=== PATIENT | male | born 1965 | race Caucasian/White ===

== ENCOUNTER 2022-04-03 09:34 | Outpatient (REF) | payer MEDICARE, SELFPAY ==
[2022-04-03 10:45] LABS: MANUAL DIFF FLAG NO
[2022-04-03 10:47] LABS: Basophils Percent Auto 0.7 % (0-2); Eosinophils Percent Auto 0.5 % (0-4); Hematocrit 45.5 % (42.0-52.0); Hemoglobin 15.2 g/dl (14.0-18.0); Imm Gran Abs Auto 0.02 X10*3/uL (0.00-0.03); Imm Gran Pct Auto 0.3 % (0.0-0.4); Lymphocytes Absolute Auto 1.2 X10*3/uL (1.2-4.9); Lymphocytes Percent Auto 19.8 % (20-40); Mean Corpuscular HGB Conc 33.4 g/dl (31.0-36.0); Mean Corpuscular Hemoglobin 30.7 pg (27.0-33.0); Mean Corpuscular Volume 91.9 fL (80.0-98.0); Mean Platelet Volume 11.3 fL (9.4-12.4); Monocytes Absolute Auto 0.6 X10*3/uL (0.1-1.2); Monocytes Percent Auto 9.1 % (2-11); Neutrophils Absolute Auto 4.3 x10*3/uL (2.0-8.3); Neutrophils Percent Auto 69.6 % (45-73); Platelet Count 132 X10*3/uL (160-400); Red Blood Count 4.95 X10*6/uL (4.60-5.80); Red Cell Distribution Width 13.2 % (11.0-16.0); White Blood Count 6.2 X10*3/uL (4.8-10.8)
[2022-04-03 11:40] LABS: Thyroid Stimulating Hormone 2.75 uIU/mL (0.32-4.0)
[2022-04-03 11:41] LABS: Alanine Aminotransferase 33 U/L (0-40); Albumin Level 3.9 g/dL (3.5-5.0); Alkaline Phosphatase 111 U/L (39-117); Anion Gap 13 (12-20); Aspartate Amino Transferase 47 U/L (5-37); Bilirubin Total 1.1 mg/dL (0.0-1.0); Blood Urea Nitrogen 8 mg/dL (9-16); Calcium 8.6 mg/dL (8.4-10.2); Carbon Dioxide 26 mmol/L (22-29); Chloride 102 mmol/L (96-108); Cholesterol 185 mg/dL; Estimated Glomerular Filt Rate > 60; Glucose Fasting 250 mg/dL (60-99); HDL Cholesterol 42 mg/dL; LDL Cholesterol Calculated 127 mg/dl; Potassium 4.3 mmol/L (3.3-5.1); Sodium 137 mmol/L (135-145); Total Protein 7.6 g/dL (6.5-8.0); Triglycerides 80 mg/dL
== END 2022-04-03 09:35 | disposition home or self-care (01) ==
LOC: HO.LAB 09:34
PROVIDERS: PCP Internal Medicine; Visit Provider Internal Medicine
DX: Z13.0 Encounter for screening for diseases of the blood and blood-forming organs and certain disorders involving the immune mechanism (principal); E03.9 Hypothyroidism, unspecified; I10 Essential (primary) hypertension; E78.5 Hyperlipidemia, unspecified
CPT/HCPCS: 36415; 80053; 80061; 84443; 85025

== ENCOUNTER 2023-06-23 08:45 | Outpatient (AMB) | payer MEDICARE, SELFPAY ==
[2023-06-23 08:55] VITALS: BP 150/90; PULSE 76; O2SAT 97; BMI 34.0
--- NOTE | 2023-06-23 08:55 | AM.OFFVISMDC ---
Intake Vital Signs 06/23/23 08:55 Height 6 ft Weight 251 lb BMI 34.0 BP 150/90 H Blood Pressure Location Lt brachial Position Sitting Pulse 76 Pulse Source Pulse Oximeter Pulse Oximetry (%) 97 Oxygen Delivery Method Room Air Intake Visit Reasons: awv Allergies codeine [Codeine] Allergy (Mild, Verified 06/23/23 08:56) RASH Codeine Allergy (Unknown, Uncoded 06/23/23 08:56) Rash Medication List - Last Reconciled 06/23/23 by Darryl Domingo MD buspirone 10 mg PO TID clonidine HCl 0.1 mg PO BEDTIME sertraline 100 mg PO DAILY zolpidem 10 mg PO BEDTIME PRN HPI awv HPI Details Depression on rx; sees psych Questionnaire Medicare Wellness Checkup What [age] your age?: 65-69 (57) What gender do you identify with?: male During the past 4 weeks, how much have you been bothered by emotional problems such as feeling anxious, depressed, irritable, sad or downhearted, and blue?: moderately During the past 4 weeks, has your physical & emotional health limited your social activities with family, friends, neighbors, or groups?: moderately During the past 4 weeks, how much bodily pain have you generally had?: very mild pain During the past 4 weeks, was someone available to help you if you needed & wanted help?: yes, quite a bit During the past 4 weeks, what was the hardest physical activity you could do for at least 2 minutes?: light Can you get to places out of walking distance without help? (For eg., can you travel alone on buses, taxis or drive your car?): No Can you go shopping for groceries or clothes without someone's help?: No Can you prepare your own meals?: Yes Can you do your housework without help?: Yes Because of any health problems, do you need the help of another person with your personal care needs such as eating, bathing, dressing or getting around the house?: No Can you handle your own money without help?: Yes During the past 4 weeks, how would you rate your health in general?: good During the past 4 weeks how have things been going for you?: good & bad parts about equal Are you having difficulties driving your car?: no Do you always fasten your seat belt when you are in a car?: yes, usually During past 4 weeks, have you been bothered by the following: never: Falling or dizzy when standing up, Sexual problems? and Problems using the telephone? and seldom: Trouble eating well? and Tiredness or fatigue? Have you fallen 2 or more times in the past year?: No Are you afraid of falling?: No Are you a smoker?: yes, but I'm not ready to quit During the past 4 weeks, how many drinks of wine, beer, or other alcoholic beverages did you have?: 6-9 drinks per week Do you exercise for about 20 minutes 3 or more times a week?: no, I usually do not exercise this much How often do you have trouble taking medicines the way you have been told to take them?: I always take medicine as prescribed How confident are you that you can control & manage most of your health problems?: not very confident What is your race?: White Mini Mental State Exam (MMSE) Orientation What is the (year) (season) (date) (day) (month)?: year, season, date, day and month Where are we (state) (county) (town or city) (hospital) (floor)?: state, county, town or city, hospital/clinic and floor Registration Name of 3 unrelated objects clearly and slowly, then ask patient to repeat all 3 of them. (1st repeat determines score. Make sure they can repeat all three): object 1, object 2 and object 3 Recall Ask patient to repeat the 3 items from question #3.: object 1 and object 2 Score Score: 15 Activity of Daily Living Bathing - sponge bath, tub bath or shower: receives no assistance (gets in/out by self, if usual bathing means Dressing - getting clothes from closets & drawers, including inner/outer garments & fasteners.: gets clothes & gets completely dressed without help Toileting - going to the 'toilet room' for urine/bowel elimination & cleaning self/arranging clothes: goes to toilet room, cleans self, arranges clothes without help Transfer: moves in & out of bed and chair without help (may use support object) Continence: controls urination/bowel movements completely by self Feeding: feeds self without help Total Score: 0 Information obtained from: patient Using telephone: independent Traveling: independent Shopping: independent Preparing meals: independent Housework: independent Taking medicine: independent PHQ-9 Over the last 2 weeks, how often have you been bothered by any of the following problems? 1. Little interest or pleasure in doing things: nearly every day 2. Feeling down, depressed, or hopeless: nearly every day 3. Trouble falling or staying asleep, or sleeping too much: nearly every day 4. Feeling tired or having little energy: nearly every day 5. Poor appetite or overeating: nearly every day 6. Feeling bad about yourself - or that you are a failure or have let yourself or your family down: nearly every day 7. Trouble concentrating on things, such as reading the newspaper or watching television: nearly every day 8. Moving or speaking so slowly that other people could have noticed. Or the opposite - being so fidgety or restless that you have been moving around a lot more than usual: not at all 9. Thoughts that you would be better off or of hurting yourself in some way: several days Total score: 22 Depression Screening Interpretation: Positive Depression Screening Done: Yes 10249 - PHQ-9 Billing: Yes Source: Developed by Drs. Fan Gaytan, Kacey Robledo, Sunny Stephens and colleagues, with an educational man from [employer]. Review of Systems Const Denies chills, Denies fatigue, Denies headache(s) and Denies weight loss Eyes Denies change in vision, Denies diplopia and Denies eye pain ENT Reports Normal hearing present, Denies vertigo, Denies dizziness, Denies headache(s) and Denies nasal discharge Card Denies chest pain, Denies rapid heart rate and Denies dyspnea on exertion Resp Denies chest congestion, Denies cough, Denies pain with cough and Denies dyspnea on exertion GI Denies abdominal pain, Denies hematochezia and Denies change in bowel habits Musc Denies myalgias, Denies arthralgias and Denies joint swelling Skin/Breast Denies lesions and Denies unusual bruising Neuro Reports Normal hearing present, Denies vertigo, Denies dizziness, Denies headache(s) and Denies focal weakness Endo Denies fatigue Physical Exam Vital Signs: Last Vital Signs Pulse 76 06/23/23 08:55 BP 150/90 H 06/23/23 08:55 Pulse Ox 97 06/23/23 08:55 Oxygen Delivery Method Room Air 06/23/23 08:55 BMI result Body Mass Index 34.0 Neuro Cranial nerves: Yes Normal hearing present Assessment & Plan Assessment & Plan (1) Encounter for subsequent annual wellness visit (AWV) in Medicare patient: Code(s): Z00.00 - Encounter for general adult medical examination without abnormal findings Plan: rhomberg and whisper tests nl (2) Depression: Code(s): F32.A - Depression, unspecified Plan: as perr psych Orders: Orders Lipid Panel Today E78.5 - Hyperlipidemia, unspecified Thyroid Stimulating Hormone Today E03.9 - Hypothyroidism, unspecified Complete Blood Count Auto Diff Today D64.9 - Anemia, unspecified Comprehensive Sullivan. Panel Fast Today N28.9 - Disorder of kidney and ureter, unspecified Hemoglobin A1c Today R73.9 - Hyperglycemia, unspecified Quality Reporting (2019) Depression/Bipolar (159/160/161/177) PHQ-9: Total score: 22 Coding Level of Care Code Medicare Subsequent (G0439) Diagnoses Encounter for subsequent annual wellness visit (AWV) in Medicare patient Z00.00 Depression F32.A CPT Codes Advance Care Planning - Advance Care Planning discussion: On file, no changes ([id number]) Advance Care Planning Advance Care Planning discussion: On file, no changes Forms completed: Health Care Proxy
== END 2023-06-23 09:19 | disposition home or self-care (01) ==
PROVIDERS: PCP Internal Medicine; Visit Provider Internal Medicine
DX: Z00.00 Encounter for general adult medical examination without abnormal findings (principal); F32.A Depression, unspecified
CPT/HCPCS: 1123F; G0439

== ENCOUNTER 2023-06-23 09:27 | Outpatient (REF) | payer MEDICARE, SELFPAY ==
[2023-06-23 09:45] LABS: MANUAL DIFF FLAG NO
[2023-06-23 10:15] LABS: Hematocrit 48.3 % (42.0-52.0); Hemoglobin 16.6 g/dl (14.0-18.0); Mean Corpuscular HGB Conc 34.4 g/dl (31.0-36.0); Mean Corpuscular Hemoglobin 31.3 pg (27.0-33.0); Mean Platelet Volume 11.5 fL (9.4-12.4); Neutrophils Percent Auto 72.8 % (45-73); Platelet Count 117 X10*3/uL (160-400); Red Blood Count 5.31 X10*6/uL (4.60-5.80); Red Cell Distribution Width 13.2 % (11.0-16.0); White Blood Count 7.2 X10*3/uL (4.8-10.8)
[2023-06-23 10:16] LABS: Basophils Percent Auto 0.4 % (0-2); Eosinophils Absolute Auto 0.1 X10*3/uL (0.0-0.4); Imm Gran Abs Auto 0.02 X10*3/uL (0.00-0.03); Imm Gran Pct Auto 0.3 % (0.0-0.4); Lymphocytes Absolute Auto 1.4 X10*3/uL (1.2-4.9); Lymphocytes Percent Auto 19.4 % (20-40); Monocytes Absolute Auto 0.4 X10*3/uL (0.1-1.2); Monocytes Percent Auto 6.1 % (2-11); Neutrophils Absolute Auto 5.2 x10*3/uL (2.0-8.3)
[2023-06-23 10:59] LABS: Estimated Average Glucose 137 mg/dL; Hemoglobin A1c % 6.4 % (<6.0)
[2023-06-23 11:07] LABS: Alanine Aminotransferase 16 U/L (0-40); Alkaline Phosphatase 78 U/L (39-117); Anion Gap 12 (12-20); Aspartate Amino Transferase 25 U/L (5-37); Bilirubin Total 1.1 mg/dL (0.0-1.0); Blood Urea Nitrogen 9 mg/dL (9-16); Calcium 9.4 mg/dL (8.4-10.2); Carbon Dioxide 26 mmol/L (22-29); Chloride 103 mmol/L (96-108); Cholesterol 191 mg/dL (<200); Estimated Glomerular Filt Rate > 60; Glucose Fasting 167 mg/dL (60-99); HDL Cholesterol 38 mg/dL (>40); LDL Cholesterol Calculated 133 mg/dL (<100); Sodium 137 mmol/L (135-145); Total Protein 8.1 g/dL (6.5-8.0); Triglycerides 100 mg/dL (<150)
[2023-06-23 11:29] LABS: Thyroid Stimulating Hormone 2.62 uIU/mL (0.32-4.0)
== END 2023-06-23 09:28 | disposition home or self-care (01) ==
LOC: HO.LAB 09:27
PROVIDERS: PCP Internal Medicine; Visit Provider Internal Medicine
DX: D64.9 Anemia, unspecified (principal); N28.9 Disorder of kidney and ureter, unspecified; R73.9 Hyperglycemia, unspecified; E78.5 Hyperlipidemia, unspecified; E03.9 Hypothyroidism, unspecified
CPT/HCPCS: 36415; 80053; 80061; 83036; 84443; 85025

== ENCOUNTER 2024-04-25 10:10 | Inpatient (IN) | payer MEDICARE, SELFPAY ==
[2024-04-25] VITALS (7 sets, daily range): BP systolic 197–218; BP diastolic 68–96; PULSE 66–77; RESP 17–20; TEMP 36.7–37; O2SAT 96–99; BMI 35.6
--- NOTE | ~2024-04-25 | US_ITS ---
EXAMINATION: Noninvasive assessment of the bilateral lower extremities with ARTERIAL DUPLEX and ANKLE BRACHIAL INDICES (ABIs). CLINICAL INFORMATION: PERIPHERAL VASCULAR DISEASE TECHNIQUE: Duplex Doppler techniques with waveform analysis and measurement of velocities in the bilateral common femoral, profunda femoris, superficial femoral, popliteal and tibial arteries were performed. Additionally, ankle pulse volume recordings, ankle pressure measurements and ankle brachial indices were obtained of the lower extremity arterial system bilaterally. The study was performed only at rest. COMPARISON: None FINDINGS: DIRECT DUPLEX DOPPLER FINDINGS: RIGHT LEG: Common femoral artery: 127 cm/s, phasicity: Biphasic Profunda femoris artery: 98 cm/s, phasicity: Biphasic Superficial femoral artery (proximal): 277 cm/s, phasicity: Biphasic Superficial femoral artery (mid): 82 cm/s, phasicity: Triphasic. Collateral vessels visualized in close proximity to the mid superficial femoral artery. Superficial femoral artery (distal): 44 cm/s, phasicity: Triphasic Popliteal artery: 72 cm/s, phasicity: Monophasic Posterior tibial artery: 38 cm/s, phasicity: Monophasic. Collateral vessels visualized in close proximity to the posterior tibial artery. Peroneal artery: Not visualized Anterior tibial artery: 59 cm/s, phasicity: Monophasic Dorsalis pedis artery: 18 cm/s, phasicity:Monophasic LEFT LEG: Common femoral artery: 121 cm/s, phasicity: Biphasic Profunda femoris artery: 103 cm/s, phasicity: Biphasic Superficial femoral artery (proximal): 382 cm/s, phasicity: Biphasic Superficial femoral artery (mid): 93 cm/s, phasicity: Biphasic Superficial femoral artery (distal): 59 cm/s, phasicity: Biphasic Popliteal artery: 55 cm/s, phasicity: Biphasic Posterior tibial artery: 24 cm/s, phasicity: Monophasic Peroneal artery: 27 cm/s, phasicity: Monophasic Anterior tibial artery: 26 cm/s, phasicity: Monophasic Dorsalis pedis artery: 40 cm/s, phasicity: Monophasic ANKLE-BRACHIAL INDEX: Nondiagnostic bilaterally due to brachial and ankle pressure is greater than 200. ANKLE PRESSURES: Right: Brachial 200, PT 200 Left: Brachial 200, PT?200, DP?200 ANKLE PVR WAVEFORMS: Right: Abnormal Left: Abnormal US/US arterial duplex BI w/ EULALIA IMPRESSION: Right leg: Moderate stenosis of the proximal right superficial femoral artery and mild stenosis of the common femoral artery. Dampened velocities and monophasic waveforms of the right popliteal and anterior tibial arteries. The right peroneal artery is not visualized and may be occluded. There are collateral vessels visualized in close proximity to the mid superficial femoral artery and posterior tibial artery suggesting hemodynamically significant stenoses. Nondiagnostic EULALIA due to elevated ankle and brachial pressures above 200. Left leg: Moderate to severe stenosis of the proximal left superficial femoral artery. Dampened velocities and monophasic waveforms of the peroneal, posterior tibial, and anterior tibial arteries. Nondiagnostic EULALIA due to elevated ankle and brachial pressures above 200. EULALIA Reference: - >1.4 = calcified vessels - 0.9 - 1.4 = normal - no significant arterial disease - 0.7 - 0.89 = mild peripheral arterial disease - 0.51 - 0.69 = moderate peripheral arterial disease - ? 0.50 = severe peripheral arterial disease - < .30 = critical arterial disease
--- NOTE | ~2024-04-25 | XR_ITS ---
EXAMINATION: XR FOOT, RIGHT CLINICAL INFORMATION: Foot also with question of osteomyelitis COMPARISON: None available. TECHNIQUE: AP, lateral, and oblique views of the right foot. FINDINGS: No prior images are available for comparison. There is destruction/absence of the distal fifth metatarsal and proximal phalanx of the fifth digit. A soft tissue ulceration is seen in this region. Vascular calcifications are seen. There is pes planus. No other abnormalities are detected. XR/XR foot RT min 3V IMPRESSION: Destruction/absence of the distal fifth metatarsal and proximal phalanx of the fifth digit with soft tissue ulceration. It is difficult to exclude osteomyelitis especially without prior imaging. MRI may be useful for further evaluation to assess for possible osteomyelitis.
--- NOTE | 2024-04-25 11:18 | ED_ITS ---
HPI - Skin/Abscess/Foreign Bdy General Chief complaint: Skin/Abscess/Foreign Body Stated complaint: Ulcer R foot Time Seen by Provider: 04/25/24 11:04 Source: patient and RN notes reviewed Mode of arrival: ambulatory Limitations: no limitations History of Present Illness ED Provider: Renea Skaggs PA-C HPI narrative: This is a 58-year-old male, with no known medical problems, who presents emergency department with complaints of right foot ulceration. Patient states that he noticed what he thought was a callus several weeks ago. He states that this has increased in size and pain. Denies history of similar symptoms in the past. No fevers or chills. No body aches. No chest pain or shortness of breath. Denies any abdominal pain, nausea, vomiting or diarrhea. He has been ambulatory on this foot however this causes him to have increased pain. He has been taking ibuprofen for her symptoms which has provided him with little relief. No other complaints or concerns at this time. MD complaint: lesion Onset (ago): week(s) Tetanus up to date: unsure Severity: severe Severity scale (1-10): 8 Quality: aching and sharp Pain Consistency: constant Relieving factors: immobilization Exacerbating factors: palpation Context: none Associated symptoms: denies other symptoms Treatments prior to arrival: none Related Data Home Medications ?Medication ?Instructions ?Recorded ?Confirmed buspirone 10 mg tablet 10 mg PO TID 04/03/22 06/23/23 clonidine HCl 0.1 mg tablet 0.1 mg PO BEDTIME 04/03/22 06/23/23 sertraline 100 mg tablet 100 mg PO DAILY 04/03/22 06/23/23 zolpidem 10 mg tablet 10 mg PO BEDTIME PRN 04/03/22 06/23/23 Allergies Allergy/AdvReac Type Severity Reaction Status Date / Time codeine [Codeine] Allergy Mild RASH Verified 04/25/24 10:53 Codeine Allergy Unknown Rash Uncoded 06/23/23 08:56 Review of Systems 2 Review of Systems: Yes all other systems are reviewed and are negative Constitutional: Constitutional: Reports as per [facility] Past Medical History Attestation statement: The following information was validated with the patient. Social History Social History Advance Directives: No Advance Directives Information Provided: Yes Physical Exam 2 Vital Signs: Vital Signs: Last Vital Signs Temp 98.1 F 04/25/24 15:26 Pulse 66 04/25/24 15:26 Resp 20 04/25/24 15:26 BP 197/68 H 04/25/24 15:26 Pulse Ox 99 04/25/24 15:26 O2 Del Method Room Air 04/25/24 15:26 BMI result Body Mass Index 35.6 Const: General: cooperative, comfortable and no acute distress O rientation/consciousness: patient oriented x3 Limitations: no limitations HEENT: Head: Yes normal to inspection, Yes normocephalic and Yes atraumatic Ears: hearing grossly normal bilaterally General nose exam: Normal external nose present Face and sinus: Yes normal facial exam Mouth: Normal oral and palatal mucosa present, oropharynx normal and moist mucous membranes Throat: Yes posterior oropharynx normal Eyes: General: appearance normal, both eyes and all related structures E yelids: Yes eyelids normal Conjunctivae: conjunctivae normal Sclerae: s clerae normal Pupils: Equal, round and reactive pupils present EOM: EOMs intact bilaterally Neck: Neck: Yes normal visual inspection, Yes full ROM and Yes no lymphadenopathy Lymphatic: no lymphadenopathy noted Chest: Chest palpation & inspection: normal inspection of the chest Resp: Effort & Inspection: normal respiratory effort and able to speak in complete sentences Auscultation: clear to auscultation bilaterally, no crackles, no rales, no rhonchi and no wheezes Cardio: Rate: regular rate Rhythm: regular rhythm Heart sounds: S1 normal heart sound present and S2 normal heart sound present GI: Inspection: Yes normal to inspection Skin: General skin exam: no rashes or lesions noted Trauma: no lacerations or abrasions Wounds: no wounds Neuro: General: patient oriented x3 and moves all extremities Cranial nerves: Yes Equal, round and reactive pupils present Extrem: Other: Right lateral foot, there is a large ulceration with tunneling noted measuring approximately 6 cm x 5cm, mild purulence noted, exposed tarsal bone, surrounding erythema warmth. DP pulse 2 + able to plantar and dorsiflex foot General: Yes normal to inspection Right upper extremity: normal to inspection Left upper extremity: normal to inspection Left lower extremity: normal to inspection Course Reevaluation(s) Reevaluation #1: Labs returned, patient has no leukocytosis, H&H stable, chemistry within normal limits. X-ray revealing destruction/absence of the distal 5th metatarsal and proximal phalanx of the 5th digit with soft tissue ulceration. It is difficult to exclude osteomyelitis without prior imaging. Lactic acid 1.3. Sent message out to Dr. Melvin who will come to the ER to evaluate patient. Time: 14:35 Reevaluation #2: Dr Brown yet to see pt, but recommending hospital admit. Pt is in agreement. Culture obtained from wound. Discussed case with hospitalist, bed request placed Time: 15:24 Medications Administered Discontinued Medications Generic Name Dose Route Start Last Admin Trade Name Freq PRN Reason Stop Dose Admin Sodium Chloride 1,000 mls @ 999 mls/hr 04/25/24 11:16 04/25/24 14:33 Ns IV 04/25/24 12:16 Infused .Q1H1M ONE Infusion Vancomycin HCl 2,000 mg in 500 mls @ 250 mls/hr 04/25/24 11:16 04/25/24 12:52 Vancomycin/Ns IV 04/25/24 13:15 250 mls/hr ONCE ONE Administration Piperacillin Sod/Tazobactam 50 mls @ 100 mls/hr 04/25/24 11:16 04/25/24 12:53 Sod 3.375 gm/ Sodium Chloride IV 04/25/24 11:45 Infused ONCE ONE Infusion Morphine Sulfate 4 mg 04/25/24 11:26 04/25/24 11:44 Morphine Sulfate 4 Mg/Ml Cartridge IVPUSH 04/25/24 11:27 4 mg ONCE ONE Administration Protocol Medical Decision Making Medical Decision Making MDM Narrative: This is a 58-year-old male who presents emergency department with complaints of right foot ulceration which has been present for the last 3-4 weeks. On arrival, blood pressure elevated all other vital signs within normal limits. He states that he is unsure how it initially began, states that he believes he had a callus to this area which has since fallen off, he states that he believes he can see the bones in his foot. He denies known history of diabetes. He does not take any medications on a regular basis for any chronic diseases. He denies any fevers or chills. On physical examination, large tunneling ulceration noted to the right lateral foot, with metatarsal exposure, mild surrounding erythema and warmth to the foot. Strong DP pulse. Symptoms concerning for osteomyelitis this is cellulitis. Will likely need admission plus or minus surgical intervention. Plan: Labs, foot x-ray, IV antibiotics Differential Diagnosis Differential Diagnoses: The differential diagnosis associated with the presentation includes Admission/Observation Consideration of admission/observation: Escalation of care including admission/observation considered Patient requiring hospitalization for further management of ulceration. Consult Healthcare Provider Management of the patient was discussed with: [employer] Dr. Melvin Lab Data MDM Lab Attestation statement: I reviewed the patient's lab results. Patient has no leukocytosis, stable H&H, chemistry nondiagnostic, there is mild hyperglycemia at 1:26 a.m., lactic acid 1.3. 04/25/24 11:34 04/25/24 11:34 Labs: Lab Results 04/25/24 Range/Units 11:34 WBC 6.5 (4.8-10.8) X10*3/uL RBC 4.91 (4.60-5.80) X10*6/uL Hgb 15.8 (14.0-18.0) g/dl Hct 45.2 (42.0-52.0) % MCV 92.1 (80.0-98.0) fL MCH 32.2 (27.0-33.0) pg MCHC 35.0 (31.0-36.0) g/dl RDW 13.6 (11.0-16.0) % Plt Count 142 L (160-400) X10*3/uL MPV 10.9 (9.4-12.4) fL Immature Gran % (Auto) 0.5 H (0.0-0.4) % Neut % (Auto) 74.7 H (45-73) % Lymph % (Auto) 14.9 L (20-40) % [place] % (Auto) 8.4 (2-11) % Eos % (Auto) 1.2 (0-4) % Baso % (Auto) 0.3 (0-2) % Lymph # (Auto) 1.0 L (1.2-4.9) X10*3/uL [place] # (Auto) 0.5 (0.1-1.2) X10*3/uL Eos # (Auto) 0.1 (0.0-0.4) X10*3/uL Baso # (Auto) 0.0 (0.0-0.2) X10*3/uL Abs Immat Gran (auto) 0.03 (0.00-0.03) X10*3/uL Absolute Neuts (auto) 4.8 (2.0-8.3) x10*3/uL Absolute Nucleated RBC 0.000 (0.0-0.012) X10*3/uL Nucleated RBC % (auto) 0.0 (0.0-0.2) /100WBC Sodium 140 (135-145) mmol/L Potassium 3.4 (3.3-5.1) mmol/L Chloride 101 (96-108) mmol/L Carbon Dioxide 29 (22-29) mmol/L Anion Gap 13 (12-20) BUN 6 L (9-16) mg/dL Creatinine 0.90 (0.5-1.4) mg/dL Estim Creat Clear Calc 113.0 Estimated GFR > 60 Random Glucose 126 H (60-115) mg/dL Lactic Acid 1.3 (0.5-2.0) mmol/L Calcium 9.4 (8.4-10.2) mg/dL Total Bilirubin 0.9 (0.0-1.0) mg/dL Direct Bilirubin 0.4 (0.0-0.5) mg/dL AST 26 (5-37) U/L ALT 14 (0-40) U/L Alkaline Phosphatase 102 (39-117) U/L B-Natriuretic Peptide 65 (<100) pg/mL Total Protein 8.7 H (6.5-8.0) g/dL Albumin 4.0 (3.5-5.0) g/dL Radiology Impression Discussion of test interpretation with radiology: I have reviewed the radiologist's reading. Radiologist Impression: XR/XR foot RT min 3V IMPRESSION: Destruction/absence of the distal fifth metatarsal and proximal phalanx of the fifth digit with soft tissue ulceration. It is difficult to exclude osteomyelitis especially without prior imaging. MRI may be useful for further evaluation to assess for possible osteomyelitis. Dictated By: Lance Broussard MD Critical Care Time Critical Care Time Critical Care Time: Yes Total Critical Care Time: 35 Attestation: I have personally provided critical care time exclusive of time spent on separately billable procedures. Time includes review of lab data, radiology results, discussion with consultants, and monitoring for potential decompensation. Intervention performed as documented. Discharge Plan Discharge Clinical Impression: Foot ulcer Qualifiers: Laterality: right Patient Disposition: Still a Patient Prescriptions: No Action clonidine HCl 0.1 mg tablet 0.1 mg PO BEDTIME zolpidem 10 mg tablet 10 mg PO BEDTIME PRN sertraline 100 mg tablet 100 mg PO DAILY buspirone 10 mg tablet 10 mg PO TID Print Language: Portuguese
[2024-04-25] MEDS: 0.9 % Sodium Chloride 1,000 ML 999 ML IV (11:39)
[2024-04-25] MEDS: Piperacillin Sodium/Tazobactam 3.375 GM in 0.9 % Sodium Chloride 50 ML IV ×3 (11:40→22:53)
[2024-04-25 11:43] LABS: MANUAL DIFF FLAG NO
[2024-04-25] MEDS: Morphine Sulfate 4 MG/ML CARTRIDGE IVPUSH (11:44)
[2024-04-25 11:52] LABS: Basophils Percent Auto 0.3 % (0-2); Eosinophils Absolute Auto 0.1 X10*3/uL (0.0-0.4); Eosinophils Percent Auto 1.2 % (0-4); Hematocrit 45.2 % (42.0-52.0); Hemoglobin 15.8 g/dl (14.0-18.0); Imm Gran Abs Auto 0.03 X10*3/uL (0.00-0.03); Imm Gran Pct Auto 0.5 % (0.0-0.4); Lymphocytes Percent Auto 14.9 % (20-40); Mean Corpuscular Hemoglobin 32.2 pg (27.0-33.0); Mean Corpuscular Volume 92.1 fL (80.0-98.0); Mean Platelet Volume 10.9 fL (9.4-12.4); Monocytes Absolute Auto 0.5 X10*3/uL (0.1-1.2); Monocytes Percent Auto 8.4 % (2-11); Neutrophils Absolute Auto 4.8 x10*3/uL (2.0-8.3); Neutrophils Percent Auto 74.7 % (45-73); Platelet Count 142 X10*3/uL (160-400); Red Blood Count 4.91 X10*6/uL (4.60-5.80); Red Cell Distribution Width 13.6 % (11.0-16.0); White Blood Count 6.5 X10*3/uL (4.8-10.8)
[2024-04-25 12:01] LABS: Lactic Acid 1.3 mmol/L (0.5-2.0)
[2024-04-25 12:07] LABS: Alanine Aminotransferase 14 U/L (0-40); Alkaline Phosphatase 102 U/L (39-117); Anion Gap 13 (12-20); Aspartate Amino Transferase 26 U/L (5-37); Bilirubin Direct 0.4 mg/dL (0.0-0.5); Bilirubin Total 0.9 mg/dL (0.0-1.0); Blood Urea Nitrogen 6 mg/dL (9-16); Calcium 9.4 mg/dL (8.4-10.2); Carbon Dioxide 29 mmol/L (22-29); Chloride 101 mmol/L (96-108); Estimated Glomerular Filt Rate > 60; Glucose Random 126 mg/dL (60-115); Potassium 3.4 mmol/L (3.3-5.1); Sodium 140 mmol/L (135-145); Total Protein 8.7 g/dL (6.5-8.0)
[2024-04-25 12:10] LABS: B Type Natriuretic Peptide 65 pg/mL (<100)
--- NOTE | 2024-04-25 12:43 | PC.NURSE ---
wound care nurse alerted of patient, photo forwarded to her as well to be placed on radar.
[2024-04-25] MEDS: vancomycin/NS 2,000 MG/500 ML PLAST..BAG 250 MG IV (12:52)
--- NOTE | 2024-04-25 15:53 | P.HPHOSP_ITS ---
History of Present Illness Date of Service: 04/25/24 Chief Complaint: right foot ulcer A 58-year-old male with a history of depression, obesity, and peripheral neuropathy presents to the emergency room for evaluation of a right foot wound that began after he stubbed his foot. He subsequently developed a wound near the 5th toe, which has progressively worsened, revealing visible bone and, in his words, rotten. There is a large open wound on the lateral aspect of the right foot at the base of the 5th toe, with necrotic tissue, visible and detached bone, and a foul odor. The wound has been debrided at the bedside by a wound surgeon. The patient has been administered antibiotics (Zosyn and vancomycin). An X-ray of the foot suggests osteomyelitis. He is not septic. Review of Systems 2 Review of Systems: Gen: no fever Resp: no sob, no cough CV: no chest, no RENEE, no leg edema GI: No n/v, no abd pain pain inthe right foot Neuro: No confusion Yes all other systems are reviewed and are negative PMFSH Social History Advance Directives: No Advance Directives Information Provided: Yes Meds Allergies Allergy/AdvReac Type Severity Reaction Status Date / Time codeine [Codeine] Allergy Mild RASH Verified 04/25/24 10:53 Codeine Allergy Unknown Rash Uncoded 06/23/23 08:56 Home Medications ?Medication ?Instructions ?Recorded ?Confirmed ?Last Taken ?Type buspirone 10 mg tablet 10 mg PO TID 04/03/22 04/25/24 04/25/24 History clonidine HCl 0.1 mg tablet 0.1 mg PO BEDTIME 04/03/22 04/25/24 04/24/24 History sertraline 100 mg tablet 100 mg PO DAILY 04/03/22 04/25/24 04/25/24 History zolpidem 10 mg tablet 10 mg PO BEDTIME PRN Sleep 04/03/22 04/25/24 04/24/24 History ibuprofen 600 mg tablet 600 mg PO Q6H PRN Pain 04/25/24 04/25/24 Unknown History Physical Exam 2 Vital Signs and Narrative: Vital Signs: Last Vital Signs Temp 98.1 F 04/25/24 15:26 Pulse 66 04/25/24 15:26 Resp 20 04/25/24 15:26 BP 197/68 H 04/25/24 15:26 Pulse Ox 99 04/25/24 15:26 O2 Del Method Room Air 04/25/24 15:26 BMI result Body Mass Index 35.6 Constitutional: Alert, in no distress, overweight. Mental Status: Oriented to person, place and time. Eyes: Pupils are equal, round and reactive to light. Ear, Nose and Throat: Oropharynx clear, mucous membranes moist. Ears and nose without eformities. Trachea midline. Respiratory: Clear to auscultation. No wheezing, rales or rhonchi. Cardiovascular: S1 S2 regular. No murmurs, rubs or gallops. Gastrointestinal: Abdomen soft, non-tender, non-distended. Normal bowel sounds.? Neurologic: Cranial nerves II-XII grossly intact. No focal neurological deficits. Moves all extremities spontaneously.? Skin: No rashes or lesions.? Musculoskeletal: No cyanosis or clubbing. Psychiatric: Normal mood and affect? Results Labs 04/25/24 11:34 04/25/24 11:34 Labs: Laboratory Results - last 24 hr 04/25/24 11:34 MCV 92.1 MCH 32.2 MCHC 35.0 RDW 13.6 Plt Count 142 L MPV 10.9 Immature Gran % (Auto) 0.5 H Neut % (Auto) 74.7 H Lymph % (Auto) 14.9 L [place] % (Auto) 8.4 Eos % (Auto) 1.2 Baso % (Auto) 0.3 Lymph # (Auto) 1.0 L [place] # (Auto) 0.5 Eos # (Auto) 0.1 Baso # (Auto) 0.0 Abs Immat Gran (auto) 0.03 Absolute Neuts (auto) 4.8 Absolute Nucleated RBC 0.000 Nucleated RBC % (auto) 0.0 Anion Gap 13 Estim Creat Clear Calc 113.0 Estimated GFR > 60 Random Glucose 126 H Lactic Acid 1.3 Calcium 9.4 Total Bilirubin 0.9 Direct Bilirubin 0.4 AST 26 ALT 14 Alkaline Phosphatase 102 B-Natriuretic Peptide 65 Total Protein 8.7 H Albumin 4.0 Imaging Radiologist's Impressions: Impressions Foot X-Ray 04/25/24 12:08 IMPRESSION: Destruction/absence of the distal fifth metatarsal and proximal phalanx of the fifth digit with soft tissue ulceration. It is difficult to exclude osteomyelitis especially without prior imaging. MRI may be useful for further evaluation to assess for possible osteomyelitis. Assessment and Plan (1) Foot ulcer: Qualifiers: Laterality: right Status: Acute (2) Acute osteomyelitis: Status: Acute (3) HTN (hypertension): Status: Acute Plan 58-year-old male with depression, obesity , peripheral neuropathy and likely untreated HTN here with an infected open wound of right foot following a traumatic injury. Infected, traumatic open wound with exposed bone and osteomylitis -s/p bedside debridment by wound surgeon -CRP and ESR -Vascular surgery consult for possible ampuation -Arterial ultrasound with EULALIA -IV Vanco and Zosyn -Morphine for pain -ID consult Peripheral vascular disesase -artterial studies with EULALIA and vascular consult Depression--resume home meds Elevated blood pressure, likely untreated HTN -Start Norvasc Class 2 obesity, weight advised trought excercise and caloric restriction DVT prophylaxis--lovenox Full code at least 2 midnghts hospitalization for acute osteomylitis and ifnected wound Quality Stroke Does the patient have a stroke diagnosis?: No VTE Prior VTE?: No VTE Risk Level:: Medical - moderate - high VTE Device Contraindication: Treatment Not Indicated VTE Drug Contraindication: N/A - Med Ordered
--- NOTE | 2024-04-25 16:12 | HO.WOUND ---
Wound Consult: Initial 58yr old?Male admitted to [facility] [place] on 04/25/24 - See progress notes and H&P for detailed history.? Wound consult placed for Right Lateral Foot wound.? Patient agreeable to assessment and photo documentation.? Patient reports a few weeks ago he stubbed his 5th toe and didnt think much of it. He reports he oftyen stubs this toew but this time approximatly one week after injury he felt a callus in the middle of the night and began to pick at the sight thatthen bagn to bleed. He reports he sleeps on his couch. He reports he has not sought treatment prior to today for the wound and has not covered the wound at home. He reports he ordered a topical cream from an online store and has been cleansing and applying the cream daily. He reports he was aware there was bone exposed and that fear kept him from seeking treatment sooner. He reports he lives alone. He ultimately came to [facility] [place] ED due to odor from wound. Right Lateral Foot Wound Etiology: Etiology unknown at this time consider traumatic injury provider to assess Diabetic diagnosis Measurements: 7.5cm x 5cm x 2cm with undermining at 12 o'clock of 2cm Wound Bed: rought jagged exposed bone tip muscle and black moist necrotic tissue Drainage / Odor: foul odor noted - no drainage noted no dressing in place Edges: ? well defined and epibole Kailyn wound: swelling, red erythema noted Pain: pt reports pain and tenderness Goals of Treatment: ? expert consult (Surgery) for evaulation and suspected debridement and wet to moist packing Recommendations: 1. Turn and Reposition every 2 hours and as needed for patient comfort.? Use pillows or wedges to support off loading positions. 2. Off Load all bony prominences with use of pillows and heel boots if needed.? Apply Preventative foams where needed. ? 3. Monitor for incontinence and moisture control, use barrier creams when needed for prevention and treatment. 4. Provide adequate and supplemental nutrition.? 5. Order low air loss mattress. 6. When applicable maintain blood glucose levels per Providers order. 7. Provide Smoking cessation. 8. Right Lateral Foot - Elevate lower leg / foot off of bed surface. Cleanse and irrigate with Dakins Solution. Lightly pack wound bed with Dakins wet gauze, cover with dry ABD and wrap. Change daily. Re-consult wound care Nurse for wound deterioration or wound changes.
[2024-04-25] MEDS: amLODIPine Besylate 5 MG TABLET PO (16:31)
--- NOTE | 2024-04-25 16:33 | PHA.MEDREC ---
Addendum entered by Lillian Blum RPh 04/25/24 17:16: Reviewed by [facility] Original Note: Pharmacy Consult ? Medication Reconciliation Pharmacy has completed the medication reconciliation. Spoke to patient to confirm med list.
[2024-04-25 16:38] LABS: C Reactive Protein 1.99 mg/dL (< or = 0.50)
[2024-04-25 16:56] LABS: Estimated Average Glucose 126 mg/dL
[2024-04-25 17:20] LABS: Erythrocyte Sedimentation Rate 28 MM/HR (0-15)
--- NOTE | 2024-04-25 17:57 | PHA.PROG ---
Admission Date/Time: April 25, 2024 16:40 Indication: Bone Weight in k.9 kg Adjusted body weight in K.9 kg Serum Creatinine - Last 168 Hours 04/25/24 11:34 Creatinine 0.90 Estimated CrCl and GFR - Last 168 Hours 04/25/24 11:34 Estim Creat Clear Calc 113.0 Estimated GFR > 60 Vancomycin Loading Dose: 2,000 mg Current Vancomycin Dosing Regimen: 1,500mg q12h Vancomycin Monitoring using AUC goal of 400 - 600 range with trough as surrogate marker: 574 mg/L Date and Time for next Vancomycin Level to be drawn: 04/26 @ 2100 Pharmacist Comments on Vancomycin Plan: Vancomycin dosing will take advantage of [employer] as a clinical decision support tool that uses Bayesian modeling to calculate individual patient's pharmacokinetic parameters and forecast the patient's drug concentration time course with the target goal AUC 24 range of 400 - 600 mg/L/hr.
--- NOTE | 2024-04-25 18:46 | PC.NURSE ---
Med administration delayed d/t pt being in ultrasound
[2024-04-25] MEDS: hydrALAZINE HCl 20 MG/ML VIAL 10 MG IVPUSH (18:50)
[2024-04-25] MEDS: Enoxaparin Sodium 40 MG/0.4 ML SYRINGE SUBCUT (18:50)
--- NOTE | 2024-04-25 19:56 | P.CONGS_ITS ---
History of Present Illness Consult details Consult date: 04/25/24 Requesting physician: Mahendra Summers Narrative: The pt is a 58 year old male NOT diabetic who stubbed his right toe about 3 weeks ago he says - he thinks he might have broken it. He did not seek any medical care but bought some type of miracle cream and used it but the wound got worse so he finally came to the ER. He denies fever chills and has neuropathy so cant feel much in this area. xrays show bone fractured and a segment missing - dislocation/infection/osteomyelitis. Pt says no claudication symptoms he has never had vascular issues. Review of Systems 2 Review of Systems: Yes all other systems are reviewed and are negative [facility] Social History Social History Patient Tobacco Use Status: Current everyday Tobacco user Advance Directives: No Advance Directives Information Provided: Yes Nutrition Risks: No Nutritional Risk Meds Allergies Allergy/AdvReac Type Severity Reaction Status Date / Time codeine [Codeine] Allergy Mild RASH Verified 04/25/24 10:53 Codeine Allergy Unknown Rash Uncoded 06/23/23 08:56 Active Medications: Current Medications Acetaminophen (Acetaminophen 325 Mg Tablet) 650 mg PO Q6H PRN PRN Reason: Pain, Mild (Pain Scale 1-3), fever or headache Amlodipine Besylate (Amlodipine Besylate 5 Mg Tablet) 5 mg PO DAILY WOOD; Protocol Last Admin: 04/25/24 16:31 Dose: 5 mg Buspirone HCl (Buspirone Hcl 10 Mg Tablet) 10 mg PO TID WOOD Calcium Carbonate (Calcium Carbonate 750 Mg Tab.Chew) 750 mg PO Q4H PRN PRN Reason: Heartburn Clonidine HCl (Clonidine Hcl 0.1 Mg Tablet) 0.1 mg PO BEDTIME WOOD; Protocol Enoxaparin Sodium (Enoxaparin Sodium 40 Mg/0.4 Ml Syringe) 40 mg SUBCUT Q24H WOOD Last Admin: 04/25/24 18:50 Dose: 40 mg Piperacillin Sod/Tazobactam (Sod 3.375 gm/ Sodium Chloride) 50 mls @ 100 mls/hr IV Q6H WOOD Last Admin: 04/25/24 18:50 Dose: 100 mls/hr Vancomycin HCl 1,500 mg/ (Sodium Chloride) 500 mls @ 333.333 mls/hr IV Q12H WOOD Magnesium Hydroxide (Milk Of Magnesia 30 Ml Oral.Susp) 30 ml PO DAILY PRN PRN Reason: Constipation Melatonin (Melatonin 3 Mg Tablet) 6 mg PO BEDTIME PRN PRN Reason: Insomnia Morphine Sulfate (Morphine Sulfate 4 Mg/Ml Cartridge) 2 mg IVPUSH Q6H PRN; Protocol PRN Reason: Pain, Severe (Pain Scale 7-10) Ondansetron HCl (Ondansetron Hcl 4 Mg/2 Ml Vial) 4 mg IVPUSH Q8H PRN PRN Reason: Nausea and Vomiting Pharmacy Consult (Consult Rx Vancomycin Dosing) 1 each MISCELLANE DAILY PRN PRN Reason: Consult order Sertraline HCl (Sertraline Hcl 100 Mg Tablet) 100 mg PO DAILY WOOD Sodium Chloride (0.9 % Sodium Chloride Flush 3 Ml Syringe) 3 ml IVFLUSH QSHIFT WOOD Sodium Hypochlorite (Sodium Hypochlorite 0.25% 473 Ml Solution) 1 appl TOPICAL DAILY WOOD Last Admin: 04/25/24 18:58 Dose: Not Given Sodium Hypochlorite (Sodium Hypochlorite 0.125% 473 Ml Solution) 1 appl TOPICAL BID WOOD Zolpidem Tartrate (Zolpidem Tartrate 5 Mg Tablet) 5 mg PO BEDTIME PRN PRN Reason: Sleep Home Medications ?Medication ?Instructions ?Recorded ?Confirmed ?Last Taken ?Type buspirone 10 mg tablet 10 mg PO TID 04/03/22 04/25/24 04/25/24 History clonidine HCl 0.1 mg tablet 0.1 mg PO BEDTIME 04/03/22 04/25/24 04/24/24 History sertraline 100 mg tablet 100 mg PO DAILY 04/03/22 04/25/24 04/25/24 History zolpidem 10 mg tablet 10 mg PO BEDTIME PRN Sleep 04/03/22 04/25/24 04/24/24 History ibuprofen 600 mg tablet 600 mg PO Q6H PRN Pain 04/25/24 04/25/24 Unknown History Physical Exam 2 Vital Signs: Vital Signs: Last Vital Signs Temp 98.1 F 04/25/24 15:26 Pulse 66 04/25/24 15:26 Resp 20 04/25/24 15:26 BP 218/96 H 04/25/24 18:50 Pulse Ox 99 04/25/24 15:26 O2 Del Method Room Air 04/25/24 15:26 BMI result Body Mass Index 35.6 Const: General: cooperative, healthy appearing, comfortable and no acute distress Skin: Other: right lateral foot with large open wound with necrotic purulent tissue and area with open tissue shows bone and muscle noted. vascular - monophasic DP and PT.bone present and some tissue wtih granulatinr Results Labs 04/25/24 11:34 04/25/24 11:34 Labs: Abnormal lab results 04/25/24 Range/Units 11:34 Plt Count 142 L (160-400) X10*3/uL Immature Gran % (Auto) 0.5 H (0.0-0.4) % Neut % (Auto) 74.7 H (45-73) % Lymph % (Auto) 14.9 L (20-40) % Lymph # (Auto) 1.0 L (1.2-4.9) X10*3/uL ESR 28 H (0-15) MM/HR BUN 6 L (9-16) mg/dL Random Glucose 126 H (60-115) mg/dL C-Reactive Protein 1.99 H (< or = 0.50) mg/dL Total Protein 8.7 H (6.5-8.0) g/dL Short CBC 04/25/24 Range/Units 11:34 WBC 6.5 (4.8-10.8) X10*3/uL Hgb 15.8 (14.0-18.0) g/dl Hct 45.2 (42.0-52.0) % Plt Count 142 L (160-400) X10*3/uL BMP 04/25/24 11:34 Sodium 140 Potassium 3.4 Chloride 101 Carbon Dioxide 29 BUN 6 L Creatinine 0.90 Calcium 9.4 Liver Function 04/25/24 Range/Units 11:34 Total Bilirubin 0.9 (0.0-1.0) mg/dL Direct Bilirubin 0.4 (0.0-0.5) mg/dL AST 26 (5-37) U/L ALT 14 (0-40) U/L Alkaline Phosphatase 102 (39-117) U/L Albumin 4.0 (3.5-5.0) g/dL All other labs normal. Assessment and Plan (1) Foot ulcer: Qualifiers: Laterality: right Status: Acute Plan 58 yo male with significant right lateral foot wound with exposed bone and muscle and osteomyelitis and poor vascular flow - p plan to get vascular arterial ultrasound, dakins wet to dry dressing, vascular consult, followup with ID. Will follow along - sore for more debridment at bedside. If vascular take on care consider them doing amp for general surgery Procedures Date of Service Date of Service: 04/25/24
[2024-04-25] MEDS: ondansetron HCL 4 MG/2 ML VIAL IVPUSH (20:50)
[2024-04-25] MEDS: cloNIDine HCL 0.1 MG TABLET PO (20:50)
[2024-04-25] MEDS: Morphine Sulfate 4 MG/ML CARTRIDGE 2 MG IVPUSH (20:50)
[2024-04-25] MEDS: busPIRone HCl 10 MG TABLET PO (20:50)
--- NOTE | 2024-04-25 21:08 | PC.NURSE ---
please call sergio Josselin @ with any updates.
[2024-04-26] MEDS: vancomycin HCL 1,500 MG in 0.9 % Sodium Chloride 500 ML 333.33 MG IV ×2 (00:14→12:42)
[2024-04-26] MEDS: Piperacillin Sodium/Tazobactam 3.375 GM in 0.9 % Sodium Chloride 50 ML IV ×4 (04:20→22:47)
[2024-04-26 05:23] LABS: Creatinine Clr Calc Pharmacy 125.5; Estimated Glomerular Filt Rate > 60
--- NOTE | 2024-04-26 06:28 | P.PNIM_ITS ---
Subjective Subjective Date of Service: 04/26/24 Interval History: f/u on foot ulcer with osteomylitis (OM) interval changed: pain is better, no fever or chills Physical Exam 2 Vital Signs: Vital Signs: Last Vital Signs Temp 98.1 F 04/25/24 15:26 Pulse 66 04/25/24 15:26 Resp 20 04/25/24 15:26 BP 218/96 H 04/25/24 20:50 Pulse Ox 99 04/25/24 15:26 O2 Del Method Room Air 04/25/24 15:26 BMI result Body Mass Index 35.6 Const: Other: General: AO X 3, no acute distress Resp: CTA bilateral CVS: S1,S2,RRR GI: +BS, NT, no distention Skin: wound of right foot looks the same.. see H and p picture from 04/25 Neuro: motor grossly intact Psych: appropriate affect Objective Data Active Medications Acetaminophen (Acetaminophen 325 Mg Tablet) 650 mg PO Q6H PRN PRN Reason: Pain, Mild (Pain Scale 1-3), fever or headache Amlodipine Besylate (Amlodipine Besylate 5 Mg Tablet) 5 mg PO DAILY [facility]; Protocol Last Admin: 04/25/24 16:31 Dose: 5 mg Documented By: SHIRA Buspirone HCl (Buspirone Hcl 10 Mg Tablet) 10 mg PO TID WOOD Last Admin: 04/25/24 20:50 Dose: 10 mg Documented By: MARKUS Calcium Carbonate (Calcium Carbonate 750 Mg Tab.Chew) 750 mg PO Q4H PRN PRN Reason: Heartburn Clonidine HCl (Clonidine Hcl 0.1 Mg Tablet) 0.1 mg PO BEDTIME WOOD; Protocol Last Admin: 04/25/24 20:50 Dose: 0.1 mg Documented By: MARKUS Enoxaparin Sodium (Enoxaparin Sodium 40 Mg/0.4 Ml Syringe) 40 mg SUBCUT Q24H WOOD Last Admin: 04/25/24 18:50 Dose: 40 mg Documented By: SHIRA Piperacillin Sod/Tazobactam (Sod 3.375 gm/ Sodium Chloride) 50 mls @ 100 mls/hr IV Q6H WOOD Last Admin: 04/26/24 04:20 Dose: 100 mls/hr Documented By: MARKUS Vancomycin HCl 1,500 mg/ (Sodium Chloride) 500 mls @ 333.333 mls/hr IV Q12H [facility] Last Infusion: 04/26/24 01:45 Dose: Infused Documented By: MARKUS Magnesium Hydroxide (Milk Of Magnesia 30 Ml Oral.Susp) 30 ml PO DAILY PRN PRN Reason: Constipation Melatonin (Melatonin 3 Mg Tablet) 6 mg PO BEDTIME PRN PRN Reason: Insomnia Morphine Sulfate (Morphine Sulfate 4 Mg/Ml Cartridge) 2 mg IVPUSH Q6H PRN; Protocol PRN Reason: Pain, Severe (Pain Scale 7-10) Last Admin: 04/25/24 20:50 Dose: 2 mg Documented By: MARKUS Ondansetron HCl (Ondansetron Hcl 4 Mg/2 Ml Vial) 4 mg IVPUSH Q8H PRN PRN Reason: Nausea and Vomiting Last Admin: 04/25/24 20:50 Dose: 4 mg Documented By: MARKUS Pharmacy Consult (Consult Rx Vancomycin Dosing) 1 each MISCELLANE DAILY PRN PRN Reason: Consult order Sertraline HCl (Sertraline Hcl 100 Mg Tablet) 100 mg PO DAILY [facility] Sodium Chloride (0.9 % Sodium Chloride Flush 3 Ml Syringe) 3 ml IVFLUSH QSHIFT [facility] Last Admin: 04/26/24 00:17 Dose: Not Given Documented By: MARKUS Non-Admin Reason: Previously Administered Sodium Hypochlorite (Sodium Hypochlorite 0.25% 473 Ml Solution) 1 appl TOPICAL DAILY [facility] Last Admin: 04/25/24 18:58 Dose: Not Given Documented By: SHIRA Non-Admin Reason: Physician Held Med Sodium Hypochlorite (Sodium Hypochlorite 0.125% 473 Ml Solution) 1 appl TOPICAL BID [facility] Last Admin: 04/25/24 22:53 Dose: Not Given Documented By: MARKUS Non-Admin Reason: Med Not Available Zolpidem Tartrate (Zolpidem Tartrate 5 Mg Tablet) 5 mg PO BEDTIME PRN PRN Reason: Sleep Labs 04/25/24 11:34 04/26/24 04:57 Labs: Laboratory Results - last 24 hr 04/25/24 04/26/24 11:34 04:57 MCV 92.1 MCH 32.2 MCHC 35.0 RDW 13.6 Plt Count 142 L MPV 10.9 Immature Gran % (Auto) 0.5 H Neut % (Auto) 74.7 H Lymph % (Auto) 14.9 L Terry % (Auto) 8.4 Eos % (Auto) 1.2 Baso % (Auto) 0.3 Lymph # (Auto) 1.0 L Terry # (Auto) 0.5 Eos # (Auto) 0.1 Baso # (Auto) 0.0 Abs Immat Gran (auto) 0.03 Absolute Neuts (auto) 4.8 Absolute Nucleated RBC 0.000 Nucleated RBC % (auto) 0.0 ESR 28 H Anion Gap 13 Estim Creat Clear Calc 113.0 125.5 Estimated GFR > 60 > 60 Random Glucose 126 H Estimat Average Glucose 126 Hemoglobin A1c % 6.0 Lactic Acid 1.3 Calcium 9.4 Total Bilirubin 0.9 Direct Bilirubin 0.4 AST 26 ALT 14 Alkaline Phosphatase 102 C-Reactive Protein 1.99 H B-Natriuretic Peptide 65 Total Protein 8.7 H Albumin 4.0 Assessment and Plan (1) HTN (hypertension): Status: Acute (2) Peripheral vascular disease: Status: Acute (3) Acute osteomyelitis: Status: Acute (4) Foot ulcer: Status: Acute Plan 58-year-old male with depression, obesity , peripheral neuropathy and likely untreated HTN here with an infected open wound of right foot following a traumatic injury. Infected, traumatic open wound with exposed bone and osteomylitis -s/p bedside debridment by wound surgeon -CRP and ESR elevated -Vascular surgery will angio gram given right SFA disease on US arterial with EULALIA -IV Vanco and Zosyn started 04/25, follow levels and BMP, follow cultures -Morphine for pain -ID consult Peripheral vascular disesase -artterial studies with EULALIA show right SFA disease Depression--resume home meds Elevated blood pressure, likely untreated HTN -Start Norvasc, on clonidine, add Lisiniopril 10 and adjust meds as needed Class 2 obesity, weight advised trought excercise and caloric restriction DVT prophylaxis--lovenox Full code need for inpt: hospitalization for acute osteomylitis and ifnected wound Quality Stroke Does the patient have a stroke diagnosis?: No VTE Prior VTE?: No VTE Risk Level:: Medical - moderate - high VTE Device Contraindication: Treatment Not Indicated VTE Drug Contraindication: N/A - Med Ordered
[2024-04-26 06:56] VITALS: BP 174/87; PULSE 66; RESP 14; O2SAT 97
[2024-04-26] MEDS: Sertraline HCL 100 MG TABLET PO (08:35)
[2024-04-26] MEDS: busPIRone HCl 10 MG TABLET PO ×3 (08:36→21:16)
[2024-04-26] MEDS: amLODIPine Besylate 5 MG TABLET PO (08:36)
--- NOTE | 2024-04-26 10:08 | PM.CNGS ---
History of Present Illness Consult details Consult date: 04/26/24 Reason for consult: wound care Narrative: Pleasant 58-year-old gentleman presents for evaluation regarding nonhealing. He has nonhealing right lateral foot ulcer. Reports that it began as a blister that opened up. It has been non healing. He reports that he is a nondiabetic and smokes about a half a pack per day. He now presents to us for vascular follow-up. Review of Systems Review of Systems: Yes all other systems are reviewed and are negative Constitutional: Constitutional: Reports no additional constitutional complaints ENT: Reports Normal hearing present Cardiovascular: Cardiovascular: Denies chest pain, Denies chest pain at rest, Denies chest pain with activity and Denies pedal edema Respiratory: Respiratory: Denies cough Gastrointestinal: Gastrointestinal: Denies abdominal pain Musculoskeletal: Musculoskeletal: Denies abnormal gait, Denies muscle cramps and Denies radiating pain into limb Integumentary/Breasts: Skin/Breast: Denies skin ulcer and Denies wounds Neurologic: Reports Normal hearing present and Denies abnormal gait Psychiatric: Psychiatric: Reports no additional psychiatric complaints [facility] Social History Social History Patient Tobacco Use Status: Current everyday Tobacco user Advance Directives: No Advance Directives Information Provided: Yes Nutrition Risks: No Nutritional Risk Meds Allergies Allergy/AdvReac Type Severity Reaction Status Date / Time codeine [Codeine] Allergy Mild RASH Verified 04/25/24 10:53 Codeine Allergy Unknown Rash Uncoded 06/23/23 08:56 Active Medications: Current Medications Acetaminophen (Acetaminophen 325 Mg Tablet) 650 mg PO Q6H PRN PRN Reason: Pain, Mild (Pain Scale 1-3), fever or headache Amlodipine Besylate (Amlodipine Besylate 5 Mg Tablet) 5 mg PO DAILY [facility]; Protocol Last Admin: 04/26/24 08:36 Dose: 5 mg Buspirone HCl (Buspirone Hcl 10 Mg Tablet) 10 mg PO TID WOOD Last Admin: 04/26/24 08:36 Dose: 10 mg Calcium Carbonate (Calcium Carbonate 750 Mg Tab.Chew) 750 mg PO Q4H PRN PRN Reason: Heartburn Clonidine HCl (Clonidine Hcl 0.1 Mg Tablet) 0.1 mg PO BEDTIME [facility]; Protocol Last Admin: 04/25/24 20:50 Dose: 0.1 mg Enoxaparin Sodium (Enoxaparin Sodium 40 Mg/0.4 Ml Syringe) 40 mg SUBCUT Q24H [facility] Last Admin: 04/25/24 18:50 Dose: 40 mg Piperacillin Sod/Tazobactam (Sod 3.375 gm/ Sodium Chloride) 50 mls @ 100 mls/hr IV Q6H [facility] Last Infusion: 04/26/24 04:50 Dose: Infused Vancomycin HCl 1,500 mg/ (Sodium Chloride) 500 mls @ 333.333 mls/hr IV Q12H [facility] Last Infusion: 04/26/24 01:45 Dose: Infused Magnesium Hydroxide (Milk Of Magnesia 30 Ml Oral.Susp) 30 ml PO DAILY PRN PRN Reason: Constipation Melatonin (Melatonin 3 Mg Tablet) 6 mg PO BEDTIME PRN PRN Reason: Insomnia Morphine Sulfate (Morphine Sulfate 4 Mg/Ml Cartridge) 2 mg IVPUSH Q6H PRN; Protocol PRN Reason: Pain, Severe (Pain Scale 7-10) Last Admin: 04/25/24 20:50 Dose: 2 mg Ondansetron HCl (Ondansetron Hcl 4 Mg/2 Ml Vial) 4 mg IVPUSH Q8H PRN PRN Reason: Nausea and Vomiting Last Admin: 04/25/24 20:50 Dose: 4 mg Pharmacy Consult (Consult Rx Vancomycin Dosing) 1 each MISCELLANE DAILY PRN PRN Reason: Consult order Sertraline HCl (Sertraline Hcl 100 Mg Tablet) 100 mg PO DAILY [facility] Last Admin: 04/26/24 08:35 Dose: 100 mg Sodium Chloride (0.9 % Sodium Chloride Flush 3 Ml Syringe) 3 ml IVFLUSH QSHIFT [facility] [place] Last Admin: 04/26/24 07:33 Dose: Not Given Sodium Hypochlorite (Sodium Hypochlorite 0.25% 473 Ml Solution) 1 appl TOPICAL DAILY [facility] [place] Last Admin: 04/26/24 08:41 Dose: Not Given Sodium Hypochlorite (Sodium Hypochlorite 0.125% 473 Ml Solution) 1 appl TOPICAL BID [facility] [place] Last Admin: 04/26/24 08:41 Dose: Not Given Zolpidem Tartrate (Zolpidem Tartrate 5 Mg Tablet) 5 mg PO BEDTIME PRN PRN Reason: Sleep Home Medications ?Medication ?Instructions ?Recorded ?Confirmed ?Last Taken ?Type buspirone 10 mg tablet 10 mg PO TID 04/03/22 04/25/24 04/25/24 History clonidine HCl 0.1 mg tablet 0.1 mg PO BEDTIME 04/03/22 04/25/24 04/24/24 History sertraline 100 mg tablet 100 mg PO DAILY 04/03/22 04/25/24 04/25/24 History zolpidem 10 mg tablet 10 mg PO BEDTIME PRN Sleep 04/03/22 04/25/24 04/24/24 History ibuprofen 600 mg tablet 600 mg PO Q6H PRN Pain 04/25/24 04/25/24 Unknown History Physical Exam Vital Signs: Vital Signs: Last Vital Signs Temp 98.1 F 04/25/24 15:26 Pulse 66 04/26/24 06:56 Resp 14 04/26/24 06:56 BP 174/87 H 04/26/24 06:56 Pulse Ox 97 04/26/24 06:56 O2 Del Method Room Air 04/26/24 06:56 BMI result Body Mass Index 35.6 Const: General: cooperative, healthy appearing and comfortable Orientation/consciousness: oriented to person, oriented to place and oriented to time HEENT: Head: Yes normal to inspection Neck: Neck: Yes normal visual inspection Carotids: no bruits Chest: Chest palpation & inspection: normal inspection of the chest Resp: Effort & Inspection: normal respiratory effort and able to speak in complete sentences Auscultation: clear to auscultation bilaterally, no crackles, no rales, no rhonchi and no wheezes Cardio: Rate: regular rate Rhythm: regular rhythm Heart sounds: S1 normal heart sound present and S2 normal heart sound present Bruits: no carotid bruits Peripheral pulses: Peripheral pulses 2+ throughout GI: Inspection: Yes normal to inspection Skin: Other: Right lateral foot opening with exposed bone. DP signal only Wounds: no wounds Hair: normal Neuro: General: oriented to person, oriented to place and oriented to time Cranial nerves: Yes CN's II-XII intact bilaterally and Yes Normal hearing present Cognition (Neuro): normal cognition Motor exam (neuro): 5/5 motor strength present throughout Extrem: Other: venous exam: No significant superficial varicosities or spider telangiectasias, minimal edema General: No clubbing, No cyanosis and No edema Psych: Appearance: grossly normal Mental Status: mental status grossly normal Speech and movement: Normal speech and movement present Results Labs 04/25/24 11:34 04/26/24 04:57 Labs: Abnormal lab results 04/25/24 Range/Units 11:34 Plt Count 142 L (160-400) X10*3/uL Immature Gran % (Auto) 0.5 H (0.0-0.4) % Neut % (Auto) 74.7 H (45-73) % Lymph % (Auto) 14.9 L (20-40) % Lymph # (Auto) 1.0 L (1.2-4.9) X10*3/uL ESR 28 H (0-15) MM/HR BUN 6 L (9-16) mg/dL Random Glucose 126 H (60-115) mg/dL C-Reactive Protein 1.99 H (< or = 0.50) mg/dL Total Protein 8.7 H (6.5-8.0) g/dL Short CBC 04/25/24 Range/Units 11:34 WBC 6.5 (4.8-10.8) X10*3/uL Hgb 15.8 (14.0-18.0) g/dl Hct 45.2 (42.0-52.0) % Plt Count 142 L (160-400) X10*3/uL BMP 04/25/24 04/26/24 11:34 04:57 Sodium 140 Potassium 3.4 Chloride 101 Carbon Dioxide 29 BUN 6 L Creatinine 0.90 0.81 Calcium 9.4 Liver Function 04/25/24 Range/Units 11:34 Total Bilirubin 0.9 (0.0-1.0) mg/dL Direct Bilirubin 0.4 (0.0-0.5) mg/dL AST 26 (5-37) U/L ALT 14 (0-40) U/L Alkaline Phosphatase 102 (39-117) U/L Albumin 4.0 (3.5-5.0) g/dL All other labs normal. Assessment and Plan (1) PAD (peripheral artery disease): Status: Acute Plan Patient notes nonhealing right foot ulcer. I have discussed the pathophysiology of peripheral vascular disease with the patient. I have also discussed risk factor modification. I have reviewed the patient's arterial testing which reveals right SFA disease. the patient would benefit from a right leg endovascular peripheral angiogram with possible angioplasty, stent, and/or atherectomy. This has been discussed in detail with the patient along with risks, benefits, and complications. This includes but is not limited to bleeding, infection, heart attack, need for emergent surgical repair, limb ischemia, blood vessel damage, bleeding, puncture, kidney injury, bruising, allergic reaction, and skin reaction. The patient demonstrates a clear understanding. We will schedule for the next appropriate time. Thank you for allowing us to assist in this patient's care. Procedures Date of Service Date of Service: 04/26/24
--- NOTE | 2024-04-26 10:46 | MHC.CM.PN ---
CM met with Patient at bedside, in the ED and addressed IMM with him, providing Patient with the original and a copy has been placed on the chart. Patient lives alone in a house and he may benefit from a new VNA referral(? of need for HI) related to his foot ulcer. CM has initiated and will follow for dc planning. Patient's PCP is Dr. Andrews and he declined the completion of a HCP.
[2024-04-26 11:29] VITALS: BP 152/91
[2024-04-26] MEDS: lisinopriL 10 MG TABLET PO (11:29)
[2024-04-26 11:33] VITALS: BP 158/72; RESP 16; TEMP 36.2; O2SAT 98
[2024-04-26] MEDS: Morphine Sulfate 4 MG/ML CARTRIDGE 2 MG IVPUSH ×2 (13:14→22:43)
[2024-04-26] MEDS: 0.9 % Sodium Chloride Flush 3 ML SYRINGE IVFLUSH ×2 (14:49→21:17)
--- NOTE | 2024-04-26 15:12 | HO.WOUND ---
Wound Consult: Chart Follow up 58yr old?Male admitted to [facility] on 04/25/24 - See progress notes and H&P for detailed history.? Wound consult follow up for Right Lateral Foot wound.? Chart review reveals Dr. Green consulted and saw pt - patient diagnosed with Right SFA disease - the charting will be updated for direct care nurses to document on appropriate work list - will continue with Dakin wet to moist dressing twice daily. Details from previous consultation note: Right Lateral Foot Wound Etiology: Etiology unknown at this time consider traumatic injury Measurements: 7.5cm x 5cm x 2cm with undermining at 12 o'clock of 2cm Wound Bed: rough jagged exposed bone, muscle and black moist necrotic tissue Drainage / Odor: foul odor noted - no drainage noted no dressing in place Edges: ? well defined and epibole Kailyn wound: swelling, red erythema noted Pain: pt reports pain and tenderness Goals of Treatment: ? expert consult (Surgery) for evaluation and suspected debridement and wet to moist packing Recommendations: 1. Turn and Reposition every 2 hours and as needed for patient comfort.? Use pillows or wedges to support off loading positions. 2. Off Load all bony prominences with use of pillows and heel boots if needed.? Apply Preventative foams where needed. ? 3. Monitor for incontinence and moisture control, use barrier creams when needed for prevention and treatment. 4. Provide adequate and supplemental nutrition.? 5. Order low air loss mattress. 6. When applicable maintain blood glucose levels per Providers order. 7. Provide Smoking cessation. 8. Right Lateral Foot - Elevate lower leg / foot off of bed surface. Cleanse and irrigate with Dakins Solution. Lightly pack wound bed with Dakins wet gauze, cover with dry ABD and wrap. Change daily. Re-consult wound care Nurse for wound deterioration or wound changes.
[2024-04-26 15:33] VITALS: BP 138/68; PULSE 71; RESP 18; TEMP 36.2; O2SAT 98
[2024-04-26] MEDS: Enoxaparin Sodium 40 MG/0.4 ML SYRINGE SUBCUT (17:51)
[2024-04-26] MEDS: Sodium Hypochlorite 0.125% 473 ML SOLUTION 1 APPL TOPICAL (18:53)
[2024-04-26 19:40] VITALS: BP 127/64; PULSE 65; RESP 18; TEMP 36.6; O2SAT 97
[2024-04-26 21:16] VITALS: BP 127/64
[2024-04-26] MEDS: cloNIDine HCL 0.1 MG TABLET PO (21:16)
[2024-04-26 21:29] LABS: Vancomycin Random 20.7 mcg/mL (15-20)
--- NOTE | 2024-04-26 21:32 | HE.PHANOTE ---
Re: Vanco Renal function improving. Trough returned at 20.7, much higher than predicted. Reducing to 1,000 mg q12h, with predicted AUC 437, and predicted trough 13.9. Next trough 04/27 at 2100:
[2024-04-26] MEDS: vancomycin HCL 1,000 MG in 0.9 % Sodium Chloride 250 ML 270 MG IV (23:49)
[2024-04-27] VITALS (20 sets, daily range): BP systolic 128–199; BP diastolic 67–96; PULSE 54–77; RESP 16–20; TEMP 36–36.5; O2SAT 95–100
[2024-04-27] MEDS: Piperacillin Sodium/Tazobactam 3.375 GM in 0.9 % Sodium Chloride 50 ML IV ×3 (04:06→19:45)
[2024-04-27] MEDS: 0.9 % Sodium Chloride 1,000 ML 100 ML IVCONT ×2 (05:12→14:38)
[2024-04-27 07:06] LABS: Creatinine Clr Calc Pharmacy 108.2; Estimated Glomerular Filt Rate > 60
--- NOTE | 2024-04-27 09:57 | P.OP_ITS ---
Operative Note Operative Note Date of Service: 04/27/24 Narrative: Angiogram report from [facility] Preoperative diagnosis: Atherosclerosis of right lower extremity with activity limiting claudication Postoperative diagnosis: Same Procedure: 1. Ultrasound-guided left common femoral access 2. Aortogram with right lower extremity runoff 3. Plasty of right anterior tibial and peroneal arteries Surgeon:Rebel Green M.D., FACS, RPVI Vacuum Truck Driver:None Anesthesia: Local with moderate conscious sedation. Total intraservice moderate sedation time was 67 minutes. I monitored the patient's level of consciousness and physiologic status continuously throughout the procedure. Specimens:none Drains:none Estimated blood loss: Less than 10 ml Implant: None Indications: 58-year-old gentleman with a prior history of smoking presented to the hospital with nonhealing right lower extremity ulcer. Upon noninvasive testing he was noted to have peripheral vascular disease. Now presents for endovascular intervention. The patient has signed the informed consent after reviewing risks, complications, benefits, and alternatives previously discussed with the patient. The patient was given the opportunity to ask any additional questions or voice any concerns. All questions were answered to the patient's satisfaction. Procedure in detail: Patient was brought to the angiography suite prior to which a time-out was called for patient identification and site verification. Bilateral groins were prepped and draped in the standard surgical fashion. Under ultrasound guidance left common femoral was punctured with micro puncture needle and wire. Subsequently a precision 5 Singaporean sheath was then placed. Bentson wire was advanced to the level of the aorta. 5 Singaporean Flush catheter was brought up and parked at the level of the renal arteries. Aortogram was the n undertaken. Catheter was brought down to the level of the iliac bifurcation. Iliacs were subsequently imaged. Catheter was then brought in up and over to the right side SFA. Runoff study was then undertaken. It was recognized that he did have some below-knee disease. The SFA did have some mild to moderate stenosis but did not appear flow-limiting. At this time 8000 units of systemic heparin was administered. Up and over 6 Singaporean sheath was then placed. We advanced a Glidewire advantage all the way down to the tibial bifurcations. Once in position we exchanged out for a Navicross catheter. Through this we instilled contrast to ensure true lumen. This was originally directed down the anterior tibial artery. We then exchanged out for an 014 wire. At this time we plasty the origin of the anterior tibial with a 2.5 x 20 balloon. This required 2 subsequent insufflations. Once this was accomplished we redirected the 014 wire down the peroneal artery. Once again we used a Navicross catheter instilled with contrast to ensure true lumen. Once this was accomplished we plasty this area with a 3 x 40 balloon. Once this was all accomplished adequate result was achieved. We reimage the SFA and determine no intervention was indicated. At this time catheter wire sheath was brought back to the ipsilateral side. A CELT closure device was then used. Adequate hemostasis was achieved. Patient tolerated the procedure well. Returned to recovery with stable vitals. Interpretation of films: 1. Ultrasound demonstrates appropriate femoral access site. Vessel was patent with minimal stenosis. Needle entry was visualized. Image of ultrasound was saved. 2. Aortogram demonstrates appropriate caliber aorta. Minimal disease. Appropriate take-off of the renals. 3. Iliac images demonstrate no significant disease very acute bifurcation. 4. Right Leg Common femoral artery: No significant disease Profundus Femoris: No significant disease Superficial femoral artery: Mild stenosis at the origin proximal 3rd had a mild stenosis. Popliteal artery (p1,p2,p3): No significant disease Anterior tibial artery: Disease at origin Peroneal artery: Disease at proximal 3rd Posterior tibial artery: Occluded Dorsalis pedis/plantar arch: Incomplete Conclusion: 1. Successful plasty of anterior tibial and peroneal arteries 2. Anticoagulation status: Patient will require 6 months of aspirin and Plavix. This note is constructed using voice recognition software. While every effort has been made to ensure accuracy, cement car dumper errors may have been included. Thank you for allowing me to participate in the care of your patient. Yours sincerely, Rebel Green MD, FACS, R.P.V.I.
[2024-04-27] MEDS: HYDROmorphone HCl 0.5 MG/0.5 ML SYRINGE IVPUSH (11:10)
[2024-04-27] MEDS: Sertraline HCL 100 MG TABLET PO (13:12)
[2024-04-27] MEDS: amLODIPine Besylate 5 MG TABLET PO (13:12)
[2024-04-27] MEDS: lisinopriL 10 MG TABLET PO (13:12)
[2024-04-27] MEDS: vancomycin HCL 1,000 MG in 0.9 % Sodium Chloride 250 ML 270 MG IV (13:13)
--- NOTE | 2024-04-27 13:52 | HO.SKINPHOTO ---
Location:L groin Category: Stage: Length: Width: Depth: cm Location: Category: Stage: Length: Width: Depth: cm Location: Category: Stage: Length: Width: Depth: cm Location: Category: Stage: Length: Width: Depth: cm Location: Category: Stage: Length: Width: Depth: cm Location: Category: Stage: Length: Width: Depth: cm L groin hematoma developed post aortagram. MD at bedside applied pressure in pacu. Upon transfer nurse stated greatly improved. picture taken to monitor.
--- NOTE | 2024-04-27 14:36 | MHC.RECOVRN ---
AUDIT-C Brief Intervention Pt had positive screen for unhealthy alcohol use on admission. Attempted to meet with pt to discuss alcohol use and offer resources, pt declined.
[2024-04-27] MEDS: busPIRone HCl 10 MG TABLET PO ×2 (14:37→19:47)
--- NOTE | 2024-04-27 15:32 | P.PNIM_ITS ---
Subjective Subjective Date of Service: 04/27/24 Interval History: seen and examined this morning Follow-up for right lower extremity wound/osteomyelitis Status post angiogram today, right groin hematoma post operatively no fever or chills Review of Systems Review of Systems: Yes all other systems are reviewed and are negative Constitutional Constitutional: Denies chills and Denies fever(s) ENT Ears, Nose, Mouth, and Throat: Denies dizziness Cardiovascular Cardiovascular: Denies chest pain and Denies palpitations Neurologic Neurologic: Denies dizziness Endocrine Endocrine: Denies palpitations Physical Exam 2 Vital Signs: Vital Signs: Last Vital Signs Temp 97.4 F 04/27/24 15:07 Pulse 65 04/27/24 15:07 Resp 18 04/27/24 15:07 BP 140/68 H 04/27/24 15:07 Pulse Ox 98 04/27/24 15:07 O2 Del Method Room Air 04/27/24 15:07 BMI result Body Mass Index 35.6 Const: General: cooperative, no acute distress, alert and awake Nutritional Appearance: overweight Orientation/consciousness: patient oriented x3 Resp: Effort & Inspection: normal respiratory effort, able to speak in complete sentences, no respiratory distress and no use of accessory muscles Cardio: Rate: regular rate GI: Palpation (GI): Soft to palpation and nontender Neuro: General: patient oriented x3, moves all extremities and CN's II-XI intact bilaterally Extrem: Other: left groin hematoma General: Yes no pedal edema Objective Data Active Medications Acetaminophen (Acetaminophen 325 Mg Tablet) 650 mg PO Q6H PRN PRN Reason: Pain, Mild (Pain Scale 1-3), fever or headache Amlodipine Besylate (Amlodipine Besylate 5 Mg Tablet) 5 mg PO DAILY [facility]; Protocol Last Admin: 04/27/24 13:12 Dose: 5 mg Documented By: KELSEY Buspirone HCl (Buspirone Hcl 10 Mg Tablet) 10 mg PO TID WOOD Last Admin: 04/27/24 14:37 Dose: 10 mg Documented By: JUAN Calcium Carbonate (Calcium Carbonate 750 Mg Tab.Chew) 750 mg PO Q4H PRN PRN Reason: Heartburn Clonidine HCl (Clonidine Hcl 0.1 Mg Tablet) 0.1 mg PO BEDTIME [facility]; Protocol Last Admin: 04/26/24 21:16 Dose: 0.1 mg Documented By: HO.NATALSA Enoxaparin Sodium (Enoxaparin Sodium 40 Mg/0.4 Ml Syringe) 40 mg SUBCUT Q24H [facility] Last Admin: 04/26/24 17:51 Dose: 40 mg Documented By: FABY Sodium Chloride (Ns) 1,000 mls @ 100 mls/hr IVCONT .Q10H [facility] Last Admin: 04/27/24 14:38 Dose: 100 mls/hr Documented By: JUAN Vancomycin HCl 1,000 mg/ (Sodium Chloride) 270 mls @ 270 mls/hr IV Q12H [facility] Last Infusion: 04/27/24 14:34 Dose: Infused Documented By: JUAN Piperacillin Sod/Tazobactam (Sod 3.375 gm/ Sodium Chloride) 50 mls @ 100 mls/hr IV Q6H [facility] Last Infusion: 04/27/24 15:15 Dose: Infused Documented By: JUAN Lisinopril (Lisinopril 10 Mg Tablet) 10 mg PO DAILY [facility]; Protocol Last Admin: 04/27/24 13:12 Dose: 10 mg Documented By: KELSEY Magnesium Hydroxide (Milk Of Magnesia 30 Ml Oral.Susp) 30 ml PO DAILY PRN PRN Reason: Constipation Melatonin (Melatonin 3 Mg Tablet) 6 mg PO BEDTIME PRN PRN Reason: Insomnia Morphine Sulfate (Morphine Sulfate 4 Mg/Ml Cartridge) 2 mg IVPUSH Q6H PRN; Protocol PRN Reason: Pain, Severe (Pain Scale 7-10) Last Admin: 04/26/24 22:43 Dose: 2 mg Documented By: RUDY Ondansetron HCl (Ondansetron Hcl 4 Mg/2 Ml Vial) 4 mg IVPUSH Q8H PRN PRN Reason: Nausea and Vomiting Last Admin: 04/25/24 20:50 Dose: 4 mg Documented By: MARKUS Pharmacy Consult (Consult Rx Vancomycin Dosing) 1 each MISCELLANE DAILY PRN PRN Reason: Consult order Sertraline HCl (Sertraline Hcl 100 Mg Tablet) 100 mg PO DAILY [facility] Last Admin: 04/27/24 13:12 Dose: 100 mg Documented By: KELSEY Sodium Chloride (0.9 % Sodium Chloride Flush 3 Ml Syringe) 3 ml IVFLUSH QSHIFT [facility] Last Admin: 04/27/24 15:15 Dose: Not Given Documented By: JUAN Non-Admin Reason: IV Running Sodium Hypochlorite (Sodium Hypochlorite 0.125% 473 Ml Solution) 1 appl TOPICAL BID [facility] Last Admin: 04/27/24 12:37 Dose: Not Given Documented By: JUAN Non-Admin Reason: Off Unit: Surgery Zolpidem Tartrate (Zolpidem Tartrate 5 Mg Tablet) 5 mg PO BEDTIME PRN PRN Reason: Sleep Labs 04/25/24 11:34 04/27/24 05:20 Labs: Laboratory Results - last 24 hr 04/26/24 04/27/24 21:00 05:20 Hold Purple Top SEE NOTE Estim Creat Clear Calc 108.2 Estimated GFR > 60 Random Vancomycin 20.7 H Microbiology Microbiology Results: Microbiology 04/25/24 11:34 Blood Culture - Preliminary Blood - Venous No growth after 48 hours. 04/25/24 11:34 Blood Culture - Preliminary Blood - Venous No growth after 48 hours. Assessment and Plan (1) PAD (peripheral artery disease): Status: Acute (2) Acute osteomyelitis: Status: Acute Plan 58-year-old male with depression, obesity , peripheral neuropathy and likely untreated HTN here with an infected open wound of right foot following a traumatic injury. Infected, traumatic open wound with exposed bone and osteomylitis xray showing Destruction/absence of the distal fifth metatarsal and proximal phalanx of the fifth digit with soft tissue ulceration s/p bedside debridement by wound surgeon 04/25 CRP 1.99 and ESR 28 Right SFA disease on arterial US Seen by vascular surgery, status post angiogram 04/27 with plasty of anterior tibial and peroneal arteries continue IV Vanco and Zosyn started 04/25 blood cultures negative to date ID consult pending Peripheral vascular disease arterial studies with EULALIA show right SFA disease s/p angiogram with plasty of anterior tibial and peroneal arteries 04/27 We will require outpatient follow-up with vascular surgery will need asa/plavix for 6 months Left groin hematoma Following angiogram hold asa/plavix/dvt ppx for now follow H/H vitals stable Depression- continue home meds Elevated blood pressure, likely untreated HTN -Started on Norvasc, clonidine, and Lisiniopril 10 and adjust meds as needed Class 2 obesity, weight advised DVT prophylaxis--lovenox on hold due to hematomoa, resume as indicated Full code need for inpt: hospitalization for acute osteomylitis and infected wound Quality Stroke Does the patient have a stroke diagnosis?: No VTE Prior VTE?: No VTE Risk Level:: Medical - moderate - high VTE Device Contraindication: Treatment Not Indicated VTE Drug Contraindication: N/A - Med Ordered
[2024-04-27 16:16] LABS: Hematocrit 39.2 % (42.0-52.0); Hemoglobin 13.4 g/dl (14.0-18.0)
[2024-04-27] MEDS: 0.9 % Sodium Chloride Flush 3 ML SYRINGE IVFLUSH (19:46)
[2024-04-27] MEDS: cloNIDine HCL 0.1 MG TABLET PO (19:46)
[2024-04-27] MEDS: Sodium Hypochlorite 0.125% 473 ML SOLUTION 1 APPL TOPICAL (19:48)
[2024-04-27] MEDS: Morphine Sulfate 4 MG/ML CARTRIDGE 2 MG IVPUSH (20:00)
--- NOTE | 2024-04-27 22:00 | W.PM.IDCN ---
History of Present Illness Data of Consult Service Date: 04/26/24 Requesting physician: Mahendra Oleary Primary Care Provider: Darryl Domingo MD [facility] Reason for consult: open bone exposed,foot nondiabetic He presents with open wound left foot over last three months. He didnt want to go out of house and developed ulcer and then reportedly put cream from internet on it only. He stubbed his foot. He has ESR 28. He has angiogram pending. Review of Systems Review of Systems: Yes all other systems are reviewed and are negative [facility] Family History Family history: reviewed and not pertinent Social History Social History Household Members: None Housing: House Do you presently have visiting nurse or other home services: No Patient Tobacco Use Status: Current everyday Tobacco user Tobacco use type: Cigarette Cigarette Packs Per Day: 0.5 Cigarettes Per Day: 10.0 Years Smoked: 43 e-Cigarette/Vaping Use: Never Used Second Hand Smoke Exposure: No Substance Use Type: Marijuana service: No Meds Allergies Allergy/AdvReac Type Severity Reaction Status Date / Time codeine [Codeine] Allergy Mild RASH Verified 04/25/24 10:53 Codeine Allergy Unknown Rash Uncoded 06/23/23 08:56 Active Medications: Current Medications Acetaminophen (Acetaminophen 325 Mg Tablet) 650 mg PO Q6H PRN PRN Reason: Pain, Mild (Pain Scale 1-3), fever or headache Amlodipine Besylate (Amlodipine Besylate 5 Mg Tablet) 5 mg PO DAILY [facility]; Protocol Last Admin: 04/27/24 13:12 Dose: 5 mg Buspirone HCl (Buspirone Hcl 10 Mg Tablet) 10 mg PO TID [facility] Last Admin: 04/27/24 19:47 Dose: 10 mg Calcium Carbonate (Calcium Carbonate 750 Mg Tab.Chew) 750 mg PO Q4H PRN PRN Reason: Heartburn Clonidine HCl (Clonidine Hcl 0.1 Mg Tablet) 0.1 mg PO BEDTIME [facility]; Protocol Last Admin: 04/27/24 19:46 Dose: 0.1 mg Enoxaparin Sodium (Enoxaparin Sodium 40 Mg/0.4 Ml Syringe) 40 mg SUBCUT Q24H [facility] Last Admin: 04/26/24 17:51 Dose: 40 mg Sodium Chloride (Ns) 1,000 mls @ 100 mls/hr IVCONT .Q10H [facility] Last Admin: 04/27/24 14:38 Dose: 100 mls/hr Vancomycin HCl 1,000 mg/ (Sodium Chloride) 270 mls @ 270 mls/hr IV Q12H [facility] Last Infusion: 04/27/24 14:34 Dose: Infused Piperacillin Sod/Tazobactam (Sod 3.375 gm/ Sodium Chloride) 50 mls @ 100 mls/hr IV Q6H [facility] Last Infusion: 04/27/24 20:15 Dose: Infused Lisinopril (Lisinopril 10 Mg Tablet) 10 mg PO DAILY [facility]; Protocol Last Admin: 04/27/24 13:12 Dose: 10 mg Magnesium Hydroxide (Milk Of Magnesia 30 Ml Oral.Susp) 30 ml PO DAILY PRN PRN Reason: Constipation Melatonin (Melatonin 3 Mg Tablet) 6 mg PO BEDTIME PRN PRN Reason: Insomnia Morphine Sulfate (Morphine Sulfate 4 Mg/Ml Cartridge) 2 mg IVPUSH Q6H PRN; Protocol PRN Reason: Pain, Severe (Pain Scale 7-10) Last Admin: 04/27/24 20:00 Dose: 2 mg Ondansetron HCl (Ondansetron Hcl 4 Mg/2 Ml Vial) 4 mg IVPUSH Q8H PRN PRN Reason: Nausea and Vomiting Last Admin: 04/25/24 20:50 Dose: 4 mg Pharmacy Consult (Consult Rx Vancomycin Dosing) 1 each [place] DAILY PRN PRN Reason: Consult order Sertraline HCl (Sertraline Hcl 100 Mg Tablet) 100 mg PO DAILY [facility] Last Admin: 04/27/24 13:12 Dose: 100 mg Sodium Chloride (0.9 % Sodium Chloride Flush 3 Ml Syringe) 3 ml IVFLUSH QSHIFT [facility] Last Admin: 04/27/24 19:46 Dose: 3 ml Sodium Hypochlorite (Sodium Hypochlorite 0.125% 473 Ml Solution) 1 appl TOPICAL BID [facility] Last Admin: 04/27/24 19:48 Dose: 1 appl Zolpidem Tartrate (Zolpidem Tartrate 5 Mg Tablet) 5 mg PO BEDTIME PRN PRN Reason: Sleep Home Medications ?Medication ?Instructions ?Recorded ?Confirmed ?Last Taken ?Type buspirone 10 mg tablet 10 mg PO TID 04/03/22 04/25/24 04/25/24 History clonidine HCl 0.1 mg tablet 0.1 mg PO BEDTIME 04/03/22 04/25/24 04/24/24 History sertraline 100 mg tablet 100 mg PO DAILY 04/03/22 04/25/24 04/25/24 History zolpidem 10 mg tablet 10 mg PO BEDTIME PRN Sleep 04/03/22 04/25/24 04/24/24 History ibuprofen 600 mg tablet 600 mg PO Q6H PRN Pain 04/25/24 04/25/24 Unknown History Physical Exam Vital Signs: Vital Signs: Last Vital Signs Temp 96.8 F 04/27/24 19:03 Pulse 62 04/27/24 19:03 Resp 18 04/27/24 20:33 BP 143/68 H 04/27/24 19:03 Pulse Ox 97 04/27/24 19:03 O2 Del Method Room Air 04/27/24 19:03 BMI result Body Mass Index 35.6 Const: General: cooperative HEENT: Head: Yes normal to inspection Face and sinus: Yes normal facial exam Mouth: Normal oral and palatal mucosa present Teeth and gingiva: dentition normal Eyes: General: appearance normal, both eyes and all related structures Pupils: Equal, round and reactive pupils present Resp: Effort & Inspection: normal respiratory effort Cardio: Rate: regular rate Rhythm: regular rhythm GI: Palpation (GI): Soft to palpation and nontender : General: Yes no CVA tenderness Back/Spine/Pelvis: Back: no CVA tenderness Skin: General skin exam: no rashes or lesions noted Neuro: General: moves all extremities Cranial nerves: Yes Equal, round and reactive pupils present Extrem: Other: open left foot wound,laterally no surrounding cellulitis pulse plus 3 ant tib/dp Psych: Appearance: grossly normal Results Labs 04/27/24 16:06 04/27/24 05:20 Labs: Short CBC 04/27/24 Range/Units 16:06 Hgb 13.4 L (14.0-18.0) g/dl Hct 39.2 L (42.0-52.0) % BMP 04/27/24 05:20 Creatinine 0.94 Microbiology Microbiology Results: Microbiology 04/25/24 11:34 Blood - Venous Blood Culture - Preliminary No growth after 48 hours. 04/25/24 11:34 Blood - Venous Blood Culture - Preliminary No growth after 48 hours. Assessment and Plan (1) PAD (peripheral artery disease): Status: Acute (2) Peripheral vascular disease: Status: Acute (3) Foot ulcer: Qualifiers: Laterality: right Status: Acute Plan This is a wound with probable pressure component. There is destruction right fifth metatarsal and proximal phalanx. There is no elevated WBC or ESR consistent with any OM and no DM. He has no surrounding cellulitis or purulence. Local care to wound. If no plans for surgical wound closure over bone per Plastics or Wound Care would not give six weeks IV antibiotics as it is certainly not curative and not even helpful in wound of unknown etiology ?pressure
--- NOTE | 2024-04-27 22:56 | PM.EVENT ---
Event Note Date of Service: 04/27/24 Event Note: Amputation may occur if bone not able to be covered. Antibiotics will not prevent infection in nonacute setting (e.g. useful in comminuted fracture when occurs to prevent infection,not weeks after when already present in bone). Time Spent With Patient Time: Total time managing care of this patient today ____ minutes.
[2024-04-28] VITALS (7 sets, daily range): BP systolic 143–160; BP diastolic 65–80; PULSE 56–68; RESP 16–18; TEMP 36.1–36.6; O2SAT 97–99
[2024-04-28] MEDS: 0.9 % Sodium Chloride 1,000 ML 100 ML IVCONT ×2 (01:56→12:38)
[2024-04-28] MEDS: Morphine Sulfate 4 MG/ML CARTRIDGE 2 MG IVPUSH ×3 (06:07→21:33)
[2024-04-28 06:33] LABS: PLT CLUMP 1; Red Blood Count 4.24 X10*6/uL (4.60-5.80); Red Cell Distribution Width 13.7 % (11.0-16.0)
[2024-04-28 06:35] LABS: Hematocrit 39.9 % (42.0-52.0); Hemoglobin 13.4 g/dl (14.0-18.0); Mean Corpuscular HGB Conc 33.6 g/dl (31.0-36.0); Mean Corpuscular Hemoglobin 31.6 pg (27.0-33.0); Mean Corpuscular Volume 94.1 fL (80.0-98.0); Mean Platelet Volume 10.6 fL (9.4-12.4)
[2024-04-28 06:37] LABS: Platelet Count 108 X10*3/uL (160-400); White Blood Count 6.4 X10*3/uL (4.8-10.8)
[2024-04-28 06:47] LABS: Creatinine Clr Calc Pharmacy 114.2; Estimated Glomerular Filt Rate > 60
[2024-04-28] MEDS: Sertraline HCL 100 MG TABLET PO (07:33)
[2024-04-28] MEDS: lisinopriL 10 MG TABLET PO (07:33)
[2024-04-28] MEDS: amLODIPine Besylate 5 MG TABLET PO (07:33)
[2024-04-28] MEDS: busPIRone HCl 10 MG TABLET PO ×3 (07:33→21:35)
[2024-04-28] MEDS: Sodium Hypochlorite 0.125% 473 ML SOLUTION 1 APPL TOPICAL (07:37)
[2024-04-28 08:45] LABS: Anion Gap 14 (12-20); Blood Urea Nitrogen 9 mg/dL (9-16); Calcium 8.4 mg/dL (8.4-10.2); Carbon Dioxide 21 mmol/L (22-29); Chloride 107 mmol/L (96-108); Glucose Random 123 mg/dL (60-115); Potassium 3.5 mmol/L (3.3-5.1); Sodium 138 mmol/L (135-145)
--- NOTE | 2024-04-28 10:25 | P.PNVS_ITS ---
Subjective Subjective Date of Service: 04/28/24 Patient reports: no new complaints and feels better Interval history: Very pleasant 58-year-old gentleman presents for follow-up status post endovascular intervention. He did develop a post procedure hematoma in the left groin. The current time it is stable. He continues to have this right foot ulcer no significant interval changes. Now for routine postprocedure follow-up. Physical Exam Vital Signs: Vital Signs: Last Vital Signs Temp 98 F 04/28/24 06:53 Pulse 65 04/28/24 06:53 Resp 16 04/28/24 06:53 BP 160/80 H 04/28/24 06:53 Pulse Ox 98 04/28/24 06:53 O2 Del Method Room Air 04/28/24 06:53 BMI result Body Mass Index 35.6 Const: General: cooperative, healthy appearing and comfortable Orientation/consciousness: oriented to person, oriented to place and oriented to time HEENT: Head: Yes normal to inspection Neck: Neck: Yes normal visual inspection Carotids: no bruits Chest: Chest palpation & inspection: normal inspection of the chest Resp: Effort & Inspection: normal respiratory effort and able to speak in complete sentences Auscultation: clear to auscultation bilaterally, no crackles, no rales, no rhonchi and no wheezes Cardio: Other: Bilateral DP signals Rate: regular rate Rhythm: regular rhythm Heart sounds: S1 normal heart sound present and S2 normal heart sound present Bruits: no carotid bruits GI: Inspection: Yes normal to inspection Skin: Other: Right foot lateral aspect nonhealing ulcer Wounds: no wounds Hair: normal Neuro: General: oriented to person, oriented to place and oriented to time Cranial nerves: Yes CN's II-XII intact bilaterally and Yes Normal hearing present Cognition (Neuro): normal cognition Motor exam (neuro): 5/5 motor strength present throughout Extrem: Other: venous exam: No significant superficial varicosities or spider t elangiectasias, minimal edema General: No clubbing, No cyanosis and No edema Psych: Appearance: grossly normal Mental Status: mental status grossly normal Speech and movement: Normal speech and movement present Progress Note: A&P Assessment and plan (1) PAD (peripheral artery disease): Status: Acute Assessment and Plan: In short patient is stable status post endovascular intervention. He did have plasty of the anterior tibial and peroneal arteries of the right leg. We can resume aspirin 81 mg daily and Plavix 75 mg daily. Will require these upon discharge as well. In terms of the wound I have contacted General surgery and Dr. Bender will further his care. Will plan for potential amputation some time next week. Thank you for allowing us to assist in his care. If there are any questions or concerns please do not hesitate to contact us. Time Spent With Patient Time: Total time managing care of this patient today ____ minutes. Procedures Date of Service Date of Service: 04/28/24 Quality Stroke Does the patient have a stroke diagnosis?: No VTE Prior VTE?: No VTE Risk Level:: Medical - moderate - high VTE Device Contraindication: Treatment Not Indicated VTE Drug Contraindication: N/A - Med Ordered
[2024-04-28] MEDS: oxyCODONE HCl Immed Release 5 MG TABLET PO (10:26)
[2024-04-28] MEDS: Doxycycline Hyclate 100 MG in 0.9 % Sodium Chloride 250 ML 166.67 MG IV ×2 (10:26→21:39)
[2024-04-28] MEDS: Aspirin Enteric Coated 81 MG TABLET.DR PO (10:26)
[2024-04-28] MEDS: Clopidogrel Bisulfate 75 MG TABLET PO (10:26)
--- NOTE | 2024-04-28 10:26 | MHC.CM.PN ---
Per MD rounds patient not medically cleared for dc, plan for surgery early next week. CM will continue to follow.
--- NOTE | 2024-04-28 14:12 | P.PNIM_ITS ---
Subjective Subjective Date of Service: 04/28/24 Interval History: seen and examined this morning follow up for right foot wound no overnight events pain controlled, no fever or chills Review of Systems Review of Systems: Yes all other systems are reviewed and are negative Constitutional Constitutional: Denies chills and Denies fever(s) Cardiovascular Cardiovascular: Denies chest pain, Denies palpitations and Denies dyspnea Respiratory Respiratory: Denies cough and Denies dyspnea Endocrine Endocrine: Denies palpitations Physical Exam 2 Vital Signs: Vital Signs: Last Vital Signs Temp 98 F 04/28/24 06:53 Pulse 65 04/28/24 06:53 Resp 16 04/28/24 06:53 BP 160/80 H 04/28/24 06:53 Pulse Ox 98 04/28/24 06:53 O2 Del Method Room Air 04/28/24 06:53 BMI result Body Mass Index 35.6 Const: General: cooperative, no acute distress, alert and awake Nutritional Appearance: overweight Orientation/consciousness: patient oriented x3 Resp: Effort & Inspection: normal respiratory effort, able to speak in complete sentences, no respiratory distress and no use of accessory muscles Cardio: Rate: regular rate GI: Palpation (GI): Soft to palpation and nontender Skin: Other: right foot c/d/i dressing Neuro: General: patient oriented x3, moves all extremities and CN's II-XI intact bilaterally Extrem: Other: left groin hematoma, soft, improving General: Yes no pedal edema Objective Data Active Medications Acetaminophen (Acetaminophen 325 Mg Tablet) 650 mg PO Q6H PRN PRN Reason: Pain, Mild (Pain Scale 1-3), fever or headache Amlodipine Besylate (Amlodipine Besylate 5 Mg Tablet) 5 mg PO DAILY [facility]; Protocol Last Admin: 04/28/24 07:33 Dose: 5 mg Documented By: JUAN Aspirin (Aspirin Enteric Coated 81 Mg Tablet.) 81 mg PO DAILY [facility] Last Admin: 04/28/24 10:26 Dose: 81 mg Documented By: JUAN Buspirone HCl (Buspirone Hcl 10 Mg Tablet) 10 mg PO TID [facility] Last Admin: 04/28/24 07:33 Dose: 10 mg Documented By: JUAN Calcium Carbonate (Calcium Carbonate 750 Mg Tab.Chew) 750 mg PO Q4H PRN PRN Reason: Heartburn Clonidine HCl (Clonidine Hcl 0.1 Mg Tablet) 0.1 mg PO BEDTIME [facility]; Protocol Last Admin: 04/27/24 19:46 Dose: 0.1 mg Documented By: LIZBETH Clopidogrel Bisulfate (Clopidogrel Bisulfate 75 Mg Tablet) 75 mg PO DAILY [facility] Last Admin: 04/28/24 10:26 Dose: 75 mg Documented By: JUAN Enoxaparin Sodium (Enoxaparin Sodium 40 Mg/0.4 Ml Syringe) 40 mg SUBCUT Q24H [facility] Last Admin: 04/26/24 17:51 Dose: 40 mg Documented By: FABY Sodium Chloride (Ns) 1,000 mls @ 100 mls/hr IVCONT .Q10H [facility] Last Admin: 04/28/24 12:38 Dose: 100 mls/hr Documented By: JUAN Doxycycline Hyclate 100 mg/ (Sodium Chloride) 250 mls @ 166.67 mls/hr IV Q12H [facility] Last Infusion: 04/28/24 12:19 Dose: Infused Documented By: JUAN Lisinopril (Lisinopril 10 Mg Tablet) 10 mg PO DAILY [facility]; Protocol Last Admin: 04/28/24 07:33 Dose: 10 mg Documented By: JUAN Magnesium Hydroxide (Milk Of Magnesia 30 Ml Oral.Susp) 30 ml PO DAILY PRN PRN Reason: Constipation Melatonin (Melatonin 3 Mg Tablet) 6 mg PO BEDTIME PRN PRN Reason: Insomnia Morphine Sulfate (Morphine Sulfate 4 Mg/Ml Cartridge) 2 mg IVPUSH Q6H PRN; Protocol PRN Reason: Pain, Severe (Pain Scale 7-10) Last Admin: 04/28/24 06:07 Dose: 2 mg Documented By: LIZBETH Ondansetron HCl (Ondansetron Hcl 4 Mg/2 Ml Vial) 4 mg IVPUSH Q8H PRN PRN Reason: Nausea and Vomiting Last Admin: 04/25/24 20:50 Dose: 4 mg Documented By: MARKUS Oxycodone HCl (Oxycodone Hcl Immed Release 5 Mg Tablet) 5 mg PO Q6H PRN PRN Reason: Pain, Moderate(Pain Scale 4-6) Last Admin: 04/28/24 10:26 Dose: 5 mg Documented By: JUAN Sertraline HCl (Sertraline Hcl 100 Mg Tablet) 100 mg PO DAILY [facility] Last Admin: 04/28/24 07:33 Dose: 100 mg Documented By: JUAN Sodium Chloride (0.9 % Sodium Chloride Flush 3 Ml Syringe) 3 ml IVFLUSH QSHIFT [facility] Last Admin: 04/28/24 07:34 Dose: Not Given Documented By: JUAN Non-Admin Reason: IV Running Sodium Hypochlorite (Sodium Hypochlorite 0.125% 473 Ml Solution) 1 appl TOPICAL BID [facility] Last Admin: 04/28/24 07:37 Dose: 1 appl Documented By: JUAN Zolpidem Tartrate (Zolpidem Tartrate 5 Mg Tablet) 5 mg PO BEDTIME PRN PRN Reason: Sleep Labs 04/28/24 05:55 04/28/24 05:55 Labs: Laboratory Results - last 24 hr 04/28/24 05:55 MCV 94.1 MCH 31.6 MCHC 33.6 RDW 13.7 Plt Count 108 L MPV 10.6 Absolute Nucleated RBC 0.000 Nucleated RBC % (auto) 0.0 Anion Gap 14 Estim Creat Clear Calc 114.2 Estimated GFR > 60 Random Glucose 123 H Calcium 8.4 D Microbiology Microbiology Results: Microbiology 04/25/24 11:34 Blood Culture - Preliminary Blood - Venous No growth after 48 hours. 04/25/24 11:34 Blood Culture - Preliminary Blood - Venous No growth after 48 hours. Assessment and Plan (1) Acute osteomyelitis: Status: Acute (2) Foot ulcer: Status: Acute Plan 58-year-old male with depression, obesity , peripheral neuropathy and likely untreated HTN here with an infected open wound of right foot following a traumatic injury. Infected, traumatic open wound with exposed bone and osteomylitis xray showing Destruction/absence of the distal fifth metatarsal and proximal phalanx of the fifth digit with soft tissue ulceration s/p bedside debridement by wound surgeon 04/25 CRP 1.99 and ESR 28 Right SFA disease on arterial US Seen by vascular surgery, status post angiogram 04/27 with plasty of anterior tibial and peroneal arteries Initially treated with IV Vanco and Zosyn - stopped per ID rec Plan for pre next week, we will start IV doxycycline until procedure blood cultures negative to date Peripheral vascular disease arterial studies with EULALIA show right SFA disease s/p angiogram with plasty of anterior tibial and peroneal arteries 04/27 We will require outpatient follow-up with vascular surgery will need asa/plavix for 6 months Left groin hematoma Following angiogram H/H/vitals stable Depression- continue home meds Elevated blood pressure, likely untreated HTN -Started on Norvasc, clonidine, and Lisiniopril 10 on this admission: adjust meds as needed Thrombocytopenia Acute on chronic Follow CBC Class 2 obesity, weight loss advised DVT prophylaxis--lovenox resumed Full code need for inpt: hospitalization for acute osteomylitis and infected wound requiring surgical intervention Quality Stroke Does the patient have a stroke diagnosis?: No VTE Prior VTE?: No VTE Risk Level:: Medical - moderate - high VTE Device Contraindication: Treatment Not Indicated VTE Drug Contraindication: N/A - Med Ordered
[2024-04-28] MEDS: Enoxaparin Sodium 40 MG/0.4 ML SYRINGE SUBCUT (16:37)
[2024-04-28] MEDS: Zolpidem Tartrate 5 MG TABLET PO (21:34)
[2024-04-28] MEDS: Docusate Sodium 100 MG CAPSULE PO (21:34)
[2024-04-28] MEDS: cloNIDine HCL 0.1 MG TABLET PO (21:34)
[2024-04-28] MEDS: 0.9 % Sodium Chloride Flush 3 ML SYRINGE IVFLUSH (21:38)
[2024-04-29] VITALS (8 sets, daily range): BP systolic 138–187; BP diastolic 62–88; PULSE 60–65; RESP 16–20; TEMP 36.1–36.3; O2SAT 96–99
[2024-04-29 06:58] LABS: MANUAL DIFF FLAG NO
[2024-04-29 07:10] LABS: Basophils Percent Auto 0.2 % (0-2); Eosinophils Absolute Auto 0.1 X10*3/uL (0.0-0.4); Eosinophils Percent Auto 1.4 % (0-4); Hematocrit 38.7 % (42.0-52.0); Hemoglobin 13.2 g/dl (14.0-18.0); Imm Gran Abs Auto 0.01 X10*3/uL (0.00-0.03); Imm Gran Pct Auto 0.2 % (0.0-0.4); Lymphocytes Absolute Auto 1.1 X10*3/uL (1.2-4.9); Lymphocytes Percent Auto 21.5 % (20-40); Mean Corpuscular HGB Conc 34.1 g/dl (31.0-36.0); Mean Corpuscular Hemoglobin 32.3 pg (27.0-33.0); Mean Corpuscular Volume 94.6 fL (80.0-98.0); Mean Platelet Volume 11.1 fL (9.4-12.4); Monocytes Absolute Auto 0.5 X10*3/uL (0.1-1.2); Monocytes Percent Auto 10.1 % (2-11); Neutrophils Absolute Auto 3.4 x10*3/uL (2.0-8.3); Neutrophils Percent Auto 66.6 % (45-73); Red Blood Count 4.09 X10*6/uL (4.60-5.80); Red Cell Distribution Width 13.6 % (11.0-16.0); White Blood Count 5.1 X10*3/uL (4.8-10.8)
[2024-04-29 07:14] LABS: Platelet Count 95 X10*3/uL (160-400)
[2024-04-29] MEDS: lisinopriL 10 MG TABLET PO (08:36)
[2024-04-29] MEDS: busPIRone HCl 10 MG TABLET PO ×3 (08:36→21:03)
[2024-04-29] MEDS: Morphine Sulfate 4 MG/ML CARTRIDGE 2 MG IVPUSH ×2 (08:36→21:04)
[2024-04-29] MEDS: Sertraline HCL 100 MG TABLET PO (08:36)
[2024-04-29] MEDS: Clopidogrel Bisulfate 75 MG TABLET PO (08:36)
[2024-04-29] MEDS: amLODIPine Besylate 5 MG TABLET PO (08:36)
[2024-04-29] MEDS: Aspirin Enteric Coated 81 MG TABLET.DR PO (08:36)
[2024-04-29] MEDS: 0.9 % Sodium Chloride Flush 3 ML SYRINGE IVFLUSH ×3 (08:37→21:21)
[2024-04-29] MEDS: Sodium Hypochlorite 0.125% 473 ML SOLUTION 1 APPL TOPICAL (08:38)
[2024-04-29] MEDS: Doxycycline Hyclate 100 MG in 0.9 % Sodium Chloride 250 ML 166.67 MG IV ×2 (09:20→21:17)
--- NOTE | 2024-04-29 10:01 | P.PNGS_ITS ---
Subjective Subjective Date of Service: 04/29/24 Interval history: Large ulcer, with osteomyelitis of the 5th toe Denies new complaints Physical Exam 2 Vital Signs: Vital Signs: Last Vital Signs Temp 97.1 F 04/29/24 07:53 Pulse 65 04/29/24 07:53 Resp 20 04/29/24 07:53 BP 187/86 H 04/29/24 07:53 Pulse Ox 96 04/29/24 07:53 O2 Del Method Room Air 04/29/24 07:53 BMI result Body Mass Index 35.6 Const: General: comfortable and no acute distress Resp: Effort & Inspection: normal respiratory effort Cardio: Rate: regular rate GI: Palpation (GI): Soft to palpation and not firm Extrem: Other: Large ulcer on the lateral aspect of the right foot along the 5th toe Objective Data Active Medications Acetaminophen (Acetaminophen 325 Mg Tablet) 650 mg PO Q6H PRN PRN Reason: Pain, Mild (Pain Scale 1-3), fever or headache Amlodipine Besylate (Amlodipine Besylate 5 Mg Tablet) 5 mg PO DAILY [facility]; Protocol Last Admin: 04/29/24 08:36 Dose: 5 mg Documented By: AJIT Aspirin (Aspirin Enteric Coated 81 Mg Tablet.) 81 mg PO DAILY [facility] Last Admin: 04/29/24 08:36 Dose: 81 mg Documented By: AJIT Buspirone HCl (Buspirone Hcl 10 Mg Tablet) 10 mg PO TID [facility] Last Admin: 04/29/24 08:36 Dose: 10 mg Documented By: AJIT Calcium Carbonate (Calcium Carbonate 750 Mg Tab.Chew) 750 mg PO Q4H PRN PRN Reason: Heartburn Clonidine HCl (Clonidine Hcl 0.1 Mg Tablet) 0.1 mg PO BEDTIME [facility]; Protocol Last Admin: 04/28/24 21:34 Dose: 0.1 mg Documented By: DIRK Clopidogrel Bisulfate (Clopidogrel Bisulfate 75 Mg Tablet) 75 mg PO DAILY [facility] Last Admin: 04/29/24 08:36 Dose: 75 mg Documented By: AJIT Docusate Sodium (Docusate Sodium 100 Mg Capsule) 100 mg PO BEDTIME [facility] Last Admin: 04/28/24 21:34 Dose: 100 mg Documented By: DIRK Enoxaparin Sodium (Enoxaparin Sodium 40 Mg/0.4 Ml Syringe) 40 mg SUBCUT Q24H [facility] Last Admin: 04/28/24 16:37 Dose: 40 mg Documented By: JUAN Doxycycline Hyclate 100 mg/ (Sodium Chloride) 250 mls @ 166.67 mls/hr IV Q12H [facility] Last Admin: 04/29/24 09:20 Dose: 166.67 mls/hr Documented By: AJIT Lisinopril (Lisinopril 10 Mg Tablet) 10 mg PO DAILY [facility]; Protocol Last Admin: 04/29/24 08:36 Dose: 10 mg Documented By: AJIT Magnesium Hydroxide (Milk Of Magnesia 30 Ml Oral.Susp) 30 ml PO DAILY PRN PRN Reason: Constipation Morphine Sulfate (Morphine Sulfate 4 Mg/Ml Cartridge) 2 mg IVPUSH Q6H PRN; Protocol PRN Reason: Pain, Severe (Pain Scale 7-10) Last Admin: 04/29/24 08:36 Dose: 2 mg Documented By: AJIT Ondansetron HCl (Ondansetron Hcl 4 Mg/2 Ml Vial) 4 mg IVPUSH Q8H PRN PRN Reason: Nausea and Vomiting Last Admin: 04/25/24 20:50 Dose: 4 mg Documented By: MARKUS Oxycodone HCl (Oxycodone Hcl Immed Release 5 Mg Tablet) 5 mg PO Q6H PRN PRN Reason: Pain, Moderate(Pain Scale 4-6) Last Admin: 04/28/24 10:26 Dose: 5 mg Documented By: JUAN Polyethylene Glycol (Polyethylene Glycol 3350 17 Gm Powd.Pack) 17 gm PO DAILY PRN PRN Reason: Constipation Sertraline HCl (Sertraline Hcl 100 Mg Tablet) 100 mg PO DAILY [facility] Last Admin: 04/29/24 08:36 Dose: 100 mg Documented By: AJIT Sodium Chloride (0.9 % Sodium Chloride Flush 3 Ml Syringe) 3 ml IVFLUSH QSHIFT [facility] Last Admin: 04/29/24 08:37 Dose: 3 ml Documented By: AJIT Sodium Hypochlorite (Sodium Hypochlorite 0.125% 473 Ml Solution) 1 appl TOPICAL BID [facility] Last Admin: 04/29/24 08:38 Dose: 1 appl Documented By: AJIT Zolpidem Tartrate (Zolpidem Tartrate 5 Mg Tablet) 5 mg PO BEDTIME PRN PRN Reason: Sleep Last Admin: 04/28/24 21:34 Dose: 5 mg Documented By: DIRK Labs 04/29/24 06:18 04/28/24 05:55 Labs: Laboratory Results - last 24 hr 04/29/24 06:18 MCV 94.6 MCH 32.3 MCHC 34.1 RDW 13.6 Plt Count 95 L MPV 11.1 Immature Gran % (Auto) 0.2 Neut % (Auto) 66.6 Lymph % (Auto) 21.5 Pine % (Auto) 10.1 Eos % (Auto) 1.4 Baso % (Auto) 0.2 Lymph # (Auto) 1.1 L [place] # (Auto) 0.5 Eos # (Auto) 0.1 Baso # (Auto) 0.0 Abs Immat Gran (auto) 0.01 Absolute Neuts (auto) 3.4 Absolute Nucleated RBC 0.000 Nucleated RBC % (auto) 0.0 Procedures Date of Service Date of Service: 04/29/24 Progress Note: A&P Assessment and plan (1) Acute osteomyelitis: Status: Acute Assessment and Plan: With large ulcer, areas of necrosis For amputation of the 5th toe at the metatarsal level next week I explained to him the technique of this procedure I reviewed the risks including but not limited to bleeding, infections, poor healing, as well as the benefits and alternatives I explained to him what to expect postoperatively He wants to proceed Time Spent With Patient Time: Total time managing care of this patient today ____ minutes. Quality Stroke Does the patient have a stroke diagnosis?: No VTE Prior VTE?: No VTE Risk Level:: Medical - moderate - high VTE Device Contraindication: Treatment Not Indicated VTE Drug Contraindication: N/A - Med Ordered
--- NOTE | 2024-04-29 10:58 | HO.PM.IMPN ---
Subjective Subjective Date of Service: 04/29/24 Interval History: Seen and examined this morning Follow-up for right foot ulcer/osteomyelitis No overnight events Pain under adequate control Review of Systems Review of Systems: Yes all other systems are reviewed and are negative Constitutional Constitutional: Denies chills and Denies fever(s) Cardiovascular Cardiovascular: Denies chest pain, Denies palpitations and Denies dyspnea Respiratory Respiratory: Denies cough and Denies dyspnea Gastrointestinal Gastrointestinal: Denies abdominal pain, Denies nausea and Denies vomiting Endocrine Endocrine: Denies palpitations Physical Exam Vital Signs: Vital Signs: Last Vital Signs Temp 97.1 F 04/29/24 07:53 Pulse 65 04/29/24 07:53 Resp 20 04/29/24 07:53 BP 187/86 H 04/29/24 07:53 Pulse Ox 96 04/29/24 07:53 O2 Del Method Room Air 04/29/24 07:53 BMI result Body Mass Index 35.6 Const: General: cooperative, no acute distress, alert and awake Nutritional Appearance: overweight Orientation/consciousness: patient oriented x3 Resp: Effort & Inspection: normal respiratory effort, able to speak in complete sentences, no respiratory distress and no use of accessory muscles Cardio: Rate: regular rate GI: Palpation (GI): Soft to palpation and nontender Skin: Other: right foot Neuro: General: patient oriented x3, moves all extremities and CN's II-XI intact bilaterally Extrem: Other: left groin hematoma, soft, improving General: Yes no pedal edema Objective Data Active Medications Acetaminophen (Acetaminophen 325 Mg Tablet) 650 mg PO Q6H PRN PRN Reason: Pain, Mild (Pain Scale 1-3), fever or headache Amlodipine Besylate (Amlodipine Besylate 5 Mg Tablet) 5 mg PO DAILY [facility]; Protocol Last Admin: 04/29/24 08:36 Dose: 5 mg Documented By: AJIT Aspirin (Aspirin Enteric Coated 81 Mg Tablet.) 81 mg PO DAILY [facility] Last Admin: 04/29/24 08:36 Dose: 81 mg Documented By: AJIT Buspirone HCl (Buspirone Hcl 10 Mg Tablet) 10 mg PO TID [facility] Last Admin: 04/29/24 08:36 Dose: 10 mg Documented By: AJIT Calcium Carbonate (Calcium Carbonate 750 Mg Tab.Chew) 750 mg PO Q4H PRN PRN Reason: Heartburn Clonidine HCl (Clonidine Hcl 0.1 Mg Tablet) 0.1 mg PO BEDTIME [facility]; Protocol Last Admin: 04/28/24 21:34 Dose: 0.1 mg Documented By: DIRK Clopidogrel Bisulfate (Clopidogrel Bisulfate 75 Mg Tablet) 75 mg PO DAILY [facility] Last Admin: 04/29/24 08:36 Dose: 75 mg Documented By: AJIT Docusate Sodium (Docusate Sodium 100 Mg Capsule) 100 mg PO BEDTIME [facility] Last Admin: 04/28/24 21:34 Dose: 100 mg Documented By: DIRK Enoxaparin Sodium (Enoxaparin Sodium 40 Mg/0.4 Ml Syringe) 40 mg SUBCUT Q24H [facility] Last Admin: 04/28/24 16:37 Dose: 40 mg Documented By: JUAN Doxycycline Hyclate 100 mg/ (Sodium Chloride) 250 mls @ 166.67 mls/hr IV Q12H [facility] Last Infusion: 04/29/24 10:50 Dose: Infused Documented By: AJIT Lisinopril (Lisinopril 10 Mg Tablet) 10 mg PO DAILY [facility]; Protocol Last Admin: 04/29/24 08:36 Dose: 10 mg Documented By: AJIT Magnesium Hydroxide (Milk Of Magnesia 30 Ml Oral.Susp) 30 ml PO DAILY PRN PRN Reason: Constipation Morphine Sulfate (Morphine Sulfate 4 Mg/Ml Cartridge) 2 mg IVPUSH Q6H PRN; Protocol PRN Reason: Pain, Severe (Pain Scale 7-10) Last Admin: 04/29/24 08:36 Dose: 2 mg Documented By: AJIT Ondansetron HCl (Ondansetron Hcl 4 Mg/2 Ml Vial) 4 mg IVPUSH Q8H PRN PRN Reason: Nausea and Vomiting Last Admin: 04/25/24 20:50 Dose: 4 mg Documented By: MARKUS Oxycodone HCl (Oxycodone Hcl Immed Release 5 Mg Tablet) 5 mg PO Q6H PRN PRN Reason: Pain, Moderate(Pain Scale 4-6) Last Admin: 04/28/24 10:26 Dose: 5 mg Documented By: JUAN Polyethylene Glycol (Polyethylene Glycol 3350 17 Gm Powd.Pack) 17 gm PO DAILY PRN PRN Reason: Constipation Sertraline HCl (Sertraline Hcl 100 Mg Tablet) 100 mg PO DAILY [facility] Last Admin: 04/29/24 08:36 Dose: 100 mg Documented By: AJIT Sodium Chloride (0.9 % Sodium Chloride Flush 3 Ml Syringe) 3 ml IVFLUSH QSHIFT [facility] Last Admin: 04/29/24 08:37 Dose: 3 ml Documented By: AJIT Sodium Hypochlorite (Sodium Hypochlorite 0.125% 473 Ml Solution) 1 appl TOPICAL BID [facility] Last Admin: 04/29/24 08:38 Dose: 1 appl Documented By: AJIT Zolpidem Tartrate (Zolpidem Tartrate 5 Mg Tablet) 5 mg PO BEDTIME PRN PRN Reason: Sleep Last Admin: 04/28/24 21:34 Dose: 5 mg Documented By: NICOLELANDV Labs 04/29/24 06:18 04/28/24 05:55 Labs: Laboratory Results - last 24 hr 04/29/24 06:18 MCV 94.6 MCH 32.3 MCHC 34.1 RDW 13.6 Plt Count 95 L MPV 11.1 Immature Gran % (Auto) 0.2 Neut % (Auto) 66.6 Lymph % (Auto) 21.5 [place] % (Auto) 10.1 Eos % (Auto) 1.4 Baso % (Auto) 0.2 Lymph # (Auto) 1.1 L [place] # (Auto) 0.5 Eos # (Auto) 0.1 Baso # (Auto) 0.0 Abs Immat Gran (auto) 0.01 Absolute Neuts (auto) 3.4 Absolute Nucleated RBC 0.000 Nucleated RBC % (auto) 0.0 Assessment and Plan (1) Peripheral vascular disease: Status: Acute (2) Acute osteomyelitis: Status: Acute (3) Foot ulcer: Status: Acute Plan This is a 58-year-old male with depression, obesity, peripheral neuropathy and likely untreated HTN here with an infected open wound of right foot following a traumatic injury. Infected, traumatic open wound with exposed bone and osteomyelitis xray showing Destruction/absence of the distal fifth metatarsal and proximal phalanx of 5th digit with soft tissue ulceration s/p bedside debridement by wound surgeon 04/25 Right SFA disease on arterial US - Seen by vascular surgery, status post angiogram 04/27 with plasty of anterior tibial and peroneal arteries Initially treated with IV Vanco and Zosyn - stopped per ID rec IV doxycycline until procedure, plan for amputation of the 5th toe at the metatarsal level next week blood cultures negative to date Peripheral vascular disease arterial studies with EULALIA show right SFA disease s/p angiogram with plasty of anterior tibial and peroneal arteries 04/27 We will require outpatient follow-up with vascular surgery will need asa/plavix for 6 months Left groin hematoma Following angiogram improving, H/H stable Depression- continue home meds Elevated blood pressure, likely untreated HTN Started on Norvasc, and Lisiniopril 10 on this admission Continue clonidine Some intermittent high blood pressure readings, may need to up titrate Norvasc Follow blood pressure closely Thrombocytopenia Acute on chronic Follow CBC Class 2 obesity weight loss advised DVT prophylaxis-lovenox Full code need for inpt: hospitalization for acute osteomylitis and infected wound requiring surgical intervention Quality Stroke Does the patient have a stroke diagnosis?: No VTE Prior VTE?: No VTE Risk Level:: Medical - moderate - high VTE Device Contraindication: Treatment Not Indicated VTE Drug Contraindication: N/A - Med Ordered
[2024-04-29] MEDS: Enoxaparin Sodium 40 MG/0.4 ML SYRINGE SUBCUT (16:14)
[2024-04-29] MEDS: cloNIDine HCL 0.1 MG TABLET PO (21:03)
[2024-04-29] MEDS: Docusate Sodium 100 MG CAPSULE PO (21:04)
[2024-04-29] MEDS: Zolpidem Tartrate 5 MG TABLET PO (21:14)
[2024-04-30] VITALS (7 sets, daily range): BP systolic 119–161; BP diastolic 61–92; PULSE 59–67; RESP 16–20; TEMP 36–36.6; O2SAT 96–99
[2024-04-30 07:03] LABS: Hemoglobin 12.5 g/dl (14.0-18.0); PLT CLUMP 1
[2024-04-30 07:05] LABS: Hematocrit 37.4 % (42.0-52.0); Mean Corpuscular HGB Conc 33.4 g/dl (31.0-36.0); Mean Corpuscular Hemoglobin 31.5 pg (27.0-33.0); Mean Corpuscular Volume 94.2 fL (80.0-98.0); Mean Platelet Volume 11.2 fL (9.4-12.4); Red Blood Count 3.97 X10*6/uL (4.60-5.80); Red Cell Distribution Width 13.3 % (11.0-16.0)
[2024-04-30 07:16] LABS: Platelet Count 109 X10*3/uL (160-400); White Blood Count 5.4 X10*3/uL (4.8-10.8)
[2024-04-30] MEDS: lisinopriL 10 MG TABLET PO (08:20)
[2024-04-30] MEDS: Clopidogrel Bisulfate 75 MG TABLET PO (08:20)
[2024-04-30] MEDS: oxyCODONE HCl Immed Release 5 MG TABLET PO ×2 (08:20→20:32)
[2024-04-30] MEDS: busPIRone HCl 10 MG TABLET PO ×3 (08:20→20:32)
[2024-04-30] MEDS: amLODIPine Besylate 5 MG TABLET PO (08:21)
[2024-04-30] MEDS: 0.9 % Sodium Chloride Flush 3 ML SYRINGE IVFLUSH ×3 (08:21→20:35)
[2024-04-30] MEDS: Sertraline HCL 100 MG TABLET PO (08:21)
[2024-04-30] MEDS: Aspirin Enteric Coated 81 MG TABLET.DR PO (08:21)
[2024-04-30] MEDS: Sodium Hypochlorite 0.125% 473 ML SOLUTION 1 APPL TOPICAL (08:22)
[2024-04-30] MEDS: Doxycycline Hyclate 100 MG in 0.9 % Sodium Chloride 250 ML 166.67 MG IV ×2 (09:39→21:32)
--- NOTE | 2024-04-30 10:03 | PM.PNGS ---
Subjective Subjective Date of Service: 04/30/24 Interval history: No new complaints No events reported overnight Physical Exam Vital Signs: Vital Signs: Last Vital Signs Temp 97.4 F 04/30/24 07:55 Pulse 64 04/30/24 07:55 Resp 16 04/30/24 07:55 BP 161/70 H 04/30/24 07:55 Pulse Ox 99 04/30/24 07:55 O2 Del Method Room Air 04/30/24 07:55 BMI result Body Mass Index 35.6 Const: General: comfortable and no acute distress Resp: Effort & Inspection: normal respiratory effort Cardio: Rate: regular rate Extrem: Other: Large ulcer on the lateral aspect of the right foot involving 5th toe, bone expose Objective Data Active Medications Acetaminophen (Acetaminophen 325 Mg Tablet) 650 mg PO Q6H PRN PRN Reason: Pain, Mild (Pain Scale 1-3), fever or headache Amlodipine Besylate (Amlodipine Besylate 5 Mg Tablet) 5 mg PO DAILY [facility]; Protocol Last Admin: 04/30/24 08:21 Dose: 5 mg Documented By: AJIT Aspirin (Aspirin Enteric Coated 81 Mg Tablet.Dr) 81 mg PO DAILY [facility] Last Admin: 04/30/24 08:21 Dose: 81 mg Documented By: AJIT Buspirone HCl (Buspirone Hcl 10 Mg Tablet) 10 mg PO TID [facility] Last Admin: 04/30/24 08:20 Dose: 10 mg Documented By: AJIT Calcium Carbonate (Calcium Carbonate 750 Mg Tab.Chew) 750 mg PO Q4H PRN PRN Reason: Heartburn Clonidine HCl (Clonidine Hcl 0.1 Mg Tablet) 0.1 mg PO BEDTIME [facility]; Protocol Last Admin: 04/29/24 21:03 Dose: 0.1 mg Documented By: DIRK Clopidogrel Bisulfate (Clopidogrel Bisulfate 75 Mg Tablet) 75 mg PO DAILY [facility] Last Admin: 04/30/24 08:20 Dose: 75 mg Documented By: AJIT Docusate Sodium (Docusate Sodium 100 Mg Capsule) 100 mg PO BEDTIME [facility] Last Admin: 04/29/24 21:04 Dose: 100 mg Documented By: DIRK Enoxaparin Sodium (Enoxaparin Sodium 40 Mg/0.4 Ml Syringe) 40 mg SUBCUT Q24H [facility] Last Admin: 04/29/24 16:14 Dose: 40 mg Documented By: AJIT Doxycycline Hyclate 100 mg/ (Sodium Chloride) 250 mls @ 166.67 mls/hr IV Q12H [facility] Last Admin: 04/30/24 09:39 Dose: 166.67 mls/hr Documented By: AJIT Lisinopril (Lisinopril 10 Mg Tablet) 10 mg PO DAILY [facility]; Protocol Last Admin: 04/30/24 08:20 Dose: 10 mg Documented By: AJIT Magnesium Hydroxide (Milk Of Magnesia 30 Ml Oral.Susp) 30 ml PO DAILY PRN PRN Reason: Constipation Morphine Sulfate (Morphine Sulfate 4 Mg/Ml Cartridge) 2 mg IVPUSH Q6H PRN; Protocol PRN Reason: Pain, Severe (Pain Scale 7-10) Last Admin: 04/29/24 21:04 Dose: 2 mg Documented By: DIRK Ondansetron HCl (Ondansetron Hcl 4 Mg/2 Ml Vial) 4 mg IVPUSH Q8H PRN PRN Reason: Nausea and Vomiting Last Admin: 04/25/24 20:50 Dose: 4 mg Documented By: MARKUS Oxycodone HCl (Oxycodone Hcl Immed Release 5 Mg Tablet) 5 mg PO Q6H PRN PRN Reason: Pain, Moderate(Pain Scale 4-6) Last Admin: 04/30/24 08:20 Dose: 5 mg Documented By: AJIT Polyethylene Glycol (Polyethylene Glycol 3350 17 Gm Powd.Pack) 17 gm PO DAILY PRN PRN Reason: Constipation Sertraline HCl (Sertraline Hcl 100 Mg Tablet) 100 mg PO DAILY [facility] Last Admin: 04/30/24 08:21 Dose: 100 mg Documented By: AJIT Sodium Chloride (0.9 % Sodium Chloride Flush 3 Ml Syringe) 3 ml IVFLUSH QSHIFT [facility] Last Admin: 04/30/24 08:21 Dose: 3 ml Documented By: AJIT Sodium Hypochlorite (Sodium Hypochlorite 0.125% 473 Ml Solution) 1 appl TOPICAL BID [facility] Last Admin: 04/30/24 08:22 Dose: 1 appl Documented By: AJIT Zolpidem Tartrate (Zolpidem Tartrate 5 Mg Tablet) 5 mg PO BEDTIME PRN PRN Reason: Sleep Last Admin: 04/29/24 21:14 Dose: 5 mg Documented By: DIRK Labs 04/30/24 06:26 04/28/24 05:55 Labs: Laboratory Results - last 24 hr 04/30/24 06:26 MCV 94.2 MCH 31.5 MCHC 33.4 RDW 13.3 Plt Count 109 L MPV 11.2 Absolute Nucleated RBC 0.000 Nucleated RBC % (auto) 0.0 Procedures Date of Service Date of Service: 04/30/24 Progress Note: A&P Assessment and plan (1) Acute osteomyelitis: Status: Acute Assessment and Plan: Reviewed technique of amputation of the 5th toe at the mid metatarsal level I explained the risks, benefits, alternatives extensively He has given consent Will put the patient on an add on schedule in the OR for tomorrow Time Spent With Patient Time: Total time managing care of this patient today ____ minutes. Quality Stroke Does the patient have a stroke diagnosis?: No VTE Prior VTE?: No VTE Risk Level:: Medical - moderate - high VTE Device Contraindication: Treatment Not Indicated VTE Drug Contraindication: N/A - Med Ordered
--- NOTE | 2024-04-30 11:56 | HO.PM.IMPN ---
Subjective Subjective Date of Service: 04/30/24 Interval History: Seen and examined this morning Follow-up for nonhealing ulcer, osteomyelitis Overnight events No specific complaints. Pain adequately controlled, no fever Review of Systems Review of Systems: Yes all other systems are reviewed and are negative Constitutional Constitutional: Denies chills and Denies fever(s) Cardiovascular Cardiovascular: Denies chest pain, Denies palpitations and Denies dyspnea Respiratory Respiratory: Denies cough and Denies dyspnea Gastrointestinal Gastrointestinal: Denies abdominal pain Endocrine Endocrine: Denies palpitations Physical Exam Vital Signs: Vital Signs: Last Vital Signs Temp 97.4 F 04/30/24 07:55 Pulse 64 04/30/24 07:55 Resp 16 04/30/24 07:55 BP 161/70 H 04/30/24 07:55 Pulse Ox 99 04/30/24 07:55 O2 Del Method Room Air 04/30/24 07:55 BMI result Body Mass Index 35.6 Const: General: cooperative, no acute distress, alert and awake Nutritional Appearance: overweight Orientation/consciousness: patient oriented x3 Resp: Effort & Inspection: normal respiratory effort, able to speak in complete sentences, no respiratory distress and no use of accessory muscles Cardio: Rate: regular rate GI: Palpation (GI): Soft to palpation and nontender Skin: Other: right foot wrapped in c/d/i bandage Neuro: General: patient oriented x3, moves all extremities and CN's II-XI intact bilaterally Extrem: Other: left groin hematoma, soft, improving General: Yes no pedal edema Objective Data Active Medications Acetaminophen (Acetaminophen 325 Mg Tablet) 650 mg PO Q6H PRN PRN Reason: Pain, Mild (Pain Scale 1-3), fever or headache Amlodipine Besylate (Amlodipine Besylate 5 Mg Tablet) 5 mg PO DAILY [facility]; Protocol Last Admin: 04/30/24 08:21 Dose: 5 mg Documented By: AJIT Aspirin (Aspirin Enteric Coated 81 Mg Tablet.) 81 mg PO DAILY [facility] Last Admin: 04/30/24 08:21 Dose: 81 mg Documented By: AJIT Buspirone HCl (Buspirone Hcl 10 Mg Tablet) 10 mg PO TID [facility] Last Admin: 04/30/24 08:20 Dose: 10 mg Documented By: AJIT Calcium Carbonate (Calcium Carbonate 750 Mg Tab.Chew) 750 mg PO Q4H PRN PRN Reason: Heartburn Clonidine HCl (Clonidine Hcl 0.1 Mg Tablet) 0.1 mg PO BEDTIME [facility]; Protocol Last Admin: 04/29/24 21:03 Dose: 0.1 mg Documented By: DIRK Clopidogrel Bisulfate (Clopidogrel Bisulfate 75 Mg Tablet) 75 mg PO DAILY [facility] Last Admin: 04/30/24 08:20 Dose: 75 mg Documented By: AJIT Docusate Sodium (Docusate Sodium 100 Mg Capsule) 100 mg PO BEDTIME [facility] Last Admin: 04/29/24 21:04 Dose: 100 mg Documented By: DIRK Enoxaparin Sodium (Enoxaparin Sodium 40 Mg/0.4 Ml Syringe) 40 mg SUBCUT Q24H [facility] Last Admin: 04/29/24 16:14 Dose: 40 mg Documented By: AJIT Doxycycline Hyclate 100 mg/ (Sodium Chloride) 250 mls @ 166.67 mls/hr IV Q12H [facility] Last Infusion: 04/30/24 11:15 Dose: Infused Documented By: AJIT Lisinopril (Lisinopril 10 Mg Tablet) 10 mg PO DAILY [facility]; Protocol Last Admin: 04/30/24 08:20 Dose: 10 mg Documented By: AJIT Magnesium Hydroxide (Milk Of Magnesia 30 Ml Oral.Susp) 30 ml PO DAILY PRN PRN Reason: Constipation Morphine Sulfate (Morphine Sulfate 4 Mg/Ml Cartridge) 2 mg IVPUSH Q6H PRN; Protocol PRN Reason: Pain, Severe (Pain Scale 7-10) Last Admin: 04/29/24 21:04 Dose: 2 mg Documented By: DIRK Ondansetron HCl (Ondansetron Hcl 4 Mg/2 Ml Vial) 4 mg IVPUSH Q8H PRN PRN Reason: Nausea and Vomiting Last Admin: 04/25/24 20:50 Dose: 4 mg Documented By: MARKUS Oxycodone HCl (Oxycodone Hcl Immed Release 5 Mg Tablet) 5 mg PO Q6H PRN PRN Reason: Pain, Moderate(Pain Scale 4-6) Last Admin: 04/30/24 08:20 Dose: 5 mg Documented By: AJIT Polyethylene Glycol (Polyethylene Glycol 3350 17 Gm Powd.Pack) 17 gm PO DAILY PRN PRN Reason: Constipation Sertraline HCl (Sertraline Hcl 100 Mg Tablet) 100 mg PO DAILY [facility] Last Admin: 04/30/24 08:21 Dose: 100 mg Documented By: AJIT Sodium Chloride (0.9 % Sodium Chloride Flush 3 Ml Syringe) 3 ml IVFLUSH QSHIFT [facility] Last Admin: 04/30/24 08:21 Dose: 3 ml Documented By: AJIT Sodium Hypochlorite (Sodium Hypochlorite 0.125% 473 Ml Solution) 1 appl TOPICAL BID [facility] Last Admin: 04/30/24 08:22 Dose: 1 appl Documented By: AJIT Zolpidem Tartrate (Zolpidem Tartrate 5 Mg Tablet) 5 mg PO BEDTIME PRN PRN Reason: Sleep Last Admin: 04/29/24 21:14 Dose: 5 mg Documented By: ORLANDV Labs 04/30/24 06:26 04/28/24 05:55 Labs: Laboratory Results - last 24 hr 04/30/24 06:26 MCV 94.2 MCH 31.5 MCHC 33.4 RDW 13.3 Plt Count 109 L MPV 11.2 Absolute Nucleated RBC 0.000 Nucleated RBC % (auto) 0.0 Assessment and Plan (1) Foot ulcer: Status: Acute (2) Acute osteomyelitis: Status: Acute Plan This is a 58-year-old male with depression, obesity, peripheral neuropathy and likely untreated HTN here with an infected open wound of right foot following a traumatic injury. Infected, traumatic open wound with exposed bone and osteomyelitis xray showing Destruction/absence of the distal fifth metatarsal and proximal phalanx of 5th digit with soft tissue ulceration s/p bedside debridement by wound surgeon 04/25 Right SFA disease on arterial US - Seen by vascular surgery, status post angiogram 04/27 with plasty of anterior tibial and peroneal arteries Initially treated with IV Vanco and Zosyn - stopped per ID rec IV doxycycline until procedure, plan for amputation of the 5th toe at the metatarsal level wednesday (05/01), npo at midnight blood cultures negative to date Peripheral vascular disease arterial studies with EULALIA show right SFA disease s/p angiogram with plasty of anterior tibial and peroneal arteries 04/27 We will require outpatient follow-up with vascular surgery will need asa/plavix for 6 months Left groin hematoma Following angiogram improving, H/H stable Depression- continue zoloft Elevated blood pressure, likely untreated HTN Started on Norvasc, and Lisiniopril 10 on this admission Continue clonidine Some intermittent high blood pressure readings, may need to up titrate Norvasc Follow blood pressure closely Thrombocytopenia Acute on chronic platelets stable Class 2 obesity weight loss advised DVT prophylaxis-lovenox Full code need for inpt: hospitalization for acute osteomylitis and infected wound requiring surgical intervention Quality Stroke Does the patient have a stroke diagnosis?: No VTE Prior VTE?: No VTE Risk Level:: Medical - moderate - high VTE Device Contraindication: Treatment Not Indicated VTE Drug Contraindication: N/A - Med Ordered
[2024-04-30] MEDS: Enoxaparin Sodium 40 MG/0.4 ML SYRINGE SUBCUT (16:10)
[2024-04-30] MEDS: cloNIDine HCL 0.1 MG TABLET PO (20:32)
[2024-04-30] MEDS: Docusate Sodium 100 MG CAPSULE PO (20:32)
[2024-04-30] MEDS: Zolpidem Tartrate 5 MG TABLET PO (20:38)
[2024-04-30] MEDS: Morphine Sulfate 4 MG/ML CARTRIDGE 2 MG IVPUSH (23:08)
--- NOTE | 2024-05-01 02:19 | PC.NURSE ---
Pt sleeping at this time, respirations even an non-labored, no apparent distress noted. Call calixto within reach.
[2024-05-01 03:41] VITALS: BP 122/59; PULSE 60; RESP 20; TEMP 36.2; O2SAT 98
[2024-05-01 07:45] VITALS: BP 144/87; PULSE 66; RESP 12; TEMP 36.1; O2SAT 99
[2024-05-01 08:03] LABS: Anion Gap 11 (12-20); Blood Urea Nitrogen 8 mg/dL (9-16); Calcium 8.9 mg/dL (8.4-10.2); Carbon Dioxide 30 mmol/L (22-29); Chloride 105 mmol/L (96-108); Estimated Glomerular Filt Rate > 60; Glucose Random 115 mg/dL (60-115); Potassium 3.2 mmol/L (3.3-5.1); Sodium 143 mmol/L (135-145)
--- NOTE | 2024-05-01 08:16 | PM.PNGS ---
Subjective Subjective Date of Service: 05/01/24 Interval history: No events overnight Patient denies complaints Physical Exam Vital Signs: Vital Signs: Last Vital Signs Temp 97 F 05/01/24 07:45 Pulse 66 05/01/24 07:45 Resp 12 05/01/24 07:45 BP 144/87 H 05/01/24 07:45 Pulse Ox 99 05/01/24 07:45 O2 Del Method Room Air 05/01/24 07:45 BMI result Body Mass Index 35.6 Const: General: comfortable and no acute distress Resp: Effort & Inspection: normal respiratory effort Cardio: Rate: regular rate GI: Palpation (GI): Soft to palpation Extrem: Other: Open wound aspect of the right, bone expose Objective Data Active Medications Acetaminophen (Acetaminophen 325 Mg Tablet) 650 mg PO Q6H PRN PRN Reason: Pain, Mild (Pain Scale 1-3), fever or headache Amlodipine Besylate (Amlodipine Besylate 5 Mg Tablet) 5 mg PO DAILY [facility]; Protocol Last Admin: 04/30/24 08:21 Dose: 5 mg Documented By: AJIT Aspirin (Aspirin Enteric Coated 81 Mg Tablet.Dr) 81 mg PO DAILY [facility] Last Admin: 04/30/24 08:21 Dose: 81 mg Documented By: AJIT Buspirone HCl (Buspirone Hcl 10 Mg Tablet) 10 mg PO TID [facility] Last Admin: 04/30/24 20:32 Dose: 10 mg Documented By: DIRK Calcium Carbonate (Calcium Carbonate 750 Mg Tab.Chew) 750 mg PO Q4H PRN PRN Reason: Heartburn Clonidine HCl (Clonidine Hcl 0.1 Mg Tablet) 0.1 mg PO BEDTIME [facility]; Protocol Last Admin: 04/30/24 20:32 Dose: 0.1 mg Documented By: DIRK Clopidogrel Bisulfate (Clopidogrel Bisulfate 75 Mg Tablet) 75 mg PO DAILY [facility] Last Admin: 04/30/24 08:20 Dose: 75 mg Documented By: AJIT Docusate Sodium (Docusate Sodium 100 Mg Capsule) 100 mg PO BEDTIME [facility] Last Admin: 04/30/24 20:32 Dose: 100 mg Documented By: DIRK Enoxaparin Sodium (Enoxaparin Sodium 40 Mg/0.4 Ml Syringe) 40 mg SUBCUT Q24H [facility] Last Admin: 04/30/24 16:10 Dose: 40 mg Documented By: AJIT Doxycycline Hyclate 100 mg/ (Sodium Chloride) 250 mls @ 166.67 mls/hr IV Q12H [facility] Last Infusion: 04/30/24 23:02 Dose: Infused Documented By: DIRK Lisinopril (Lisinopril 10 Mg Tablet) 10 mg PO DAILY [facility]; Protocol Last Admin: 04/30/24 08:20 Dose: 10 mg Documented By: AJIT Magnesium Hydroxide (Milk Of Magnesia 30 Ml Oral.Susp) 30 ml PO DAILY PRN PRN Reason: Constipation Morphine Sulfate (Morphine Sulfate 4 Mg/Ml Cartridge) 2 mg IVPUSH Q6H PRN; Protocol PRN Reason: Pain, Severe (Pain Scale 7-10) Last Admin: 04/30/24 23:08 Dose: 2 mg Documented By: DIRK Ondansetron HCl (Ondansetron Hcl 4 Mg/2 Ml Vial) 4 mg IVPUSH Q8H PRN PRN Reason: Nausea and Vomiting Last Admin: 04/25/24 20:50 Dose: 4 mg Documented By: MARKUS Oxycodone HCl (Oxycodone Hcl Immed Release 5 Mg Tablet) 5 mg PO Q6H PRN PRN Reason: Pain, Moderate(Pain Scale 4-6) Last Admin: 04/30/24 20:32 Dose: 5 mg Documented By: DIRK Polyethylene Glycol (Polyethylene Glycol 3350 17 Gm Powd.Pack) 17 gm PO DAILY [facility] Potassium Chloride (Potassium Chloride Er 20 Meq Tab.Er.Prt) 40 meq PO ONCE ONE Stop: 05/01/24 08:09 Sertraline HCl (Sertraline Hcl 100 Mg Tablet) 100 mg PO DAILY [facility] Last Admin: 04/30/24 08:21 Dose: 100 mg Documented By: AJIT Sodium Chloride (0.9 % Sodium Chloride Flush 3 Ml Syringe) 3 ml IVFLUSH QSHIFT [facility] Last Admin: 04/30/24 20:35 Dose: 3 ml Documented By: DIRK Sodium Hypochlorite (Sodium Hypochlorite 0.125% 473 Ml Solution) 1 appl TOPICAL BID [facility] Last Admin: 04/30/24 21:36 Dose: Not Given Documented By: DIRK Non-Admin Reason: Patient Refused Zolpidem Tartrate (Zolpidem Tartrate 5 Mg Tablet) 5 mg PO BEDTIME PRN PRN Reason: Sleep Last Admin: 04/30/24 20:38 Dose: 5 mg Documented By: DIRK Labs 04/30/24 06:26 05/01/24 05:00 Labs: Laboratory Results - last 24 hr 05/01/24 05:00 Anion Gap 11 L Estim Creat Clear Calc 132.0 Estimated GFR > 60 Random Glucose 115 Calcium 8.9 Microbiology Microbiology Results: Microbiology 04/25/24 11:34 Blood Culture - Final Blood - Venous No growth after 5 days. 04/25/24 11:34 Blood Culture - Final Blood - Venous No growth after 5 days. Procedures Date of Service Date of Service: 05/01/24 Progress Note: A&P Assessment and plan (1) Acute osteomyelitis: Status: Acute Assessment and Plan: Open wound bone expose on lateral aspect of the right foot involving 5th metatarsal Plan amputation of 5th toe at the metatarsal level tomorrow Patient understands the technique of the procedure as well as the risks, benefits, and alternatives On IV antibiotics Time Spent With Patient Time: Total time managing care of this patient today ____ minutes. Quality Stroke Does the patient have a stroke diagnosis?: No VTE Prior VTE?: No VTE Risk Level:: Medical - moderate - high VTE Device Contraindication: Treatment Not Indicated VTE Drug Contraindication: N/A - Med Ordered
[2024-05-01] MEDS: amLODIPine Besylate 5 MG TABLET PO (08:54)
[2024-05-01] MEDS: oxyCODONE HCl Immed Release 5 MG TABLET PO ×2 (08:54→15:39)
[2024-05-01] MEDS: Potassium Chloride ER 20 MEQ TAB.ER.PRT 40 MEQ PO (08:54)
[2024-05-01] MEDS: lisinopriL 10 MG TABLET PO (08:55)
[2024-05-01] MEDS: Aspirin Enteric Coated 81 MG TABLET.DR PO (08:55)
[2024-05-01] MEDS: 0.9 % Sodium Chloride Flush 3 ML SYRINGE IVFLUSH ×3 (08:55→20:12)
[2024-05-01] MEDS: busPIRone HCl 10 MG TABLET PO ×3 (08:55→20:13)
[2024-05-01] MEDS: Sertraline HCL 100 MG TABLET PO (08:55)
[2024-05-01] MEDS: Clopidogrel Bisulfate 75 MG TABLET PO (08:55)
[2024-05-01] MEDS: Sodium Hypochlorite 0.125% 473 ML SOLUTION 1 APPL TOPICAL (08:58)
[2024-05-01] MEDS: polyethylene glycoL 3350 17 GM POWD.PACK PO (09:03)
[2024-05-01] MEDS: Doxycycline Hyclate 100 MG in 0.9 % Sodium Chloride 250 ML 166.67 MG IV ×2 (10:15→20:24)
--- NOTE | 2024-05-01 11:05 | HO.PM.IMPN ---
Subjective Subjective Date of Service: 05/01/24 Interval History: Seen and examined this morning Follow-up for nonhealing ulcer, osteomyelitis Overnight events No specific complaints. Pain adequately controlled, no fever Review of Systems Review of Systems: Yes all other systems are reviewed and are negative Constitutional Constitutional: Denies chills and Denies fever(s) Cardiovascular Cardiovascular: Denies chest pain, Denies palpitations and Denies dyspnea Respiratory Respiratory: Denies cough and Denies dyspnea Gastrointestinal Gastrointestinal: Denies abdominal pain Endocrine Endocrine: Denies palpitations Physical Exam Vital Signs: Vital Signs: Last Vital Signs Temp 97 F 05/01/24 07:45 Pulse 66 05/01/24 07:45 Resp 12 05/01/24 07:45 BP 144/87 H 05/01/24 07:45 Pulse Ox 99 05/01/24 07:45 O2 Del Method Room Air 05/01/24 07:45 BMI result Body Mass Index 35.6 Appearing in no acute distress lung sounds are clear to auscultation heart regular rate rhythm, clear S1, S2 positive bowel sounds, abdomen is soft, nontender neuro patient is alert x3, no focal deficits Objective Data Active Medications Acetaminophen (Acetaminophen 325 Mg Tablet) 650 mg PO Q6H PRN PRN Reason: Pain, Mild (Pain Scale 1-3), fever or headache Amlodipine Besylate (Amlodipine Besylate 5 Mg Tablet) 5 mg PO DAILY [facility]; Protocol Last Admin: 05/01/24 08:54 Dose: 5 mg Documented By: JUAN Aspirin (Aspirin Enteric Coated 81 Mg Tablet.) 81 mg PO DAILY [facility] Last Admin: 05/01/24 08:55 Dose: 81 mg Documented By: JUAN Buspirone HCl (Buspirone Hcl 10 Mg Tablet) 10 mg PO TID [facility] Last Admin: 05/01/24 08:55 Dose: 10 mg Documented By: JUAN Calcium Carbonate (Calcium Carbonate 750 Mg Tab.Chew) 750 mg PO Q4H PRN PRN Reason: Heartburn Clonidine HCl (Clonidine Hcl 0.1 Mg Tablet) 0.1 mg PO BEDTIME [facility]; Protocol Last Admin: 04/30/24 20:32 Dose: 0.1 mg Documented By: DIRK Clopidogrel Bisulfate (Clopidogrel Bisulfate 75 Mg Tablet) 75 mg PO DAILY [facility] Last Admin: 05/01/24 08:55 Dose: 75 mg Documented By: JUAN Docusate Sodium (Docusate Sodium 100 Mg Capsule) 100 mg PO BEDTIME [facility] Last Admin: 04/30/24 20:32 Dose: 100 mg Documented By: DIRK Enoxaparin Sodium (Enoxaparin Sodium 40 Mg/0.4 Ml Syringe) 40 mg SUBCUT Q24H [facility] Last Admin: 04/30/24 16:10 Dose: 40 mg Documented By: AJIT Doxycycline Hyclate 100 mg/ (Sodium Chloride) 250 mls @ 166.67 mls/hr IV Q12H [facility] Last Admin: 05/01/24 10:15 Dose: 166.67 mls/hr Documented By: JUAN Lisinopril (Lisinopril 10 Mg Tablet) 10 mg PO DAILY [facility]; Protocol Last Admin: 05/01/24 08:55 Dose: 10 mg Documented By: JUAN Magnesium Hydroxide (Milk Of Magnesia 30 Ml Oral.Susp) 30 ml PO DAILY PRN PRN Reason: Constipation Morphine Sulfate (Morphine Sulfate 4 Mg/Ml Cartridge) 2 mg IVPUSH Q6H PRN; Protocol PRN Reason: Pain, Severe (Pain Scale 7-10) Last Admin: 04/30/24 23:08 Dose: 2 mg Documented By: DIRK Ondansetron HCl (Ondansetron Hcl 4 Mg/2 Ml Vial) 4 mg IVPUSH Q8H PRN PRN Reason: Nausea and Vomiting Last Admin: 04/25/24 20:50 Dose: 4 mg Documented By: MARKUS Oxycodone HCl (Oxycodone Hcl Immed Release 5 Mg Tablet) 5 mg PO Q6H PRN PRN Reason: Pain, Moderate(Pain Scale 4-6) Last Admin: 05/01/24 08:54 Dose: 5 mg Documented By: JUAN Polyethylene Glycol (Polyethylene Glycol 3350 17 Gm Powd.Pack) 17 gm PO DAILY [facility] Last Admin: 05/01/24 09:03 Dose: 17 gm Documented By: JUAN Sertraline HCl (Sertraline Hcl 100 Mg Tablet) 100 mg PO DAILY [facility] Last Admin: 05/01/24 08:55 Dose: 100 mg Documented By: JUAN Sodium Chloride (0.9 % Sodium Chloride Flush 3 Ml Syringe) 3 ml IVFLUSH QSHIFT [facility] Last Admin: 05/01/24 08:55 Dose: 3 ml Documented By: JUAN Sodium Hypochlorite (Sodium Hypochlorite 0.125% 473 Ml Solution) 1 appl TOPICAL BID [facility] Last Admin: 05/01/24 08:58 Dose: 1 appl Documented By: JUAN Zolpidem Tartrate (Zolpidem Tartrate 5 Mg Tablet) 5 mg PO BEDTIME PRN PRN Reason: Sleep Last Admin: 04/30/24 20:38 Dose: 5 mg Documented By: DIRK Labs 04/30/24 06:26 05/01/24 05:00 Labs: Laboratory Results - last 24 hr 05/01/24 05:00 Anion Gap 11 L Estim Creat Clear Calc 132.0 Estimated GFR > 60 Random Glucose 115 Calcium 8.9 Microbiology Microbiology Results: Microbiology 04/25/24 11:34 Blood Culture - Final Blood - Venous No growth after 5 days. 04/25/24 11:34 Blood Culture - Final Blood - Venous No growth after 5 days. Assessment and Plan (1) Foot ulcer: Status: Acute (2) Acute osteomyelitis: Status: Acute Plan This is a 58-year-old male with depression, obesity, peripheral neuropathy and likely untreated HTN here with an infected open wound of right foot following a traumatic injury. Infected, traumatic open wound with exposed bone and osteomyelitis xray showing Destruction/absence of the distal fifth metatarsal and proximal phalanx of 5th digit with soft tissue ulceration s/p bedside debridement by wound surgeon 04/25 Initially treated with IV Vanco and Zosyn - stopped per ID rec IV doxycycline until procedure, plan for amputation of the 5th toe at the metatarsal level tomorrow, npo at midnight blood cultures negative to date Peripheral vascular disease arterial studies with EULALIA show right SFA disease s/p angiogram with plasty of anterior tibial and peroneal arteries 04/27 We will require outpatient follow-up with vascular surgery will need asa/plavix for 6 months Left groin hematoma Following angiogram improving, H/H stable Depression continue zoloft Elevated blood pressure, likely untreated HTN Started on Norvasc, and Lisiniopril 10 on this admission Continue clonidine Some intermittent high blood pressure readings, may need to up titrate Norvasc Follow blood pressure closely Thrombocytopenia Acute on chronic platelets stable Class 2 obesity weight loss advised DVT prophylaxis-lovenox Attending Dr. Conner Full code need for inpt: hospitalization for acute osteomylitis and infected wound requiring surgical intervention Quality Stroke Does the patient have a stroke diagnosis?: No VTE Prior VTE?: No VTE Risk Level:: Medical - moderate - high VTE Device Contraindication: Treatment Not Indicated VTE Drug Contraindication: N/A - Med Ordered
[2024-05-01 15:24] VITALS: BP 170/70; PULSE 64; RESP 12; TEMP 36.3; O2SAT 100
[2024-05-01] MEDS: Enoxaparin Sodium 40 MG/0.4 ML SYRINGE SUBCUT (15:38)
--- NOTE | 2024-05-01 16:25 | MHC.CM.PN ---
PT NOT YET MEDICALLY CLEARED, PLAN FOR METATARSAL AMP TOMORROW DCP TBD, ? [facility]
[2024-05-01 19:04] VITALS: BP 146/67; PULSE 66; RESP 18; TEMP 36.1; O2SAT 98
[2024-05-01] MEDS: cloNIDine HCL 0.1 MG TABLET PO (20:13)
[2024-05-01] MEDS: Zolpidem Tartrate 5 MG TABLET PO (20:14)
[2024-05-01] MEDS: Docusate Sodium 100 MG CAPSULE PO (20:14)
[2024-05-01] MEDS: Morphine Sulfate 4 MG/ML CARTRIDGE 2 MG IVPUSH (20:23)
[2024-05-02] VITALS (11 sets, daily range): BP systolic 132–180; BP diastolic 61–83; PULSE 63–72; RESP 14–18; TEMP 36.1–37.1; O2SAT 95–100
--- NOTE | 2024-05-02 07:40 | PM.EVENT ---
Event Note Date of Service: 05/02/24 Event Note: Denies new complaints Says he is ready for surgery No events overnight Large right foot lateral ulcer with exposed bone For amputation, 5th toe at the metatarsal He understands the technique of the procedure He is aware of the risks, benefits, and alternatives Time Spent With Patient Time: Total time managing care of this patient today ____ minutes.
[2024-05-02] MEDS: amLODIPine Besylate 5 MG TABLET PO (07:51)
[2024-05-02] MEDS: lisinopriL 10 MG TABLET PO (07:51)
[2024-05-02] MEDS: 0.9 % Sodium Chloride Flush 3 ML SYRINGE IVFLUSH ×2 (07:52→15:57)
[2024-05-02] MEDS: Potassium Chloride ER 20 MEQ TAB.ER.PRT 40 MEQ PO (07:57)
--- NOTE | 2024-05-02 08:24 | P.CDIM_ITS ---
PROVIDER RESPONSE TEXT: To clarify, the appropriate diagnosis supported by the clinical indicators: Excisional debridement: scalpel necrotic fat and tendon QUERY TEXT: PHYSICIAN'S DOCUMENTATION REQUEST Date of Query: 04/28/2024 09:26 AM EDT Patient Name: Fan Garza Admit Date: 04/25/2024 Dear Anel Melvin MD, A review of the medical record indicates additional documentation may be needed. Please review below and update the documentation accordingly. Clinical Indicators: Progress note dated 04/25/24 - Infected traumatic open wound with exposed bone and osteomyelitis - s/- bedside debridement by wound surgeon. Vascular surgery consult for possible amputation. Surgery note 04/25: plan to get vascular arterial ultrasound, dakins wet to dry dressing, Will follow a long - sore for more debridement at bedside. Could you provide, in the Progress Notes, further clarification regarding the type and nature of the debridement? Excisional debridement Please also address the Type of instrument used, What was excised, Depth of debridement, and Size and appearance of the wound as able Non-excisional debridement Please also address the Depth of debridement, and Size and appearance of the wound as able Other (explain) Clinically unable to determine (explain) Thank you, Rafia Guzman, CCS, CDIS Use of terms such as suspected, likely, concern for, or probable (associated with a specific diagnosi s that is being evaluated, monitored, or treated as if it exists) are acceptable and can be coded in the inpatient se tting, when documented at the time of discharge. Please use your independent medical judgment in providing your response. THIS QUERY IS PART OF THE PERMANENT MEDICAL RECORD
[2024-05-02] MEDS: Doxycycline Hyclate 100 MG in 0.9 % Sodium Chloride 250 ML 166.67 MG IV ×2 (10:16→21:16)
--- NOTE | 2024-05-02 11:17 | MHC.SHP ---
Pre-Procedural Eval Section A - 24 Hr Update-Section A only Date of Service: 05/02/24 The patient is an INPATIENT: Yes Changes since office visit: No Cold of Flu in the past 2 weeks, No New Medical Problems, No Changes in Medication and No Patient answered all questions The patient has been examined within 24 hours of the surgical procedure. The History & Physical has been completed within 30 days and I have reviewed it.: Yes Section B - Complete if H&P > 30 days Chief Complaint: infected ulcer, osteomyelitis-RIGHT LEG--ANGIOGRAM Allergies: Allergies Allergy/AdvReac Type Severity Reaction Status Date / Time codeine [Codeine] Allergy Mild RASH Verified 05/02/24 08:38 Codeine Allergy Unknown Rash Uncoded 05/02/24 08:38 Plan I have reviewed the history and physical and performed a pertinent physical examination on my patient. No changes have occurred unless specified. Time Spent With Patient Time: Total time managing care of this patient today ____ minutes.
--- NOTE | 2024-05-02 11:22 | HO.ANESPROP2 ---
HPI - Anesthesia Eval Consult details Narrative: 58 yo male patient with osteomyelitis Right 5th toe. For amputation of Right foot 5th toe PMFSH Active Problems Active Problems: All Active Problems (Updated 04/26/24 @ 10:10 by Rebel Green MD) PAD (peripheral artery disease) (Acute) HTN (hypertension) (Acute) Peripheral vascular disease (Acute) Acute osteomyelitis (Acute) Foot ulcer (Acute) Encounter for subsequent annual wellness visit (AWV) in Medicare patient (Acute) Obesity (Acute) Depression (Acute) Encounter for initial annual wellness visit (AWV) in Medicare patient (Acute) Abdominal wall hernia Marijuana gummies Smoker Family History Family history of problems with anesthesia: No Surgical History Surgical History (Updated 05/02/24 @ 11:26 by Irina De Santiago MD) Abdominal wall hernia Hx of appendectomy History of Problems with Anesthesia: No Social History Social History Household Members: None Housing: House Do you presently have visiting nurse or other home services: No Patient Tobacco Use Status: Current everyday Tobacco user Tobacco use type: Cigarette Cigarette Packs Per Day: 0.5 Cigarettes Per Day: 10 Years Smoked: 43 e-Cigarette/Vaping Use: Never Used Second Hand Smoke Exposure: No Substance Use Type: Marijuana service: No Meds Allergies Allergy/AdvReac Type Severity Reaction Status Date / Time codeine [Codeine] Allergy Mild RASH Verified 05/02/24 08:38 Codeine Allergy Unknown Rash Uncoded 05/02/24 08:38 Active Medications: Current Medications Acetaminophen (Acetaminophen 325 Mg Tablet) 650 mg PO Q6H PRN PRN Reason: Pain, Mild (Pain Scale 1-3), fever or headache Amlodipine Besylate (Amlodipine Besylate 5 Mg Tablet) 5 mg PO DAILY [facility]; Protocol Last Admin: 05/02/24 07:51 Dose: 5 mg Aspirin (Aspirin Enteric Coated 81 Mg Tablet.Dr) 81 mg PO DAILY [facility] Last Admin: 05/02/24 07:31 Dose: Not Given Buspirone HCl (Buspirone Hcl 10 Mg Tablet) 10 mg PO TID [facility] Last Admin: 05/02/24 07:59 Dose: Not Given Calcium Carbonate (Calcium Carbonate 750 Mg Tab.Chew) 750 mg PO Q4H PRN PRN Reason: Heartburn Clonidine HCl (Clonidine Hcl 0.1 Mg Tablet) 0.1 mg PO BEDTIME [facility]; Protocol Last Admin: 05/01/24 20:13 Dose: 0.1 mg Clopidogrel Bisulfate (Clopidogrel Bisulfate 75 Mg Tablet) 75 mg PO DAILY [facility] Last Admin: 05/02/24 07:31 Dose: Not Given Docusate Sodium (Docusate Sodium 100 Mg Capsule) 100 mg PO BEDTIME [facility] Last Admin: 05/01/24 20:14 Dose: 100 mg Enoxaparin Sodium (Enoxaparin Sodium 40 Mg/0.4 Ml Syringe) 40 mg SUBCUT Q24H [facility] Last Admin: 05/01/24 15:38 Dose: 40 mg Doxycycline Hyclate 100 mg/ (Sodium Chloride) 250 mls @ 166.67 mls/hr IV Q12H [facility] Last Admin: 05/02/24 10:16 Dose: 166.67 mls/hr Lisinopril (Lisinopril 10 Mg Tablet) 10 mg PO DAILY [facility]; Protocol Last Admin: 05/02/24 07:51 Dose: 10 mg Magnesium Hydroxide (Milk Of Magnesia 30 Ml Oral.Susp) 30 ml PO DAILY PRN PRN Reason: Constipation Morphine Sulfate (Morphine Sulfate 4 Mg/Ml Cartridge) 2 mg IVPUSH Q6H PRN; Protocol PRN Reason: Pain, Severe (Pain Scale 7-10) Last Admin: 05/01/24 20:23 Dose: 2 mg Ondansetron HCl (Ondansetron Hcl 4 Mg/2 Ml Vial) 4 mg IVPUSH Q8H PRN PRN Reason: Nausea and Vomiting Last Admin: 04/25/24 20:50 Dose: 4 mg Oxycodone HCl (Oxycodone Hcl Immed Release 5 Mg Tablet) 5 mg PO Q6H PRN PRN Reason: Pain, Moderate(Pain Scale 4-6) Last Admin: 05/01/24 15:39 Dose: 5 mg Polyethylene Glycol (Polyethylene Glycol 3350 17 Gm Powd.Pack) 17 gm PO DAILY [facility] Last Admin: 05/02/24 07:59 Dose: Not Given Sertraline HCl (Sertraline Hcl 100 Mg Tablet) 100 mg PO DAILY [facility] Last Admin: 05/02/24 07:59 Dose: Not Given Sodium Chloride (0.9 % Sodium Chloride Flush 3 Ml Syringe) [facility] Last Admin: 05/02/24 07:52 Dose: 3 ml Sodium Hypochlorite (Sodium Hypochlorite 0.125% 473 Ml Solution) 1 appl TOPICAL BID [facility] Last Admin: 05/02/24 07:59 Dose: Not Given Zolpidem Tartrate (Zolpidem Tartrate 5 Mg Tablet) 5 mg PO BEDTIME PRN PRN Reason: Sleep Last Admin: 05/01/24 20:14 Dose: 5 mg Home Medications ?Medication ?Instructions ?Recorded ?Confirmed ?Last Taken ?Type buspirone 10 mg tablet 10 mg PO TID 04/03/22 04/25/24 04/25/24 History clonidine HCl 0.1 mg tablet 0.1 mg PO BEDTIME 04/03/22 04/25/24 04/24/24 History sertraline 100 mg tablet 100 mg PO DAILY 04/03/22 04/25/24 04/25/24 History zolpidem 10 mg tablet 10 mg PO BEDTIME PRN Sleep 04/03/22 04/25/24 04/24/24 History ibuprofen 600 mg tablet 600 mg PO Q6H PRN Pain 04/25/24 04/25/24 Unknown History Exam Height,Weight and Vital Signs: Height 5 ft 11 in Weight 115.9 kg Last Vital Signs Temp 97.3 F 05/02/24 08:37 Pulse 66 05/02/24 08:37 Resp 16 05/02/24 08:37 BP 132/81 05/02/24 08:37 Pulse Ox 97 05/02/24 08:37 O2 Del Method Room Air 05/02/24 08:37 Pertinent Lab Results Pertinent Lab Results: Laboratory Tests 04/25/24 04/26/24 04/26/24 11:34 04:57 21:00 WBC 6.5 RBC 4.91 Hgb 15.8 Hct 45.2 MCV 92.1 MCH 32.2 MCHC 35.0 RDW 13.6 Plt Count 142 L MPV 10.9 Immature Gran % (Auto) 0.5 H Neut % (Auto) 74.7 H Lymph % (Auto) 14.9 L [place] % (Auto) 8.4 Eos % (Auto) 1.2 Baso % (Auto) 0.3 Lymph # (Auto) 1.0 L [place] # (Auto) 0.5 Eos # (Auto) 0.1 Baso # (Auto) 0.0 Abs Immat Gran (auto) 0.03 Absolute Neuts (auto) 4.8 Absolute Nucleated RBC 0.000 Nucleated RBC % (auto) 0.0 ESR 28 H Hold Purple Top Sodium 140 Potassium 3.4 Chloride 101 Carbon Dioxide 29 Anion Gap 13 BUN 6 L Creatinine 0.90 0.81 Estim Creat Clear Calc 113.0 125.5 Estimated GFR > 60 > 60 Random Glucose 126 H Estimat Average Glucose 126 Hemoglobin A1c % 6.0 Lactic Acid 1.3 Calcium 9.4 Total Bilirubin 0.9 Direct Bilirubin 0.4 AST 26 ALT 14 Alkaline Phosphatase 102 C-Reactive Protein 1.99 H B-Natriuretic Peptide 65 Total Protein 8.7 H Albumin 4.0 Random Vancomycin 20.7 H 04/27/24 04/27/24 04/28/24 05:20 16:06 05:55 WBC 6.4 RBC 4.24 L Hgb 13.4 L 13.4 L Hct 39.2 L 39.9 L MCV 94.1 MCH 31.6 MCHC 33.6 RDW 13.7 Plt Count 108 L MPV 10.6 Immature Gran % (Auto) Neut % (Auto) Lymph % (Auto) Pi[place] % (Auto) Eos % (Auto) Baso % (Auto) Lymph # (Auto) [place] # (Auto) Eos # (Auto) Baso # (Auto) Abs Immat Gran (auto) Absolute Neuts (auto) Absolute Nucleated RBC 0.000 Nucleated RBC % (auto) 0.0 ESR Hold Purple Top SEE NOTE Sodium 138 Potassium 3.5 Chloride 107 Carbon Dioxide 21 L Anion Gap 14 BUN 9 Creatinine 0.94 0.89 Estim Creat Clear Calc 108.2 114.2 Estimated GFR > 60 > 60 Random Glucose 123 H Estimat Average Glucose Hemoglobin A1c % Lactic Acid Calcium 8.4 D Total Bilirubin Direct Bilirubin AST ALT Alkaline Phosphatase C-Reactive Protein B-Natriuretic Peptide Total Protein Albumin Random Vancomycin 04/29/24 04/30/24 05/01/24 06:18 06:26 05:00 WBC 5.1 5.4 RBC 4.09 L 3.97 L Hgb 13.2 L 12.5 L Hct 38.7 L 37.4 L MCV 94.6 94.2 MCH 32.3 31.5 MCHC 34.1 33.4 RDW 13.6 13.3 Plt Count 95 L 109 L MPV 11.1 11.2 Immature Gran % (Auto) 0.2 Neut % (Auto) 66.6 Lymph % (Auto) 21.5 [place] % (Auto) 10.1 Eos % (Auto) 1.4 Baso % (Auto) 0.2 Lymph # (Auto) 1.1 L [place] # (Auto) 0.5 Eos # (Auto) 0.1 Baso # (Auto) 0.0 Abs Immat Gran (auto) 0.01 Absolute Neuts (auto) 3.4 Absolute Nucleated RBC 0.000 0.000 Nucleated RBC % (auto) 0.0 0.0 ESR Hold Purple Top Sodium 143 Potassium 3.2 L Chloride 105 Carbon Dioxide 30 H Anion Gap 11 L BUN 8 L Creatinine 0.77 Estim Creat Clear Calc 132.0 Estimated GFR > 60 Random Glucose 115 Estimat Average Glucose Hemoglobin A1c % Lactic Acid Calcium 8.9 Total Bilirubin Direct Bilirubin AST ALT Alkaline Phosphatase C-Reactive Protein B-Natriuretic Peptide Total Protein Albumin Random Vancomycin Airway Mallampati Class: III TM Dist: >3cm Neck ROM: Full Loose/Missing/Broken Teeth: Yes (Poor dentition. Teeth rotted and broken) Heart: RRR Lungs: ? Occasional wheeze Assessment and Plan Assessment Anesthesia Assessment: Anesthesia Plan Discussed and Chart Reviewed Final Anesthetic Review Family History of Problems with Anesthesia: No History of Problems with Anesthesia: No NPO: Yes ASA Class: III Final Preanesthetic Review: No Changes in Pt Med Stat, Meds/Allgs Chart Reviewed, Consent Obtained/Reviewed, Anes Risks/Benef Reviewed and DNR Form (If Appl.) Patient Risk: Intermediate Procedure Risk: Low Anesthetic Plan Anesthetic Plan: GA Disposition: Standard PACU
--- NOTE | 2024-05-02 12:43 | P.OP_ITS ---
Operative Note Operative Note Date of Service: 05/02/24 Narrative: Preop diagnosis: Osteomyelitis, right 5th toe at the metatarsal with open wound Postop diagnosis: The same Procedure: Amputation of the 5th toe at the proximal metatarsal Surgeon: Chavo Bender MD patient clerical assistant: GRETA Guillen The patient is a 58-year-old male, with history of peripheral vascular disease with a large open wound on the frontal aspect of the right foot, with osteomyelitis of the toe at the distal metatarsal. He understood the technique of planned procedure as well as the risks, benefits, and alternatives He was brought to the operating room. He was placed supine under general anesthesia via laryngeal mask airway. The right foot and distal leg were prepped and draped in usual sterile fashion. A surgical time-out was done. The patient was receiving scheduled IV antibiotics Examination of the lateral aspect of the right foot showed a large open wound, with good granulation. However, the metatarsal was exposed all the way to the mid part. I marked my planned line of incision with a pen and infiltrated this with lidocaine 1%. I made an incision with a blade 15 including the entire open wound and healthy looking skin. I carried down the incision through the full- thickness of the skin subcutaneous fat. I then used the curved Gomez scissors to divide through the soft tissue he is in the 5th 4th toes, and circumferentially around the the dorsum of the 5th toe until was able to expose the proximal metatarsal. I used the bone saw to divide the proximal metatarsal. I completed the amputation by dividing the remaining soft tissue attachments including tendons using the curved Gomez scissors. I had to tie some small vessels for hemostasis. I copiously irrigated. Oozing areas were cauterized to achieve hemostasis Once hemostasis was confirmed, I proceeded to then reapposed the soft tissue with multiple Polysorb 2-0 interrupted sutures. Skin closure was achieved with nylon 2-0 simple interrupted sutures. The area was infiltrated with Marcaine 0.5% for postop analgesia. Thick fluffy dressings were applied. The was then wrapped in Kerlix roll as well as Natanael bandage The patient tolerated the procedure well. There were no immediate complicatio ns. Initial and final counts of sponges and instruments were correct. Estimated blood loss about 100 cc The patient was extubated without difficulty and transferred to the recovery room with stable vital signs.
--- NOTE | 2024-05-02 13:20 | MHC.CM.PN ---
EMR reviewed and per MD rounds, pt is not medically cleared for discharge due to undergoing left 5th toe surgical amputation today.
--- NOTE | 2024-05-02 14:44 | P.PNIM_ITS ---
Subjective Subjective Date of Service: 05/02/24 Interval History: Seen and examined this morning Follow-up for nonhealing ulcer, osteomyelitis No specific complaints. Pain adequately controlled, no fever Review of Systems Review of Systems: Yes all other systems are reviewed and are negative Constitutional Constitutional: Denies chills and Denies fever(s) Cardiovascular Cardiovascular: Denies chest pain, Denies palpitations and Denies dyspnea Respiratory Respiratory: Denies cough and Denies dyspnea Gastrointestinal Gastrointestinal: Denies abdominal pain Endocrine Endocrine: Denies palpitations Physical Exam 2 Vital Signs: Vital Signs: Last Vital Signs Temp 97.2 F 05/02/24 14:16 Pulse 65 05/02/24 14:16 Resp 14 05/02/24 14:16 BP 141/64 H 05/02/24 14:16 Pulse Ox 97 05/02/24 14:16 O2 Del Method Room Air 05/02/24 14:16 O2 Flow Rate 4 05/02/24 13:03 BMI result Body Mass Index 35.6 Appearing in no acute distress lung sounds are clear to auscultation heart regular rate rhythm, clear S1, S2 positive bowel sounds, abdomen is soft, nontender neuro patient is alert x3, no focal deficits Objective Data Active Medications Acetaminophen (Acetaminophen 325 Mg Tablet) 650 mg PO Q6H PRN PRN Reason: Pain, Mild (Pain Scale 1-3), fever or headache Albuterol/Ipratropium (Albuterol/Iprat 2.5/0.5mg 3 Ml Ampul.Neb) 3 ml INHALE ONCE PRN PRN Reason: Bronchospasm/wheezing Stop: 05/02/24 18:15 Amlodipine Besylate (Amlodipine Besylate 5 Mg Tablet) 5 mg PO DAILY [facility]; Protocol Last Admin: 05/02/24 07:51 Dose: 5 mg Documented By: JUAN Aspirin (Aspirin Enteric Coated 81 Mg Tablet.Dr) 81 mg PO DAILY [facility] Last Admin: 05/02/24 07:31 Dose: Not Given Documented By: JUAN Non-Admin Reason: sched surgery Buspirone HCl (Buspirone Hcl 10 Mg Tablet) 10 mg PO TID [facility] Last Admin: 05/02/24 07:59 Dose: Not Given Documented By: JUAN Non-Admin Reason: NPO Calcium Carbonate (Calcium Carbonate 750 Mg Tab.Chew) 750 mg PO Q4H PRN PRN Reason: Heartburn Clonidine HCl (Clonidine Hcl 0.1 Mg Tablet) 0.1 mg PO BEDTIME [facility]; Protocol Last Admin: 05/01/24 20:13 Dose: 0.1 mg Documented By: CAITLIN Clopidogrel Bisulfate (Clopidogrel Bisulfate 75 Mg Tablet) 75 mg PO DAILY [facility] Last Admin: 05/02/24 07:31 Dose: Not Given Documented By: JUAN Non-Admin Reason: sched surgery Docusate Sodium (Docusate Sodium 100 Mg Capsule) 100 mg PO BEDTIME [facility] Last Admin: 05/01/24 20:14 Dose: 100 mg Documented By: CAITLIN Enoxaparin Sodium (Enoxaparin Sodium 40 Mg/0.4 Ml Syringe) 40 mg SUBCUT Q24H [facility] Last Admin: 05/01/24 15:38 Dose: 40 mg Documented By: JUAN Doxycycline Hyclate 100 mg/ (Sodium Chloride) 250 mls @ 166.67 mls/hr IV Q12H [facility] Last Infusion: 05/02/24 12:48 Dose: Infused Documented By: JUAN Lisinopril (Lisinopril 10 Mg Tablet) 10 mg PO DAILY [facility]; Protocol Last Admin: 05/02/24 07:51 Dose: 10 mg Documented By: JUAN Magnesium Hydroxide (Milk Of Magnesia 30 Ml Oral.Susp) 30 ml PO DAILY PRN PRN Reason: Constipation Morphine Sulfate (Morphine Sulfate 4 Mg/Ml Cartridge) 3 mg IVPUSH Q4H PRN; Protocol PRN Reason: Pain, Severe (Pain Scale 7-10) Ondansetron HCl (Ondansetron Hcl 4 Mg/2 Ml Vial) 4 mg IVPUSH Q8H PRN PRN Reason: Nausea and Vomiting Last Admin: 04/25/24 20:50 Dose: 4 mg Documented By: MARKUS Oxycodone HCl (Oxycodone Hcl Immed Release 5 Mg Tablet) 5 mg PO Q6H PRN PRN Reason: Pain, Moderate(Pain Scale 4-6) Last Admin: 05/01/24 15:39 Dose: 5 mg Documented By: JUAN Oxycodone HCl (Oxycodone Hcl Immed Release 5 Mg Tablet) 10 mg PO Q4H PRN PRN Reason: Pain, Moderate(Pain Scale 4-6) Polyethylene Glycol (Polyethylene Glycol 3350 17 Gm Powd.Pack) 17 gm PO DAILY [facility] Last Admin: 05/02/24 07:59 Dose: Not Given Documented By: JUAN Non-Admin Reason: NPO Sertraline HCl (Sertraline Hcl 100 Mg Tablet) 100 mg PO DAILY [facility] Last Admin: 05/02/24 07:59 Dose: Not Given Documented By: JUAN Non-Admin Reason: NPO Sodium Chloride (0.9 % Sodium Chloride Flush 3 Ml Syringe) 3 ml IVFLUSH QSHIFT [facility] Last Admin: 05/02/24 07:52 Dose: 3 ml Documented By: JUAN Sodium Hypochlorite (Sodium Hypochlorite 0.125% 473 Ml Solution) 1 appl TOPICAL BID [facility] Last Admin: 05/02/24 07:59 Dose: Not Given Documented By: JUAN Non-Admin Reason: NPO Zolpidem Tartrate (Zolpidem Tartrate 5 Mg Tablet) 5 mg PO BEDTIME PRN PRN Reason: Sleep Last Admin: 05/01/24 20:14 Dose: 5 mg Documented By: CAITLIN Labs 04/30/24 06:26 05/01/24 05:00 Assessment and Plan (1) Foot ulcer: Status: Acute (2) Acute osteomyelitis: Status: Acute Plan This is a 58-year-old male with depression, obesity, peripheral neuropathy and likely untreated HTN here with an infected open wound of right foot following a traumatic injury. Infected, traumatic open wound with exposed bone and osteomyelitis xray showing Destruction/absence of the distal fifth metatarsal and proximal phalanx of 5th digit with soft tissue ulceration s/p bedside debridement by wound surgeon 04/25 Initially treated with IV Vanco and Zosyn - stopped per ID rec IV doxycycline until procedure blood cultures negative to date Status post amputation of the 5th toe at the proximal metatarsal 05/02/2024 Peripheral vascular disease arterial studies with EULALIA show right SFA disease s/p angiogram with plasty of anterior tibial and peroneal arteries 04/27 We will require outpatient follow-up with vascular surgery will need asa/plavix for 6 months Left groin hematoma Following angiogram improving, H/H stable Depression continue zoloft Elevated blood pressure, likely untreated HTN Started on Norvasc, and Lisiniopril 10 on this admission Continue clonidine Some intermittent high blood pressure readings, may need to up titrate Norvasc Follow blood pressure closely Thrombocytopenia Acute on chronic platelets stable Class 2 obesity weight loss advised DVT prophylaxis-lovenox Attending Dr. Conner Full code need for inpt: hospitalization for acute osteomylitis and infected wound requiring surgical intervention Quality Stroke Does the patient have a stroke diagnosis?: No VTE Prior VTE?: No VTE Risk Level:: Medical - moderate - high VTE Device Contraindication: Treatment Not Indicated VTE Drug Contraindication: N/A - Med Ordered
[2024-05-02] MEDS: busPIRone HCl 10 MG TABLET PO ×2 (15:56→21:15)
[2024-05-02] MEDS: Enoxaparin Sodium 40 MG/0.4 ML SYRINGE SUBCUT (15:56)
[2024-05-02] MEDS: oxyCODONE HCl Immed Release 5 MG TABLET 10 MG PO ×2 (17:36→23:00)
[2024-05-02] MEDS: Morphine Sulfate 4 MG/ML CARTRIDGE 3 MG IVPUSH (21:12)
[2024-05-02] MEDS: cloNIDine HCL 0.1 MG TABLET PO (21:15)
[2024-05-02] MEDS: Zolpidem Tartrate 5 MG TABLET PO (21:15)
[2024-05-02] MEDS: Docusate Sodium 100 MG CAPSULE PO (21:15)
--- NOTE | 2024-05-02 22:45 | PC.NURSE ---
This RN assumed care at 1900, Pt reporting 10/10 throbbing pain to R foot, S/P 5th metatarsal amputation. Pt reporting that it feels like the haresh wrap is tight, this RN assessed HARESH wrap too be loose enough, reassured pt that it is most likely the swelling from surgery. Increased elevation to foot, to decrease some swelling, pain meds given per MAR, Ice pack has been applied. Pt's respirations even and nonlabored, call calixto within reach.
[2024-05-03 03:56] VITALS: BP 119/58; PULSE 76; RESP 16; TEMP 36.1; O2SAT 97
[2024-05-03] MEDS: Morphine Sulfate 4 MG/ML CARTRIDGE 3 MG IVPUSH ×2 (04:12→15:15)
[2024-05-03 07:33] VITALS: BP 128/62; PULSE 75; RESP 16; TEMP 36.5; O2SAT 97
--- NOTE | 2024-05-03 08:39 | HO.PM.IMPN ---
Subjective Subjective Date of Service: 05/03/24 Interval History: Seen and examined this morning Follow-up for nonhealing ulcer, osteomyelitis No specific complaints. c/p pain post to amputation Review of Systems Review of Systems: Yes all other systems are reviewed and are negative Constitutional Constitutional: Denies chills and Denies fever(s) Cardiovascular Cardiovascular: Denies chest pain, Denies palpitations and Denies dyspnea Respiratory Respiratory: Denies cough and Denies dyspnea Gastrointestinal Gastrointestinal: Denies abdominal pain Endocrine Endocrine: Denies palpitations Physical Exam Vital Signs: Vital Signs: Last Vital Signs Temp 97.7 F 05/03/24 07:33 Pulse 75 05/03/24 07:33 Resp 16 05/03/24 07:33 BP 128/62 05/03/24 07:33 Pulse Ox 97 05/03/24 07:33 O2 Del Method Room Air 05/03/24 07:33 O2 Flow Rate 4 05/02/24 13:03 BMI result Body Mass Index 35.6 Appearing in no acute distress lung sounds are clear to auscultation heart regular rate rhythm, clear S1, S2 positive bowel sounds, abdomen is soft, nontender neuro patient is alert x3, no focal deficits Dressing to right foot intact Objective Data Active Medications Acetaminophen (Acetaminophen 325 Mg Tablet) 650 mg PO Q6H PRN PRN Reason: Pain, Mild (Pain Scale 1-3), fever or headache Amlodipine Besylate (Amlodipine Besylate 5 Mg Tablet) 5 mg PO DAILY [facility]; Protocol Last Admin: 05/02/24 07:51 Dose: 5 mg Documented By: JUAN Aspirin (Aspirin Enteric Coated 81 Mg Tablet.Dr) 81 mg PO DAILY [facility] Last Admin: 05/02/24 07:31 Dose: Not Given Documented By: JUAN Non-Admin Reason: sched surgery Buspirone HCl (Buspirone Hcl 10 Mg Tablet) 10 mg PO TID [facility] Last Admin: 05/02/24 21:15 Dose: 10 mg Documented By: DIRK Calcium Carbonate (Calcium Carbonate 750 Mg Tab.Chew) 750 mg PO Q4H PRN PRN Reason: Heartburn Clonidine HCl (Clonidine Hcl 0.1 Mg Tablet) 0.1 mg PO BEDTIME [facility]; Protocol Last Admin: 05/02/24 21:15 Dose: 0.1 mg Documented By: DIRK Clopidogrel Bisulfate (Clopidogrel Bisulfate 75 Mg Tablet) 75 mg PO DAILY [facility] Last Admin: 05/02/24 07:31 Dose: Not Given Documented By: JUAN Non-Admin Reason: sched surgery Docusate Sodium (Docusate Sodium 100 Mg Capsule) 100 mg PO BEDTIME [facility] Last Admin: 05/02/24 21:15 Dose: 100 mg Documented By: DIRK Enoxaparin Sodium (Enoxaparin Sodium 40 Mg/0.4 Ml Syringe) 40 mg SUBCUT Q24H [facility] Last Admin: 05/02/24 15:56 Dose: 40 mg Documented By: JUAN Doxycycline Hyclate 100 mg/ (Sodium Chloride) 250 mls @ 166.67 mls/hr IV Q12H [facility] Last Infusion: 05/02/24 22:46 Dose: Infused Documented By: DIRK Lisinopril (Lisinopril 10 Mg Tablet) 10 mg PO DAILY [facility]; Protocol Last Admin: 05/02/24 07:51 Dose: 10 mg Documented By: JUAN Magnesium Hydroxide (Milk Of Magnesia 30 Ml Oral.Susp) 30 ml PO DAILY PRN PRN Reason: Constipation Morphine Sulfate (Morphine Sulfate 4 Mg/Ml Cartridge) 3 mg IVPUSH Q4H PRN; Protocol PRN Reason: Pain, Severe (Pain Scale 7-10) Last Admin: 05/03/24 04:12 Dose: 3 mg Documented By: RUDY Ondansetron HCl (Ondansetron Hcl 4 Mg/2 Ml Vial) 4 mg IVPUSH Q8H PRN PRN Reason: Nausea and Vomiting Last Admin: 04/25/24 20:50 Dose: 4 mg Documented By: MARKUS Oxycodone HCl (Oxycodone Hcl Immed Release 5 Mg Tablet) 5 mg PO Q6H PRN PRN Reason: Pain, Moderate(Pain Scale 4-6) Last Admin: 05/01/24 15:39 Dose: 5 mg Documented By: JUAN Oxycodone HCl (Oxycodone Hcl Immed Release 5 Mg Tablet) 10 mg PO Q4H PRN PRN Reason: Pain, Moderate(Pain Scale 4-6) Last Admin: 05/02/24 23:00 Dose: 10 mg Documented By: HO.[place]V Polyethylene Glycol (Polyethylene Glycol 3350 17 Gm Powd.Pack) 17 gm PO DAILY [facility] Last Admin: 05/02/24 07:59 Dose: Not Given Documented By: JUAN Non-Admin Reason: NPO Sertraline HCl (Sertraline Hcl 100 Mg Tablet) 100 mg PO DAILY [facility] Last Admin: 05/02/24 07:59 Dose: Not Given Documented By: JUAN Non-Admin Reason: NPO Sodium Chloride (0.9 % Sodium Chloride Flush 3 Ml Syringe) 3 ml IVFLUSH QSHIFT [facility] Last Admin: 05/02/24 21:51 Dose: Not Given Documented By: DIRK Non-Admin Reason: IV Running Sodium Hypochlorite (Sodium Hypochlorite 0.125% 473 Ml Solution) 1 appl TOPICAL BID [facility] Last Admin: 05/02/24 21:26 Dose: Not Given Documented By: DIRK Non-Admin Reason: post surgical dressing Zolpidem Tartrate (Zolpidem Tartrate 5 Mg Tablet) 5 mg PO BEDTIME PRN PRN Reason: Sleep Last Admin: 05/02/24 21:15 Dose: 5 mg Documented By: DIRK Labs 04/30/24 06:26 05/01/24 05:00 Assessment and Plan (1) Foot ulcer: Status: Acute (2) Acute osteomyelitis: Status: Acute Plan This is a 58-year-old male with depression, obesity, peripheral neuropathy and likely untreated HTN here with an infected open wound of right foot following a traumatic injury. Infected, traumatic open wound with exposed bone and osteomyelitis xray showing Destruction/absence of the distal fifth metatarsal and proximal phalanx of 5th digit with soft tissue ulceration s/p bedside debridement by wound surgeon 04/25 Initially treated with IV Vanco and Zosyn - stopped per ID rec IV doxycycline blood cultures negative to date Status post amputation of the 5th toe at the proximal metatarsal 05/02/2024 no WB as per gen surg Peripheral vascular disease arterial studies with EULALIA show right SFA disease s/p angiogram with plasty of anterior tibial and peroneal arteries 04/27 We will require outpatient follow-up with vascular surgery will need asa/plavix for 6 months Left groin hematoma Following angiogram improving, H/H stable Depression continue zoloft Elevated blood pressure, likely untreated HTN Started on Norvasc, and Lisiniopril 10 on this admission Continue clonidine Some intermittent high blood pressure readings, may need to up titrate Norvasc Follow blood pressure closely Thrombocytopenia Acute on chronic platelets stable Class 2 obesity weight loss advised DVT prophylaxis-lovenox Attending Dr. Conner Full code need for inpt: hospitalization for acute osteomylitis and infected wound requiring surgical intervention Quality Stroke Does the patient have a stroke diagnosis?: No VTE Prior VTE?: No VTE Risk Level:: Medical - moderate - high VTE Device Contraindication: Treatment Not Indicated VTE Drug Contraindication: N/A - Med Ordered
--- NOTE | 2024-05-03 08:53 | PM.PNGS ---
Subjective Subjective Date of Service: 05/03/24 Interval history: No events overnight Describes pain on the surgical site Physical Exam Vital Signs: Vital Signs: Last Vital Signs Temp 97.7 F 05/03/24 07:33 Pulse 75 05/03/24 07:33 Resp 16 05/03/24 07:33 BP 128/62 05/03/24 07:33 Pulse Ox 97 05/03/24 07:33 O2 Del Method Room Air 05/03/24 07:33 O2 Flow Rate 4 05/02/24 13:03 BMI result Body Mass Index 35.6 Const: General: comfortable and no acute distress Resp: Effort & Inspection: normal respiratory effort Cardio: Rate: regular rate Extrem: Other: Dressings on amputation site on the right foot dry Objective Data Active Medications Acetaminophen (Acetaminophen 325 Mg Tablet) 650 mg PO Q6H PRN PRN Reason: Pain, Mild (Pain Scale 1-3), fever or headache Amlodipine Besylate (Amlodipine Besylate 5 Mg Tablet) 5 mg PO DAILY [facility]; Protocol Last Admin: 05/02/24 07:51 Dose: 5 mg Documented By: JUAN Aspirin (Aspirin Enteric Coated 81 Mg Tablet.Dr) 81 mg PO DAILY [facility] Last Admin: 05/02/24 07:31 Dose: Not Given Documented By: JUAN Non-Admin Reason: sched surgery Buspirone HCl (Buspirone Hcl 10 Mg Tablet) 10 mg PO TID [facility] Last Admin: 05/02/24 21:15 Dose: 10 mg Documented By: DIRK Calcium Carbonate (Calcium Carbonate 750 Mg Tab.Chew) 750 mg PO Q4H PRN PRN Reason: Heartburn Clonidine HCl (Clonidine Hcl 0.1 Mg Tablet) 0.1 mg PO BEDTIME [facility]; Protocol Last Admin: 05/02/24 21:15 Dose: 0.1 mg Documented By: DIRK Clopidogrel Bisulfate (Clopidogrel Bisulfate 75 Mg Tablet) 75 mg PO DAILY [facility] Last Admin: 05/02/24 07:31 Dose: Not Given Documented By: JUAN Non-Admin Reason: sched surgery Docusate Sodium (Docusate Sodium 100 Mg Capsule) 100 mg PO BEDTIME [facility] Last Admin: 05/02/24 21:15 Dose: 100 mg Documented By: DIRK Enoxaparin Sodium (Enoxaparin Sodium 40 Mg/0.4 Ml Syringe) 40 mg SUBCUT Q24H [facility] Last Admin: 05/02/24 15:56 Dose: 40 mg Documented By: JUAN Doxycycline Hyclate 100 mg/ (Sodium Chloride) 250 mls @ 166.67 mls/hr IV Q12H [facility] Last Infusion: 05/02/24 22:46 Dose: Infused Documented By: DIRK Lisinopril (Lisinopril 10 Mg Tablet) 10 mg PO DAILY [facility]; Protocol Last Admin: 05/02/24 07:51 Dose: 10 mg Documented By: JUAN Magnesium Hydroxide (Milk Of Magnesia 30 Ml Oral.Susp) 30 ml PO DAILY PRN PRN Reason: Constipation Morphine Sulfate (Morphine Sulfate 4 Mg/Ml Cartridge) 3 mg IVPUSH Q4H PRN; Protocol PRN Reason: Pain, Severe (Pain Scale 7-10) Last Admin: 05/03/24 04:12 Dose: 3 mg Documented By: RUDY Ondansetron HCl (Ondansetron Hcl 4 Mg/2 Ml Vial) 4 mg IVPUSH Q8H PRN PRN Reason: Nausea and Vomiting Last Admin: 04/25/24 20:50 Dose: 4 mg Documented By: MARKUS Oxycodone HCl (Oxycodone Hcl Immed Release 5 Mg Tablet) 10 mg PO Q4H PRN PRN Reason: Pain, Moderate(Pain Scale 4-6) Last Admin: 05/02/24 23:00 Dose: 10 mg Documented By: DIRK Polyethylene Glycol (Polyethylene Glycol 3350 17 Gm Powd.Pack) 17 gm PO DAILY [facility] Last Admin: 05/02/24 07:59 Dose: Not Given Documented By: JUAN Non-Admin Reason: NPO Sertraline HCl (Sertraline Hcl 100 Mg Tablet) 100 mg PO DAILY [facility] Last Admin: 05/02/24 07:59 Dose: Not Given Documented By: JUAN Non-Admin Reason: NPO Sodium Chloride (0.9 % Sodium Chloride Flush 3 Ml Syringe) 3 ml IVFLUSH QSHIFT [facility] Last Admin: 05/02/24 21:51 Dose: Not Given Documented By: DIRK Non-Admin Reason: IV Running Sodium Hypochlorite (Sodium Hypochlorite 0.125% 473 Ml Solution) 1 appl TOPICAL BID [facility] Last Admin: 05/02/24 21:26 Dose: Not Given Documented By: DIRK Non-Admin Reason: post surgical dressing Zolpidem Tartrate (Zolpidem Tartrate 5 Mg Tablet) 5 mg PO BEDTIME PRN PRN Reason: Sleep Last Admin: 05/02/24 21:15 Dose: 5 mg Documented By: DIRK Labs 04/30/24 06:26 05/01/24 05:00 Procedures Date of Service Date of Service: 05/03/24 Progress Note: A&P Assessment and plan (1) Acute osteomyelitis: Status: Acute Assessment and Plan: Status post amputation of the 5th toe at the mid metatarsal level Pain management Plan to change dressings tomorrow Continue antibiotics for now No weight-bearing on the right foot Time Spent With Patient Time: Total time managing care of this patient today ____ minutes. Quality Stroke Does the patient have a stroke diagnosis?: No VTE Prior VTE?: No VTE Risk Level:: Medical - moderate - high VTE Device Contraindication: Treatment Not Indicated VTE Drug Contraindication: N/A - Med Ordered
[2024-05-03] MEDS: 0.9 % Sodium Chloride Flush 3 ML SYRINGE IVFLUSH ×3 (09:28→21:34)
[2024-05-03] MEDS: HYDROmorphone HCl 0.5 MG/0.5 ML SYRINGE IVPUSH ×3 (09:28→21:30)
[2024-05-03] MEDS: polyethylene glycoL 3350 17 GM POWD.PACK PO (09:31)
[2024-05-03] MEDS: Sertraline HCL 100 MG TABLET PO (09:31)
[2024-05-03] MEDS: amLODIPine Besylate 5 MG TABLET PO (09:31)
[2024-05-03] MEDS: busPIRone HCl 10 MG TABLET PO ×3 (09:31→21:34)
[2024-05-03] MEDS: lisinopriL 10 MG TABLET PO (09:31)
[2024-05-03] MEDS: Aspirin Enteric Coated 81 MG TABLET.DR PO (09:31)
[2024-05-03] MEDS: Clopidogrel Bisulfate 75 MG TABLET PO (09:31)
[2024-05-03] MEDS: Doxycycline Hyclate 100 MG in 0.9 % Sodium Chloride 250 ML 166.67 MG IV ×2 (09:32→21:33)
--- NOTE | 2024-05-03 10:05 | HO.POSTANES ---
Post Anesthesia Evaluation Post Anesthesia Evaluation Date of Service: 05/02/24 Vital Signs: Vital Signs Temp Pulse Resp BP Pulse Ox O2 Del Method 05/03/24 07:33 97.7 F 75 16 128/62 97 Room Air 05/03/24 03:56 96.9 F 76 16 119/58 L 97 Room Air Anesthesia: General Mental Status: Awake Pain Control: Satisfactory Nausea/Vomiting: None Hydration: Adequate Anesthesia-Related Issues: No Anes. Related Issues
[2024-05-03 12:13] VITALS: O2SAT 96
[2024-05-03] MEDS: oxyCODONE HCl Immed Release 5 MG TABLET 10 MG PO (13:31)
[2024-05-03 15:24] VITALS: BP 132/61; PULSE 75; RESP 18; TEMP 36.7; O2SAT 99
[2024-05-03] MEDS: Enoxaparin Sodium 40 MG/0.4 ML SYRINGE SUBCUT (16:54)
[2024-05-03 19:27] VITALS: BP 136/63; PULSE 78; RESP 18; TEMP 36.5; O2SAT 97
[2024-05-03] MEDS: Zolpidem Tartrate 5 MG TABLET PO (21:34)
[2024-05-03] MEDS: cloNIDine HCL 0.1 MG TABLET PO (21:34)
[2024-05-03] MEDS: Docusate Sodium 100 MG CAPSULE PO (21:34)
[2024-05-04 03:29] VITALS: BP 143/66; PULSE 76; RESP 18; TEMP 36.7; O2SAT 95
[2024-05-04 07:13] VITALS: BP 139/65; PULSE 72; RESP 16; TEMP 36; O2SAT 97
[2024-05-04] MEDS: lisinopriL 10 MG TABLET PO (07:54)
[2024-05-04] MEDS: polyethylene glycoL 3350 17 GM POWD.PACK PO (07:54)
[2024-05-04] MEDS: amLODIPine Besylate 5 MG TABLET PO (07:54)
[2024-05-04] MEDS: busPIRone HCl 10 MG TABLET PO ×3 (07:54→19:27)
[2024-05-04] MEDS: Sertraline HCL 100 MG TABLET PO (07:54)
[2024-05-04] MEDS: HYDROmorphone HCl 0.5 MG/0.5 ML SYRINGE IVPUSH ×2 (07:54→14:50)
[2024-05-04] MEDS: 0.9 % Sodium Chloride Flush 3 ML SYRINGE IVFLUSH ×3 (07:55→21:26)
[2024-05-04] MEDS: Clopidogrel Bisulfate 75 MG TABLET PO (07:55)
[2024-05-04] MEDS: Aspirin Enteric Coated 81 MG TABLET.DR PO (07:55)
--- NOTE | 2024-05-04 08:19 | P.PNGS_ITS ---
Subjective Subjective Date of Service: 05/04/24 Interval history: Complains of pain on the excision site on the right foot Pain control better with Dilaudid Otherwise no other complaints Physical Exam 2 Vital Signs: Vital Signs: Last Vital Signs Temp 96.8 F 05/04/24 07:13 Pulse 72 05/04/24 07:13 Resp 16 05/04/24 07:13 BP 139/65 05/04/24 07:13 Pulse Ox 97 05/04/24 07:13 O2 Del Method Room Air 05/04/24 07:13 O2 Flow Rate 4 05/02/24 13:03 BMI result Body Mass Index 35.6 Const: General: comfortable and no acute distress Resp: Effort & Inspection: normal respiratory effort Extrem: Other: Right foot amputation site clean, dry, no cellulitis, sutures in place Objective Data Active Medications Acetaminophen (Acetaminophen 325 Mg Tablet) 650 mg PO Q6H PRN PRN Reason: Pain, Mild (Pain Scale 1-3), fever or headache Amlodipine Besylate (Amlodipine Besylate 5 Mg Tablet) 5 mg PO DAILY [facility]; Protocol Last Admin: 05/04/24 07:54 Dose: 5 mg Documented By: AJIT Aspirin (Aspirin Enteric Coated 81 Mg Tablet.) 81 mg PO DAILY [facility] Last Admin: 05/04/24 07:55 Dose: 81 mg Documented By: AJIT Buspirone HCl (Buspirone Hcl 10 Mg Tablet) 10 mg PO TID [facility] Last Admin: 05/04/24 07:54 Dose: 10 mg Documented By: AJIT Calcium Carbonate (Calcium Carbonate 750 Mg Tab.Chew) 750 mg PO Q4H PRN PRN Reason: Heartburn Clonidine HCl (Clonidine Hcl 0.1 Mg Tablet) 0.1 mg PO BEDTIME [facility]; Protocol Last Admin: 05/03/24 21:34 Dose: 0.1 mg Documented By: FRANCHESCA Clopidogrel Bisulfate (Clopidogrel Bisulfate 75 Mg Tablet) 75 mg PO DAILY [facility] Last Admin: 05/04/24 07:55 Dose: 75 mg Documented By: AJIT Docusate Sodium (Docusate Sodium 100 Mg Capsule) 100 mg PO BEDTIME [facility] Last Admin: 05/03/24 21:34 Dose: 100 mg Documented By: FRANCHESCA Enoxaparin Sodium (Enoxaparin Sodium 40 Mg/0.4 Ml Syringe) 40 mg SUBCUT Q24H [facility] Last Admin: 05/03/24 16:54 Dose: 40 mg Documented By: FABY Hydromorphone HCl (Hydromorphone Hcl 0.5 Mg/0.5 Ml Syringe) 0.5 mg IVPUSH Q3H PRN; Protocol PRN Reason: Pain, Severe (Pain Scale 7-10) Last Admin: 05/04/24 07:54 Dose: 0.5 mg Documented By: AJIT Doxycycline Hyclate 100 mg/ (Sodium Chloride) 250 mls @ 166.67 mls/hr IV Q12H [facility] Last Infusion: 05/03/24 23:06 Dose: Infused Documented By: FRANCHESCA Lisinopril (Lisinopril 10 Mg Tablet) 10 mg PO DAILY [facility]; Protocol Last Admin: 05/04/24 07:54 Dose: 10 mg Documented By: AJIT Magnesium Hydroxide (Milk Of Magnesia 30 Ml Oral.Susp) 30 ml PO DAILY PRN PRN Reason: Constipation Ondansetron HCl (Ondansetron Hcl 4 Mg/2 Ml Vial) 4 mg IVPUSH Q8H PRN PRN Reason: Nausea and Vomiting Last Admin: 04/25/24 20:50 Dose: 4 mg Documented By: MARKUS Oxycodone HCl (Oxycodone Hcl Immed Release 5 Mg Tablet) 10 mg PO Q4H PRN PRN Reason: Pain, Moderate(Pain Scale 4-6) Last Admin: 05/03/24 13:31 Dose: 10 mg Documented By: ERICA Polyethylene Glycol (Polyethylene Glycol 3350 17 Gm Powd.Pack) 17 gm PO DAILY [facility] Last Admin: 05/04/24 07:54 Dose: 17 gm Documented By: AJIT Sertraline HCl (Sertraline Hcl 100 Mg Tablet) 100 mg PO DAILY [facility] Last Admin: 05/04/24 07:54 Dose: 100 mg Documented By: AJIT Sodium Chloride (0.9 % Sodium Chloride Flush 3 Ml Syringe) 3 ml IVFLUSH QSHIFT [facility] Last Admin: 05/04/24 07:55 Dose: 3 ml Documented By: AJIT Sodium Hypochlorite (Sodium Hypochlorite 0.125% 473 Ml Solution) 1 appl TOPICAL BID [facility] Last Admin: 05/04/24 07:55 Dose: Not Given Documented By: AJIT Non-Admin Reason: MD changed dressing Zolpidem Tartrate (Zolpidem Tartrate 5 Mg Tablet) 5 mg PO BEDTIME PRN PRN Reason: Sleep Last Admin: 05/03/24 21:34 Dose: 5 mg Documented By: FRANCHESCA Hyatt 04/30/24 06:26 05/01/24 05:00 Procedures Date of Service Date of Service: 05/04/24 Progress Note: A&P Assessment and plan (1) Acute osteomyelitis: Status: Acute Assessment and Plan: Status post amputation of the 5th toe at the proximal metatarsal I have changed his dressings Okay to continue with daily dry dressings and wrapped the foot with Kerlix and Natanael No weight-bearing for now on the right foot Pain management If discharge, I can remove the sutures in the office in about 2-3 weeks Time Spent With Patient Time: Total time managing care of this patient today ____ minutes. Quality Stroke Does the patient have a stroke diagnosis?: No VTE Prior VTE?: No VTE Risk Level:: Medical - moderate - high VTE Device Contraindication: Treatment Not Indicated VTE Drug Contraindication: N/A - Med Ordered
[2024-05-04] MEDS: Doxycycline Hyclate 100 MG in 0.9 % Sodium Chloride 250 ML 166.67 MG IV (09:28)
[2024-05-04 10:37] VITALS: O2SAT 98
--- NOTE | 2024-05-04 15:04 | HO.PM.IMPN ---
Subjective Subjective Date of Service: 05/04/24 Interval History: Seen and examined this morning Follow-up for nonhealing right foot wound status post right 5th metatarsal resection Still reporting foot pain No fever, chills Review of Systems Review of Systems: Yes all other systems are reviewed and are negative Constitutional Constitutional: Denies chills and Denies fever(s) Cardiovascular Cardiovascular: Denies chest pain and Denies dyspnea Respiratory Respiratory: Denies dyspnea Gastrointestinal Gastrointestinal: Denies abdominal pain Physical Exam Vital Signs: Vital Signs: Last Vital Signs Temp 96.8 F 05/04/24 07:13 Pulse 72 05/04/24 07:13 Resp 16 05/04/24 07:13 BP 139/65 05/04/24 07:13 Pulse Ox 98 05/04/24 10:37 O2 Del Method Room Air 05/04/24 10:37 O2 Flow Rate 4 05/02/24 13:03 BMI result Body Mass Index 35.6 Const: General: cooperative, no acute distress, alert and awake Nutritional Appearance: overweight Orientation/consciousness: patient oriented x3 Resp: Effort & Inspection: normal respiratory effort, able to speak in complete sentences, no respiratory distress and no use of accessory muscles Cardio: Rate: regular rate GI: Palpation (GI): Soft to palpation and nontender Skin: Other: right foot wrapped in c/d/i bandage Neuro: General: patient oriented x3, moves all extremities and CN's II-XI intact bilaterally Objective Data Active Medications Acetaminophen (Acetaminophen 325 Mg Tablet) 650 mg PO Q6H PRN PRN Reason: Pain, Mild (Pain Scale 1-3), fever or headache Amlodipine Besylate (Amlodipine Besylate 5 Mg Tablet) 5 mg PO DAILY [facility]; Protocol Last Admin: 05/04/24 07:54 Dose: 5 mg Documented By: AJIT Aspirin (Aspirin Enteric Coated 81 Mg Tablet.) 81 mg PO DAILY [facility] Last Admin: 05/04/24 07:55 Dose: 81 mg Documented By: AJIT Buspirone HCl (Buspirone Hcl 10 Mg Tablet) 10 mg PO TID [facility] Last Admin: 05/04/24 14:50 Dose: 10 mg Documented By: AJIT Calcium Carbonate (Calcium Carbonate 750 Mg Tab.Chew) 750 mg PO Q4H PRN PRN Reason: Heartburn Clonidine HCl (Clonidine Hcl 0.1 Mg Tablet) 0.1 mg PO BEDTIME [facility]; Protocol Last Admin: 05/03/24 21:34 Dose: 0.1 mg Documented By: FRANCHESCA Clopidogrel Bisulfate (Clopidogrel Bisulfate 75 Mg Tablet) 75 mg PO DAILY [facility] Last Admin: 05/04/24 07:55 Dose: 75 mg Documented By: AJIT Docusate Sodium (Docusate Sodium 100 Mg Capsule) 100 mg PO BEDTIME [facility] Last Admin: 05/03/24 21:34 Dose: 100 mg Documented By: FRANCHESCA Enoxaparin Sodium (Enoxaparin Sodium 40 Mg/0.4 Ml Syringe) 40 mg SUBCUT Q24H [facility] Last Admin: 05/03/24 16:54 Dose: 40 mg Documented By: FABY Lisinopril (Lisinopril 10 Mg Tablet) 10 mg PO DAILY [facility]; Protocol Last Admin: 05/04/24 07:54 Dose: 10 mg Documented By: AJIT Magnesium Hydroxide (Milk Of Magnesia 30 Ml Oral.Susp) 30 ml PO DAILY PRN PRN Reason: Constipation Ondansetron HCl (Ondansetron Hcl 4 Mg/2 Ml Vial) 4 mg IVPUSH Q8H PRN PRN Reason: Nausea and Vomiting Last Admin: 04/25/24 20:50 Dose: 4 mg Documented By: MARKUS Oxycodone HCl (Oxycodone Hcl Immed Release 5 Mg Tablet) 10 mg PO Q4H PRN PRN Reason: Pain, Moderate(Pain Scale 4-6) Last Admin: 05/03/24 13:31 Dose: 10 mg Documented By: ERICA Polyethylene Glycol (Polyethylene Glycol 3350 17 Gm Powd.Pack) 17 gm PO DAILY [facility] Last Admin: 05/04/24 07:54 Dose: 17 gm Documented By: AJIT Sertraline HCl (Sertraline Hcl 100 Mg Tablet) 100 mg PO DAILY [facility] Last Admin: 05/04/24 07:54 Dose: 100 mg Documented By: AJIT Sodium Chloride (0.9 % Sodium Chloride Flush 3 Ml Syringe) 3 ml IVFLUSH QSHIFT [facility] Last Admin: 05/04/24 14:50 Dose: 3 ml Documented By: AJIT Sodium Hypochlorite (Sodium Hypochlorite 0.125% 473 Ml Solution) 1 appl TOPICAL BID [facility] Last Admin: 05/04/24 07:55 Dose: Not Given Documented By: AJIT Non-Admin Reason: MD changed dressing Zolpidem Tartrate (Zolpidem Tartrate 5 Mg Tablet) 5 mg PO BEDTIME PRN PRN Reason: Sleep Last Admin: 05/03/24 21:34 Dose: 5 mg Documented By: FRANCHESCA Labs 04/30/24 06:26 05/01/24 05:00 Assessment and Plan (1) Acute osteomyelitis: Status: Acute Plan This is a 58-year-old male with depression, obesity, peripheral neuropathy and likely untreated HTN here with an infected open wound of right foot following a traumatic injury. Infected, traumatic open wound with exposed bone and osteomyelitis xray showing Destruction/absence of the distal fifth metatarsal and proximal phalanx of 5th digit with soft tissue ulceration s/p bedside debridement by wound surgeon 04/25 Initially treated with IV Vanco and Zosyn - stopped per ID rec Status post amputation of the 5th toe at the proximal metatarsal 05/02/2024 IV doxycycline, we will stop now that source of infection has been removed blood cultures negative to date no WB as per gen surg PT eval - home with services Peripheral vascular disease arterial studies with EULALIA show right SFA disease s/p angiogram with plasty of anterior tibial and peroneal arteries 04/27 We will require outpatient follow-up with vascular surgery will need asa/plavix for 6 months Left groin hematoma Following angiogram improving, H/H stable Hypokalemia Resolved Depression continue zoloft Elevated blood pressure, likely untreated HTN Started on Norvasc, and Lisiniopril 10 on this admission Continue clonidine Some intermittent high blood pressure readings, may need to up titrate Norvasc Follow blood pressure closely Thrombocytopenia Acute on chronic platelets stable Class 2 obesity weight loss advised DVT prophylaxis-lovenox Attending Dr. Conner Full code need for inpt: hospitalization for acute osteomylitis and infected wound requiring surgical intervention Quality Stroke Does the patient have a stroke diagnosis?: No VTE Prior VTE?: No VTE Risk Level:: Medical - moderate - high VTE Device Contraindication: Treatment Not Indicated VTE Drug Contraindication: N/A - Med Ordered
[2024-05-04 15:22] VITALS: BP 144/67; PULSE 74; RESP 18; TEMP 36.6; O2SAT 98
[2024-05-04] MEDS: Enoxaparin Sodium 40 MG/0.4 ML SYRINGE SUBCUT (15:57)
[2024-05-04 16:12] LABS: Anion Gap 11 (12-20); Blood Urea Nitrogen 13 mg/dL (9-16); Calcium 8.9 mg/dL (8.4-10.2); Carbon Dioxide 27 mmol/L (22-29); Chloride 104 mmol/L (96-108); Creatinine Clr Calc Pharmacy 122.5; Estimated Glomerular Filt Rate > 60; Glucose Random 135 mg/dL (60-115); Potassium 3.6 mmol/L (3.3-5.1); Sodium 138 mmol/L (135-145)
[2024-05-04] MEDS: oxyCODONE HCl Immed Release 5 MG TABLET 10 MG PO ×2 (17:52→21:24)
[2024-05-04 19:18] VITALS: RESP 18
[2024-05-04 19:19] VITALS: BP 139/63; PULSE 76; RESP 18; TEMP 36.4; O2SAT 98
[2024-05-04] MEDS: cloNIDine HCL 0.1 MG TABLET PO (19:27)
[2024-05-04] MEDS: Docusate Sodium 100 MG CAPSULE PO (19:27)
[2024-05-04] MEDS: Zolpidem Tartrate 5 MG TABLET PO (21:25)
[2024-05-05 04:00] VITALS: BP 139/63; PULSE 72; RESP 16; TEMP 36.6; O2SAT 97
[2024-05-05] MEDS: oxyCODONE HCl Immed Release 5 MG TABLET 10 MG PO ×3 (04:16→14:35)
[2024-05-05 07:15] VITALS: BP 161/72; PULSE 73; RESP 16; TEMP 36.3; O2SAT 97
[2024-05-05] MEDS: amLODIPine Besylate 5 MG TABLET PO (07:54)
[2024-05-05] MEDS: Sertraline HCL 100 MG TABLET PO (07:54)
[2024-05-05] MEDS: lisinopriL 10 MG TABLET PO (07:54)
[2024-05-05] MEDS: Aspirin Enteric Coated 81 MG TABLET.DR PO (07:54)
[2024-05-05] MEDS: busPIRone HCl 10 MG TABLET PO ×2 (07:54→14:35)
[2024-05-05] MEDS: polyethylene glycoL 3350 17 GM POWD.PACK PO (07:54)
[2024-05-05] MEDS: Clopidogrel Bisulfate 75 MG TABLET PO (07:54)
[2024-05-05] MEDS: 0.9 % Sodium Chloride Flush 3 ML SYRINGE IVFLUSH (07:55)
--- NOTE | 2024-05-05 08:52 | P.PNGS_ITS ---
Subjective Subjective Date of Service: 05/05/24 Interval history: No new complaints Pain well controlled Physical Exam 2 Vital Signs: Vital Signs: Last Vital Signs Temp 97.4 F 05/05/24 07:15 Pulse 73 05/05/24 07:15 Resp 16 05/05/24 07:15 BP 161/72 H 05/05/24 07:15 Pulse Ox 97 05/05/24 07:15 O2 Del Method Room Air 05/05/24 07:15 O2 Flow Rate 4 05/02/24 13:03 BMI result Body Mass Index 35.6 Const: General: comfortable and no acute distress Resp: Effort & Inspection: normal respiratory effort Extrem: Other: Amputation site is clean healing well sutures intact no ongoing infection/cellulitis Objective Data Active Medications Acetaminophen (Acetaminophen 325 Mg Tablet) 650 mg PO Q6H PRN PRN Reason: Pain, Mild (Pain Scale 1-3), fever or headache Amlodipine Besylate (Amlodipine Besylate 5 Mg Tablet) 5 mg PO DAILY [facility]; Protocol Last Admin: 05/05/24 07:54 Dose: 5 mg Documented By: AJIT Aspirin (Aspirin Enteric Coated 81 Mg Tablet.) 81 mg PO DAILY [facility] Last Admin: 05/05/24 07:54 Dose: 81 mg Documented By: AJIT Buspirone HCl (Buspirone Hcl 10 Mg Tablet) 10 mg PO TID [facility] Last Admin: 05/05/24 07:54 Dose: 10 mg Documented By: AJIT Calcium Carbonate (Calcium Carbonate 750 Mg Tab.Chew) 750 mg PO Q4H PRN PRN Reason: Heartburn Clonidine HCl (Clonidine Hcl 0.1 Mg Tablet) 0.1 mg PO BEDTIME [facility]; Protocol Last Admin: 05/04/24 19:27 Dose: 0.1 mg Documented By: LIZBETH Clopidogrel Bisulfate (Clopidogrel Bisulfate 75 Mg Tablet) 75 mg PO DAILY [facility] Last Admin: 05/05/24 07:54 Dose: 75 mg Documented By: AJIT Docusate Sodium (Docusate Sodium 100 Mg Capsule) 100 mg PO BEDTIME [facility] Last Admin: 05/04/24 19:27 Dose: 100 mg Documented By: LIZBETH Enoxaparin Sodium (Enoxaparin Sodium 40 Mg/0.4 Ml Syringe) 40 mg SUBCUT Q24H [facility] Last Admin: 05/04/24 15:57 Dose: 40 mg Documented By: AJIT Lisinopril (Lisinopril 10 Mg Tablet) 10 mg PO DAILY [facility]; Protocol Last Admin: 05/05/24 07:54 Dose: 10 mg Documented By: AJIT Magnesium Hydroxide (Milk Of Magnesia 30 Ml Oral.Susp) 30 ml PO DAILY PRN PRN Reason: Constipation Ondansetron HCl (Ondansetron Hcl 4 Mg/2 Ml Vial) 4 mg IVPUSH Q8H PRN PRN Reason: Nausea and Vomiting Last Admin: 04/25/24 20:50 Dose: 4 mg Documented By: MARKUS Oxycodone HCl (Oxycodone Hcl Immed Release 5 Mg Tablet) 10 mg PO Q4H PRN PRN Reason: Pain, Moderate(Pain Scale 4-6) Last Admin: 05/05/24 04:16 Dose: 10 mg Documented By: FRANCHESCA Polyethylene Glycol (Polyethylene Glycol 3350 17 Gm Powd.Pack) 17 gm PO DAILY [facility] Last Admin: 05/05/24 07:54 Dose: 17 gm Documented By: AJIT Sertraline HCl (Sertraline Hcl 100 Mg Tablet) 100 mg PO DAILY [facility] Last Admin: 05/05/24 07:54 Dose: 100 mg Documented By: AJIT Sodium Chloride (0.9 % Sodium Chloride Flush 3 Ml Syringe) [facility] Last Admin: 05/05/24 07:55 Dose: 3 ml Documented By: AJIT Zolpidem Tartrate (Zolpidem Tartrate 5 Mg Tablet) 5 mg PO BEDTIME PRN PRN Reason: Sleep Last Admin: 05/04/24 21:25 Dose: 5 mg Documented By: ERICA Labs 04/30/24 06:26 05/04/24 15:41 Labs: Laboratory Results - last 24 hr 05/04/24 15:41 Anion Gap 11 L Estim Creat Clear Calc 122.5 Estimated GFR > 60 Random Glucose 135 H Calcium 8.9 Procedures Date of Service Date of Service: 05/05/24 Progress Note: A&P Assessment and plan (1) Acute osteomyelitis: Status: Acute Assessment and Plan: I have changed his dressings Dry dressings wrapped with Kerlix and Natanael Leg elevation Continue wound care ok use offloading shoe When discharged, follow up in the office in about 3 weeks postop for removal sutures Time Spent With Patient Time: Total time managing care of this patient today ____ minutes. Quality Stroke Does the patient have a stroke diagnosis?: No VTE Prior VTE?: No VTE Risk Level:: Medical - moderate - high VTE Device Contraindication: Treatment Not Indicated VTE Drug Contraindication: N/A - Med Ordered
[2024-05-05] MEDS: Milk of Magnesia 30 ML ORAL.SUSP PO (08:54)
[2024-05-05] MEDS: bisacodyL 10 MG SUPP.RECT PR (10:33)
[2024-05-05 11:30] VITALS: O2SAT 98
--- NOTE | 2024-05-05 11:37 | P.DS_ITS ---
DS: Providers Provider Date of Service: 05/05/24 Date of admission: 04/25/24 16:40 Date of discharge: 05/05/24 Primary care physician: Darryl Domingo MD Consults: 04/25/24 14:10 Consult to Wound Care Routine Reason for consultation: Right Foot Ulceration 04/25/24 16:03 Consult to Vascular Surgery Routine Consulting Provider: [facility] [place] V[facility] Services Reason for consultation: Open wound, probably needs amputation Has provider been notified: Yes 04/26/24 06:31 Consult to Infectious Diseases Routine Consulting Provider: [facility] [facility] Reason for consultation: foot ulcer, OM Has provider been notified: No 04/26/24 11:50 Addiction Medicine Routine Consulting Provider: Addiction Covering Reason for consultation: daily drinker Attending physician on discharge: Sukumar Conner Discharging clinician: Vivienne Nunn DS: Diagnosis Discharge Diagnosis (1) Acute osteomyelitis: Status: Acute DS: Summary Hospital Course Hospital Course: From H&P on the day of admission A 58-year-old male with a history of depression, obesity, and peripheral neuropathy presents to the emergency room for evaluation of a right foot wound that began after he stubbed his foot. He subsequently developed a wound near the 5th toe, which has progressively worsened, revealing visible bone and, in his words, rotten. There is a large open wound on the lateral aspect of the right foot at the base of the 5th toe, with necrotic tissue, visible and detached bone, and a foul odor. The wound has been debrided at the bedside by a wound surgeon. The patient has been administered antibiotics (Zosyn and vancomycin). An X-ray of the foot suggests osteomyelitis. He is not septic. Infected, traumatic open wound with exposed bone and osteomyelitis xray showing Destruction/absence of the distal fifth metatarsal and proximal phalanx of 5th digit with soft tissue ulceration s/p bedside debridement by wound surgeon 04/25 Initially treated with IV Vanco and Zosyn - stopped per ID rec as not likely to be curative. He was seen by general surgery and underwent amputation of the 5th toe at the proximal metatarsal on 05/02/2024 blood cultures negative to date no WB as per gen surg. seen by Physical therapy who recommended home with PT services Peripheral vascular disease arterial studies with EULALIA show right SFA disease s/p angiogram with plasty of anterior tibial and peroneal arteries 04/27 We will require outpatient follow-up with vascular surgery will need asa/plavix for 6 months Left groin hematoma Following angiogram, H/H has remained stable. Hypokalemia Resolved Depression continue zoloft Elevated blood pressure, likely untreated HTN Started on Norvasc, and Lisiniopril 10 on this admission Continue clonidine We will need outpatient follow-up with PCP Thrombocytopenia Acute on chronic platelets stable Recommend outpatient follow-up with PCP Time Attestation Discharge Coordination Time (in mins): 40 Quality: Safe Use of Opioids Does Pt have an Active Cancer Diagnosis on the Problem List?: No Quality: Stroke Does the patient have a stroke diagnosis?: No Physical Exam Vital Signs: Vital Signs: Last Vital Signs Temp 97.4 F 05/05/24 07:15 Pulse 73 05/05/24 07:15 Resp 16 05/05/24 07:15 BP 161/72 H 05/05/24 07:15 Pulse Ox 98 05/05/24 11:30 O2 Del Method Room Air 05/05/24 11:30 O2 Flow Rate 4 05/02/24 13:03 BMI result Body Mass Index 35.6 Const: General: cooperative, no acute distress, alert and awake Nutritional Appearance: overweight Orientation/consciousness: patient oriented x3 Resp: Effort & Inspection: normal respiratory effort, able to speak in complete sentences, no respiratory distress and no use of accessory muscles Cardio: Rate: regular rate GI: Palpation (GI): Soft to palpation and nontender Skin: Other: right foot wrapped in c/d/i bandage Neuro: General: patient oriented x3, moves all extremities and CN's II-XI intact bilaterally Extrem: General: Yes no pedal edema DS: Data Data Completed and Pending Pending studies at discharge: Pending at discharge 05/02/24 12:20 Surgical [PTH] Routine Labs on day of discharge: Laboratory Results - last 24 hr 05/04/24 15:41 Sodium 138 Potassium 3.6 Chloride 104 Carbon Dioxide 27 Anion Gap 11 L BUN 13 Creatinine 0.83 Estim Creat Clear Calc 122.5 Estimated GFR > 60 Random Glucose 135 H Calcium 8.9 Discharge Plan Discharge Anticipated Discharge Date/Time: 05/05/24 11:52 Patient Disposition: Home Health Service Discharge Diagnosis: Osteomyelitis, right foot ulcer Peripheral vascular disease Hypokalemia Uncontrolled hypertension Thrombocytopenia Referrals: [facility] [Outside] Darryl Domingo MD [Primary Care Provider] - 1 Week Chavo Bender MD [Physician] - 2 Weeks Rebel Green MD [Physician] - 1 Week Discharge Medications: New clopidogrel 75 mg Tablet 75 mg PO DAILY 90 Days Qty: 90 0RF amlodipine 5 mg Tablet 5 mg PO DAILY 90 Days Qty: 90 0RF Protocol: Hold for SBP< HOLD for SBP < : 90 lisinopril 10 mg Tablet 10 mg PO DAILY 90 Days Qty: 90 0RF Protocol: Hold for SBP< HOLD for SBP < : 90 aspirin 81 mg Tablet,Delayed Release (Dr/Ec) 81 mg PO DAILY 90 Days Qty: 90 0RF oxycodone 5 mg Tablet 5 mg PO Q6H PRN (Reason: Pain, Moderate(Pain Scale 4-6)) Qty: 20 0RF Rx Instructions: Partial Fill upon patient request. polyethylene glycol 3350 17 gram Powder In Packet 17 g PO BIDWM Qty: 30 0RF docusate sodium 100 mg Capsule 100 mg PO BEDTIME 30 Days Qty: 30 0RF Continued clonidine HCl 0.1 mg tablet 0.1 mg PO BEDTIME zolpidem 10 mg tablet 10 mg PO BEDTIME PRN (Reason: Sleep) sertraline 100 mg tablet 100 mg PO DAILY buspirone 10 mg tablet 10 mg PO TID Discontinued ibuprofen 600 mg Tablet 600 mg PO Q6H PRN (Reason: Pain) Discharge Orders: Discharge Order (Routine); Ordered 05/05/24 Ordered By: Vivienne Nunn Activity on Discharge: As tolerated Stand Alone Forms: Patient Portal Discharge page Print Language: Yakut Other Ambulatory Orders: Complete Blood Count no Diff (Routine) Timeframe: 1 Week Facility: [facility] - Location: Laboratory Ordered By: Vivienne Nunn Care Plan Goals: See below Health Concerns: Right foot ulcer/osteomyelitis status post 5th metatarsal amputation Thrombocytopenia Peripheral arterial disease Uncontrolled blood pressure Plan of Treatment: Call to schedule follow-up appointment with Dr. Bender of General surgery for postoperative follow-up in 3 weeks For peripheral arterial disease, recommend aspirin and Plavix for the next 6 months. We will need outpatient follow-up with Dr. Green of vascular surgery.Do not take Motrin or other NSAIDs while taking aspirin and Plavix For blood pressure you have been started on 2 new medications Norvasc and lisinopril for adequate blood pressure control. Please call to schedule follow- up appointment with your primary care provider. We will also need close monitoring of CBC, repeat in one week for wound recommend dry dressings wrapped with kerlix and HARESH wrap; keep leg elevated. can use offloading boot Use bowel regimen to stay regular while taking pain medication. Can use Tylenol for pain control, no ibuprofen Assessment: See discharge summary
--- NOTE | 2024-05-05 12:03 | P.F2F_ITS ---
Service Date Service Date: 05/05/24 Encounter Date of encounter: 05/05/24 Reasons for Services Signs and symptoms assessed: Needs intermediate for wound care: Recommend dry dressings wrapped in Kerlix and Natanael wrap changed every other day, medication management Reason for intermediate: wound care and medication management Overseeing Care: Darryl Domingo Homebound: Leaving the home is medically contraindicated at this time without the asist of a device and/or another person due th the listed conditions above and below. Reason homebound: poor balance / fall risk and weakness related to hospital stay Certification: Based on the above findings, I certify that this patient is confined to the home and needs intermittent intermediate care, physical therapy and/or speech therapy, or continues to need occupational therapy. The patient is under my care, and I have initiated the establishment of the plan of care. The patient will be followed by a physician who will periodically review the plan of care. Time Spent With Patient Time: Total time managing care of this patient today ____ minutes.
[2024-05-05 15:21] VITALS: BP 130/64; PULSE 75; RESP 18; TEMP 36.3; O2SAT 97
--- NOTE | 2024-05-05 15:28 | MHC.CM.PN ---
CM MET WITH PT TO DISCUSS DC PLANS HE IS AWARE THE [facility] WILL NOT BE COMING TO HIS HOME DAILY TO DO DRESSINGS HE REPORTS HIS DAUGHTER CAN ASSIST ON THE DAYS THE [facility] IS NOT PRESENT HE IS AWARE HE WILL BE SENT HOME WITH SUPPLIES AND THE [facility] WILL THEN ORDER THEM [facility]GOING [place] [facility] WILL PROVIDE SOC ON WEDNESDAY PT WILL ARRANGE TRANSPORT
== END 2024-05-05 17:15 | disposition home health service (06) | DRG 253 ==
LOC: HO.ED 13:27 → HO.EDOVER 17:11 → HO.S3 04-26 10:06
PROVIDERS: Physician Assistant Medical; Surgery; Surgery Vascular Surgery; Admitting Provider Internal Medicine; Emergency Provider Emergency Medicine; PCP Internal Medicine; Visit Provider Physician Assistant Medical
PROC: 047P3Z1 Dilation of Right Anterior Tibial Artery using Drug-Coated Balloon, Percutaneous Approach (ICD-10-PCS; principal; 2024-04-27 08:00)
PROC: 0Y6X0Z0 Detachment at Right 5th Toe, Complete, Open Approach (ICD-10-PCS; principal; 2024-05-02 11:40)
DX: I70.261 Atherosclerosis of native arteries of extremities with gangrene, right leg (principal); M86.171 Other acute osteomyelitis, right ankle and foot; L97.519 Non-pressure chronic ulcer of other part of right foot with unspecified severity; I10 Essential (primary) hypertension; E87.6 Hypokalemia; F32.A Depression, unspecified; D69.6 Thrombocytopenia, unspecified; E66.8 Other obesity; Z68.35 Body mass index [BMI] 35.0-35.9, adult; G62.9 Polyneuropathy, unspecified; F17.210 Nicotine dependence, cigarettes, uncomplicated; Z71.6 Tobacco abuse counseling; Z79.899 Other long term (current) drug therapy
CPT/HCPCS: 36415; 37228; 37232; 73630; 76937; 80048; 80076; 80202; 82565; 83036; 83605; 83880; 85014; 85018; 85025; 85027; 85652; 86140; 87040; 88305; 88311; 93922; 93925; 97161; 99152; 99153; 99285; A4364; C1725; C1760; C1769; C1887; C1894; J0131; J0360; J1170; J1650; J2250; J2270; J2405; J2543; J2704; J2795; J3010; J3370; J3371

== ENCOUNTER → 2024-04-25 11:04 | Outpatient (BNV) | payer MEDICARE, SELFPAY | PROVIDERS: Emergency Provider Emergency Medicine; PCP Internal Medicine; Visit Provider Internal Medicine | DX: M86.171 Other acute osteomyelitis, right ankle and foot (principal) | CPT/HCPCS: 99223; 99232; 99233; 99239; G0180 ==

== ENCOUNTER → 2024-04-25 16:40 | Outpatient (BNV) | payer MEDICARE, SELFPAY | PROVIDERS: Admitting Provider Internal Medicine; Emergency Provider Emergency Medicine; PCP Internal Medicine; Visit Provider Surgery Vascular Surgery | DX: I73.9 Peripheral vascular disease, unspecified (principal) | CPT/HCPCS: 37228; 37232; 75625; 75710; 76937; 99152; 99222; 99232 ==

== ENCOUNTER → 2024-04-25 16:40 | Outpatient (BNV) | payer MEDICARE, SELFPAY | PROVIDERS: Admitting Provider Internal Medicine; Emergency Provider Emergency Medicine; PCP Internal Medicine; Visit Provider Surgery | DX: M86.10 Other acute osteomyelitis, unspecified site (principal) | CPT/HCPCS: 28810; 99024; 99223; 99231; 99232; 99499 ==

== ENCOUNTER → 2024-04-25 16:40 | Outpatient (BNV) | payer MEDICARE, SELFPAY | PROVIDERS: Admitting Provider Internal Medicine; Emergency Provider Emergency Medicine; PCP Internal Medicine; Visit Provider Internal Medicine | DX: I73.9 Peripheral vascular disease, unspecified (principal); L97.509 Non-pressure chronic ulcer of other part of unspecified foot with unspecified severity | CPT/HCPCS: 99222; 99499 ==

== ENCOUNTER 2024-05-11 13:26 | Inpatient (IN) | payer MEDICARE, SELFPAY ==
--- NOTE | ~2024-05-11 | XR_ITS ---
EXAMINATION: XR FOOT, RIGHT CLINICAL INFORMATION: Status post fifth toe amputation. COMPARISON: Radiograph right foot 04/25/2024. TECHNIQUE: AP, lateral, and oblique views of the right foot. FINDINGS: Soft tissue swelling and gas along the lateral surface of the foot, indeterminate in a postoperative setting. No unexpected radiopaque foreign bodies. Amputation of the fifth toe. Equivocal mild increased focal lucency at the head of the fifth metatarsal and base of the fifth proximal phalanx. No acute fracture or dislocation. XR/XR foot RT min 3V IMPRESSION: 1. Amputation of the fifth toe. 2. Equivocal mild increased focal lucency at the head of the fifth metatarsal and base of the fifth proximal phalanx, findings might be related with osteomyelitis. Consider further evaluation with MRI as clinically warranted. Electronically signed by: Shannan Nava MD 05/11/2024 04:38 PM EDT
[2024-05-11 13:49] VITALS: BP 114/64; PULSE 89; RESP 16; TEMP 36.9; O2SAT 99; BMI 34.9
--- NOTE | 2024-05-11 13:51 | ED.LOWEXIN ---
HPI - Extremity Injury (Lower) General Chief Complaint: Wound/Laceration Stated Complaint: r foot stitch opening Time Seen by Provider: 05/11/24 16:38 History of Present Illness ED Provider: Dr. Pathak HPI Narrative: 58 y/o M patient; PMH depression, obesity, peripheral neuropathy; presents from home reporting right foot has had increased pain, drainage, and foul smell since partial amputation of right toe in early April. Patient recently admitted 04/25. XR at that time showed destruction/absence of the distal 5th metatarsal and proximal phalanx of the fifth digit with soft tissue ulceration. He was admitted and general surgery performed amputation of the 5th toe at the mid-metatarsal level. He was also seen by vascular surgery after he was found to have right SFA disease. He had an angiogram which showed atherosclerosis of the right lower extremity with successful plasty of anterior tibial and peroneal arteries. He was started on Plavix and Aspirin. He was discharged to follow up with general surgery out-patient. Related Data Home Medications ?Medication ?Instructions ?Recorded ?Confirmed buspirone 10 mg tablet 10 mg PO TID 04/03/22 04/25/24 clonidine HCl 0.1 mg tablet 0.1 mg PO BEDTIME PRN Anxiety 04/03/22 04/25/24 zolpidem 10 mg tablet 10 mg PO BEDTIME PRN Sleep 04/03/22 04/25/24 sertraline 100 mg tablet 200 mg PO DAILY 05/11/24 Previous Rx's ?Medication ?Instructions ?Recorded amlodipine 5 mg tablet 5 mg PO DAILY 90 days #90 tabs 05/05/24 aspirin 81 mg tablet,delayed 81 mg PO DAILY 90 days #90 tabs 05/05/24 release clopidogrel 75 mg tablet 75 mg PO DAILY 90 days #90 tabs 05/05/24 lisinopril 10 mg tablet 10 mg PO DAILY 90 days #90 tabs 05/05/24 oxycodone 5 mg tablet 5 mg PO Q6H PRN Pain, 05/05/24 Moderate(Pain Scale 4-6) #20 tabs polyethylene glycol 3350 17 gram 17 g PO BIDWM #30 ea 05/05/24 oral powder packet Allergies Allergy/AdvReac Type Severity Reaction Status Date / Time codeine [Codeine] Allergy Mild RASH Verified 05/11/24 13:51 Codeine Allergy Unknown Rash Uncoded 05/11/24 13:51 Review of Systems Review of Systems: Yes all other systems are reviewed and are negative [facility] Past Medical History Attestation statement: The following information was validated with the patient. Source: old records reviewed Surgical History Abdominal wall hernia Hx of appendectomy Social History Social History Household Members: None Housing: House Do you presently have visiting nurse or other home services: No Patient Tobacco Use Status: Current everyday Tobacco user Tobacco use type: Cigarette Cigarette Packs Per Day: 0.5 Cigarettes Per Day: 10 Years Smoked: 43 e-Cigarette/Vaping Use: Never Used Second Hand Smoke Exposure: No Substance Use Type: Marijuana Advance Directives: No Advance Directives Information Provided: No service: No Physical Exam Vital Signs: Vital Signs: Last Vital Signs Temp 97.4 F 05/11/24 17:00 Pulse 79 05/11/24 17:00 Resp 16 05/11/24 17:00 BP 121/55 L 05/11/24 17:00 Pulse Ox 100 05/11/24 17:00 O2 Del Method Room Air 05/11/24 17:00 BMI result Body Mass Index 34.9 Patient is afebrile and hemodynamically stable Const: General: cooperative HEENT: Head: Yes normal to inspection and Yes atraumatic Eyes: General: appearance normal, both eyes and all related structures Pupils: Equal, round and reactive pupils present EOM: EOMs intact bilaterally Neck: Neck: Yes normal visual inspection, Yes full ROM, Yes supple and No tender Chest: Chest palpation & inspection: normal inspection of the chest and normal palpation of entire chest wall Resp: Effort & Inspection: normal respiratory effort, able to speak in complete sentences, no cough and no respiratory distress Auscultation: clear to auscultation bilaterally Cardio: Rate: regular rate Rhythm: regular rhythm GI: Inspection: Yes normal to inspection, No Abdominal wall edema and No distended Palpation (GI): Soft to palpation, not firm, nontender, no guarding and not rigid Auscultation: normal bowel sounds Neuro: Cranial nerves: Yes Equal, round and reactive pupils present Extrem: Other: Right lower extremity is in lucia wrap and boot. Dressing removed. Significant odor noted. Split sutures along incision line. Quite edematous and tender to palpation. Course Course Course Narrative: This is a Rapid Medical Examination (RME) performed by Tim Mcarthur PA-C in triage. Full HPI, ROS, assessment and treatment plan per primary provider in the Main ED. 58 yo male hx of PAD, HTN, DM with chronic foot ulcers, osteomyelitis of right 5th toe at the metatarsal s/p amputation on 05/02/24 here for eval of pain and drainage from left 5th toe amputation site x today. dressing last changed today. Last f/u w/ Dr. Bender was 05/05/24. Denies fever, chills. + gauze adhered to area so visualization limited. It appears as though there was necrotic tissue at the amputation site. There is purulent discharge and blood noted. Plan: labs, lactic, BC, XR Reevaluation(s) Reevaluation #1: Patient is afebrile and hemodynamically stable. Reviewed triage work up. CXR with equivocal mild increased focal lucency at the head of the fifth metatarsal and base of the fifth proximal phalanx, findings mught be related with osteomyelitis. Labs without leukocytosis. ESR elevated compared to 04/25/2024. Page placed to ID. Recommend against antibiotics at this time. Surgery made aware of patient in the ED. Plan: Admit to hospitalist Condition: Stable Medications Administered Generic Name Dose Route Start Last Admin Trade Name Freq PRN Reason Stop Dose Admin Enoxaparin Sodium 40 mg 05/11/24 19:00 05/11/24 19:32 Enoxaparin Sodium 40 Mg/0.4 Ml Syringe SUBCUT 40 mg Q24H WOOD Administration Hydromorphone HCl 1 mg 05/11/24 18:51 05/11/24 19:32 Hydromorphone Hcl 1 Mg/Ml Syringe IVPUSH 1 mg Q4H PRN Administration Pain, Severe (Pain Scale 7-10) Protocol Vancomycin HCl 2,000 mg in 500 mls @ 250 mls/hr 05/11/24 19:00 05/11/24 19:31 Vancomycin/Ns IV 05/11/24 20:59 250 mls/hr ONCE ONE Administration Medical Decision Making Lab Data 05/11/24 14:05 05/11/24 14:05 Labs: Lab Results 05/11/24 05/11/24 Range/Units 14:05 17:35 WBC 10.3 (4.8-10.8) X10*3/uL RBC 4.13 L (4.60-5.80) X10*6/uL Hgb 13.0 L (14.0-18.0) g/dl Hct 37.4 L (42.0-52.0) % MCV 90.6 (80.0-98.0) fL MCH 31.5 (27.0-33.0) pg MCHC 34.8 (31.0-36.0) g/dl RDW 12.8 (11.0-16.0) % Plt Count 250 D (160-400) X10*3/uL MPV 10.9 (9.4-12.4) fL Immature Gran % (Auto) 0.6 H (0.0-0.4) % Neut % (Auto) 78.2 H (45-73) % Lymph % (Auto) 12.9 L (20-40) % [place] % (Auto) 6.4 (2-11) % Eos % (Auto) 1.6 (0-4) % Baso % (Auto) 0.3 (0-2) % Lymph # (Auto) 1.3 (1.2-4.9) X10*3/uL [place] # (Auto) 0.7 (0.1-1.2) X10*3/uL Eos # (Auto) 0.2 (0.0-0.4) X10*3/uL Baso # (Auto) 0.0 (0.0-0.2) X10*3/uL Abs Immat Gran (auto) 0.06 H (0.00-0.03) X10*3/uL Absolute Neuts (auto) 8.0 (2.0-8.3) x10*3/uL Absolute Nucleated RBC 0.000 (0.0-0.012) X10*3/uL Nucleated RBC % (auto) 0.0 (0.0-0.2) /100WBC Sodium 138 (135-145) mmol/L Potassium 3.6 (3.3-5.1) mmol/L Chloride 103 (96-108) mmol/L Carbon Dioxide 25 (22-29) mmol/L Anion Gap 14 (12-20) BUN 9 (9-16) mg/dL Creatinine 0.82 (0.5-1.4) mg/dL Estim Creat Clear Calc 122.6 Estimated GFR > 60 Random Glucose 145 H (60-115) mg/dL Lactic Acid 1.9 (0.5-2.0) mmol/L Calcium 9.4 (8.4-10.2) mg/dL Total Bilirubin 1.2 H (0.0-1.0) mg/dL AST 34 (5-37) U/L ALT 21 (0-40) U/L Alkaline Phosphatase 127 H (39-117) U/L C-Reactive Protein 13.49 H (< or = 0.50) mg/dL Total Protein 8.2 H (6.5-8.0) g/dL Albumin 3.4 L (3.5-5.0) g/dL Hold Red Top See Note Radiology Impression Discussion of test interpretation with radiology: I have reviewed the radiologist's reading. Radiologist Impression: EXAMINATION: XR FOOT, RIGHT CLINICAL INFORMATION: Status post fifth toe amputation. COMPARISON: Radiograph right foot 04/25/2024. TECHNIQUE: AP, lateral, and oblique views of the right foot. FINDINGS: Soft tissue swelling and gas along the lateral surface of the foot, indeterminate in a postoperative setting. No unexpected radiopaque foreign bodies. Amputation of the fifth toe. Equivocal mild increased focal lucency at the head of the fifth metatarsal and base of the fifth proximal phalanx. No acute fracture or dislocation. XR/XR foot RT min 3V IMPRESSION: 1. Amputation of the fifth toe. 2. Equivocal mild increased focal lucency at the head of the fifth metatarsal and base of the fifth proximal phalanx, findings might be related with osteomyelitis. Consider further evaluation with MRI as clinically warranted. Electronically signed by: Shannan Nava MD 05/11/2024 04:38 PM EDT Discharge Plan Discharge Clinical Impression: Osteomyelitis Patient Disposition: Admitted As Inpatient
--- NOTE | 2024-05-11 14:01 | PC.NURSE ---
attempted to visuallize foot in triage, ABD pad adhere to his foot, unable to visualize completely d/t this reason. escar appeared to be present in some areas, foul smelling, bleeding noted
[2024-05-11 14:12] LABS: MANUAL DIFF FLAG NO
[2024-05-11 14:13] LABS: Basophils Percent Auto 0.3 % (0-2); Eosinophils Absolute Auto 0.2 X10*3/uL (0.0-0.4); Eosinophils Percent Auto 1.6 % (0-4); Hematocrit 37.4 % (42.0-52.0); Imm Gran Abs Auto 0.06 X10*3/uL (0.00-0.03); Imm Gran Pct Auto 0.6 % (0.0-0.4); Lymphocytes Absolute Auto 1.3 X10*3/uL (1.2-4.9); Lymphocytes Percent Auto 12.9 % (20-40); Mean Corpuscular HGB Conc 34.8 g/dl (31.0-36.0); Mean Corpuscular Hemoglobin 31.5 pg (27.0-33.0); Mean Corpuscular Volume 90.6 fL (80.0-98.0); Mean Platelet Volume 10.9 fL (9.4-12.4); Monocytes Absolute Auto 0.7 X10*3/uL (0.1-1.2); Monocytes Percent Auto 6.4 % (2-11); Neutrophils Percent Auto 78.2 % (45-73); Platelet Count 250 X10*3/uL (160-400); Red Blood Count 4.13 X10*6/uL (4.60-5.80); Red Cell Distribution Width 12.8 % (11.0-16.0); White Blood Count 10.3 X10*3/uL (4.8-10.8)
[2024-05-11 14:22] LABS: Lactic Acid 1.9 mmol/L (0.5-2.0)
[2024-05-11 14:27] LABS: Alanine Aminotransferase 21 U/L (0-40); Albumin Level 3.4 g/dL (3.5-5.0); Alkaline Phosphatase 127 U/L (39-117); Anion Gap 14 (12-20); Aspartate Amino Transferase 34 U/L (5-37); Bilirubin Total 1.2 mg/dL (0.0-1.0); Blood Urea Nitrogen 9 mg/dL (9-16); Calcium 9.4 mg/dL (8.4-10.2); Carbon Dioxide 25 mmol/L (22-29); Chloride 103 mmol/L (96-108); Creatinine Clr Calc Pharmacy 122.6; Estimated Glomerular Filt Rate > 60; Glucose Random 145 mg/dL (60-115); Potassium 3.6 mmol/L (3.3-5.1); Sodium 138 mmol/L (135-145); Total Protein 8.2 g/dL (6.5-8.0)
[2024-05-11 17:00] VITALS: BP 121/55; PULSE 79; RESP 16; TEMP 36.3; O2SAT 100
[2024-05-11 17:53] LABS: C Reactive Protein 13.49 mg/dL (< or = 0.50)
--- NOTE | 2024-05-11 18:06 | PHA.MEDREC ---
Addendum entered by Alanis Parikh RPh 05/11/24 18:32: reviewed by [facility]. Original Note: Pharmacy Consult ? Medication Reconciliation Pharmacy has completed the medication reconciliation. Went and spoke to patient. He was unsure what the name of his medications were but stated his Discharge packet from 05/05/24 was up to date. I confirmed the med rec with the Discharge Summary on 05/05/24. Patient states he took his medication this morning,
--- NOTE | 2024-05-11 18:19 | PM.IMHP ---
History of Present Illness Date of Service: 05/11/24 Chief Complaint: Pain and drainage from recent amputation site A 58-year-old male with a history of depression, obesity, and peripheral neuropathy recent hopitalization from Apr 25 to for Left foot injury that resulted in an infected ulcer with exposed bone of the 5th digit. He was treated with IV Abx and ultimately had surgery with removal of the 5th digit and was ultimaley was discharged home with VNA. He comes back today due to pain and drainage, and redness of the wound and VNS was concerned and advised he comes to the ED. Xray of the are show Equivocal mild increased focal lucency at the head of the fifth metatarsal and base of the fifth proximal phalanx, findings might be related with osteomyelitis. WBC is normal. CRP is 13. ESR is pending Review of Systems Review of Systems: Gen: no fever Resp: no sob, no cough CV: no chest, no RENEE, no leg edema GI: No n/v, no abd pain Neuro: No confusion [facility] Surgical History Abdominal wall hernia Hx of appendectomy Social History Household Members: None Housing: House Do you presently have visiting nurse or other home services: No Patient Tobacco Use Status: Current everyday Tobacco user Tobacco use type: Cigarette Cigarette Packs Per Day: 0.5 Cigarettes Per Day: 10 Years Smoked: 43 e-Cigarette/Vaping Use: Never Used Second Hand Smoke Exposure: No Substance Use Type: Marijuana Advance Directives: No Advance Directives Information Provided: No service: No Meds Allergies Allergy/AdvReac Type Severity Reaction Status Date / Time codeine [Codeine] Allergy Mild RASH Verified 05/11/24 13:51 Codeine Allergy Unknown Rash Uncoded 05/11/24 13:51 Home Medications ?Medication ?Instructions ?Recorded ?Confirmed ?Last Taken ?Type buspirone 10 mg tablet 10 mg PO TID 04/03/22 05/11/24 05/11/24 06:00 History clonidine HCl 0.1 mg tablet 0.1 mg PO BEDTIME PRN Anxiety 04/03/22 05/11/24 05/10/24 History zolpidem 10 mg tablet 10 mg PO BEDTIME PRN Sleep 04/03/22 05/11/24 05/10/24 History sertraline 100 mg tablet 100 mg PO DAILY 05/11/24 05/11/24 05/11/24 06:00 History Physical Exam Vital Signs and Narrative: Vital Signs: Last Vital Signs Temp 97.4 F 05/11/24 17:00 Pulse 79 05/11/24 17:00 Resp 16 05/11/24 17:00 BP 121/55 L 05/11/24 17:00 Pulse Ox 100 05/11/24 17:00 O2 Del Method Room Air 05/11/24 17:00 BMI result Body Mass Index 34.9 Const: Other: General: AO X 3, no acute distress Resp: CTA bilateral CVS: S1,S2,RRR GI: +BS, NT, no distention Skin: see pic, gross necrotic tissue, sutures coming apart Neuro: motor grossly intact Psych: appropriate affect Results Labs 05/11/24 14:05 05/11/24 14:05 Labs: Laboratory Results - last 24 hr 05/11/24 05/11/24 14:05 17:35 MCV 90.6 MCH 31.5 MCHC 34.8 RDW 12.8 Plt Count 250 D MPV 10.9 Immature Gran % (Auto) 0.6 H Neut % (Auto) 78.2 H Lymph % (Auto) 12.9 L [place] % (Auto) 6.4 Eos % (Auto) 1.6 Baso % (Auto) 0.3 Lymph # (Auto) 1.3 [place] # (Auto) 0.7 Eos # (Auto) 0.2 Baso # (Auto) 0.0 Abs Immat Gran (auto) 0.06 H Absolute Neuts (auto) 8.0 Absolute Nucleated RBC 0.000 Nucleated RBC % (auto) 0.0 Anion Gap 14 Estim Creat Clear Calc 122.6 Estimated GFR > 60 Random Glucose 145 H Lactic Acid 1.9 Calcium 9.4 Total Bilirubin 1.2 H AST 34 ALT 21 Alkaline Phosphatase 127 H C-Reactive Protein 13.49 H Total Protein 8.2 H Albumin 3.4 L Hold Red Top See Note Imaging Radiologist's Impressions: Impressions Foot X-Ray 05/11/24 14:15 IMPRESSION: 1. Amputation of the fifth toe. 2. Equivocal mild increased focal lucency at the head of the fifth metatarsal and base of the fifth proximal phalanx, findings might be related with osteomyelitis. Consider further evaluation with MRI as clinically warranted. Electronically signed by: Shannan Nava MD 05/11/2024 04:38 PM EDT Assessment and Plan (1) Osteomyelitis: Status: Acute (2) PAD (peripheral artery disease): Status: Acute (3) HTN (hypertension): Status: Acute (4) Peripheral vascular disease: Status: Acute Plan A 58-year-old male with a history of depression, obesity, and peripheral neuropathy here an infected recent amputation site with possible osteomylitis. Infected, amputation wound, with possible osteomyltis of the 5th metatarsal -surgery consutl - Vanco 05/11 (ultimately donnell need foot amputation) -follow cultures -Dilaudid for pain HTN -Norvassc., Lisinopril and Clodine PAD -Plavix, ASA Depression -continue Buspar Elevated blood pressure, likely untreated HTN -Start Norvasc, on clonidine, add Lisiniopril 10 and adjust meds as needed Class 2 obesity, weight advised trought excercise and caloric restriction DVT prophyalxis--lovenox at least 2 midnight admit for acute osteomylitis Quality Stroke Does the patient have a stroke diagnosis?: No VTE Prior VTE?: No VTE Risk Level:: Medical - moderate - high VTE Device Contraindication: Treatment Not Indicated VTE Drug Contraindication: N/A - Med Ordered
--- NOTE | 2024-05-11 19:11 | PC.NURSE ---
received report from Jovita GIVENS, assume care of pt at this time
[2024-05-11] MEDS: vancomycin/NS 2,000 MG/500 ML PLAST..BAG 250 MG IV (19:31)
[2024-05-11] MEDS: Enoxaparin Sodium 40 MG/0.4 ML SYRINGE SUBCUT (19:32)
[2024-05-11] MEDS: HYDROmorphone HCl 1 MG/ML SYRINGE IVPUSH (19:32)
--- NOTE | 2024-05-11 19:57 | PHA.PROG ---
Admission Date/Time: May 11, 2024 18:51 Indication: Skin Weight in k.398 kg Adjusted body weight in K.539 kg Serum Creatinine - Last 168 Hours 05/11/24 14:05 Creatinine 0.82 Estimated CrCl and GFR - Last 168 Hours 05/11/24 14:05 Estim Creat Clear Calc 122.6 Estimated GFR > 60 Vancomycin Loading Dose: 2,000 mg Current Vancomycin Dosing Regimen: 750mg q8h Vancomycin Monitoring using AUC goal of 400 - 600 range with trough as surrogate marker: 414, predicted trough 14.3 Date and Time for next Vancomycin Level to be drawn: 05/12 @1500 Pharmacist Comments on Vancomycin Plan: Vancomycin dosing will take advantage of [employer] as a clinical decision support tool that uses Bayesian modeling to calculate individual patient's pharmacokinetic parameters and forecast the patient's drug concentration time course with the target goal AUC 24 range of 400 - 600 mg/L/hr.
[2024-05-11 20:15] LABS: Anion Gap 14 (12-20); Blood Urea Nitrogen 12 mg/dL (9-16); Calcium 9.1 mg/dL (8.4-10.2); Carbon Dioxide 22 mmol/L (22-29); Chloride 105 mmol/L (96-108); Creatinine Clr Calc Pharmacy 115.6; Estimated Glomerular Filt Rate > 60; Glucose Random 124 mg/dL (60-115); Potassium 3.8 mmol/L (3.3-5.1); Sodium 137 mmol/L (135-145)
[2024-05-11 20:26] VITALS: BP 117/53; PULSE 78; RESP 16; TEMP 37.9; O2SAT 97
[2024-05-11 20:27] LABS: Erythrocyte Sedimentation Rate 81 MM/HR (0-15)
[2024-05-11 22:51] VITALS: BP 117/63
[2024-05-11] MEDS: cloNIDine HCL 0.1 MG TABLET PO (22:51)
[2024-05-11] MEDS: Zolpidem Tartrate 5 MG TABLET 10 MG PO (22:51)
[2024-05-11] MEDS: busPIRone HCl 10 MG TABLET PO (22:51)
--- NOTE | 2024-05-11 23:34 | MHC.EDTECH ---
late entry: around the time of 2099 this tech placed non-adherent pads on the pt's suture wound, wrapped the pt's right foot with gauze wrap bandage. Pt did not express any pain or discomfort during procedure, tolerated well.
[2024-05-12 00:13] VITALS: BP 125/61; PULSE 88; RESP 17; TEMP 37.5; O2SAT 99
[2024-05-12] MEDS: HYDROmorphone HCl 1 MG/ML SYRINGE IVPUSH ×5 (00:14→19:42)
[2024-05-12 00:52] VITALS: BMI 34.3
[2024-05-12 00:56] VITALS: BP 135/62; PULSE 80; RESP 18; TEMP 36.9; O2SAT 97
[2024-05-12] MEDS: 0.9 % Sodium Chloride Flush 3 ML SYRINGE IVFLUSH ×4 (01:22→22:11)
[2024-05-12] MEDS: oxyCODONE HCl Immed Release 5 MG TABLET PO ×2 (01:28→07:46)
--- NOTE | 2024-05-12 01:37 | HO.SKINPHOTO ---
Location: L groin Category: Stage: Length: Width: Depth: cm Location: R groin Category: Stage: Length: Width: Depth: cm Location: Category: Stage: Length: Width: Depth: cm Location: Category: Stage: Length: Width: Depth: cm Location: Category: Stage: Length: Width: Depth: cm Location: Category: Stage: Length: Width: Depth: cm
[2024-05-12] MEDS: vancomycin HCL 750 MG in 0.9 % Sodium Chloride 250 ML 265 MG IV ×2 (03:42→10:53)
[2024-05-12 04:00] VITALS: BP 123/65; PULSE 73; RESP 18; TEMP 36.3; O2SAT 99
[2024-05-12 07:26] LABS: Anion Gap 11 (12-20); Blood Urea Nitrogen 12 mg/dL (9-16); Calcium 8.9 mg/dL (8.4-10.2); Carbon Dioxide 25 mmol/L (22-29); Chloride 106 mmol/L (96-108); Creatinine Clr Calc Pharmacy 126.3; Estimated Glomerular Filt Rate > 60; Glucose Random 118 mg/dL (60-115); Potassium 2.9 mmol/L (3.3-5.1); Sodium 139 mmol/L (135-145)
[2024-05-12 07:27] VITALS: BP 128/59; PULSE 70; RESP 17; TEMP 36.1; O2SAT 96
[2024-05-12] MEDS: Potassium Chloride ER 20 MEQ TAB.ER.PRT 40 MEQ PO (07:46)
[2024-05-12 08:15] LABS: Magnesium 2.2 mg/dL (1.6-2.6)
[2024-05-12] MEDS: amLODIPine Besylate 5 MG TABLET PO (08:42)
[2024-05-12] MEDS: Sertraline HCL 100 MG TABLET PO (08:42)
[2024-05-12] MEDS: Aspirin Enteric Coated 81 MG TABLET.DR PO (08:43)
[2024-05-12] MEDS: Clopidogrel Bisulfate 75 MG TABLET PO (08:43)
[2024-05-12] MEDS: lisinopriL 10 MG TABLET PO (08:43)
[2024-05-12] MEDS: busPIRone HCl 10 MG TABLET PO ×3 (08:43→20:43)
--- NOTE | 2024-05-12 10:15 | HO.PM.IMPN ---
Subjective Subjective Date of Service: 05/12/24 Interval History: f/u infected amputation site no change, pain is controlled Physical Exam Vital Signs: Vital Signs: Last Vital Signs Temp 97.0 F 05/12/24 07:27 Pulse 70 05/12/24 07:27 Resp 17 05/12/24 07:27 BP 128/59 L 05/12/24 07:27 Pulse Ox 96 05/12/24 07:27 O2 Del Method Room Air 05/12/24 07:27 BMI result Body Mass Index 34.3 Const: Other: General: AO X 3, no acute distress Resp: CTA bilateral CVS: S1,S2,RRR GI: +BS, NT, no distention Skin: see pic, gross necrotic tissue, sutures coming apart Neuro: motor grossly intact Psych: appropriate affect General: cooperative Extrem: Other: Right lower extremity is in lucia wrap and boot. Dressing removed. Significant odor noted. Split sutures along incision line. Quite edematous and tender to palpation. Objective Data Active Medications Acetaminophen (Acetaminophen 325 Mg Tablet) 650 mg PO Q6H PRN PRN Reason: Pain, Mild (Pain Scale 1-3), fever or headache Amlodipine Besylate (Amlodipine Besylate 5 Mg Tablet) 5 mg PO DAILY [facility]; Protocol Last Admin: 05/12/24 08:42 Dose: 5 mg Documented By: JENNIFER Aspirin (Aspirin Enteric Coated 81 Mg Tablet.Dr) 81 mg PO DAILY [facility] Last Admin: 05/12/24 08:43 Dose: 81 mg Documented By: JENNIFER Buspirone HCl (Buspirone Hcl 10 Mg Tablet) 10 mg PO TID [facility] Last Admin: 05/12/24 08:43 Dose: 10 mg Documented By: JENNIFER Calcium Carbonate (Calcium Carbonate 750 Mg Tab.Chew) 750 mg PO Q4H PRN PRN Reason: Heartburn Clonidine HCl (Clonidine Hcl 0.1 Mg Tablet) 0.1 mg PO BEDTIME PRN; Protocol PRN Reason: Anxiety Last Admin: 05/11/24 22:51 Dose: 0.1 mg Documented By: MODE Clopidogrel Bisulfate (Clopidogrel Bisulfate 75 Mg Tablet) 75 mg PO DAILY [facility] Last Admin: 05/12/24 08:43 Dose: 75 mg Documented By: JENNIFER Enoxaparin Sodium (Enoxaparin Sodium 40 Mg/0.4 Ml Syringe) 40 mg SUBCUT Q24H [facility] Last Admin: 05/11/24 19:32 Dose: 40 mg Documented By: MODE Hydromorphone HCl (Hydromorphone Hcl 1 Mg/Ml Syringe) 1 mg IVPUSH Q4H PRN; Protocol PRN Reason: Pain, Severe (Pain Scale 7-10) Last Admin: 05/12/24 09:12 Dose: 1 mg Documented By: JENNIFER Vancomycin HCl 750 mg/ Sodium (Chloride) 265 mls @ 265 mls/hr IV Q8H [facility] Last Infusion: 05/12/24 04:53 Dose: Infused Documented By: RUDY Lisinopril (Lisinopril 10 Mg Tablet) 10 mg PO DAILY [facility]; Protocol Last Admin: 05/12/24 08:43 Dose: 10 mg Documented By: JENNIFER Magnesium Hydroxide (Milk Of Magnesia 30 Ml Oral.Susp) 30 ml PO DAILY PRN PRN Reason: Constipation Melatonin (Melatonin 3 Mg Tablet) 6 mg PO BEDTIME PRN PRN Reason: Insomnia Ondansetron HCl (Ondansetron Hcl 4 Mg/2 Ml Vial) 4 mg IVPUSH Q8H PRN PRN Reason: Nausea and Vomiting Oxycodone HCl (Oxycodone Hcl Immed Release 5 Mg Tablet) 5 mg PO Q6H PRN PRN Reason: Pain, Moderate(Pain Scale 4-6) Last Admin: 05/12/24 07:46 Dose: 5 mg Documented By: JENNIFER Pharmacy Consult (Consult Rx Vancomycin Dosing) 1 each MISCELLANE DAILY PRN PRN Reason: Consult order Polyethylene Glycol (Polyethylene Glycol 3350 17 Gm Powd.Pack) 17 gm PO DAILY PRN PRN Reason: Constipation Polyethylene Glycol (Polyethylene Glycol 3350 17 Gm Powd.Pack) 17 gm PO BIDWM [facility] Last Admin: 05/12/24 08:46 Dose: Not Given Documented By: JENNIFER Non-Admin Reason: Patient Refused Sertraline HCl (Sertraline Hcl 100 Mg Tablet) 100 mg PO DAILY [facility] Last Admin: 05/12/24 08:42 Dose: 100 mg Documented By: JENNIFER Sodium Chloride (0.9 % Sodium Chloride Flush 3 Ml Syringe) 3 [facility] Last Admin: 08/23/24 08:45 Dose: 3 ml Documented By: JENNIFER Zolpidem Tartrate (Zolpidem Tartrate 5 Mg Tablet) 10 mg PO BEDTIME PRN PRN Reason: Sleep Last Admin: 05/11/24 22:51 Dose: 10 mg Documented By: MODE Labs 05/11/24 14:05 05/12/24 06:38 Labs: Laboratory Results - last 24 hr 05/11/24 05/11/24 05/11/24 14:05 17:35 19:34 MCV 90.6 MCH 31.5 MCHC 34.8 RDW 12.8 Plt Count 250 D MPV 10.9 Immature Gran % (Auto) 0.6 H Neut % (Auto) 78.2 H Lymph % (Auto) 12.9 L [place] % (Auto) 6.4 Eos % (Auto) 1.6 Baso % (Auto) 0.3 Lymph # (Auto) 1.3 [place] # (Auto) 0.7 Eos # (Auto) 0.2 Baso # (Auto) 0.0 Abs Immat Gran (auto) 0.06 H Absolute Neuts (auto) 8.0 Absolute Nucleated RBC 0.000 Nucleated RBC % (auto) 0.0 ESR 81 H Anion Gap 14 14 Estim Creat Clear Calc 122.6 115.6 Estimated GFR > 60 > 60 Random Glucose 145 H 124 H Lactic Acid 1.9 Calcium 9.4 9.1 Magnesium Total Bilirubin 1.2 H AST 34 ALT 21 Alkaline Phosphatase 127 H C-Reactive Protein 13.49 H Total Protein 8.2 H Albumin 3.4 L Hold Red Top See Note 05/12/24 06:38 MCV MCH MCHC RDW Plt Count MPV Immature Gran % (Auto) Neut % (Auto) Lymph % (Auto) [place] % (Auto) Eos % (Auto) Baso % (Auto) Lymph # (Auto) [place] # (Auto) Eos # (Auto) Baso # (Auto) Abs Immat Gran (auto) Absolute Neuts (auto) Absolute Nucleated RBC Nucleated RBC % (auto) ESR Anion Gap 11 L Estim Creat Clear Calc 126.3 Estimated GFR > 60 Random Glucose 118 H Lactic Acid Calcium 8.9 Magnesium 2.2 Total Bilirubin AST ALT Alkaline Phosphatase C-Reactive Protein Total Protein Albumin Hold Red Top Assessment and Plan (1) Acute osteomyelitis: Status: Acute Plan A 58-year-old male with a history of depression, obesity, and peripheral neuropathy here an infected recent amputation site with possible osteomylitis. Infected, amputation site wound, with possible osteomyltis of the L 5th metatarsal -surgery consutl - Gabriela 05/11 (ultimately donnell need foot amputation) -follow cultures -Dilaudid for pain HTN -Norvassc., Lisinopril and Clodine PAD -Plavix, ASA Depression -continue Buspar Elevated blood pressure, likely untreated HTN -continue Norvasc, lisinipril and clonidine Class 2 obesity, weight advised trought excercise and caloric restriction DVT prophyalxis--lovenox at least 2 midnight admit for acute osteomylitis Quality Stroke Does the patient have a stroke diagnosis?: No VTE Prior VTE?: No VTE Risk Level:: Medical - moderate - high VTE Device Contraindication: Treatment Not Indicated VTE Drug Contraindication: N/A - Med Ordered
--- NOTE | 2024-05-12 11:10 | P.CONGS_ITS ---
History of Present Illness Consult details Consult date: 05/12/24 Narrative: 58-year-old male with PMH of PAD, HTN who presented early this month with large open wound on the dorsolateral aspect of the right foot found to have osteomyelitis of the fifth distal metatarsal. He had right SFA disease and aortogram with right lower extremity runoff, plasty of right anterior tibial and peroneal arteries was performed. He subsequently underwent amputation of the 5th toe at the proximal metatarsal on 05/02 for treatment of the osteomyelitis. He had an uncomplicated post operative course and was discharged to home with VNA services on 05/05. He states about a day after discharge, he had increasing pain the amputation site. VNA states that his wound had opened and should return. Right foot xray was obtained with the official read stating equivocal mild increased focal lucency at the head of the fifth metatarsal and base of the fifth proximal phalanx, findings might be related with osteomyelitis . He was admitted to the hospitalist service for further treatment of his amputation site given concern for possible infection, possible osteo of the right fourth toe. General surgery was consulted for possible amputation, wound care. Review of Systems 2 Constitutional: Constitutional: Denies chills and Denies fever(s) ENT: Denies dizziness Cardiovascular: Cardiovascular: Denies chest pain Gastrointestinal: Gastrointestinal: Denies nausea and Denies vomiting Neurologic: Denies dizziness PMFSH Surgical History Surgical History Abdominal wall hernia Hx of appendectomy Social History Social History Household Members: None Housing: House Do you presently have visiting nurse or other home services: Yes (s/p amp to R toe) Patient Tobacco Use Status: Current everyday Tobacco user Tobacco use type: Cigarette Cigarette Packs Per Day: 0.5 Cigarettes Per Day: 10 Years Smoked: 43 Smoked in Last 30 Days: Yes e-Cigarette/Vaping Use: Never Used Patient Interested in Nicotine Replacement: No Patient Given Instructions on How to Stop Smoking: No Second Hand Smoke Exposure: Yes Use of substances other than those prescribed or required for medical reasons: Yes Substance Use Type: Marijuana Substance Use Frequency: Occasionally Last Used Substance: Just Prior to Admission Currently Displaying Signs/Symptoms of Drug Intoxication Withdrawal: No Any prior treatment program specific to substance use: No Have you been hit, kicked, punched, or otherwise hurt by someone within the past year? If so, by whom?: No Do you feel safe in your current relationship?: Yes Is there a partner from a previous relationship who is making you feel unsafe now?: No Are you made to feel afraid or neglected: No Advance Directives: No Advance Directives Information Provided: No Do you have a plan to hurt others: No Plan Recently lost weight without trying: No Eating poorly because of decreased appetite: No Nutrition Risks: No Nutritional Risk Poor oral hygiene: No service: No Meds Allergies Allergy/AdvReac Type Severity Reaction Status Date / Time codeine [Codeine] Allergy Mild RASH Verified 05/11/24 13:51 Codeine Allergy Unknown Rash Uncoded 05/11/24 13:51 Active Medications: Current Medications Acetaminophen (Acetaminophen 325 Mg Tablet) 650 mg PO Q6H PRN PRN Reason: Pain, Mild (Pain Scale 1-3), fever or headache Amlodipine Besylate (Amlodipine Besylate 5 Mg Tablet) 5 mg PO DAILY [facility]; Protocol Last Admin: 05/12/24 08:42 Dose: 5 mg Aspirin (Aspirin Enteric Coated 81 Mg Tablet.Dr) 81 mg PO DAILY [facility] Last Admin: 05/12/24 08:43 Dose: 81 mg Buspirone HCl (Buspirone Hcl 10 Mg Tablet) 10 mg PO TID [facility] Last Admin: 05/12/24 08:43 Dose: 10 mg Calcium Carbonate (Calcium Carbonate 750 Mg Tab.Chew) 750 mg PO Q4H PRN PRN Reason: Heartburn Clonidine HCl (Clonidine Hcl 0.1 Mg Tablet) 0.1 mg PO BEDTIME PRN; Protocol PRN Reason: Anxiety Last Admin: 05/11/24 22:51 Dose: 0.1 mg Clopidogrel Bisulfate (Clopidogrel Bisulfate 75 Mg Tablet) 75 mg PO DAILY [facility] Last Admin: 05/12/24 08:43 Dose: 75 mg Enoxaparin Sodium (Enoxaparin Sodium 40 Mg/0.4 Ml Syringe) 40 mg SUBCUT Q24H [facility] Last Admin: 05/11/24 19:32 Dose: 40 mg Hydromorphone HCl (Hydromorphone Hcl 1 Mg/Ml Syringe) 1 mg IVPUSH Q4H PRN; Protocol PRN Reason: Pain, Severe (Pain Scale 7-10) Last Admin: 05/12/24 09:12 Dose: 1 mg Vancomycin HCl 750 mg/ Sodium (Chloride) 265 mls @ 265 mls/hr IV Q8H [facility] Last Admin: 05/12/24 10:53 Dose: 265 mls/hr Lisinopril (Lisinopril 10 Mg Tablet) 10 mg PO DAILY [facility]; Protocol Last Admin: 05/12/24 08:43 Dose: 10 mg Magnesium Hydroxide (Milk Of Magnesia 30 Ml Oral.Susp) 30 ml PO DAILY PRN PRN Reason: Constipation Melatonin (Melatonin 3 Mg Tablet) 6 mg PO BEDTIME PRN PRN Reason: Insomnia Ondansetron HCl (Ondansetron Hcl 4 Mg/2 Ml Vial) 4 mg IVPUSH Q8H PRN PRN Reason: Nausea and Vomiting Oxycodone HCl (Oxycodone Hcl Immed Release 5 Mg Tablet) 5 mg PO Q6H PRN PRN Reason: Pain, Moderate(Pain Scale 4-6) Last Admin: 05/12/24 07:46 Dose: 5 mg Pharmacy Consult (Consult Rx Vancomycin Dosing) 1 each MISCELLANE DAILY PRN PRN Reason: Consult order Polyethylene Glycol (Polyethylene Glycol 3350 17 Gm Powd.Pack) 17 gm PO DAILY PRN PRN Reason: Constipation Polyethylene Glycol (Polyethylene Glycol 3350 17 Gm Powd.Pack) 17 gm PO BIDWM [facility] Last Admin: 05/12/24 08:46 Dose: Not Given Sertraline HCl (Sertraline Hcl 100 Mg Tablet) 100 mg PO DAILY [facility] Last Admin: 05/12/24 08:42 Dose: 100 mg Sodium Chloride (0.9 % Sodium Chloride Flush 3 Ml Syringe) 3 ml IVFLUSH QSHIFT [facility] Last Admin: 05/12/24 08:45 Dose: 3 ml Zolpidem Tartrate (Zolpidem Tartrate 5 Mg Tablet) 10 mg PO BEDTIME PRN PRN Reason: Sleep Last Admin: 05/11/24 22:51 Dose: 10 mg Home Medications ?Medication ?Instructions ?Recorded ?Confirmed ?Last Taken ?Type buspirone 10 mg tablet 10 mg PO TID 04/03/22 05/11/24 05/11/24 06:00 History clonidine HCl 0.1 mg tablet 0.1 mg PO BEDTIME PRN Anxiety 04/03/22 05/11/24 05/10/24 History zolpidem 10 mg tablet 10 mg PO BEDTIME PRN Sleep 04/03/22 05/11/24 05/10/24 History sertraline 100 mg tablet 100 mg PO DAILY 05/11/24 05/11/24 05/11/24 06:00 History Physical Exam 2 Vital Signs: Vital Signs: Last Vital Signs Temp 97.0 F 05/12/24 07:27 Pulse 70 05/12/24 07:27 Resp 17 05/12/24 07:27 BP 128/59 L 05/12/24 07:27 Pulse Ox 96 05/12/24 07:27 O2 Del Method Room Air 05/12/24 07:27 BMI result Body Mass Index 34.3 Const: General: comfortable, no acute distress and alert O rientation/consciousness: patient oriented x3 Resp: Effort & Inspection: normal respiratory effort Cardio: Rate: regular rate Neuro: General: patient oriented x3 and moves all extremities Extrem: Other: right foot- exposed subq tissue at right fifth toe amputation site- proximal aspect clean appearing with good granulation tissue - some eschar overlying distal aspect of amputation site with small amount of purulent drainage and bogginess of plantar aspect, fourth toe dusky appearing Results Labs 05/11/24 14:05 05/12/24 06:38 Labs: Abnormal lab results 05/11/24 05/11/24 05/11/24 Range/Units 14:05 17:35 19:34 RBC 4.13 L (4.60-5.80) X10*6/uL Hgb 13.0 L (14.0-18.0) g/dl Hct 37.4 L (42.0-52.0) % Immature Gran % (Auto) 0.6 H (0.0-0.4) % Neut % (Auto) 78.2 H (45-73) % Lymph % (Auto) 12.9 L (20-40) % Abs Immat Gran (auto) 0.06 H (0.00-0.03) X10*3/uL ESR 81 H (0-15) MM/HR Potassium (3.3-5.1) mmol/L Anion Gap (12-20) Random Glucose 145 H 124 H (60-115) mg/dL Total Bilirubin 1.2 H (0.0-1.0) mg/dL Alkaline Phosphatase 127 H (39-117) U/L C-Reactive Protein 13.49 H (< or = 0.50) mg/dL Total Protein 8.2 H (6.5-8.0) g/dL Albumin 3.4 L (3.5-5.0) g/dL 05/12/24 Range/Units 06:38 RBC (4.60-5.80) X10*6/uL Hgb (14.0-18.0) g/dl Hct (42.0-52.0) % Immature Gran % (Auto) (0.0-0.4) % Neut % (Auto) (45-73) % Lymph % (Auto) (20-40) % Abs Immat Gran (auto) (0.00-0.03) X10*3/uL ESR (0-15) MM/HR Potassium 2.9 L* D (3.3-5.1) mmol/L Anion Gap 11 L (12-20) Random Glucose 118 H (60-115) mg/dL Total Bilirubin (0.0-1.0) mg/dL Alkaline Phosphatase (39-117) U/L C-Reactive Protein (< or = 0.50) mg/dL Total Protein (6.5-8.0) g/dL Albumin (3.5-5.0) g/dL Short CBC 05/11/24 Range/Units 14:05 WBC 10.3 (4.8-10.8) X10*3/uL Hgb 13.0 L (14.0-18.0) g/dl Hct 37.4 L (42.0-52.0) % Plt Count 250 D (160-400) X10*3/uL BMP 05/11/24 05/11/24 05/12/24 14:05 19:34 06:38 Sodium 138 137 139 Potassium 3.6 3.8 2.9 L* D Chloride 103 105 106 Carbon Dioxide 25 22 25 BUN 9 12 12 Creatinine 0.82 0.87 0.79 Calcium 9.4 9.1 8.9 Liver Function 05/11/24 Range/Units 14:05 Total Bilirubin 1.2 H (0.0-1.0) mg/dL AST 34 (5-37) U/L ALT 21 (0-40) U/L Alkaline Phosphatase 127 H (39-117) U/L Albumin 3.4 L (3.5-5.0) g/dL All other labs normal. Assessment and Plan (1) Amputation of fifth toe of right foot: Status: Acute Plan 58-year-old male with PMH of PAD, HTN , osteomyelitis of fifth distal metatarsal 10 days s/p amputation of the 5th toe at the proximal metatarsal. R foot xray showing possible osteo of the right 4th metatarsal head. His right fourth toe is dusky appearing and he may require amputation of the 4th toe. At this point would continue IV abx, local wound care with dakins soaked fluffs to wound base and let the foot declare itself. Procedures Date of Service Date of Service: 05/12/24
[2024-05-12] MEDS: Acetaminophen 325 MG TABLET 650 MG PO (12:05)
[2024-05-12 15:42] VITALS: BP 135/63; PULSE 66; RESP 18; TEMP 36.6; O2SAT 97
[2024-05-12 16:07] LABS: Vancomycin Random 16.7 mcg/mL (15-20)
[2024-05-12] MEDS: Enoxaparin Sodium 40 MG/0.4 ML SYRINGE SUBCUT (18:31)
[2024-05-12] MEDS: vancomycin HCL 1,250 MG in 0.9 % Sodium Chloride 250 ML 166.67 MG IV (18:32)
[2024-05-12 19:30] VITALS: BP 142/65; PULSE 72; RESP 20; TEMP 36.3; O2SAT 100
[2024-05-12] MEDS: Zolpidem Tartrate 5 MG TABLET 10 MG PO (22:07)
[2024-05-13 03:50] VITALS: BP 169/74; PULSE 75; RESP 18; TEMP 36.1; O2SAT 98
[2024-05-13] MEDS: HYDROmorphone HCl 1 MG/ML SYRINGE IVPUSH ×5 (04:01→20:35)
[2024-05-13 06:30] LABS: Anion Gap 12 (12-20); Blood Urea Nitrogen 12 mg/dL (9-16); Calcium 8.8 mg/dL (8.4-10.2); Carbon Dioxide 25 mmol/L (22-29); Chloride 105 mmol/L (96-108); Creatinine Clr Calc Pharmacy 126.3; Estimated Glomerular Filt Rate > 60; Glucose Random 135 mg/dL (60-115); Potassium 3.2 mmol/L (3.3-5.1); Sodium 139 mmol/L (135-145)
[2024-05-13] MEDS: vancomycin HCL 1,250 MG in 0.9 % Sodium Chloride 250 ML 166.67 MG IV (06:38)
[2024-05-13 07:11] VITALS: BP 157/72; PULSE 71; RESP 16; TEMP 36.8; O2SAT 100
[2024-05-13 08:24] VITALS: BP 157/72
[2024-05-13] MEDS: Clopidogrel Bisulfate 75 MG TABLET PO (08:24)
[2024-05-13] MEDS: Potassium Chloride ER 20 MEQ TAB.ER.PRT 40 MEQ PO (08:24)
[2024-05-13] MEDS: Aspirin Enteric Coated 81 MG TABLET.DR PO (08:24)
[2024-05-13] MEDS: lisinopriL 10 MG TABLET PO (08:24)
[2024-05-13] MEDS: busPIRone HCl 10 MG TABLET PO ×3 (08:24→20:35)
[2024-05-13] MEDS: amLODIPine Besylate 5 MG TABLET PO (08:24)
[2024-05-13] MEDS: Sertraline HCL 100 MG TABLET PO (08:24)
[2024-05-13] MEDS: 0.9 % Sodium Chloride Flush 3 ML SYRINGE IVFLUSH ×3 (08:25→22:53)
[2024-05-13] MEDS: Sodium Hypochlorite 0.125% 473 ML SOLUTION 1 APPL TOPICAL (10:38)
--- NOTE | 2024-05-13 10:47 | P.PNIM_ITS ---
Subjective Subjective Date of Service: 05/13/24 Interval History: f/u infected amputation site no change, pain is controlled Physical Exam 2 Vital Signs: Vital Signs: Last Vital Signs Temp 98.3 F 05/13/24 07:11 Pulse 71 05/13/24 07:11 Resp 16 05/13/24 07:11 BP 157/72 H 05/13/24 08:24 Pulse Ox 100 05/13/24 07:11 O2 Del Method Room Air 05/13/24 07:11 BMI result Body Mass Index 34.3 General: AO X 3, no acute distress Resp: CTA bilateral CVS: S1,S2,RRR GI: +BS, NT, no distention Skin: 05/13 Neuro: motor grossly intact Psych: appropriate affect Objective Data Active Medications Acetaminophen (Acetaminophen 325 Mg Tablet) 650 mg PO Q6H PRN PRN Reason: Pain, Mild (Pain Scale 1-3), fever or headache Last Admin: 05/12/24 12:05 Dose: 650 mg Documented By: JENNIFER Amlodipine Besylate (Amlodipine Besylate 5 Mg Tablet) 5 mg PO DAILY [facility]; Protocol Last Admin: 05/13/24 08:24 Dose: 5 mg Documented By: FABY Aspirin (Aspirin Enteric Coated 81 Mg Tablet.Dr) 81 mg PO DAILY [facility] Last Admin: 05/13/24 08:24 Dose: 81 mg Documented By: FABY Buspirone HCl (Buspirone Hcl 10 Mg Tablet) 10 mg PO TID [facility] Last Admin: 05/13/24 08:24 Dose: 10 mg Documented By: FABY Calcium Carbonate (Calcium Carbonate 750 Mg Tab.Chew) 750 mg PO Q4H PRN PRN Reason: Heartburn Clonidine HCl (Clonidine Hcl 0.1 Mg Tablet) 0.1 mg PO BEDTIME PRN; Protocol PRN Reason: Anxiety Last Admin: 05/11/24 22:51 Dose: 0.1 mg Documented By: MODE Clopidogrel Bisulfate (Clopidogrel Bisulfate 75 Mg Tablet) 75 mg PO DAILY [facility] Last Admin: 05/13/24 08:24 Dose: 75 mg Documented By: FABY Enoxaparin Sodium (Enoxaparin Sodium 40 Mg/0.4 Ml Syringe) 40 mg SUBCUT Q24H [facility] Last Admin: 05/12/24 18:31 Dose: 40 mg Documented By: JENNIFER Hydromorphone HCl (Hydromorphone Hcl 1 Mg/Ml Syringe) 1 mg IVPUSH Q4H PRN; Protocol PRN Reason: Pain, Severe (Pain Scale 7-10) Last Admin: 05/13/24 08:21 Dose: 1 mg Documented By: FABY Vancomycin HCl 1,250 mg/ (Sodium Chloride) 250 mls @ 166.667 mls/hr IV Q12H [facility] Last Infusion: 05/13/24 08:14 Dose: Infused Documented By: FABY Lisinopril (Lisinopril 10 Mg Tablet) 10 mg PO DAILY [facility]; Protocol Last Admin: 05/13/24 08:24 Dose: 10 mg Documented By: FABY Magnesium Hydroxide (Milk Of Magnesia 30 Ml Oral.Susp) 30 ml PO DAILY PRN PRN Reason: Constipation Melatonin (Melatonin 3 Mg Tablet) 6 mg PO BEDTIME PRN PRN Reason: Insomnia Ondansetron HCl (Ondansetron Hcl 4 Mg/2 Ml Vial) 4 mg IVPUSH Q8H PRN PRN Reason: Nausea and Vomiting Oxycodone HCl (Oxycodone Hcl Immed Release 5 Mg Tablet) 5 mg PO Q6H PRN PRN Reason: Pain, Moderate(Pain Scale 4-6) Last Admin: 05/12/24 07:46 Dose: 5 mg Documented By: JENNIFER Pharmacy Consult (Consult Rx Vancomycin Dosing) 1 each MISCELLANE DAILY PRN PRN Reason: Consult order Polyethylene Glycol (Polyethylene Glycol 3350 17 Gm Powd.Pack) 17 gm PO DAILY PRN PRN Reason: Constipation Polyethylene Glycol (Polyethylene Glycol 3350 17 Gm Powd.Pack) 17 gm PO BIDWM [facility] Last Admin: 05/13/24 08:25 Dose: Not Given Documented By: FABY Non-Admin Reason: Patient Refused Sertraline HCl (Sertraline Hcl 100 Mg Tablet) 100 mg PO DAILY [facility] Last Admin: 05/13/24 08:24 Dose: 100 mg Documented By: FABY Sodium Chloride (0.9 % Sodium Chloride Flush 3 Ml [facility]ringe) [facility] Last Admin: 05/13/24 08:25 Dose: 3 ml Documented By: FABY Sodium Hypochlorite (Sodium Hypochlorite 0.125% 473 Ml Solution) 1 appl TOPICAL DAILY [facility] Last Admin: 05/13/24 10:38 Dose: 1 appl Documented By: FABY Zolpidem Tartrate (Zolpidem Tartrate 5 Mg Tablet) 10 mg PO BEDTIME PRN PRN Reason: Sleep Last Admin: 05/12/24 22:07 Dose: 10 mg Documented By: KIM Labs 05/11/24 14:05 05/13/24 05:16 Labs: Laboratory Results - last 24 hr 05/12/24 05/13/24 15:41 05:16 Hold Purple Top SEE NOTE Anion Gap 12 Estim Creat Clear Calc 126.3 Estimated GFR > 60 Random Glucose 135 H Calcium 8.8 Random Vancomycin 16.7 Microbiology Microbiology Results: Microbiology 05/11/24 16:50 Blood Culture - Preliminary Blood - Venous No growth after 24 hours. 05/11/24 14:05 Blood Culture - Preliminary Blood - Venous No growth after 24 hours. Assessment and Plan (1) Acute osteomyelitis: Status: Acute Plan A 58-year-old male with a history of depression, obesity, and peripheral neuropathy here an infected recent amputation site with possible osteomylitis. Infected, amputation site wound, osteomyltis of the L 5th metatarsal, necrosis of 4th digit --see pic -surgery following - Vanco 05/11. (ultimately donnell need foot amputation) -follow cultures -Dilaudid for pain HTN--uncontrolled -incresae Norvassc 10 ., Lisinopril and Clodine Hypokalemia--oral replacement, check mag, repeat tomorrow PAD -Plavix, ASA Depression -continue Buspar Elevated blood pressure, likely untreated HTN -continue Norvasc, lisinipril and clonidine Class 2 obesity, weight advised trought excercise and caloric restriction DVT prophyalxis--lovenox IV Abx for OM, gangrene of the foot and will need surgery Quality Stroke Does the patient have a stroke diagnosis?: No VTE Prior VTE?: No VTE Risk Level:: Medical - moderate - high VTE Device Contraindication: Treatment Not Indicated VTE Drug Contraindication: N/A - Med Ordered
[2024-05-13 10:58] LABS: MANUAL DIFF FLAG NO
[2024-05-13 11:02] LABS: Basophils Percent Auto 0.3 % (0-2); Eosinophils Absolute Auto 0.2 X10*3/uL (0.0-0.4); Eosinophils Percent Auto 2.5 % (0-4); Hematocrit 35.1 % (42.0-52.0); Hemoglobin 11.6 g/dl (14.0-18.0); Imm Gran Abs Auto 0.03 X10*3/uL (0.00-0.03); Imm Gran Pct Auto 0.4 % (0.0-0.4); Lymphocytes Percent Auto 13.5 % (20-40); Mean Corpuscular Hemoglobin 31.4 pg (27.0-33.0); Mean Corpuscular Volume 94.9 fL (80.0-98.0); Mean Platelet Volume 11.3 fL (9.4-12.4); Monocytes Absolute Auto 0.6 X10*3/uL (0.1-1.2); Monocytes Percent Auto 9.1 % (2-11); Neutrophils Absolute Auto 5.2 x10*3/uL (2.0-8.3); Neutrophils Percent Auto 74.2 % (45-73); Platelet Count 186 X10*3/uL (160-400); White Blood Count 7.1 X10*3/uL (4.8-10.8)
[2024-05-13 11:21] LABS: Magnesium 2.2 mg/dL (1.6-2.6)
[2024-05-13] MEDS: oxyCODONE HCl Immed Release 5 MG TABLET PO (15:21)
[2024-05-13 16:00] VITALS: BP 150/70; PULSE 72; RESP 18; TEMP 36.6; O2SAT 98
[2024-05-13 17:47] LABS: Vancomycin Random 14.8 mcg/mL (15-20)
[2024-05-13] MEDS: vancomycin HCL 1,250 MG in 0.9 % Sodium Chloride 250 ML 166.66 MG IV (18:24)
[2024-05-13] MEDS: Enoxaparin Sodium 40 MG/0.4 ML SYRINGE SUBCUT (18:24)
[2024-05-13 20:00] VITALS: BP 163/71; PULSE 73; RESP 18; TEMP 36.5; O2SAT 98
[2024-05-13] MEDS: Acetaminophen 325 MG TABLET 650 MG PO (22:48)
[2024-05-13] MEDS: Zolpidem Tartrate 5 MG TABLET 10 MG PO (22:48)
[2024-05-14 04:00] VITALS: BP 147/70; PULSE 75; RESP 18; TEMP 36.6; O2SAT 98
[2024-05-14] MEDS: vancomycin HCL 1,250 MG in 0.9 % Sodium Chloride 250 ML 166.67 MG IV (06:42)
[2024-05-14 07:24] VITALS: BP 169/79; PULSE 68; TEMP 36.1; O2SAT 98
[2024-05-14 07:42] LABS: Anion Gap 16 (12-20); Blood Urea Nitrogen 12 mg/dL (9-16); Calcium 8.7 mg/dL (8.4-10.2); Carbon Dioxide 20 mmol/L (22-29); Chloride 108 mmol/L (96-108); Estimated Glomerular Filt Rate > 60; Glucose Random 127 mg/dL (60-115); Potassium 3.5 mmol/L (3.3-5.1); Sodium 140 mmol/L (135-145)
[2024-05-14] MEDS: Aspirin Enteric Coated 81 MG TABLET.DR PO (09:18)
[2024-05-14] MEDS: amLODIPine Besylate 5 MG TABLET PO (09:18)
[2024-05-14] MEDS: Clopidogrel Bisulfate 75 MG TABLET PO (09:18)
[2024-05-14] MEDS: lisinopriL 10 MG TABLET PO (09:19)
[2024-05-14] MEDS: 0.9 % Sodium Chloride Flush 3 ML SYRINGE IVFLUSH ×3 (09:19→22:02)
[2024-05-14] MEDS: busPIRone HCl 10 MG TABLET PO ×3 (09:19→20:21)
[2024-05-14] MEDS: Sertraline HCL 100 MG TABLET PO (09:19)
[2024-05-14] MEDS: HYDROmorphone HCl 1 MG/ML SYRINGE IVPUSH ×4 (09:24→22:00)
[2024-05-14] MEDS: Sodium Hypochlorite 0.125% 473 ML SOLUTION 1 APPL TOPICAL (09:27)
--- NOTE | 2024-05-14 12:10 | P.PNIM_ITS ---
Subjective Subjective Date of Service: 05/14/24 Interval History: seen and examined no complaints other than foot pain Review of Systems Negative except HPI/interval history. Physical Exam 2 Vital Signs: Vital Signs: Last Vital Signs Temp 96.9 F 05/14/24 07:24 Pulse 68 05/14/24 07:24 Resp 18 05/14/24 04:00 BP 169/79 H 05/14/24 07:24 Pulse Ox 98 05/14/24 07:24 O2 Del Method Room Air 05/14/24 07:24 BMI result Body Mass Index 34.3 Const: Other: General - no acute distress, appears comfortable Cardiovascular - regular rate and rhythm, S1-S2 Lungs - normal respiratory effort, clear to auscultation bilaterally, no wheezing Abdomen - soft, nontender, no rebound or guarding Extremities - no edema bilaterally; dressing in place Neuro - awake and alert, no focal deficits Objective Data Active Medications Acetaminophen (Acetaminophen 325 Mg Tablet) 650 mg PO Q6H PRN PRN Reason: Pain, Mild (Pain Scale 1-3), fever or headache Last Admin: 05/13/24 22:48 Dose: 650 mg Documented By: KIM Amlodipine Besylate (Amlodipine Besylate 5 Mg Tablet) 5 mg PO DAILY [facility]; Protocol Last Admin: 05/14/24 09:18 Dose: 5 mg Documented By: FABY Aspirin (Aspirin Enteric Coated 81 Mg Tablet.Dr) 81 mg PO DAILY [facility] Last Admin: 05/14/24 09:18 Dose: 81 mg Documented By: FABY Buspirone HCl (Buspirone Hcl 10 Mg Tablet) 10 mg PO TID [facility] Last Admin: 05/14/24 09:19 Dose: 10 mg Documented By: FABY Calcium Carbonate (Calcium Carbonate 750 Mg Tab.Chew) 750 mg PO Q4H PRN PRN Reason: Heartburn Clonidine HCl (Clonidine Hcl 0.1 Mg Tablet) 0.1 mg PO BEDTIME PRN; Protocol PRN Reason: Anxiety Last Admin: 05/11/24 22:51 Dose: 0.1 mg Documented By: MODE Clopidogrel Bisulfate (Clopidogrel Bisulfate 75 Mg Tablet) 75 mg PO DAILY [facility] Last Admin: 05/14/24 09:18 Dose: 75 mg Documented By: FABY Enoxaparin Sodium (Enoxaparin Sodium 40 Mg/0.4 Ml Syringe) 40 mg SUBCUT Q24H [facility] Last Admin: 05/13/24 18:24 Dose: 40 mg Documented By: FABY Hydromorphone HCl (Hydromorphone Hcl 1 Mg/Ml Syringe) 1 mg IVPUSH Q4H PRN; Protocol PRN Reason: Pain, Severe (Pain Scale 7-10) Last Admin: 05/14/24 09:24 Dose: 1 mg Documented By: FABY Vancomycin HCl 1,250 mg/ (Sodium Chloride) 250 mls @ 166.667 mls/hr IV Q12H [facility] Last Infusion: 05/14/24 08:29 Dose: Infused Documented By: FABY Lisinopril (Lisinopril 10 Mg Tablet) 10 mg PO DAILY [facility]; Protocol Last Admin: 05/14/24 09:19 Dose: 10 mg Documented By: FABY Magnesium Hydroxide (Milk Of Magnesia 30 Ml Oral.Susp) 30 ml PO DAILY PRN PRN Reason: Constipation Melatonin (Melatonin 3 Mg Tablet) 6 mg PO BEDTIME PRN PRN Reason: Insomnia Ondansetron HCl (Ondansetron Hcl 4 Mg/2 Ml Vial) 4 mg IVPUSH Q8H PRN PRN Reason: Nausea and Vomiting Oxycodone HCl (Oxycodone Hcl Immed Release 5 Mg Tablet) 5 mg PO Q6H PRN PRN Reason: Pain, Moderate(Pain Scale 4-6) Last Admin: 05/13/24 15:21 Dose: 5 mg Documented By: FABY Pharmacy Consult (Consult Rx Vancomycin Dosing) 1 each MISCELLANE DAILY PRN PRN Reason: Consult order Polyethylene Glycol (Polyethylene Glycol 3350 17 Gm Powd.Pack) 17 gm PO DAILY PRN PRN Reason: Constipation Polyethylene Glycol (Polyethylene Glycol 3350 17 Gm Powd.Pack) 17 gm PO BIDWM [facility] Last Admin: 05/14/24 09:19 Dose: Not Given Documented By: FABY Non-Admin Reason: Patient Refused Sertraline HCl (Sertraline Hcl 100 Mg Tablet) 100 mg PO DAILY [facility] Last Admin: 05/14/24 09:19 Dose: 100 mg Documented By: FABY Sodium Chloride (0.9 % Sodium Chloride Flush 3 Ml Syringe) 3 ml IVFLUSH QSHIFT [facility] Last Admin: 05/14/24 09:19 Dose: 3 ml Documented By: FABY Sodium Hypochlorite (Sodium Hypochlorite 0.125% 473 Ml Solution) 1 appl TOPICAL DAILY [facility] Last Admin: 05/14/24 09:27 Dose: 1 appl Documented By: FABY Zolpidem Tartrate (Zolpidem Tartrate 5 Mg Tablet) 10 mg PO BEDTIME PRN PRN Reason: Sleep Last Admin: 05/13/24 22:48 Dose: 10 mg Documented By: KIM Labs 05/13/24 05:16 05/14/24 06:36 Labs: Laboratory Results - last 24 hr 05/13/24 05/14/24 17:16 06:36 Anion Gap 16 Estim Creat Clear Calc 133.0 Estimated GFR > 60 Random Glucose 127 H Calcium 8.7 Random Vancomycin 14.8 L Microbiology Microbiology Results: Microbiology 05/11/24 16:50 Blood Culture - Preliminary Blood - Venous No growth after 48 hours. 05/11/24 14:05 Blood Culture - Preliminary Blood - Venous No growth after 48 hours. Assessment and Plan (1) Acute osteomyelitis: Status: Acute Plan A 58-year-old male with a history of depression, obesity, and peripheral neuropathy here an infected recent amputation site with possible osteomylitis. Infected, amputation site wound, osteomyltis of the L 5th metatarsal, necrosis of 4th digit --see pic vancomcyin surgery follow may need amputation HTN continue norvasc, lisinoprl Hypokalemia--oral replacement, check mag, repeat tomorrow PAD -Plavix, ASA Depression -continue Buspar Class 2 obesity, weight advised trought excercise and caloric restriction DVT prophyalxis--lovenox reason for hospitaliation: IV Abx for OM, gangrene of the foot and will need surgery Quality Stroke Does the patient have a stroke diagnosis?: No VTE Prior VTE?: No VTE Risk Level:: Medical - moderate - high VTE Device Contraindication: Treatment Not Indicated VTE Drug Contraindication: N/A - Med Ordered
[2024-05-14] MEDS: oxyCODONE HCl Immed Release 5 MG TABLET 10 MG PO ×2 (14:47→20:20)
[2024-05-14 15:32] VITALS: BP 147/84; PULSE 78; RESP 18; TEMP 36.6; O2SAT 98
[2024-05-14] MEDS: Nystatin Powder 15 GM BOTTLE 1 APPL TOPICAL ×2 (17:52→20:21)
[2024-05-14] MEDS: Enoxaparin Sodium 40 MG/0.4 ML SYRINGE SUBCUT (18:45)
[2024-05-14 18:55] LABS: Vancomycin Random 15.3 mcg/mL (15-20)
[2024-05-14] MEDS: vancomycin HCL 1,250 MG in 0.9 % Sodium Chloride 250 ML 166.66 MG IV (19:22)
[2024-05-14 19:32] VITALS: BP 140/70; PULSE 73; RESP 18; TEMP 36.6; O2SAT 99
[2024-05-14] MEDS: Zolpidem Tartrate 5 MG TABLET 10 MG PO (20:20)
[2024-05-14 22:30] VITALS: RESP 16
[2024-05-15] VITALS (8 sets, daily range): BP systolic 139–180; BP diastolic 66–80; PULSE 70–75; RESP 17–20; TEMP 36.1–36.6; O2SAT 97–98
[2024-05-15 06:30] LABS: Anion Gap 12 (12-20); Blood Urea Nitrogen 10 mg/dL (9-16); Calcium 9.1 mg/dL (8.4-10.2); Carbon Dioxide 28 mmol/L (22-29); Chloride 105 mmol/L (96-108); Creatinine Clr Calc Pharmacy 127.9; Estimated Glomerular Filt Rate > 60; Glucose Random 120 mg/dL (60-115); Potassium 3.5 mmol/L (3.3-5.1); Sodium 141 mmol/L (135-145)
[2024-05-15] MEDS: vancomycin HCL 1,250 MG in 0.9 % Sodium Chloride 250 ML 166.66 MG IV ×2 (07:46→18:33)
[2024-05-15] MEDS: 0.9 % Sodium Chloride Flush 3 ML SYRINGE IVFLUSH ×3 (07:50→21:24)
[2024-05-15] MEDS: HYDROmorphone HCl 1 MG/ML SYRINGE IVPUSH ×4 (07:57→23:14)
[2024-05-15] MEDS: amLODIPine Besylate 5 MG TABLET PO ×2 (09:29→10:45)
[2024-05-15] MEDS: Sertraline HCL 100 MG TABLET PO (09:29)
[2024-05-15] MEDS: Clopidogrel Bisulfate 75 MG TABLET PO (09:29)
[2024-05-15] MEDS: Aspirin Enteric Coated 81 MG TABLET.DR PO (09:29)
[2024-05-15] MEDS: lisinopriL 10 MG TABLET PO (09:30)
[2024-05-15] MEDS: busPIRone HCl 10 MG TABLET PO ×3 (09:30→21:23)
[2024-05-15] MEDS: Nystatin Powder 15 GM BOTTLE 1 APPL TOPICAL ×2 (09:35→21:23)
--- NOTE | 2024-05-15 10:25 | P.PNIM_ITS ---
Subjective Subjective Date of Service: 05/15/24 Interval History: no new issues, foot pain is controlled Review of Systems foot pain Physical Exam 2 Vital Signs: Vital Signs: Last Vital Signs Temp 97.9 F 05/15/24 07:30 Pulse 70 05/15/24 09:20 Resp 18 05/15/24 07:30 BP 177/79 H 05/15/24 09:20 Pulse Ox 97 05/15/24 07:30 O2 Del Method Room Air 05/15/24 07:30 BMI result Body Mass Index 34.3 Const: Other: General - no acute distress, appears comfortable Cardiovascular - regular rate and rhythm, S1-S2 Lungs - normal respiratory effort, clear to auscultation bilaterally, no wheezing Abdomen - soft, nontender, no rebound or guarding Extremities - no edema bilaterally; dressing in place--see earlier pics Neuro - awake and alert, no focal deficits Objective Data Active Medications Acetaminophen (Acetaminophen 325 Mg Tablet) 650 mg PO Q6H PRN PRN Reason: Pain, Mild (Pain Scale 1-3), fever or headache Last Admin: 05/13/24 22:48 Dose: 650 mg Documented By: KIM Amlodipine Besylate (Amlodipine Besylate 5 Mg Tablet) 5 mg PO ONCE ONE; Protocol Stop: 05/15/24 10:25 Aspirin (Aspirin Enteric Coated 81 Mg Tablet.) 81 mg PO DAILY [facility] Last Admin: 05/15/24 09:29 Dose: 81 mg Documented By: ISRRAEL Buspirone HCl (Buspirone Hcl 10 Mg Tablet) 10 mg PO TID [facility] Last Admin: 05/15/24 09:30 Dose: 10 mg Documented By: ISRRAEL Calcium Carbonate (Calcium Carbonate 750 Mg Tab.Chew) 750 mg PO Q4H PRN PRN Reason: Heartburn Clonidine HCl (Clonidine Hcl 0.1 Mg Tablet) 0.1 mg PO BEDTIME PRN; Protocol PRN Reason: Anxiety Last Admin: 05/11/24 22:51 Dose: 0.1 mg Documented By: MODE Clopidogrel Bisulfate (Clopidogrel Bisulfate 75 Mg Tablet) 75 mg PO DAILY [facility] Last Admin: 05/15/24 09:29 Dose: 75 mg Documented By: ISRRAEL Enoxaparin Sodium (Enoxaparin Sodium 40 Mg/0.4 Ml Syringe) 40 mg SUBCUT Q24H [facility] Last Admin: 05/14/24 18:45 Dose: 40 mg Documented By: FABY Hydromorphone HCl (Hydromorphone Hcl 1 Mg/Ml Syringe) 1 mg IVPUSH Q4H PRN; Protocol PRN Reason: Pain, Severe (Pain Scale 7-10) Last Admin: 05/15/24 07:57 Dose: 1 mg Documented By: ISRRAEL Vancomycin HCl 1,250 mg/ (Sodium Chloride) 250 mls @ 166.667 mls/hr IV Q12H [facility] Last Infusion: 05/15/24 09:41 Dose: Infused Documented By: ISRRAEL Lisinopril (Lisinopril 10 Mg Tablet) 10 mg PO DAILY [facility]; Protocol Last Admin: 05/15/24 09:30 Dose: 10 mg Documented By: IRSRAEL Magnesium Hydroxide (Milk Of Magnesia 30 Ml Oral.Susp) 30 ml PO DAILY PRN PRN Reason: Constipation Melatonin (Melatonin 3 Mg Tablet) 6 mg PO BEDTIME PRN PRN Reason: Insomnia Nystatin (Nystatin Powder 15 Gm Bottle) 1 appl TOPICAL BID [facility]; Protocol Last Admin: 05/15/24 09:35 Dose: 1 appl Documented By: ISRRAEL Ondansetron HCl (Ondansetron Hcl 4 Mg/2 Ml Vial) 4 mg IVPUSH Q8H PRN PRN Reason: Nausea and Vomiting Oxycodone HCl (Oxycodone Hcl Immed Release 5 Mg Tablet) 10 mg PO Q6H PRN PRN Reason: Pain, Moderate(Pain Scale 4-6) Last Admin: 05/14/24 20:20 Dose: 10 mg Documented By: ERICA Pharmacy Consult (Consult Rx Vancomycin Dosing) 1 each MISCELLANE DAILY PRN PRN Reason: Consult order Polyethylene Glycol (Polyethylene Glycol 3350 17 Gm Powd.Pack) 17 gm PO DAILY PRN PRN Reason: Constipation Polyethylene Glycol (Polyethylene Glycol 3350 17 Gm Powd.Pack) 17 gm PO BIDWM [facility] Last Admin: 05/15/24 09:33 Dose: Not Given Documented By: ISRRAEL Non-Admin Reason: Patient Refused Sertraline HCl (Sertraline Hcl 100 Mg Tablet) 100 mg PO DAILY [facility] Last Admin: 05/15/24 09:29 Dose: 100 mg Documented By: ISRRAEL Sodium Chloride (0.9 % Sodium Chloride Flush 3 Ml Syringe) 3 ml IVFLUSH QSHIFT [facility] Last Admin: 05/15/24 07:50 Dose: 3 ml Documented By: ISRRAEL Sodium Hypochlorite (Sodium Hypochlorite 0.125% 473 Ml Solution) 1 appl TOPICAL DAILY [facility] Last Admin: 05/14/24 09:27 Dose: 1 appl Documented By: FABY Zolpidem Tartrate (Zolpidem Tartrate 5 Mg Tablet) 10 mg PO BEDTIME PRN PRN Reason: Sleep Last Admin: 05/14/24 20:20 Dose: 10 mg Documented By: ERICA Labs 05/13/24 05:16 05/15/24 05:16 Labs: Laboratory Results - last 24 hr 05/14/24 05/15/24 17:13 05:16 Anion Gap 12 Estim Creat Clear Calc 127.9 Estimated GFR > 60 Random Glucose 120 H Calcium 9.1 Random Vancomycin 15.3 Assessment and Plan (1) Acute osteomyelitis: Status: Acute Plan A 58-year-old male with a history of depression, obesity, and peripheral neuropathy here an infected recent amputation site with possible osteomylitis. Infected, amputation site wound, osteomyltis of the L 5th metatarsal, necrosis of 4th digit --see pic vancomcyin started 05/12 To OR tomorrow for debridment + ampuation HTN--uncontrolled -increase norvasc to 10, lisinoprl 10 Hypokalemia--oral replacement, check mag, repeat tomorrow PAD -Plavix, ASA Depression -continue Buspar Class 2 obesity, weight advised trought excercise and caloric restriction DVT prophyalxis--lovenox reason for hospitaliation: IV Abx for OM, gangrene of the foot and will need surgery Quality Stroke Does the patient have a stroke diagnosis?: No VTE Prior VTE?: No VTE Risk Level:: Medical - moderate - high VTE Device Contraindication: Treatment Not Indicated VTE Drug Contraindication: N/A - Med Ordered
--- NOTE | 2024-05-15 10:30 | P.PNGS_ITS ---
Subjective Subjective Date of Service: 05/15/24 Interval history: Describes some pain on the right foot No fever Physical Exam 2 Vital Signs: Vital Signs: Last Vital Signs Temp 97.9 F 05/15/24 07:30 Pulse 70 05/15/24 09:20 Resp 18 05/15/24 07:30 BP 177/79 H 05/15/24 09:20 Pulse Ox 97 05/15/24 07:30 O2 Del Method Room Air 05/15/24 07:30 BMI result Body Mass Index 34.3 Const: General: comfortable and no acute distress Resp: Effort & Inspection: normal respiratory effort Cardio: Rate: regular rate Extrem: Other: Right foot 5th toe amputation site with sutures intact but the 4th toe appears gangrenous with some eschar on the incision next to this; sutures in place with some skin gap Objective Data Active Medications Acetaminophen (Acetaminophen 325 Mg Tablet) 650 mg PO Q6H PRN PRN Reason: Pain, Mild (Pain Scale 1-3), fever or headache Last Admin: 05/13/24 22:48 Dose: 650 mg Documented By: KIM Amlodipine Besylate (Amlodipine Besylate 10 Mg Tablet) 10 mg PO DAILY [facility]; Protocol Aspirin (Aspirin Enteric Coated 81 Mg Tablet.Dr) 81 mg PO DAILY [facility] Last Admin: 05/15/24 09:29 Dose: 81 mg Documented By: ISRRAEL Buspirone HCl (Buspirone Hcl 10 Mg Tablet) 10 mg PO TID [facility] Last Admin: 05/15/24 09:30 Dose: 10 mg Documented By: ISRRAEL Calcium Carbonate (Calcium Carbonate 750 Mg Tab.Chew) 750 mg PO Q4H PRN PRN Reason: Heartburn Clonidine HCl (Clonidine Hcl 0.1 Mg Tablet) 0.1 mg PO BEDTIME PRN; Protocol PRN Reason: Anxiety Last Admin: 05/11/24 22:51 Dose: 0.1 mg Documented By: MODE Clopidogrel Bisulfate (Clopidogrel Bisulfate 75 Mg Tablet) 75 mg PO DAILY [facility] Last Admin: 05/15/24 09:29 Dose: 75 mg Documented By: ISRRAEL Enoxaparin Sodium (Enoxaparin Sodium 40 Mg/0.4 Ml Syringe) 40 mg SUBCUT Q24H [facility] Last Admin: 05/14/24 18:45 Dose: 40 mg Documented By: FABY Hydromorphone HCl (Hydromorphone Hcl 1 Mg/Ml Syringe) 1 mg IVPUSH Q4H PRN; Protocol PRN Reason: Pain, Severe (Pain Scale 7-10) Last Admin: 05/15/24 07:57 Dose: 1 mg Documented By: ISRRAEL Vancomycin HCl 1,250 mg/ (Sodium Chloride) 250 mls @ 166.667 mls/hr IV Q12H [facility] Last Infusion: 05/15/24 09:41 Dose: Infused Documented By: ISRRAEL Lisinopril (Lisinopril 10 Mg Tablet) 10 mg PO DAILY [facility]; Protocol Last Admin: 05/15/24 09:30 Dose: 10 mg Documented By: ISRRAEL Magnesium Hydroxide (Milk Of Magnesia 30 Ml Oral.Susp) 30 ml PO DAILY PRN PRN Reason: Constipation Melatonin (Melatonin 3 Mg Tablet) 6 mg PO BEDTIME PRN PRN Reason: Insomnia Nystatin (Nystatin Powder 15 Gm Bottle) 1 appl TOPICAL BID [facility]; Protocol Last Admin: 05/15/24 09:35 Dose: 1 appl Documented By: ISRRAEL Ondansetron HCl (Ondansetron Hcl 4 Mg/2 Ml Vial) 4 mg IVPUSH Q8H PRN PRN Reason: Nausea and Vomiting Oxycodone HCl (Oxycodone Hcl Immed Release 5 Mg Tablet) 10 mg PO Q6H PRN PRN Reason: Pain, Moderate(Pain Scale 4-6) Last Admin: 05/14/24 20:20 Dose: 10 mg Documented By: ERICA Pharmacy Consult (Consult Rx Vancomycin Dosing) 1 each MISCELLANE DAILY PRN PRN Reason: Consult order Polyethylene Glycol (Polyethylene Glycol 3350 17 Gm Powd.Pack) 17 gm PO DAILY PRN PRN Reason: Constipation Polyethylene Glycol (Polyethylene Glycol 3350 17 Gm Powd.Pack) 17 gm PO BIDWM [facility] Last Admin: 05/15/24 09:33 Dose: Not Given Documented By: ISRRAEL Non-Admin Reason: Patient Refused Sertraline HCl (Sertraline Hcl 100 Mg Tablet) 100 mg PO DAILY [facility] Last Admin: 05/15/24 09:29 Dose: 100 mg Documented By: ISRRAEL Sodium Chloride (0.9 % Sodium Chloride Flush 3 Ml Syringe) 3 ml IVFLUSH QSHIFT [facility] Last Admin: 05/15/24 07:50 Dose: 3 ml Documented By: ISRRAEL Sodium Hypochlorite (Sodium Hypochlorite 0.125% 473 Ml Solution) 1 appl TOPICAL DAILY [facility] Last Admin: 05/14/24 09:27 Dose: 1 appl Documented By: FABY Zolpidem Tartrate (Zolpidem Tartrate 5 Mg Tablet) 10 mg PO BEDTIME PRN PRN Reason: Sleep Last Admin: 05/14/24 20:20 Dose: 10 mg Documented By: ERICA Labs 05/13/24 05:16 05/15/24 05:16 Labs: Laboratory Results - last 24 hr 05/14/24 05/15/24 17:13 05:16 Anion Gap 12 Estim Creat Clear Calc 127.9 Estimated GFR > 60 Random Glucose 120 H Calcium 9.1 Random Vancomycin 15.3 Procedures Date of Service Date of Service: 05/15/24 Progress Note: A&P Assessment and plan (1) Toe gangrene: Status: Acute Assessment and Plan: He has gangrene of the 4th toe as described above. The 1st, 2nd and 3rd toes appear well vascularized. I explained to him it would be best to proceed with amputation of the 4th toe as well as debridement of the 5th toe amputation site. I explained the risks including but not limited to bleeding, infections, poor healing, as well as the benefits and alternatives He says he wants to proceed Patient has been head to the schedule for tomorrow Discussed with the hospitalist service Time Spent With Patient Time: Total time managing care of this patient today ____ minutes. Quality Stroke Does the patient have a stroke diagnosis?: No VTE Prior VTE?: No VTE Risk Level:: Medical - moderate - high VTE Device Contraindication: Treatment Not Indicated VTE Drug Contraindication: N/A - Med Ordered
--- NOTE | 2024-05-15 12:16 | MHC.CM.PN ---
Per MD rounds patient is scheduled for the OR tomorrow for an amputation. He will require IV ABX at discharge. Referrals have been sent to [facility] as well as [facility]. DP home with IV ABX [facility] and [facility]. Patient will arrange for a ride home at discharge.
--- NOTE | 2024-05-15 13:54 | P.CDIM_ITS ---
PROVIDER RESPONSE TEXT: To clarify, the appropriate diagnosis supported by the clinical indicators: Acute osteomyelitis left 5th metatarsal QUERY TEXT: PHYSICIAN'S DOCUMENTATION REQUEST Date of Query: 05/15/2024 08:24 AM EDT Patient Name: Fan Garza Admit Date: 05/11/2024 Dear Mahendra Summers MD, A review of the medical record indicates additional documentation may be needed. Please review below and update the documentation accordingly Clinical Indicators: Progress note: 05/14 - Infected, amputation site wound, osteomyelitis of the L 5th metatarsal, necrosi s of 4th digit. Vancomycin surgery follow Based on the above, please clarify in the Progress Notes within the Plan further specificity regardin g the acuity of the Osteomyelitis Acute osteomyelitis left 5th metatarsal Chronic osteomyelitis Subacute osteomyelitis Other (explain) Clinically unable to determine (explain) Thank you, Rafia Guzman, CCS, CDIS Use of terms such as suspected, likely, concern for, or probable (associated with a specific diagnosi s that is being evaluated, monitored, or treated as if it exists) are acceptable and can be coded in the inpatient se tting, when documented at the time of discharge. Please use your independent medical judgment in providing your response. THIS QUERY IS PART OF THE PERMANENT MEDICAL RECORD
[2024-05-15] MEDS: oxyCODONE HCl Immed Release 5 MG TABLET 10 MG PO (17:24)
[2024-05-15 18:02] LABS: Vancomycin Random 17.5 mcg/mL (15-20)
[2024-05-15] MEDS: Enoxaparin Sodium 40 MG/0.4 ML SYRINGE SUBCUT (18:32)
[2024-05-15] MEDS: Zolpidem Tartrate 5 MG TABLET 10 MG PO (22:19)
[2024-05-16] VITALS (14 sets, daily range): BP systolic 122–179; BP diastolic 60–91; PULSE 62–78; RESP 12–20; TEMP 36.1–36.9; O2SAT 95–99
[2024-05-16] MEDS: HYDROmorphone HCl 1 MG/ML SYRINGE IVPUSH ×4 (03:28→22:25)
[2024-05-16] MEDS: vancomycin HCL 1,250 MG in 0.9 % Sodium Chloride 250 ML 166.67 MG IV (06:35)
[2024-05-16 06:43] LABS: Anion Gap 12 (12-20); Blood Urea Nitrogen 9 mg/dL (9-16); Calcium 9.2 mg/dL (8.4-10.2); Carbon Dioxide 28 mmol/L (22-29); Chloride 105 mmol/L (96-108); Creatinine Clr Calc Pharmacy 121.7; Estimated Glomerular Filt Rate > 60; Glucose Random 122 mg/dL (60-115); Potassium 3.1 mmol/L (3.3-5.1); Sodium 142 mmol/L (135-145)
--- NOTE | 2024-05-16 07:40 | MHC.SHP ---
Pre-Procedural Eval Section A - 24 Hr Update-Section A only Date of Service: 05/16/24 The patient is an INPATIENT: Yes Changes since office visit: No Cold of Flu in the past 2 weeks, No New Medical Problems, No Changes in Medication and No Patient answered all questions The patient has been examined within 24 hours of the surgical procedure. The History & Physical has been completed within 30 days and I have reviewed it.: Yes Section B - Complete if H&P > 30 days Chief Complaint: Osteomylitis Allergies: Allergies Allergy/AdvReac Type Severity Reaction Status Date / Time codeine [Codeine] Allergy Mild RASH Verified 05/11/24 13:51 Codeine Allergy Unknown Rash Uncoded 05/11/24 13:51 Plan I have reviewed the history and physical and performed a pertinent physical examination on my patient. No changes have occurred unless specified. Time Spent With Patient Time: Total time managing care of this patient today ____ minutes.
[2024-05-16 07:46] LABS: MANUAL DIFF FLAG NO
[2024-05-16 07:50] LABS: Basophils Percent Auto 0.3 % (0-2); Eosinophils Absolute Auto 0.2 X10*3/uL (0.0-0.4); Eosinophils Percent Auto 2.2 % (0-4); Hematocrit 37.6 % (42.0-52.0); Hemoglobin 12.4 g/dl (14.0-18.0); Imm Gran Abs Auto 0.03 X10*3/uL (0.00-0.03); Imm Gran Pct Auto 0.4 % (0.0-0.4); Lymphocytes Absolute Auto 1.2 X10*3/uL (1.2-4.9); Lymphocytes Percent Auto 17.4 % (20-40); Mean Corpuscular Hemoglobin 30.8 pg (27.0-33.0); Mean Corpuscular Volume 93.5 fL (80.0-98.0); Mean Platelet Volume 11.4 fL (9.4-12.4); Monocytes Absolute Auto 0.8 X10*3/uL (0.1-1.2); Monocytes Percent Auto 11.3 % (2-11); Neutrophils Absolute Auto 4.7 x10*3/uL (2.0-8.3); Neutrophils Percent Auto 68.4 % (45-73); Platelet Count 193 X10*3/uL (160-400); Red Blood Count 4.02 X10*6/uL (4.60-5.80); Red Cell Distribution Width 12.8 % (11.0-16.0); White Blood Count 6.9 X10*3/uL (4.8-10.8)
[2024-05-16] MEDS: Clopidogrel Bisulfate 75 MG TABLET PO (08:41)
[2024-05-16] MEDS: Sertraline HCL 100 MG TABLET PO (08:41)
[2024-05-16] MEDS: amLODIPine Besylate 10 MG TABLET PO (08:41)
[2024-05-16] MEDS: busPIRone HCl 10 MG TABLET PO ×3 (08:41→21:23)
[2024-05-16] MEDS: Aspirin Enteric Coated 81 MG TABLET.DR PO (08:41)
[2024-05-16] MEDS: Potassium Chloride ER 20 MEQ TAB.ER.PRT 40 MEQ PO ×2 (08:41→21:23)
[2024-05-16] MEDS: lisinopriL 10 MG TABLET PO (08:41)
[2024-05-16] MEDS: 0.9 % Sodium Chloride Flush 3 ML SYRINGE IVFLUSH (08:42)
--- NOTE | 2024-05-16 10:34 | P.CONAN_ITS ---
HPI - Anesthesia Eval Consult details Narrative: 58 yo male patient for Right foot 4th toe amputation PMFSH Active Problems Active Problems: All Active Problems (Updated 05/16/24 @ 10:36 by Irina De Santiago MD) Amputation of fifth toe of right foot (Acute) Osteomyelitis (Acute) PAD (peripheral artery disease) (Acute) HTN (hypertension) (Acute) Acute osteomyelitis (Acute) Foot ulcer (Acute) Encounter for subsequent annual wellness visit (AWV) in Medicare patient (Acute) Obesity (Acute) Depression (Acute) Encounter for initial annual wellness visit (AWV) in Medicare patient (Acute) Toe gangrene (Acute) Smoker Marijuana Right LE angioplasty 04/27/24 Past Medical History Medical History Depression PAD (peripheral artery disease) Toe gangrene Family History Family history of problems with anesthesia: No Surgical History Surgical History Hx of amputation Abdominal wall hernia Hx of appendectomy History of Problems with Anesthesia: No Social History Social History Household Members: None Housing: House Do you presently have visiting nurse or other home services: Yes (s/p amp to R toe) Patient Tobacco Use Status: Current everyday Tobacco user Tobacco use type: Cigarette Cigarette Packs Per Day: 0.5 Cigarettes Per Day: 10 Years Smoked: 43 Smoked in Last 30 Days: Yes e-Cigarette/Vaping Use: Never Used Patient Interested in Nicotine Replacement: No Patient Given Instructions on How to Stop Smoking: No Second Hand Smoke Exposure: Yes Use of substances other than those prescribed or required for medical reasons: Yes Substance Use Type: Marijuana Substance Use Type Other:: smoked Substance Use Frequency: Occasionally Last Used Substance: Just Prior to Admission Currently Displaying Signs/Symptoms of Drug Intoxication Withdrawal: No Any prior treatment program specific to substance use: No Have you been hit, kicked, punched, or otherwise hurt by someone within the past year? If so, by whom?: No Do you feel safe in your current relationship?: Yes Is there a partner from a previous relationship who is making you feel unsafe now?: No Are you made to feel afraid or neglected: No Are you DNR?: No Advance Directives: No Advance Directives Information Provided: No Do you have a plan to hurt others: No Plan Recently lost weight without trying: No Eating poorly because of decreased appetite: No Nutrition Risks: No Nutritional Risk Poor oral hygiene: No service: No Meds Allergies Allergy/AdvReac Type Severity Reaction Status Date / Time codeine [Codeine] Allergy Mild RASH Verified 05/11/24 13:51 Codeine Allergy Unknown Rash Uncoded 05/11/24 13:51 Active Medications: iCurrent Medications Acetaminophen (Acetaminophen 325 Mg Tablet) 650 mg PO Q6H PRN PRN Reason: Pain, Mild (Pain Scale 1-3), fever or headache Last Admin: 05/13/24 22:48 Dose: 650 mg Amlodipine Besylate (Amlodipine Besylate 10 Mg Tablet) 10 mg PO DAILY [facility]; Protocol Last Admin: 05/16/24 08:41 Dose: 10 mg Aspirin (Aspirin Enteric Coated 81 Mg Tablet.Dr) 81 mg PO DAILY [facility] Last Admin: 05/16/24 08:41 Dose: 81 mg Buspirone HCl (Buspirone Hcl 10 Mg Tablet) 10 mg PO TID [facility] Last Admin: 05/16/24 08:41 Dose: 10 mg Calcium Carbonate (Calcium Carbonate 750 Mg Tab.Chew) 750 mg PO Q4H PRN PRN Reason: Heartburn Clonidine HCl (Clonidine Hcl 0.1 Mg Tablet) 0.1 mg PO BEDTIME PRN; Protocol PRN Reason: Anxiety Last Admin: 05/11/24 22:51 Dose: 0.1 mg Clopidogrel Bisulfate (Clopidogrel Bisulfate 75 Mg Tablet) 75 mg PO DAILY [facility] Last Admin: 05/16/24 08:41 Dose: 75 mg Enoxaparin Sodium (Enoxaparin Sodium 40 Mg/0.4 Ml Syringe) 40 mg SUBCUT Q24H [facility] Last Admin: 05/15/24 18:32 Dose: 40 mg Hydromorphone HCl (Hydromorphone Hcl 1 Mg/Ml Syringe) 1 mg IVPUSH Q4H PRN; Protocol PRN Reason: Pain, Severe (Pain Scale 7-10) Last Admin: 05/16/24 08:41 Dose: 1 mg Vancomycin HCl 1,250 mg/ (Sodium Chloride) 250 mls @ 166.667 mls/hr IV Q12H [facility] Last Infusion: 05/16/24 08:35 Dose: Infused Lisinopril (Lisinopril 10 Mg Tablet) 10 mg PO DAILY [facility]; Protocol Last Admin: 05/16/24 08:41 Dose: 10 mg Magnesium Hydroxide (Milk Of Magnesia 30 Ml Oral.Susp) 30 ml PO DAILY PRN PRN Reason: Constipation Melatonin (Melatonin 3 Mg Tablet) 6 mg PO BEDTIME PRN PRN Reason: Insomnia Nystatin (Nystatin Powder 15 Gm Bottle) 1 appl TOPICAL BID [facility]; Protocol Last Admin: 05/15/24 21:23 Dose: 1 appl Ondansetron HCl (Ondansetron Hcl 4 Mg/2 Ml Vial) 4 mg IVPUSH Q8H PRN PRN Reason: Nausea and Vomiting Oxycodone HCl (Oxycodone Hcl Immed Release 5 Mg Tablet) 10 mg PO Q6H PRN PRN Reason: Pain, Moderate(Pain Scale 4-6) Last Admin: 05/15/24 17:24 Dose: 10 mg Pharmacy Consult (Consult Rx Vancomycin Dosing) 1 each MISCELLANE DAILY PRN PRN Reason: Consult order Polyethylene Glycol (Polyethylene Glycol 3350 17 Gm Powd.Pack) 17 gm PO DAILY PRN PRN Reason: Constipation Polyethylene Glycol (Polyethylene Glycol 3350 17 Gm Powd.Pack) 17 gm PO BIDWM [facility] Last Admin: 05/16/24 07:40 Dose: Not Given Potassium Chloride (Potassium Chloride Er 20 Meq Tab.Er.Prt) 40 meq PO BID [facility] Stop: 05/16/24 21:01 Last Admin: 05/16/24 08:41 Dose: 40 meq Sertraline HCl (Sertraline Hcl 100 Mg Tablet) 100 mg PO DAILY [facility] Last Admin: 05/16/24 08:41 Dose: 100 mg Sodium Chloride (0.9 % Sodium Chloride Flush 3 Ml Syringe) 3 ml IVFLUSH QSHIFT [facility] Last Admin: 05/16/24 08:42 Dose: 3 ml Sodium Hypochlorite (Sodium Hypochlorite 0.125% 473 Ml Solution) 1 appl TOPICAL DAILY [facility] Last Admin: 05/15/24 17:56 Dose: Not Given Zolpidem Tartrate (Zolpidem Tartrate 5 Mg Tablet) 10 mg PO BEDTIME PRN PRN Reason: Sleep Last Admin: 05/15/24 22:19 Dose: 10 mg Home Medications ?Medication ?Instructions ?Recorded ?Confirmed ?Last Taken ?Type buspirone 10 mg tablet 10 mg PO TID 04/03/22 05/11/24 05/11/24 06:00 History clonidine HCl 0.1 mg tablet 0.1 mg PO BEDTIME PRN Anxiety 04/03/22 05/11/24 05/10/24 History zolpidem 10 mg tablet 10 mg PO BEDTIME PRN Sleep 04/03/22 05/11/24 05/10/24 History sertraline 100 mg tablet 100 mg PO DAILY 05/11/24 05/11/24 05/11/24 06:00 History Exam Height,Weight and Vital Signs: Height 5 ft 11 in Weight 111.6 kg Last Vital Signs Temp 98.0 F 05/16/24 09:35 Pulse 68 05/16/24 09:35 Resp 16 05/16/24 09:35 BP 158/70 H 05/16/24 09:35 Pulse Ox 96 05/16/24 09:35 O2 Del Method Room Air 05/16/24 09:35 Pertinent Lab Results Pertinent Lab Results: Laboratory Tests 05/11/24 05/11/24 05/11/24 14:05 17:35 19:34 WBC 10.3 RBC 4.13 L Hgb 13.0 L Hct 37.4 L MCV 90.6 MCH 31.5 MCHC 34.8 RDW 12.8 Plt Count 250 D MPV 10.9 Immature Gran % (Auto) 0.6 H Neut % (Auto) 78.2 H Lymph % (Auto) 12.9 L [place] % (Auto) 6.4 Eos % (Auto) 1.6 Baso % (Auto) 0.3 Lymph # (Auto) 1.3 [place] # (Auto) 0.7 Eos # (Auto) 0.2 Baso # (Auto) 0.0 Abs Immat Gran (auto) 0.06 H Absolute Neuts (auto) 8.0 Absolute Nucleated RBC 0.000 Nucleated RBC % (auto) 0.0 ESR 81 H Hold Purple Top Sodium 138 137 Potassium 3.6 3.8 Chloride 103 105 Carbon Dioxide 25 22 Anion Gap 14 14 BUN 9 12 Creatinine 0.82 0.87 Estim Creat Clear Calc 122.6 115.6 Estimated GFR > 60 > 60 Random Glucose 145 H 124 H Lactic Acid 1.9 Calcium 9.4 9.1 Magnesium Total Bilirubin 1.2 H AST 34 ALT 21 Alkaline Phosphatase 127 H C-Reactive Protein 13.49 H Total Protein 8.2 H Albumin 3.4 L Hold Red Top See Note Random Vancomycin 05/12/24 05/12/24 05/13/24 06:38 15:41 05:16 WBC 7.1 RBC 3.70 L Hgb 11.6 L Hct 35.1 L MCV 94.9 MCH 31.4 MCHC 33.0 RDW 13.0 Plt Count 186 D MPV 11.3 Immature Gran % (Auto) 0.4 Neut % (Auto) 74.2 H Lymph % (Auto) 13.5 L [place] % (Auto) 9.1 Eos % (Auto) 2.5 Baso % (Auto) 0.3 Lymph # (Auto) 1.0 L [place] # (Auto) 0.6 Eos # (Auto) 0.2 Baso # (Auto) 0.0 Abs Immat Gran (auto) 0.03 Absolute Neuts (auto) 5.2 Absolute Nucleated RBC 0.000 Nucleated RBC % (auto) 0.0 ESR Hold Purple Top SEE NOTE Sodium 139 139 Potassium 2.9 L* D 3.2 L Chloride 106 105 Carbon Dioxide 25 25 Anion Gap 11 L 12 BUN 12 12 Creatinine 0.79 0.79 Estim Creat Clear Calc 126.3 126.3 Estimated GFR > 60 > 60 Random Glucose 118 H 135 H Lactic Acid Calcium 8.9 8.8 Magnesium 2.2 2.2 Total Bilirubin AST ALT Alkaline Phosphatase C-Reactive Protein Total Protein Albumin Hold Red Top Random Vancomycin 16.7 05/13/24 05/14/24 05/14/24 17:16 06:36 17:13 WBC RBC Hgb Hct MCV MCH MCHC RDW Plt Count MPV Immature Gran % (Auto) Neut % (Auto) Lymph % (Auto) [place] % (Auto) Eos % (Auto) Baso % (Auto) Lymph # (Auto) [place] # (Auto) Eos # (Auto) Baso # (Auto) Abs Immat Gran (auto) Absolute Neuts (auto) Absolute Nucleated RBC Nucleated RBC % (auto) ESR Hold Purple Top Sodium 140 Potassium 3.5 Chloride 108 Carbon Dioxide 20 L Anion Gap 16 BUN 12 Creatinine 0.75 Estim Creat Clear Calc 133.0 Estimated GFR > 60 Random Glucose 127 H Lactic Acid Calcium 8.7 Magnesium Total Bilirubin AST ALT Alkaline Phosphatase C-Reactive Protein Total Protein Albumin Hold Red Top Random Vancomycin 14.8 L 15.3 05/15/24 05/15/24 05/16/24 05:16 17:07 05:30 WBC 6.9 RBC 4.02 L Hgb 12.4 L Hct 37.6 L MCV 93.5 MCH 30.8 MCHC 33.0 RDW 12.8 Plt Count 193 MPV 11.4 Immature Gran % (Auto) 0.4 Neut % (Auto) 68.4 Lymph % (Auto) 17.4 L [place] % (Auto) 11.3 H Eos % (Auto) 2.2 Baso % (Auto) 0.3 Lymph # (Auto) 1.2 [place] # (Auto) 0.8 Eos # (Auto) 0.2 Baso # (Auto) 0.0 Abs Immat Gran (auto) 0.03 Absolute Neuts (auto) 4.7 Absolute Nucleated RBC 0.000 Nucleated RBC % (auto) 0.0 ESR Hold Purple Top SEE NOTE Sodium 141 142 Potassium 3.5 3.1 L Chloride 105 105 Carbon Dioxide 28 28 Anion Gap 12 12 BUN 10 9 Creatinine 0.78 0.82 Estim Creat Clear Calc 127.9 121.7 Estimated GFR > 60 > 60 Random Glucose 120 H 122 H Lactic Acid Calcium 9.1 9.2 Magnesium Total Bilirubin AST ALT Alkaline Phosphatase C-Reactive Protein Total Protein Albumin Hold Red Top Random Vancomycin 17.5 Airway Mallampati Class: III TM Dist: >3cm Neck ROM: Full Loose/Missing/Broken Teeth: Yes (Poor dentition. Many missing. Many rotted and broken teeth) Heart: RRR Lungs: CTAB Assessment and Plan Assessment Anesthesia Assessment: Anesthesia Plan Discussed and Chart Reviewed Final Anesthetic Review Family History of Problems with Anesthesia: No History of Problems with Anesthesia: No NPO: Yes ASA Class: III Final Preanesthetic Review: No Changes in Pt Med Stat, Meds/Allgs Chart Reviewed, Consent Obtained/Reviewed and Anes Risks/Benef Reviewed Patient Risk: Intermediate Procedure Risk: Low Assessment/Block/Sedation in SS: Assess/Block/Sedation-SS Anesthetic Plan Anesthetic Plan: GA Disposition: Standard PACU and Inp. Admit - Standard Bed
--- NOTE | 2024-05-16 10:56 | HO.PM.IMPN ---
Subjective Subjective Date of Service: 05/16/24 Interval History: no new issues, for surgery this morning Review of Systems foot pain Physical Exam Vital Signs: Vital Signs: Last Vital Signs Temp 98.0 F 05/16/24 09:35 Pulse 68 05/16/24 09:35 Resp 16 05/16/24 09:35 BP 158/70 H 05/16/24 09:35 Pulse Ox 96 05/16/24 09:35 O2 Del Method Room Air 05/16/24 09:35 BMI result Body Mass Index 34.3 Const: Other: General - no acute distress, appears comfortable Cardiovascular - regular rate and rhythm, S1-S2 Lungs - normal respiratory effort, clear to auscultation bilaterally, no wheezing Abdomen - soft, nontender, no rebound or guarding Extremities - no edema bilaterally; dressing in place--see earlier pics Neuro - awake and alert, no focal deficits Objective Data Active Medications Acetaminophen (Acetaminophen 325 Mg Tablet) 650 mg PO Q6H PRN PRN Reason: Pain, Mild (Pain Scale 1-3), fever or headache Last Admin: 05/13/24 22:48 Dose: 650 mg Documented By: KIM Amlodipine Besylate (Amlodipine Besylate 10 Mg Tablet) 10 mg PO DAILY [facility]; Protocol Last Admin: 05/16/24 08:41 Dose: 10 mg Documented By: DARYL Aspirin (Aspirin Enteric Coated 81 Mg Tablet.Dr) 81 mg PO DAILY [facility] Last Admin: 05/16/24 08:41 Dose: 81 mg Documented By: DARYL Buspirone HCl (Buspirone Hcl 10 Mg Tablet) 10 mg PO TID [facility] Last Admin: 05/16/24 08:41 Dose: 10 mg Documented By: DARYL Calcium Carbonate (Calcium Carbonate 750 Mg Tab.Chew) 750 mg PO Q4H PRN PRN Reason: Heartburn Clonidine HCl (Clonidine Hcl 0.1 Mg Tablet) 0.1 mg PO BEDTIME PRN; Protocol PRN Reason: Anxiety Last Admin: 05/11/24 22:51 Dose: 0.1 mg Documented By: MODE Clopidogrel Bisulfate (Clopidogrel Bisulfate 75 Mg Tablet) 75 mg PO DAILY [facility] Last Admin: 05/16/24 08:41 Dose: 75 mg Documented By: DARYL Enoxaparin Sodium (Enoxaparin Sodium 40 Mg/0.4 Ml Syringe) 40 mg SUBCUT Q24H [facility] Last Admin: 05/15/24 18:32 Dose: 40 mg Documented By: ISRRAEL Hydromorphone HCl (Hydromorphone Hcl 1 Mg/Ml Syringe) 1 mg IVPUSH Q4H PRN; Protocol PRN Reason: Pain, Severe (Pain Scale 7-10) Last Admin: 05/16/24 08:41 Dose: 1 mg Documented By: DARYL Vancomycin HCl 1,250 mg/ (Sodium Chloride) 250 mls @ 166.667 mls/hr IV Q12H [facility] Last Infusion: 05/16/24 08:35 Dose: Infused Documented By: ISRRAEL Lisinopril (Lisinopril 10 Mg Tablet) 10 mg PO DAILY [facility]; Protocol Last Admin: 05/16/24 08:41 Dose: 10 mg Documented By: DARYL Magnesium Hydroxide (Milk Of Magnesia 30 Ml Oral.Susp) 30 ml PO DAILY PRN PRN Reason: Constipation Melatonin (Melatonin 3 Mg Tablet) 6 mg PO BEDTIME PRN PRN Reason: Insomnia Nystatin (Nystatin Powder 15 Gm Bottle) 1 appl TOPICAL BID [facility]; Protocol Last Admin: 05/15/24 21:23 Dose: 1 appl Documented By: KIM Ondansetron HCl (Ondansetron Hcl 4 Mg/2 Ml Vial) 4 mg IVPUSH Q8H PRN PRN Reason: Nausea and Vomiting Oxycodone HCl (Oxycodone Hcl Immed Release 5 Mg Tablet) 10 mg PO Q6H PRN PRN Reason: Pain, Moderate(Pain Scale 4-6) Last Admin: 05/15/24 17:24 Dose: 10 mg Documented By: ERICA Pharmacy Consult (Consult Rx Vancomycin Dosing) 1 each MISCELLANE DAILY PRN PRN Reason: Consult order Polyethylene Glycol (Polyethylene Glycol 3350 17 Gm Powd.Pack) 17 gm PO DAILY PRN PRN Reason: Constipation Polyethylene Glycol (Polyethylene Glycol 3350 17 Gm Powd.Pack) 17 gm PO BIDWM [facility] Last Admin: 05/16/24 07:40 Dose: Not Given Documented By: ISRRAEL Non-Admin Reason: Patient Refused Potassium Chloride (Potassium Chloride Er 20 Meq Tab.Er.Prt) 40 meq PO BID [facility] Stop: 05/16/24 21:01 Last Admin: 05/16/24 08:41 Dose: 40 meq Documented By: DARYL Sertraline HCl (Sertraline Hcl 100 Mg Tablet) 100 mg PO DAILY [facility] Last Admin: 05/16/24 08:41 Dose: 100 mg Documented By: DARYL Sodium Chloride (0.9 % Sodium Chloride Flush 3 Ml Syringe) 3 ml IVFLUSH QSHIFT [facility] Last Admin: 05/16/24 08:42 Dose: 3 ml Documented By: DARYL Sodium Hypochlorite (Sodium Hypochlorite 0.125% 473 Ml Solution) 1 appl TOPICAL DAILY [facility] Last Admin: 05/15/24 17:56 Dose: Not Given Documented By: ISRRAEL Non-Admin Reason: Wound care performed by . Zolpidem Tartrate (Zolpidem Tartrate 5 Mg Tablet) 10 mg PO BEDTIME PRN PRN Reason: Sleep Last Admin: 05/15/24 22:19 Dose: 10 mg Documented By: KIM Labs 05/16/24 05:30 05/16/24 05:30 Labs: Laboratory Results - last 24 hr 05/15/24 05/16/24 17:07 05:30 MCV 93.5 MCH 30.8 MCHC 33.0 RDW 12.8 Plt Count 193 MPV 11.4 Immature Gran % (Auto) 0.4 Neut % (Auto) 68.4 Lymph % (Auto) 17.4 L [place] % (Auto) 11.3 H Eos % (Auto) 2.2 Baso % (Auto) 0.3 Lymph # (Auto) 1.2 [place] # (Auto) 0.8 Eos # (Auto) 0.2 Baso # (Auto) 0.0 Abs Immat Gran (auto) 0.03 Absolute Neuts (auto) 4.7 Absolute Nucleated RBC 0.000 Nucleated RBC % (auto) 0.0 Hold Purple Top SEE NOTE Anion Gap 12 Estim Creat Clear Calc 121.7 Estimated GFR > 60 Random Glucose 122 H Calcium 9.2 Random Vancomycin 17.5 Assessment and Plan (1) Acute osteomyelitis: Status: Acute Plan A 58-year-old male with a history of depression, obesity, and peripheral neuropathy here an infected recent amputation site with possible osteomylitis. Infected, amputation site wound, osteomyltis of the L 5th metatarsal, necrosis of 4th digit --see pic vancomcyin started 05/12 To OR today for debridment + ampuation HTN--uncontrolled -increase norvasc to 10, lisinoprl 10 Hypokalemia--oral replacement, repeat tomorrow PAD -Plavix, ASA Depression -continue Buspar Class 2 obesity, weight advised trought excercise and caloric restriction DVT prophyalxis--lovenox reason for hospitaliation: IV Abx for OM, gangrene of the foot and will need surgery Quality Stroke Does the patient have a stroke diagnosis?: No VTE Prior VTE?: No VTE Risk Level:: Medical - moderate - high VTE Device Contraindication: Treatment Not Indicated VTE Drug Contraindication: N/A - Med Ordered
--- NOTE | 2024-05-16 11:23 | W.PM.OPN ---
Operative Note Operative Note Date of Service: 05/16/24 Narrative: Preop diagnosis: Gangrene of the 4th toe, eschar on previous 5th toe amputation site Postop diagnosis: The same Procedure: Ray amputation of the 4th toe, excisional debridement of eschar on previous 5th toe amputation site Surgeon: Chavo Bender MD assistant professor of sociology: GRETA Guillen The patient is a 58-year-old male with peripheral artery disease, who had undergone amputation of the 5th toe for gangrene 2 weeks ago. This was at the level of the proximal metatarsal. About 5 days ago, was noted to have dark discoloration of the 4th toe with an eschar proximal to this along the old amputation site. This was consistent with gangrene of the 4th toe. I therefore explained to him it would be best to proceed with of the 4th toe along with debridement of eschar surrounding the old amputation site distally. He understood the technique of the planned procedure. He was aware of the risks including but not limited to bleeding, further infections, poor healing, need for further amputations, as well as the benefits and alternatives. He had given consent. He was brought to the operating room. He was placed in supine position under general anesthesia via laryngeal mask airway. The right foot was prepped and draped all the way to the angle in the usual sterile fashion. A surgical time-out was done. The patient was receiving scheduled IV antibiotics. I marked my planned line of incision around the 4th toe and used a 15 to make the incision. I carried the incision through the full-thickness of the skin and subcutaneous fat with electrocautery. This was carried down through the soft tissues surrounding the 5th toe all the way to the distal metatarsal. I exposed the metatarsal head. I then divided the metatarsal head using a bone cutter. I divided the rest of the attached soft tissue until this entire 4th toe was transected all the way to the metatarsal head. I then proceeded to do sharp excisional debridement of eschar surrounding the distal aspect of the previous incision from his 5th toe amputation. I used curved Gomez scissors to remove full-thickness of the skin that was nonviable and part of the subcutaneous layer. This was done all the way to tissue that appeared to be well vascularized. This was about a 3 x 3 cm area I then proceeded to use electrocautery to achieve hemostasis. I copiously irrigated. I used the bone saw to smooth and sharp edges on the distal metatarsal Once hemostasis was confirmed, I proceeded to then use a nylon 2-0 stitch to reapposed the skin and soft tissue as best as I could and cover the amputated bone. There was some defect on this skin closure but I applied an iodoform packing top of this. I infiltrated the area with Marcaine 0.5% for postop analgesia. Thick fluffy dressings were applied and I wrapped the foot with Kerlix roll as well as an Natanael bandage The procedure was then completed The patient tolerated procedure well. There were no immediate complications. Initial and final counts of sponges and instruments were correct. Estimated blood loss about 25 cc. The patient was extubated without difficulty and transferred to the recovery room with stable vital signs.
[2024-05-16] MEDS: Lactated Ringers 1,000 ML 100 ML IVCONT ×2 (12:23→22:26)
[2024-05-16] MEDS: Nystatin Powder 15 GM BOTTLE 1 APPL TOPICAL ×2 (12:25→21:27)
[2024-05-16 17:34] LABS: Vancomycin Random 17.2 mcg/mL (15-20)
--- NOTE | 2024-05-16 17:43 | HE.PHANOTE ---
RE: VANCO DOSING Random came back as 17.2 which is supratherapeutic for indication (skin infection). Dose is decreased to 1000 mg q12h, starting @1900 on 05/16/24. Next random is scheduled for 05/17/24 @1700.
[2024-05-16] MEDS: vancomycin HCL 1,000 MG in 0.9 % Sodium Chloride 250 ML 270 MG IV (18:20)
[2024-05-16] MEDS: Enoxaparin Sodium 40 MG/0.4 ML SYRINGE SUBCUT (18:20)
[2024-05-16] MEDS: oxyCODONE HCl Immed Release 5 MG TABLET 10 MG PO (19:37)
[2024-05-16] MEDS: Zolpidem Tartrate 5 MG TABLET 10 MG PO (23:11)
[2024-05-17 06:23] LABS: Hematocrit 36.8 % (42.0-52.0); Hemoglobin 11.9 g/dl (14.0-18.0); Mean Corpuscular HGB Conc 32.3 g/dl (31.0-36.0); Mean Corpuscular Hemoglobin 30.5 pg (27.0-33.0); Mean Corpuscular Volume 94.4 fL (80.0-98.0); Mean Platelet Volume 11.4 fL (9.4-12.4); Platelet Count 198 X10*3/uL (160-400); Red Cell Distribution Width 12.8 % (11.0-16.0); White Blood Count 9.8 X10*3/uL (4.8-10.8)
[2024-05-17] MEDS: vancomycin HCL 1,000 MG in 0.9 % Sodium Chloride 250 ML 270 MG IV (06:28)
[2024-05-17 06:37] LABS: Anion Gap 13 (12-20); Blood Urea Nitrogen 9 mg/dL (9-16); Carbon Dioxide 23 mmol/L (22-29); Chloride 108 mmol/L (96-108); Creatinine Clr Calc Pharmacy 129.6; Estimated Glomerular Filt Rate > 60; Glucose Random 122 mg/dL (60-115); Potassium 4.1 mmol/L (3.3-5.1); Sodium 140 mmol/L (135-145)
[2024-05-17 07:32] VITALS: BP 120/82; PULSE 69; RESP 18; TEMP 36.6; O2SAT 99
[2024-05-17] MEDS: 0.9 % Sodium Chloride Flush 3 ML SYRINGE IVFLUSH ×2 (07:41→20:49)
[2024-05-17] MEDS: HYDROmorphone HCl 1 MG/ML SYRINGE IVPUSH ×4 (07:41→20:49)
[2024-05-17] MEDS: Lactated Ringers 1,000 ML 100 ML IVCONT ×2 (07:43→17:10)
[2024-05-17] MEDS: Aspirin Enteric Coated 81 MG TABLET.DR PO (08:03)
[2024-05-17] MEDS: busPIRone HCl 10 MG TABLET PO ×3 (08:04→20:49)
[2024-05-17] MEDS: amLODIPine Besylate 10 MG TABLET PO (08:04)
[2024-05-17] MEDS: lisinopriL 10 MG TABLET PO (08:04)
[2024-05-17] MEDS: Clopidogrel Bisulfate 75 MG TABLET PO (08:04)
[2024-05-17] MEDS: Sertraline HCL 100 MG TABLET PO (08:04)
--- NOTE | 2024-05-17 10:10 | HO.PM.IMPN ---
Subjective Subjective Date of Service: 05/17/24 Interval History: no new issues, s/p amputation and debridment yesterday has pain but contrtolled with pain meds Review of Systems foot pain Physical Exam Vital Signs: Vital Signs: Last Vital Signs Temp 97.9 F 05/17/24 07:32 Pulse 69 05/17/24 07:32 Resp 18 05/17/24 07:32 BP 120/82 05/17/24 07:32 Pulse Ox 99 05/17/24 07:32 O2 Del Method Room Air 05/17/24 07:32 O2 Flow Rate 3 05/16/24 11:30 BMI result Body Mass Index 34.3 Const: Other: General - no acute distress, appears comfortable Cardiovascular - regular rate and rhythm, S1-S2 Lungs - normal respiratory effort, clear to auscultation bilaterally, no wheezing Abdomen - soft, nontender, no rebound or guarding Extremities - post op dressing in place Neuro - awake and alert, no focal deficits Objective Data Active Medications Acetaminophen (Acetaminophen 325 Mg Tablet) 650 mg PO Q6H PRN PRN Reason: Pain, Mild (Pain Scale 1-3), fever or headache Last Admin: 05/13/24 22:48 Dose: 650 mg Documented By: KIM Amlodipine Besylate (Amlodipine Besylate 10 Mg Tablet) 10 mg PO DAILY [facility]; Protocol Last Admin: 05/17/24 08:04 Dose: 10 mg Documented By: ELAINE Aspirin (Aspirin Enteric Coated 81 Mg Tablet.) 81 mg PO DAILY [facility] Last Admin: 05/17/24 08:03 Dose: 81 mg Documented By: ELAINE Buspirone HCl (Buspirone Hcl 10 Mg Tablet) 10 mg PO TID [facility] Last Admin: 05/17/24 08:04 Dose: 10 mg Documented By: ELAINE Calcium Carbonate (Calcium Carbonate 750 Mg Tab.Chew) 750 mg PO Q4H PRN PRN Reason: Heartburn Clonidine HCl (Clonidine Hcl 0.1 Mg Tablet) 0.1 mg PO BEDTIME PRN; Protocol PRN Reason: Anxiety Last Admin: 05/11/24 22:51 Dose: 0.1 mg Documented By: MODE Clopidogrel Bisulfate (Clopidogrel Bisulfate 75 Mg Tablet) 75 mg PO DAILY [facility] Last Admin: 05/17/24 08:04 Dose: 75 mg Documented By: ELAINE Enoxaparin Sodium (Enoxaparin Sodium 40 Mg/0.4 Ml Syringe) 40 mg SUBCUT Q24H [facility] Last Admin: 05/16/24 18:20 Dose: 40 mg Documented By: ISRRAEL Hydromorphone HCl (Hydromorphone Hcl 1 Mg/Ml Syringe) 1 mg IVPUSH Q4H PRN; Protocol PRN Reason: Pain, Severe (Pain Scale 7-10) Last Admin: 05/17/24 07:41 Dose: 1 mg Documented By: ELAINE Lactated Ringer's (Lr) 1,000 mls @ 100 mls/hr IVCONT .Q10H [facility] Last Infusion: 05/17/24 08:54 Dose: 100 mls/hr Documented By: ELAINE Vancomycin HCl 1,000 mg/ (Sodium Chloride) 270 mls @ 270 mls/hr IV Q12H [facility] Last Infusion: 05/17/24 08:54 Dose: Infused Documented By: ELAINE Lisinopril (Lisinopril 10 Mg Tablet) 10 mg PO DAILY [facility]; Protocol Last Admin: 05/17/24 08:04 Dose: 10 mg Documented By: ELAINE Magnesium Hydroxide (Milk Of Magnesia 30 Ml Oral.Susp) 30 ml PO DAILY PRN PRN Reason: Constipation Melatonin (Melatonin 3 Mg Tablet) 6 mg PO BEDTIME PRN PRN Reason: Insomnia Nystatin (Nystatin Powder 15 Gm Bottle) 1 appl TOPICAL BID [facility]; Protocol Last Admin: 05/16/24 21:27 Dose: 1 appl Documented By: KIM Ondansetron HCl (Ondansetron Hcl 4 Mg/2 Ml Vial) 4 mg IVPUSH Q8H PRN PRN Reason: Nausea and Vomiting Oxycodone HCl (Oxycodone Hcl Immed Release 5 Mg Tablet) 10 mg PO Q6H PRN PRN Reason: Pain, Moderate(Pain Scale 4-6) Last Admin: 05/16/24 19:37 Dose: 10 mg Documented By: KIM Pharmacy Consult (Consult Rx Vancomycin Dosing) 1 each MISCELLANE DAILY PRN PRN Reason: Consult order Polyethylene Glycol (Polyethylene Glycol 3350 17 Gm Powd.Pack) 17 gm PO DAILY PRN PRN Reason: Constipation Polyethylene Glycol (Polyethylene Glycol 3350 17 Gm Powd.Pack) 17 gm PO BIDWM [facility] Last Admin: 05/17/24 07:45 Dose: Not Given Documented By: ELAINE Non-Admin Reason: Patient Refused Sertraline HCl (Sertraline Hcl 100 Mg Tablet) 100 mg PO DAILY [facility] Last Admin: 05/17/24 08:04 Dose: 100 mg Documented By: ELAINE Sodium Chloride (0.9 % Sodium Chloride Flush 3 Ml Syringe) 3 ml IVFLUSH QSHIFT [facility] Last Admin: 05/17/24 07:41 Dose: 3 ml Documented By: ELAINE Sodium Hypochlorite (Sodium Hypochlorite 0.125% 473 Ml Solution) 1 appl TOPICAL DAILY [facility] Last Admin: 05/16/24 12:19 Dose: Not Given Documented By: ISRRAEL Non-Admin Reason: Off Unit: Surgery Comments: Surgery for 4th toe amputation today. Returned to floor with new dressing in place- C/D/I. Zolpidem Tartrate (Zolpidem Tartrate 5 Mg Tablet) 10 mg PO BEDTIME PRN PRN Reason: Insomnia Last Admin: 05/16/24 23:11 Dose: 10 mg Documented By: KIM Labs 05/17/24 05:40 05/17/24 05:40 Labs: Laboratory Results - last 24 hr 05/16/24 05/17/24 17:07 05:40 MCV 94.4 MCH 30.5 MCHC 32.3 RDW 12.8 Plt Count 198 MPV 11.4 Absolute Nucleated RBC 0.000 Nucleated RBC % (auto) 0.0 Anion Gap 13 Estim Creat Clear Calc 129.6 Estimated GFR > 60 Random Glucose 122 H Calcium 9.0 Random Vancomycin 17.2 Microbiology Microbiology Results: Microbiology 05/11/24 16:50 Blood Culture - Final Blood - Venous No growth after 5 days. 05/11/24 14:05 Blood Culture - Final Blood - Venous No growth after 5 days. Assessment and Plan (1) Acute osteomyelitis: Status: Acute Plan A 58-year-old male with a history of depression, obesity, and peripheral neuropathy here an infected recent amputation site with possible osteomylitis. Infected, amputation site wound, osteomyltis of the L 5th metatarsal, necrosis of 4th digit s/p amputation of the 4th toe, excisional debridement of eschar on previous 5th toe amputation site on 05/16 vancomcyin started 05/12, cultures negative Ask ID if needs further antibiotics HTN--uncontrolled -increase norvasc to 10, lisinoprl 10 Hypokalemia--oral replacement, repeat tomorrow PAD -Plavix, ASA Depression -continue Buspar Class 2 obesity, weight advised trought excercise and caloric restriction DVT prophyalxis--lovenox reason for hospitaliation: IV Abx for OM, gangrene of the foot and will need surgery Quality Stroke Does the patient have a stroke diagnosis?: No VTE Prior VTE?: No VTE Risk Level:: Medical - moderate - high VTE Device Contraindication: Treatment Not Indicated VTE Drug Contraindication: N/A - Med Ordered
[2024-05-17] MEDS: Nystatin Powder 15 GM BOTTLE 1 APPL TOPICAL ×2 (11:05→20:51)
[2024-05-17] MEDS: Sodium Hypochlorite 0.125% 473 ML SOLUTION 1 APPL TOPICAL (11:06)
--- NOTE | 2024-05-17 12:47 | MHC.CM.PN ---
Patient DX Osteo S/P toe amp. He will need IV ABX @ discharge. Spoke with [facility] liasonVivienne. She is aware that final ABX is pending. DP Home with [facility] and [facility]. Patient will arrange transport home.
[2024-05-17] MEDS: oxyCODONE HCl Immed Release 5 MG TABLET 10 MG PO ×2 (15:09→21:37)
[2024-05-17 15:32] VITALS: BP 170/71; PULSE 75; RESP 18; TEMP 36.3; O2SAT 94
--- NOTE | 2024-05-17 15:38 | PM.EVENT ---
Event Note Date of Service: 05/17/24 Event Note: Patient was seen and examined this morning Describes some pain appropriate to postop course Dressings stained with blood I changed his dressings. I removed his iodoform packing I applied Kerlix roll along with an Natanael bandage We will continue to do dressing changes Pain management Time Spent With Patient Time: Total time managing care of this patient today ____ minutes.
--- NOTE | 2024-05-17 16:26 | HO.WOUND ---
Wound Consult: Initial 58yr old?mlae admitted to [facility] on 05/12/24 - See progress notes and H&P for detailed history.? Wound consult placed for Right foot however patient is currently followed by general surgery team - will defer topical recommendations to surgery. Please reconsult wound care nurse if topical recommendations are needed.
[2024-05-17] MEDS: Enoxaparin Sodium 40 MG/0.4 ML SYRINGE SUBCUT (18:37)
[2024-05-17] MEDS: Doxycycline Monohydrate 100 MG CAPSULE PO (20:49)
[2024-05-17 20:55] VITALS: BP 150/81; PULSE 79; RESP 18; TEMP 36.4; O2SAT 99
[2024-05-17 21:20] VITALS: RESP 18
[2024-05-17] MEDS: Zolpidem Tartrate 5 MG TABLET 10 MG PO (21:37)
--- NOTE | 2024-05-17 22:27 | W.PM.IDCN ---
History of Present Illness Data of Consult Service Date: 05/17/24 [facility] Primary Care Provider: Darryl Domingo MD [facility] Reason for consult: exposed bone right foot He presents with open stitch right foot where he has had exposed bone in area. I saw him 04/26 with open bone foot. He saw vascular ,angiogram. He had partial 5th toe amputation,05/02. He has no organisms or DM. Review of Systems Review of Systems: Yes all other systems are reviewed and are negative Musculoskeletal: Comments: foot discomfort PMFSH Past Medical History Medical History Depression PAD (peripheral artery disease) Toe gangrene Surgical History Surgical History Hx of amputation Abdominal wall hernia Hx of appendectomy Social History Social History Household Members: None Housing: House Do you presently have visiting nurse or other home services: Yes (s/p amp to R toe) Patient Tobacco Use Status: Current everyday Tobacco user Tobacco use type: Cigarette Cigarette Packs Per Day: 0.5 Cigarettes Per Day: 10 Years Smoked: 43 Smoked in Last 30 Days: Yes e-Cigarette/Vaping Use: Never Used Patient Interested in Nicotine Replacement: No Patient Given Instructions on How to Stop Smoking: No Second Hand Smoke Exposure: Yes Use of substances other than those prescribed or required for medical reasons: Yes Substance Use Type: Marijuana Substance Use Type Other:: smoked Substance Use Frequency: Occasionally Last Used Substance: Just Prior to Admission Currently Displaying Signs/Symptoms of Drug Intoxication Withdrawal: No Any prior treatment program specific to substance use: No Have you been hit, kicked, punched, or otherwise hurt by someone within the past year? If so, by whom?: No Do you feel safe in your current relationship?: Yes Is there a partner from a previous relationship who is making you feel unsafe now?: No Are you made to feel afraid or neglected: No Are you DNR?: No Advance Directives: No Advance Directives Information Provided: No Do you have a plan to hurt others: No Plan Recently lost weight without trying: No Eating poorly because of decreased appetite: No Nutrition Risks: No Nutritional Risk Poor oral hygiene: No service: No Meds Allergies Allergy/AdvReac Type Severity Reaction Status Date / Time codeine [Codeine] Allergy Mild RASH Verified 05/11/24 13:51 Codeine Allergy Unknown Rash Uncoded 05/11/24 13:51 Active Medications: Current Medications Acetaminophen (Acetaminophen 325 Mg Tablet) 650 mg PO Q6H PRN PRN Reason: Pain, Mild (Pain Scale 1-3), fever or headache Last Admin: 05/13/24 22:48 Dose: 650 mg Amlodipine Besylate (Amlodipine Besylate 10 Mg Tablet) 10 mg PO DAILY [facility]; Protocol Last Admin: 05/17/24 08:04 Dose: 10 mg Aspirin (Aspirin Enteric Coated 81 Mg Tablet.Dr) 81 mg PO DAILY [facility] Last Admin: 05/17/24 08:03 Dose: 81 mg Buspirone HCl (Buspirone Hcl 10 Mg Tablet) 10 mg PO TID [facility] Last Admin: 05/17/24 20:49 Dose: 10 mg Calcium Carbonate (Calcium Carbonate 750 Mg Tab.Chew) 750 mg PO Q4H PRN PRN Reason: Heartburn Clonidine HCl (Clonidine Hcl 0.1 Mg Tablet) 0.1 mg PO BEDTIME PRN; Protocol PRN Reason: Anxiety Last Admin: 05/11/24 22:51 Dose: 0.1 mg Clopidogrel Bisulfate (Clopidogrel Bisulfate 75 Mg Tablet) 75 mg PO DAILY [facility] Last Admin: 05/17/24 08:04 Dose: 75 mg Doxycycline Monohydrate (Doxycycline Monohydrate 100 Mg Capsule) 100 mg PO BID [facility] Last Admin: 05/17/24 20:49 Dose: 100 mg Enoxaparin Sodium (Enoxaparin Sodium 40 Mg/0.4 Ml Syringe) 40 mg SUBCUT Q24H [facility] Last Admin: 05/17/24 18:37 Dose: 40 mg Hydromorphone HCl (Hydromorphone Hcl 1 Mg/Ml Syringe) 1 mg IVPUSH Q4H PRN; Protocol PRN Reason: Pain, Severe (Pain Scale 7-10) Last Admin: 05/17/24 20:49 Dose: 1 mg Lactated Ringer's (Lr) 1,000 mls @ 100 mls/hr IVCONT .Q10H [facility] Last Admin: 05/17/24 17:10 Dose: 100 mls/hr Lisinopril (Lisinopril 10 Mg Tablet) 10 mg PO DAILY [facility]; Protocol Last Admin: 05/17/24 08:04 Dose: 10 mg Magnesium Hydroxide (Milk Of Magnesia 30 Ml Oral.Susp) 30 ml PO DAILY PRN PRN Reason: Constipation Melatonin (Melatonin 3 Mg Tablet) 6 mg PO BEDTIME PRN PRN Reason: Insomnia Nystatin (Nystatin Powder 15 Gm Bottle) 1 appl TOPICAL BID [facility]; Protocol Last Admin: 05/17/24 20:51 Dose: 1 appl Ondansetron HCl (Ondansetron Hcl 4 Mg/2 Ml Vial) 4 mg IVPUSH Q8H PRN PRN Reason: Nausea and Vomiting Oxycodone HCl (Oxycodone Hcl Immed Release 5 Mg Tablet) 10 mg PO Q6H PRN PRN Reason: Pain, Moderate(Pain Scale 4-6) Last Admin: 05/17/24 21:37 Dose: 10 mg Pharmacy Consult (Consult Rx Vancomycin Dosing) 1 each MISCELLANE DAILY PRN PRN Reason: Consult order Polyethylene Glycol (Polyethylene Glycol 3350 17 Gm Powd.Pack) 17 gm PO DAILY PRN PRN Reason: Constipation Polyethylene Glycol (Polyethylene Glycol 3350 17 Gm Powd.Pack) 17 gm PO BIDWM [facility] Last Admin: 05/17/24 16:43 Dose: Not Given Sertraline HCl (Sertraline Hcl 100 Mg Tablet) 100 mg PO DAILY [facility] Last Admin: 05/17/24 08:04 Dose: 100 mg Sodium Chloride (0.9 % Sodium Chloride Flush 3 Ml Syringe) [facility] Last Admin: 05/17/24 20:49 Dose: 3 ml Sodium Hypochlorite (Sodium Hypochlorite 0.125% 473 Ml Solution) 1 appl TOPICAL DAILY [facility] Last Admin: 05/17/24 11:06 Dose: 1 appl Zolpidem Tartrate (Zolpidem Tartrate 5 Mg Tablet) 10 mg PO BEDTIME PRN PRN Reason: Insomnia Last Admin: 05/17/24 21:37 Dose: 10 mg Home Medications ?Medication ?Instructions ?Recorded ?Confirmed ?Last Taken ?Type buspirone 10 mg tablet 10 mg PO TID 04/03/22 05/11/24 05/11/24 06:00 History clonidine HCl 0.1 mg tablet 0.1 mg PO BEDTIME PRN Anxiety 04/03/22 05/11/24 05/10/24 History zolpidem 10 mg tablet 10 mg PO BEDTIME PRN Sleep 04/03/22 05/11/24 05/10/24 History sertraline 100 mg tablet 100 mg PO DAILY 05/11/24 05/11/24 05/11/24 06:00 History Physical Exam Vital Signs: Vital Signs: Last Vital Signs Temp 97.5 F 05/17/24 20:55 Pulse 79 05/17/24 20:55 Resp 18 05/17/24 21:20 BP 150/81 H 05/17/24 20:55 Pulse Ox 99 05/17/24 20:55 O2 Del Method Room Air 05/17/24 20:55 O2 Flow Rate 3 05/16/24 11:30 BMI result Body Mass Index 34.3 Const: General: cooperative HEENT: Head: Yes normal to inspection Face and sinus: Yes normal facial exam Mouth: Normal oral and palatal mucosa present Teeth and gingiva: dentition normal Eyes: General: appearance normal, both eyes and all related structures Pupils: Equal, round and reactive pupils present Resp: Effort & Inspection: normal respiratory effort Cardio: Rate: regular rate Rhythm: regular rhythm GI: Palpation (GI): Soft to palpation and nontender : General: Yes no CVA tenderness Back/Spine/Pelvis: Back: no CVA tenderness Skin: General skin exam: no rashes or lesions noted Neuro: General: moves all extremities Cranial nerves: Yes Equal, round and reactive pupils present Extrem: Other: purplish area lateral foot open wound stitches Psych: Appearance: grossly normal Results Labs 05/17/24 05:40 05/17/24 05:40 Labs: Short CBC 05/17/24 Range/Units 05:40 WBC 9.8 (4.8-10.8) X10*3/uL Hgb 11.9 L (14.0-18.0) g/dl Hct 36.8 L (42.0-52.0) % Plt Count 198 (160-400) X10*3/uL BMP 05/17/24 05:40 Sodium 140 Potassium 4.1 D Chloride 108 Carbon Dioxide 23 BUN 9 Creatinine 0.77 Calcium 9.0 Microbiology Microbiology Results: Microbiology 05/11/24 16:50 Blood - Venous Blood Culture - Final No growth after 5 days. 05/11/24 14:05 Blood - Venous Blood Culture - Final No growth after 5 days. Assessment and Plan (1) Amputation of fifth toe of right foot: Status: Acute (2) Foot ulcer: Qualifiers: Laterality: right Status: Acute Plan intermediate antibiotics wont help exposed bone to this degree heal. Local care. Amputation if patient agrees?JASPER
--- NOTE | 2024-05-17 22:37 | P.CNID_ITS ---
History of Present Illness Data of Consult Service Date: 05/17/24 [facility] Primary Care Provider: Darryl Domingo MD [facility] Past Medical History Medical History Depression PAD (peripheral artery disease) Toe gangrene Surgical History Surgical History Hx of amputation Abdominal wall hernia Hx of appendectomy Social History Social History Household Members: None Housing: House Do you presently have visiting nurse or other home services: Yes (s/p amp to R toe) Patient Tobacco Use Status: Current everyday Tobacco user Tobacco use type: Cigarette Cigarette Packs Per Day: 0.5 Cigarettes Per Day: 10 Years Smoked: 43 Smoked in Last 30 Days: Yes e-Cigarette/Vaping Use: Never Used Patient Interested in Nicotine Replacement: No Patient Given Instructions on How to Stop Smoking: No Second Hand Smoke Exposure: Yes Use of substances other than those prescribed or required for medical reasons: Yes Substance Use Type: Marijuana Substance Use Type Other:: smoked Substance Use Frequency: Occasionally Last Used Substance: Just Prior to Admission Currently Displaying Signs/Symptoms of Drug Intoxication Withdrawal: No Any prior treatment program specific to substance use: No Have you been hit, kicked, punched, or otherwise hurt by someone within the past year? If so, by whom?: No Do you feel safe in your current relationship?: Yes Is there a partner from a previous relationship who is making you feel unsafe now?: No Are you made to feel afraid or neglected: No Are you DNR?: No Advance Directives: No Advance Directives Information Provided: No Do you have a plan to hurt others: No Plan Recently lost weight without trying: No Eating poorly because of decreased appetite: No Nutrition Risks: No Nutritional Risk Poor oral hygiene: No service: No Meds Allergies Allergy/AdvReac Type Severity Reaction Status Date / Time codeine [Codeine] Allergy Mild RASH Verified 05/11/24 13:51 Codeine Allergy Unknown Rash Uncoded 05/11/24 13:51 Active Medications: Current Medications Acetaminophen (Acetaminophen 325 Mg Tablet) 650 mg PO Q6H PRN PRN Reason: Pain, Mild (Pain Scale 1-3), fever or headache Last Admin: 05/13/24 22:48 Dose: 650 mg Amlodipine Besylate (Amlodipine Besylate 10 Mg Tablet) 10 mg PO DAILY [facility]; Protocol Last Admin: 05/17/24 08:04 Dose: 10 mg Aspirin (Aspirin Enteric Coated 81 Mg Tablet.Dr) 81 mg PO DAILY [facility] Last Admin: 05/17/24 08:03 Dose: 81 mg Buspirone HCl (Buspirone Hcl 10 Mg Tablet) 10 mg PO TID [facility] Last Admin: 05/17/24 20:49 Dose: 10 mg Calcium Carbonate (Calcium Carbonate 750 Mg Tab.Chew) 750 mg PO Q4H PRN PRN Reason: Heartburn Clonidine HCl (Clonidine Hcl 0.1 Mg Tablet) 0.1 mg PO BEDTIME PRN; Protocol PRN Reason: Anxiety Last Admin: 05/11/24 22:51 Dose: 0.1 mg Clopidogrel Bisulfate (Clopidogrel Bisulfate 75 Mg Tablet) 75 mg PO DAILY [facility] Last Admin: 05/17/24 08:04 Dose: 75 mg Doxycycline Monohydrate (Doxycycline Monohydrate 100 Mg Capsule) 100 mg PO BID [facility] Last Admin: 05/17/24 20:49 Dose: 100 mg Enoxaparin Sodium (Enoxaparin Sodium 40 Mg/0.4 Ml Syringe) 40 mg SUBCUT Q24H [facility] Last Admin: 05/17/24 18:37 Dose: 40 mg Hydromorphone HCl (Hydromorphone Hcl 1 Mg/Ml Syringe) 1 mg IVPUSH Q4H PRN; Protocol PRN Reason: Pain, Severe (Pain Scale 7-10) Last Admin: 05/17/24 20:49 Dose: 1 mg Lactated Ringer's (Lr) 1,000 mls @ 100 mls/hr IVCONT .Q10H [facility] Last Admin: 05/17/24 17:10 Dose: 100 mls/hr Lisinopril (Lisinopril 10 Mg Tablet) 10 mg PO DAILY [facility]; Protocol Last Admin: 05/17/24 08:04 Dose: 10 mg Magnesium Hydroxide (Milk Of Magnesia 30 Ml Oral.Susp) 30 ml PO DAILY PRN PRN Reason: Constipation Melatonin (Melatonin 3 Mg Tablet) 6 mg PO BEDTIME PRN PRN Reason: Insomnia Nystatin (Nystatin Powder 15 Gm Bottle) 1 appl TOPICAL BID [facility]; Protocol Last Admin: 05/17/24 20:51 Dose: 1 appl Ondansetron HCl (Ondansetron Hcl 4 Mg/2 Ml Vial) 4 mg IVPUSH Q8H PRN PRN Reason: Nausea and Vomiting Oxycodone HCl (Oxycodone Hcl Immed Release 5 Mg Tablet) 10 mg PO Q6H PRN PRN Reason: Pain, Moderate(Pain Scale 4-6) Last Admin: 05/17/24 21:37 Dose: 10 mg Pharmacy Consult (Consult Rx Vancomycin Dosing) 1 each MISCELLANE DAILY PRN PRN Reason: Consult order Polyethylene Glycol (Polyethylene Glycol 3350 17 Gm Powd.Pack) 17 gm PO DAILY PRN PRN Reason: Constipation Polyethylene Glycol (Polyethylene Glycol 3350 17 Gm Powd.Pack) 17 gm PO BIDWM [facility] Last Admin: 05/17/24 16:43 Dose: Not Given Sertraline HCl (Sertraline Hcl 100 Mg Tablet) 100 mg PO DAILY [facility] Last Admin: 05/17/24 08:04 Dose: 100 mg Sodium Chloride (0.9 % Sodium Chloride Flush 3 Ml Syringe) 3 ml IVFLUSH QSHIFT [facility] Last Admin: 05/17/24 20:49 Dose: 3 ml Sodium Hypochlorite (Sodium Hypochlorite 0.125% 473 Ml Solution) 1 appl TOPICAL DAILY [facility] Last Admin: 05/17/24 11:06 Dose: 1 appl Zolpidem Tartrate (Zolpidem Tartrate 5 Mg Tablet) 10 mg PO BEDTIME PRN PRN Reason: Insomnia Last Admin: 05/17/24 21:37 Dose: 10 mg Home Medications ?Medication ?Instructions ?Recorded ?Confirmed ?Last Taken ?Type buspirone 10 mg tablet 10 mg PO TID 04/03/22 05/11/24 05/11/24 06:00 History clonidine HCl 0.1 mg tablet 0.1 mg PO BEDTIME PRN Anxiety 04/03/22 05/11/24 05/10/24 History zolpidem 10 mg tablet 10 mg PO BEDTIME PRN Sleep 04/03/22 05/11/24 05/10/24 History sertraline 100 mg tablet 100 mg PO DAILY 05/11/24 05/11/24 05/11/24 06:00 History Physical Exam 2 Vital Signs: Vital Signs: Last Vital Signs Temp 97.5 F 05/17/24 20:55 Pulse 79 05/17/24 20:55 Resp 18 05/17/24 21:20 BP 150/81 H 05/17/24 20:55 Pulse Ox 99 05/17/24 20:55 O2 Del Method Room Air 05/17/24 20:55 O2 Flow Rate 3 05/16/24 11:30 BMI result Body Mass Index 34.3 Results Labs 05/17/24 05:40 05/17/24 05:40 Labs: Short CBC 05/17/24 Range/Units 05:40 WBC 9.8 (4.8-10.8) X10*3/uL Hgb 11.9 L (14.0-18.0) g/dl Hct 36.8 L (42.0-52.0) % Plt Count 198 (160-400) X10*3/uL BMP 05/17/24 05:40 Sodium 140 Potassium 4.1 D Chloride 108 Carbon Dioxide 23 BUN 9 Creatinine 0.77 Calcium 9.0 Microbiology Microbiology Results: Microbiology 05/11/24 16:50 Blood - Venous Blood Culture - Final No growth after 5 days. 05/11/24 14:05 Blood - Venous Blood Culture - Final No growth after 5 days.
[2024-05-18] VITALS (7 sets, daily range): BP systolic 148–150; BP diastolic 69–75; PULSE 73–80; RESP 16–18; TEMP 36.1–36.7; O2SAT 97–98
[2024-05-18] MEDS: HYDROmorphone HCl 1 MG/ML SYRINGE IVPUSH ×5 (00:58→21:58)
[2024-05-18] MEDS: Lactated Ringers 1,000 ML 100 ML IVCONT (02:27)
--- NOTE | 2024-05-18 07:59 | P.PNGS_ITS ---
Subjective Subjective Date of Service: 05/18/24 Interval history: States he feels well No new complaints Some pain the amputation Physical Exam 2 Vital Signs: Vital Signs: Last Vital Signs Temp 98.1 F 05/18/24 07:46 Pulse 79 05/18/24 07:46 Resp 17 05/18/24 07:46 BP 148/69 H 05/18/24 07:46 Pulse Ox 98 05/18/24 07:46 O2 Del Method Room Air 05/18/24 07:46 O2 Flow Rate 3 05/16/24 11:30 BMI result Body Mass Index 34.3 Const: General: comfortable and no acute distress Resp: Effort & Inspection: normal respiratory effort Cardio: Rate: regular rate Extrem: Other: Right foot amputation site - skin edges on the distal area of the amputation site with some darkening, overall wound appears clean Objective Data Active Medications Acetaminophen (Acetaminophen 325 Mg Tablet) 650 mg PO Q6H PRN PRN Reason: Pain, Mild (Pain Scale 1-3), fever or headache Last Admin: 05/13/24 22:48 Dose: 650 mg Documented By: KIM Amlodipine Besylate (Amlodipine Besylate 10 Mg Tablet) 10 mg PO DAILY [facility]; Protocol Last Admin: 05/17/24 08:04 Dose: 10 mg Documented By: ELAINE Aspirin (Aspirin Enteric Coated 81 Mg Tablet.) 81 mg PO DAILY [facility] Last Admin: 05/17/24 08:03 Dose: 81 mg Documented By: ELAINE Buspirone HCl (Buspirone Hcl 10 Mg Tablet) 10 mg PO TID [facility] Last Admin: 05/17/24 20:49 Dose: 10 mg Documented By: LIZBETH Calcium Carbonate (Calcium Carbonate 750 Mg Tab.Chew) 750 mg PO Q4H PRN PRN Reason: Heartburn Clonidine HCl (Clonidine Hcl 0.1 Mg Tablet) 0.1 mg PO BEDTIME PRN; Protocol PRN Reason: Anxiety Last Admin: 05/11/24 22:51 Dose: 0.1 mg Documented By: MODE Clopidogrel Bisulfate (Clopidogrel Bisulfate 75 Mg Tablet) 75 mg PO DAILY [facility] Last Admin: 05/17/24 08:04 Dose: 75 mg Documented By: ELAINE Doxycycline Monohydrate (Doxycycline Monohydrate 100 Mg Capsule) 100 mg PO BID [facility] Last Admin: 05/17/24 20:49 Dose: 100 mg Documented By: LIZBETH Enoxaparin Sodium (Enoxaparin Sodium 40 Mg/0.4 Ml Syringe) 40 mg SUBCUT Q24H [facility] Last Admin: 05/17/24 18:37 Dose: 40 mg Documented By: JUAN Hydromorphone HCl (Hydromorphone Hcl 1 Mg/Ml Syringe) 1 mg IVPUSH Q4H PRN; Protocol PRN Reason: Pain, Severe (Pain Scale 7-10) Last Admin: 05/18/24 00:58 Dose: 1 mg Documented By: LIZBETH Lactated Ringer's (Lr) 1,000 mls @ 100 mls/hr IVCONT .Q10H [facility] Last Admin: 05/18/24 02:27 Dose: 100 mls/hr Documented By: LIZBETH Lisinopril (Lisinopril 10 Mg Tablet) 10 mg PO DAILY [facility]; Protocol Last Admin: 05/17/24 08:04 Dose: 10 mg Documented By: ELAINE Magnesium Hydroxide (Milk Of Magnesia 30 Ml Oral.Susp) 30 ml PO DAILY PRN PRN Reason: Constipation Melatonin (Melatonin 3 Mg Tablet) 6 mg PO BEDTIME PRN PRN Reason: Insomnia Nystatin (Nystatin Powder 15 Gm Bottle) 1 appl TOPICAL BID [facility]; Protocol Last Admin: 05/17/24 20:51 Dose: 1 appl Documented By: LIZBETH Ondansetron HCl (Ondansetron Hcl 4 Mg/2 Ml Vial) 4 mg IVPUSH Q8H PRN PRN Reason: Nausea and Vomiting Oxycodone HCl (Oxycodone Hcl Immed Release 5 Mg Tablet) 10 mg PO Q6H PRN PRN Reason: Pain, Moderate(Pain Scale 4-6) Last Admin: 05/17/24 21:37 Dose: 10 mg Documented By: LIZBETH Pharmacy Consult (Consult Rx Vancomycin Dosing) 1 each MISCELLANE DAILY PRN PRN Reason: Consult order Polyethylene Glycol (Polyethylene Glycol 3350 17 Gm Powd.Pack) 17 gm PO DAILY PRN PRN Reason: Constipation Polyethylene Glycol (Polyethylene Glycol 3350 17 Gm Powd.Pack) 17 gm PO BIDWM [facility] Last Admin: 05/17/24 16:43 Dose: Not Given Documented By: JUAN Non-Admin Reason: Patient Refused Sertraline HCl (Sertraline Hcl 100 Mg Tablet) 100 mg PO DAILY [facility] Last Admin: 05/17/24 08:04 Dose: 100 mg Documented By: ELAINE Sodium Chloride (0.9 % Sodium Chloride Flush 3 Ml Syringe) 3 ml IVFLUSH QSHIFT [facility] Last Admin: 05/18/24 07:16 Dose: Not Given Documented By: MYNOR Non-Admin Reason: IV Running Sodium Hypochlorite (Sodium Hypochlorite 0.125% 473 Ml Solution) 1 appl TOPICAL DAILY [facility] Last Admin: 05/17/24 11:06 Dose: 1 appl Documented By: ELAINE Zolpidem Tartrate (Zolpidem Tartrate 5 Mg Tablet) 10 mg PO BEDTIME PRN PRN Reason: Insomnia Last Admin: 05/17/24 21:37 Dose: 10 mg Documented By: CAROLAK Labs 05/17/24 05:40 05/17/24 05:40 Labs: Laboratory Results - last 24 hr 05/17/24 17:12 Random Vancomycin 16.0 Procedures Date of Service Date of Service: 05/18/24 Progress Note: A&P Assessment and plan (1) Toe gangrene: Status: Acute Assessment and Plan: Status post amputation of 4th toe, debridement 5th amputation site Wound looks clean but there is some dark discoloration of skin edges on the distal incision Dressings changed Continue wound care Continue antibiotics Time Spent With Patient Time: Total time managing care of this patient today ____ minutes. Quality Stroke Does the patient have a stroke diagnosis?: No VTE Prior VTE?: No VTE Risk Level:: Medical - moderate - high VTE Device Contraindication: Treatment Not Indicated VTE Drug Contraindication: N/A - Med Ordered
[2024-05-18 08:05] LABS: Anion Gap 13 (12-20); Blood Urea Nitrogen 10 mg/dL (9-16); Calcium 8.9 mg/dL (8.4-10.2); Carbon Dioxide 27 mmol/L (22-29); Chloride 104 mmol/L (96-108); Creatinine Clr Calc Pharmacy 118.8; Estimated Glomerular Filt Rate > 60; Glucose Random 118 mg/dL (60-115); Potassium 3.9 mmol/L (3.3-5.1); Sodium 140 mmol/L (135-145)
[2024-05-18] MEDS: busPIRone HCl 10 MG TABLET PO ×3 (08:59→20:31)
[2024-05-18] MEDS: Doxycycline Monohydrate 100 MG CAPSULE PO ×2 (08:59→20:30)
[2024-05-18] MEDS: lisinopriL 10 MG TABLET PO (08:59)
[2024-05-18] MEDS: Sertraline HCL 100 MG TABLET PO (08:59)
[2024-05-18] MEDS: polyethylene glycoL 3350 17 GM POWD.PACK PO ×2 (08:59→16:02)
[2024-05-18] MEDS: amLODIPine Besylate 10 MG TABLET PO (09:00)
[2024-05-18] MEDS: Clopidogrel Bisulfate 75 MG TABLET PO (09:00)
[2024-05-18] MEDS: Sodium Hypochlorite 0.125% 473 ML SOLUTION 1 APPL TOPICAL (09:00)
[2024-05-18] MEDS: Nystatin Powder 15 GM BOTTLE 1 APPL TOPICAL ×2 (09:00→20:30)
[2024-05-18] MEDS: Aspirin Enteric Coated 81 MG TABLET.DR PO (09:00)
--- NOTE | 2024-05-18 10:23 | P.PNIM_ITS ---
Subjective Subjective Date of Service: 05/18/24 Interval History: no new issues, s/p amputation and debridment 05/16 pain is controlled Physical Exam 2 Vital Signs: Vital Signs: Last Vital Signs Temp 98.1 F 05/18/24 07:46 Pulse 79 05/18/24 07:46 Resp 17 05/18/24 07:46 BP 148/69 H 05/18/24 09:00 Pulse Ox 98 05/18/24 07:46 O2 Del Method Room Air 05/18/24 07:46 O2 Flow Rate 3 05/16/24 11:30 BMI result Body Mass Index 34.3 Const: Other: General - no acute distress, appears comfortable Cardiovascular - regular rate and rhythm, S1-S2 Lungs - normal respiratory effort, clear to auscultation bilaterally, no wheezing Abdomen - soft, nontender, no rebound or guarding Extremities - post op dressing in place Neuro - awake and alert, no focal deficits Skin: per surgery dark area ? necrosis Objective Data Active Medications Acetaminophen (Acetaminophen 325 Mg Tablet) 650 mg PO Q6H PRN PRN Reason: Pain, Mild (Pain Scale 1-3), fever or headache Last Admin: 05/13/24 22:48 Dose: 650 mg Documented By: KIM Amlodipine Besylate (Amlodipine Besylate 10 Mg Tablet) 10 mg PO DAILY [facility]; Protocol Last Admin: 05/18/24 09:00 Dose: 10 mg Documented By: MYNOR Aspirin (Aspirin Enteric Coated 81 Mg Tablet.) 81 mg PO DAILY [facility] Last Admin: 05/18/24 09:00 Dose: 81 mg Documented By: MYNOR Buspirone HCl (Buspirone Hcl 10 Mg Tablet) 10 mg PO TID [facility] Last Admin: 05/18/24 08:59 Dose: 10 mg Documented By: MYNOR Calcium Carbonate (Calcium Carbonate 750 Mg Tab.Chew) 750 mg PO Q4H PRN PRN Reason: Heartburn Clonidine HCl (Clonidine Hcl 0.1 Mg Tablet) 0.1 mg PO BEDTIME PRN; Protocol PRN Reason: Anxiety Last Admin: 05/11/24 22:51 Dose: 0.1 mg Documented By: MODE Clopidogrel Bisulfate (Clopidogrel Bisulfate 75 Mg Tablet) 75 mg PO DAILY [facility] Last Admin: 05/18/24 09:00 Dose: 75 mg Documented By: MYNOR Doxycycline Monohydrate (Doxycycline Monohydrate 100 Mg Capsule) 100 mg PO BID [facility] Last Admin: 05/18/24 08:59 Dose: 100 mg Documented By: MYNOR Enoxaparin Sodium (Enoxaparin Sodium 40 Mg/0.4 Ml Syringe) 40 mg SUBCUT Q24H [facility] Last Admin: 05/17/24 18:37 Dose: 40 mg Documented By: JUAN Hydromorphone HCl (Hydromorphone Hcl 1 Mg/Ml Syringe) 1 mg IVPUSH Q4H PRN; Protocol PRN Reason: Pain, Severe (Pain Scale 7-10) Last Admin: 05/18/24 08:56 Dose: 1 mg Documented By: MYNOR Lactated Ringer's (Lr) 1,000 mls @ 100 mls/hr IVCONT .Q10H [facility] Last Admin: 05/18/24 02:27 Dose: 100 mls/hr Documented By: LIZBETH Lisinopril (Lisinopril 10 Mg Tablet) 10 mg PO DAILY [facility]; Protocol Last Admin: 05/18/24 08:59 Dose: 10 mg Documented By: MYNOR Magnesium Hydroxide (Milk Of Magnesia 30 Ml Oral.Susp) 30 ml PO DAILY PRN PRN Reason: Constipation Melatonin (Melatonin 3 Mg Tablet) 6 mg PO BEDTIME PRN PRN Reason: Insomnia Nystatin (Nystatin Powder 15 Gm Bottle) 1 appl TOPICAL BID [facility]; Protocol Last Admin: 05/18/24 09:00 Dose: 1 appl Documented By: MYNOR Ondansetron HCl (Ondansetron Hcl 4 Mg/2 Ml Vial) 4 mg IVPUSH Q8H PRN PRN Reason: Nausea and Vomiting Oxycodone HCl (Oxycodone Hcl Immed Release 5 Mg Tablet) 10 mg PO Q6H PRN PRN Reason: Pain, Moderate(Pain Scale 4-6) Last Admin: 05/17/24 21:37 Dose: 10 mg Documented By: LIZBETH Pharmacy Consult (Consult Rx Vancomycin Dosing) 1 each MISCELLANE DAILY PRN PRN Reason: Consult order Polyethylene Glycol (Polyethylene Glycol 3350 17 Gm Powd.Pack) 17 gm PO DAILY PRN PRN Reason: Constipation Polyethylene Glycol (Polyethylene Glycol 3350 17 Gm Powd.Pack) 17 gm PO BIDWM [facility] Last Admin: 05/18/24 08:59 Dose: 17 gm Documented By: MYNOR Sertraline HCl (Sertraline Hcl 100 Mg Tablet) 100 mg PO DAILY [facility] Last Admin: 05/18/24 08:59 Dose: 100 mg Documented By: MYNOR Sodium Chloride (0.9 % Sodium Chloride Flush 3 Ml Syringe) 3 ml IVFLUSH QSHIFT [facility] Last Admin: 05/18/24 07:16 Dose: Not Given Documented By: MYNOR Non-Admin Reason: IV Running Sodium Hypochlorite (Sodium Hypochlorite 0.125% 473 Ml Solution) 1 appl TOPICAL DAILY [facility] Last Admin: 05/18/24 09:00 Dose: 1 appl Documented By: MYNOR Zolpidem Tartrate (Zolpidem Tartrate 5 Mg Tablet) 10 mg PO BEDTIME PRN PRN Reason: Insomnia Last Admin: 05/17/24 21:37 Dose: 10 mg Documented By: LIZBETH Labs 05/17/24 05:40 05/18/24 07:29 Labs: Laboratory Results - last 24 hr 05/17/24 05/18/24 17:12 07:29 Anion Gap 13 Estim Creat Clear Calc 118.8 Estimated GFR > 60 Random Glucose 118 H Calcium 8.9 Random Vancomycin 16.0 Assessment and Plan (1) Acute osteomyelitis: Status: Acute Plan A 58-year-old male with a history of depression, obesity, and peripheral neuropathy here an infected recent amputation site with possible osteomylitis. Infected, amputation site wound, osteomyltis of the L 5th metatarsal, necrosis of 4th digit s/p amputation of the 4th toe, excisional debridement of eschar on previous 5th toe amputation site on 05/16 vancomcyin started 05/12, cultures negative Per ID no custodial Abx, vanco stopped 05/09, PO Doxy for now HTN--uncontrolled - norvasc and lisinopril Hypokalemia--repleted and resolved PAD -Plavix, ASA Depression -continue Buspar Class 2 obesity, weight advised trought excercise and caloric restriction DVT prophyalxis--lovenox reason for hospitaliation: IV Abx for OM, gangrene of the foot and will need surgery Quality Stroke Does the patient have a stroke diagnosis?: No VTE Prior VTE?: No VTE Risk Level:: Medical - moderate - high VTE Device Contraindication: Treatment Not Indicated VTE Drug Contraindication: N/A - Med Ordered
[2024-05-18] MEDS: 0.9 % Sodium Chloride Flush 3 ML SYRINGE IVFLUSH ×2 (15:59→21:58)
[2024-05-18] MEDS: oxyCODONE HCl Immed Release 5 MG TABLET 10 MG PO ×2 (16:01→20:31)
[2024-05-18 17:51] LABS: Vancomycin Random 6.1 mcg/mL (15-20)
[2024-05-18] MEDS: Enoxaparin Sodium 40 MG/0.4 ML SYRINGE SUBCUT (18:16)
[2024-05-18] MEDS: Zolpidem Tartrate 5 MG TABLET 10 MG PO (20:30)
[2024-05-19] VITALS: BP 154/78; PULSE 75; RESP 18; TEMP 36.6; O2SAT 98
[2024-05-19] MEDS: oxyCODONE HCl Immed Release 5 MG TABLET 10 MG PO ×2 (00:51→10:13)
[2024-05-19 03:13] VITALS: BP 160/72; PULSE 79; RESP 14; TEMP 36; O2SAT 95
[2024-05-19 06:44] LABS: Anion Gap 10 (12-20); Blood Urea Nitrogen 9 mg/dL (9-16); Calcium 9.3 mg/dL (8.4-10.2); Carbon Dioxide 30 mmol/L (22-29); Chloride 103 mmol/L (96-108); Creatinine Clr Calc Pharmacy 124.7; Estimated Glomerular Filt Rate > 60; Glucose Random 126 mg/dL (60-115); Potassium 3.8 mmol/L (3.3-5.1); Sodium 139 mmol/L (135-145)
--- NOTE | 2024-05-19 06:52 | P.PNIM_ITS ---
Subjective Subjective Date of Service: 05/19/24 Interval History: no new issues, s/p amputation and debridment 05/16 pain is controlled Physical Exam 2 Vital Signs: Vital Signs: Last Vital Signs Temp 96.8 F 05/19/24 03:13 Pulse 79 05/19/24 03:13 Resp 14 05/19/24 03:13 BP 160/72 H 05/19/24 03:13 Pulse Ox 95 05/19/24 03:13 O2 Del Method Room Air 05/19/24 03:13 O2 Flow Rate 3 05/16/24 11:30 BMI result Body Mass Index 34.3 Const: Other: General - no acute distress, appears comfortable Cardiovascular - regular rate and rhythm, S1-S2 Lungs - normal respiratory effort, clear to auscultation bilaterally, no wheezing Abdomen - soft, nontender, no rebound or guarding Extremities - post op dressing in place Neuro - awake and alert, no focal deficits Skin: per surgery dark area ? necrosis Objective Data Active Medications Acetaminophen (Acetaminophen 325 Mg Tablet) 650 mg PO Q6H PRN PRN Reason: Pain, Mild (Pain Scale 1-3), fever or headache Last Admin: 05/13/24 22:48 Dose: 650 mg Documented By: KIM Amlodipine Besylate (Amlodipine Besylate 10 Mg Tablet) 10 mg PO DAILY [facility]; Protocol Last Admin: 05/18/24 09:00 Dose: 10 mg Documented By: MYNOR Aspirin (Aspirin Enteric Coated 81 Mg Tablet.) 81 mg PO DAILY [facility] Last Admin: 05/18/24 09:00 Dose: 81 mg Documented By: MYNOR Buspirone HCl (Buspirone Hcl 10 Mg Tablet) 10 mg PO TID [facility] Last Admin: 05/18/24 20:31 Dose: 10 mg Documented By: ERICA Calcium Carbonate (Calcium Carbonate 750 Mg Tab.Chew) 750 mg PO Q4H PRN PRN Reason: Heartburn Clonidine HCl (Clonidine Hcl 0.1 Mg Tablet) 0.1 mg PO BEDTIME PRN; Protocol PRN Reason: Anxiety Last Admin: 05/11/24 22:51 Dose: 0.1 mg Documented By: MODE Clopidogrel Bisulfate (Clopidogrel Bisulfate 75 Mg Tablet) 75 mg PO DAILY [facility] Last Admin: 05/18/24 09:00 Dose: 75 mg Documented By: MYNOR Doxycycline Monohydrate (Doxycycline Monohydrate 100 Mg Capsule) 100 mg PO BID [facility] Last Admin: 05/18/24 20:30 Dose: 100 mg Documented By: ERICA Enoxaparin Sodium (Enoxaparin Sodium 40 Mg/0.4 Ml Syringe) 40 mg SUBCUT Q24H [facility] Last Admin: 05/18/24 18:16 Dose: 40 mg Documented By: MYNOR Hydromorphone HCl (Hydromorphone Hcl 1 Mg/Ml Syringe) 1 mg IVPUSH Q4H PRN; Protocol PRN Reason: Pain, Severe (Pain Scale 7-10) Last Admin: 05/18/24 21:58 Dose: 1 mg Documented By: REBEKAH Lisinopril (Lisinopril 10 Mg Tablet) 10 mg PO DAILY [facility]; Protocol Last Admin: 05/18/24 08:59 Dose: 10 mg Documented By: MYNOR Magnesium Hydroxide (Milk Of Magnesia 30 Ml Oral.Susp) 30 ml PO DAILY PRN PRN Reason: Constipation Melatonin (Melatonin 3 Mg Tablet) 6 mg PO BEDTIME PRN PRN Reason: Insomnia Nystatin (Nystatin Powder 15 Gm Bottle) 1 appl TOPICAL BID [facility]; Protocol Last Admin: 05/18/24 20:30 Dose: 1 appl Documented By: ERICA Ondansetron HCl (Ondansetron Hcl 4 Mg/2 Ml Vial) 4 mg IVPUSH Q8H PRN PRN Reason: Nausea and Vomiting Oxycodone HCl (Oxycodone Hcl Immed Release 5 Mg Tablet) 10 mg PO Q6H PRN PRN Reason: Pain, Moderate(Pain Scale 4-6) Last Admin: 05/19/24 00:51 Dose: 10 mg Documented By: REBEKAH Polyethylene Glycol (Polyethylene Glycol 3350 17 Gm Powd.Pack) 17 gm PO DAILY PRN PRN Reason: Constipation Polyethylene Glycol (Polyethylene Glycol 3350 17 Gm Powd.Pack) 17 gm PO BIDWM [facility] Last Admin: 05/18/24 16:02 Dose: 17 gm Documented By: MYNOR Sertraline HCl (Sertraline Hcl 100 Mg Tablet) 100 mg PO DAILY [facility] Last Admin: 05/18/24 08:59 Dose: 100 mg Documented By: MYNOR Sodium Chloride (0.9 % Sodium Chloride Flush 3 Ml Syringe) 3 ml IVFLUSH QSHIFT [facility] Last Admin: 05/18/24 21:58 Dose: 3 ml Documented By: REBEKAH Sodium Hypochlorite (Sodium Hypochlorite 0.125% 473 Ml Solution) 1 appl TOPICAL DAILY [facility] Last Admin: 05/18/24 09:00 Dose: 1 appl Documented By: MYNOR Zolpidem Tartrate (Zolpidem Tartrate 5 Mg Tablet) 10 mg PO BEDTIME PRN PRN Reason: Insomnia Last Admin: 05/18/24 20:30 Dose: 10 mg Documented By: ERICA Labs 05/17/24 05:40 05/19/24 06:07 Labs: Laboratory Results - last 24 hr 05/18/24 05/18/24 05/19/24 07:29 17:21 06:07 Anion Gap 13 10 L Estim Creat Clear Calc 118.8 124.7 Estimated GFR > 60 > 60 Random Glucose 118 H 126 H Calcium 8.9 9.3 Random Vancomycin 6.1 L Assessment and Plan (1) Acute osteomyelitis: Status: Acute Plan A 58-year-old male with a history of depression, obesity, and peripheral neuropathy here an infected recent amputation site with possible osteomylitis. Infected, amputation site wound, osteomyltis of the L 5th metatarsal, necrosis of 4th digit s/p amputation of the 4th toe, excisional debridement of eschar on previous 5th toe amputation site on 05/16 vancomcyin started 05/12, cultures negative Per ID no mcc Abx, vanco stopped 05/09, PO Doxy for now Dressing change per surgery HTN--uncontrolled - norvasc and lisinopril Hypokalemia--repleted and resolved PAD -Plavix, ASA Depression -continue Buspar Class 2 obesity, weight advised trought excercise and caloric restriction DVT prophyalxis--lovenox reason for hospitaliation: IV Abx for OM, gangrene of the foot and will need surgery Quality Stroke Does the patient have a stroke diagnosis?: No VTE Prior VTE?: No VTE Risk Level:: Medical - moderate - high VTE Device Contraindication: Treatment Not Indicated VTE Drug Contraindication: N/A - Med Ordered
[2024-05-19 07:29] VITALS: BP 141/78; PULSE 77; RESP 16; TEMP 36.2; O2SAT 98
[2024-05-19] MEDS: Aspirin Enteric Coated 81 MG TABLET.DR PO (07:36)
[2024-05-19] MEDS: lisinopriL 10 MG TABLET PO (07:37)
[2024-05-19] MEDS: Clopidogrel Bisulfate 75 MG TABLET PO (07:37)
[2024-05-19] MEDS: busPIRone HCl 10 MG TABLET PO ×3 (07:37→21:28)
[2024-05-19] MEDS: Doxycycline Monohydrate 100 MG CAPSULE PO ×2 (07:37→21:28)
[2024-05-19] MEDS: amLODIPine Besylate 10 MG TABLET PO (07:37)
[2024-05-19] MEDS: Nystatin Powder 15 GM BOTTLE 1 APPL TOPICAL ×2 (07:37→21:32)
[2024-05-19] MEDS: Sertraline HCL 100 MG TABLET PO (07:37)
[2024-05-19] MEDS: Sodium Hypochlorite 0.125% 473 ML SOLUTION 1 APPL TOPICAL (07:38)
[2024-05-19] MEDS: 0.9 % Sodium Chloride Flush 3 ML SYRINGE IVFLUSH ×3 (07:38→21:25)
[2024-05-19] MEDS: HYDROmorphone HCl 1 MG/ML SYRINGE IVPUSH ×3 (07:38→21:27)
--- NOTE | 2024-05-19 08:10 | PM.PNGS ---
Subjective Subjective Date of Service: 05/19/24 Interval history: He has no new complaints Describes some pain on the right foot Physical Exam Vital Signs: Vital Signs: Last Vital Signs Temp 97.2 F 05/19/24 07:29 Pulse 77 05/19/24 07:29 Resp 16 05/19/24 07:29 BP 141/78 H 05/19/24 07:29 Pulse Ox 98 05/19/24 07:29 O2 Del Method Room Air 05/19/24 07:29 O2 Flow Rate 3 05/16/24 11:30 BMI result Body Mass Index 34.3 Const: General: comfortable and no acute distress Resp: Effort & Inspection: normal respiratory effort Cardio: Rhythm: abnormal rhythm Extrem: Other: Right foot - amputation site 4th toe with note of some skin discoloration, no ongoing gangrene, the rest of the previous amputation site of the 5th toe clean, healing well, no pus Objective Data Active Medications Acetaminophen (Acetaminophen 325 Mg Tablet) 650 mg PO Q6H PRN PRN Reason: Pain, Mild (Pain Scale 1-3), fever or headache Last Admin: 05/13/24 22:48 Dose: 650 mg Documented By: KIM Amlodipine Besylate (Amlodipine Besylate 10 Mg Tablet) 10 mg PO DAILY [facility]; Protocol Last Admin: 05/19/24 07:37 Dose: 10 mg Documented By: DOREEN Aspirin (Aspirin Enteric Coated 81 Mg Tablet.Dr) 81 mg PO DAILY [facility] Last Admin: 05/19/24 07:36 Dose: 81 mg Documented By: DOREEN Buspirone HCl (Buspirone Hcl 10 Mg Tablet) 10 mg PO TID [facility] Last Admin: 05/19/24 07:37 Dose: 10 mg Documented By: DOREEN Calcium Carbonate (Calcium Carbonate 750 Mg Tab.Chew) 750 mg PO Q4H PRN PRN Reason: Heartburn Clonidine HCl (Clonidine Hcl 0.1 Mg Tablet) 0.1 mg PO BEDTIME PRN; Protocol PRN Reason: Anxiety Last Admin: 05/11/24 22:51 Dose: 0.1 mg Documented By: MODE Clopidogrel Bisulfate (Clopidogrel Bisulfate 75 Mg Tablet) 75 mg PO DAILY [facility] Last Admin: 05/19/24 07:37 Dose: 75 mg Documented By: DOREEN Doxycycline Monohydrate (Doxycycline Monohydrate 100 Mg Capsule) 100 mg PO BID [facility] Last Admin: 05/19/24 07:37 Dose: 100 mg Documented By: DOREEN Enoxaparin Sodium (Enoxaparin Sodium 40 Mg/0.4 Ml Syringe) 40 mg SUBCUT Q24H [facility] Last Admin: 05/18/24 18:16 Dose: 40 mg Documented By: MYNOR Hydromorphone HCl (Hydromorphone Hcl 1 Mg/Ml Syringe) 1 mg IVPUSH Q4H PRN; Protocol PRN Reason: Pain, Severe (Pain Scale 7-10) Last Admin: 05/19/24 07:38 Dose: 1 mg Documented By: DOREEN Lisinopril (Lisinopril 10 Mg Tablet) 10 mg PO DAILY [facility]; Protocol Last Admin: 05/19/24 07:37 Dose: 10 mg Documented By: DOREEN Magnesium Hydroxide (Milk Of Magnesia 30 Ml Oral.Susp) 30 ml PO DAILY PRN PRN Reason: Constipation Melatonin (Melatonin 3 Mg Tablet) 6 mg PO BEDTIME PRN PRN Reason: Insomnia Nystatin (Nystatin Powder 15 Gm Bottle) 1 appl TOPICAL BID [facility]; Protocol Last Admin: 05/19/24 07:37 Dose: 1 appl Documented By: DOREEN Ondansetron HCl (Ondansetron Hcl 4 Mg/2 Ml Vial) 4 mg IVPUSH Q8H PRN PRN Reason: Nausea and Vomiting Oxycodone HCl (Oxycodone Hcl Immed Release 5 Mg Tablet) 10 mg PO Q6H PRN PRN Reason: Pain, Moderate(Pain Scale 4-6) Last Admin: 05/19/24 00:51 Dose: 10 mg Documented By: REBEKAH Polyethylene Glycol (Polyethylene Glycol 3350 17 Gm Powd.Pack) 17 gm PO DAILY PRN PRN Reason: Constipation Polyethylene Glycol (Polyethylene Glycol 3350 17 Gm Powd.Pack) 17 gm PO BIDWM [facility] Last Admin: 05/19/24 07:32 Dose: Not Given Documented By: DOREEN Non-Admin Reason: Patient Refused Sertraline HCl (Sertraline Hcl 100 Mg Tablet) 100 mg PO DAILY [facility] Last Admin: 05/19/24 07:37 Dose: 100 mg Documented By: DOREEN Sodium Chloride (0.9 % Sodium Chloride Flush 3 Ml Syringe) 3 ml IVFLUSH QSHIFT [facility] Last Admin: 05/19/24 07:38 Dose: 3 ml Documented By: DOREEN Sodium Hypochlorite (Sodium Hypochlorite 0.125% 473 Ml Solution) 1 appl TOPICAL DAILY [facility] Last Admin: 05/19/24 07:38 Dose: 1 appl Documented By: DOREEN Zolpidem Tartrate (Zolpidem Tartrate 5 Mg Tablet) 10 mg PO BEDTIME PRN PRN Reason: Insomnia Last Admin: 05/18/24 20:30 Dose: 10 mg Documented By: ERICA Labs 05/17/24 05:40 05/19/24 06:07 Labs: Laboratory Results - last 24 hr 05/18/24 05/19/24 17:21 06:07 Anion Gap 10 L Estim Creat Clear Calc 124.7 Estimated GFR > 60 Random Glucose 126 H Calcium 9.3 Random Vancomycin 6.1 L Procedures Date of Service Date of Service: 05/19/24 Progress Note: A&P Assessment and plan (1) Toe gangrene: Status: Acute Assessment and Plan: Status post amputation of the 4th toe, debridement of previous 5th toe amputation site I have changes dressings - wrapped the foot with Kerlix and Natanael Some discoloration of the skin flap on the 4th toe Continue wound care Continue antibiotic coverage No weight-bearing on right Time Spent With Patient Time: Total time managing care of this patient today ____ minutes. Quality Stroke Does the patient have a stroke diagnosis?: No VTE Prior VTE?: No VTE Risk Level:: Medical - moderate - high VTE Device Contraindication: Treatment Not Indicated VTE Drug Contraindication: N/A - Med Ordered
[2024-05-19 10:14] VITALS: BP 141/78
--- NOTE | 2024-05-19 10:40 | MHC.CM.PN ---
Addendum entered by Valerie Marks 05/19/24 12:41: PT HAS ACCEPTED A BED OFFER FROM [facility] CURRENT PLAN IS FOR PT TO DC TOMORROW TO SN[facility] FOR STR BLS TRANSPORT Original Note: CM MET WITH PT TO DISCUSS DC PLANS PT SAYS HE IS WILLING TO GO TO STR HE IS UNABLE TO MANAGE AT HOME PER DISCUSSION AND PTS PREFERENCES, REFERRALS WERE MADE TO [place] [facility] ONLY TO DETERMINE BED OFFERS
[2024-05-19] MEDS: oxyCODONE HCl Immed Release 5 MG TABLET PO (15:00)
[2024-05-19 15:24] VITALS: BP 133/62; PULSE 77; RESP 20; TEMP 36; O2SAT 97
[2024-05-19] MEDS: Enoxaparin Sodium 40 MG/0.4 ML SYRINGE SUBCUT (21:28)
[2024-05-19] MEDS: Zolpidem Tartrate 5 MG TABLET 10 MG PO (21:42)
[2024-05-19 23:19] VITALS: BP 131/72; PULSE 80; RESP 17; TEMP 36.1; O2SAT 97
[2024-05-20] MEDS: HYDROmorphone HCl 1 MG/ML SYRINGE IVPUSH ×3 (06:07→14:52)
[2024-05-20 06:55] LABS: Anion Gap 11 (12-20); Blood Urea Nitrogen 11 mg/dL (9-16); Calcium 9.1 mg/dL (8.4-10.2); Carbon Dioxide 25 mmol/L (22-29); Chloride 106 mmol/L (96-108); Creatinine Clr Calc Pharmacy 120.2; Estimated Glomerular Filt Rate > 60; Glucose Random 128 mg/dL (60-115); Potassium 3.5 mmol/L (3.3-5.1); Sodium 138 mmol/L (135-145)
[2024-05-20 07:44] LABS: Hematocrit 35.1 % (42.0-52.0); Hemoglobin 11.9 g/dl (14.0-18.0); Mean Corpuscular HGB Conc 33.9 g/dl (31.0-36.0); Mean Corpuscular Hemoglobin 31.3 pg (27.0-33.0); Mean Corpuscular Volume 92.4 fL (80.0-98.0); Platelet Count 177 X10*3/uL (160-400); Red Cell Distribution Width 12.9 % (11.0-16.0)
[2024-05-20 08:00] VITALS: BP 170/75; PULSE 72; RESP 14; TEMP 36.3; O2SAT 99
[2024-05-20] MEDS: Sertraline HCL 100 MG TABLET PO (09:15)
[2024-05-20] MEDS: 0.9 % Sodium Chloride Flush 3 ML SYRINGE IVFLUSH ×2 (09:15→14:44)
[2024-05-20] MEDS: Clopidogrel Bisulfate 75 MG TABLET PO (09:15)
[2024-05-20] MEDS: lisinopriL 10 MG TABLET PO ×2 (09:16→10:40)
[2024-05-20] MEDS: Nystatin Powder 15 GM BOTTLE 1 APPL TOPICAL (09:16)
[2024-05-20] MEDS: amLODIPine Besylate 10 MG TABLET PO (09:16)
[2024-05-20] MEDS: Aspirin Enteric Coated 81 MG TABLET.DR PO (09:16)
[2024-05-20] MEDS: Doxycycline Monohydrate 100 MG CAPSULE PO (09:16)
[2024-05-20] MEDS: busPIRone HCl 10 MG TABLET PO ×2 (09:16→14:44)
[2024-05-20] MEDS: Sodium Hypochlorite 0.125% 473 ML SOLUTION 1 APPL TOPICAL (09:16)
--- NOTE | 2024-05-20 09:20 | P.PNGS_ITS ---
Subjective Subjective Date of Service: 05/20/24 Interval history: No new complaints Physical Exam 2 Vital Signs: Vital Signs: Last Vital Signs Temp 97.3 F 05/20/24 08:00 Pulse 72 05/20/24 08:00 Resp 14 05/20/24 08:00 BP 170/75 H 05/20/24 08:00 Pulse Ox 99 05/20/24 08:00 O2 Del Method Room Air 05/20/24 08:00 O2 Flow Rate 3 05/16/24 11:30 BMI result Body Mass Index 34.3 Const: General: comfortable and no acute distress Resp: Effort & Inspection: normal respiratory effort Extrem: Other: Right foot - amputation site, 4th and 5th toes generally healing well with note of some full-thickness dry skin necrosis on part of the flap, 1 cm in length I did sharp excisional debridement for this flap of skin Dressings applied - Dakin's dressings used for the small area at the distal incision Fluffy dressings applied and the foot was wrapped with Kerlix and Natanael Continue wound care Antibiotics Objective Data Active Medications Acetaminophen (Acetaminophen 325 Mg Tablet) 650 mg PO Q6H PRN PRN Reason: Pain, Mild (Pain Scale 1-3), fever or headache Last Admin: 05/13/24 22:48 Dose: 650 mg Documented By: KIM Amlodipine Besylate (Amlodipine Besylate 10 Mg Tablet) 10 mg PO DAILY [facility]; Protocol Last Admin: 05/20/24 09:16 Dose: 10 mg Documented By: DARYL Aspirin (Aspirin Enteric Coated 81 Mg Tablet.Dr) 81 mg PO DAILY [facility] Last Admin: 05/20/24 09:16 Dose: 81 mg Documented By: DARYL Buspirone HCl (Buspirone Hcl 10 Mg Tablet) 10 mg PO TID [facility] Last Admin: 05/20/24 09:16 Dose: 10 mg Documented By: DARYL Calcium Carbonate (Calcium Carbonate 750 Mg Tab.Chew) 750 mg PO Q4H PRN PRN Reason: Heartburn Clonidine HCl (Clonidine Hcl 0.1 Mg Tablet) 0.1 mg PO BEDTIME PRN; Protocol PRN Reason: Anxiety Last Admin: 05/11/24 22:51 Dose: 0.1 mg Documented By: MODE Clopidogrel Bisulfate (Clopidogrel Bisulfate 75 Mg Tablet) 75 mg PO DAILY [facility] Last Admin: 05/20/24 09:15 Dose: 75 mg Documented By: DARYL Doxycycline Monohydrate (Doxycycline Monohydrate 100 Mg Capsule) 100 mg PO BID [facility] Last Admin: 05/20/24 09:16 Dose: 100 mg Documented By: DARYL Enoxaparin Sodium (Enoxaparin Sodium 40 Mg/0.4 Ml Syringe) 40 mg SUBCUT Q24H [facility] Last Admin: 05/19/24 21:28 Dose: 40 mg Documented By: RUDY Hydromorphone HCl (Hydromorphone Hcl 1 Mg/Ml Syringe) 1 mg IVPUSH Q4H PRN; Protocol PRN Reason: Pain, Severe (Pain Scale 7-10) Last Admin: 05/20/24 06:07 Dose: 1 mg Documented By: RUDY Lisinopril (Lisinopril 10 Mg Tablet) 10 mg PO DAILY [facility]; Protocol Last Admin: 05/20/24 09:16 Dose: 10 mg Documented By: DARYL Magnesium Hydroxide (Milk Of Magnesia 30 Ml Oral.Susp) 30 ml PO DAILY PRN PRN Reason: Constipation Melatonin (Melatonin 3 Mg Tablet) 6 mg PO BEDTIME PRN PRN Reason: Insomnia Nystatin (Nystatin Powder 15 Gm Bottle) 1 appl TOPICAL BID [facility]; Protocol Last Admin: 05/20/24 09:16 Dose: 1 appl Documented By: DARYL Ondansetron HCl (Ondansetron Hcl 4 Mg/2 Ml Vial) 4 mg IVPUSH Q8H PRN PRN Reason: Nausea and Vomiting Oxycodone HCl (Oxycodone Hcl Immed Release 5 Mg Tablet) 5 mg PO Q6H PRN PRN Reason: Pain, Moderate(Pain Scale 4-6) Last Admin: 05/19/24 15:00 Dose: 5 mg Documented By: DOREEN Polyethylene Glycol (Polyethylene Glycol 3350 17 Gm Powd.Pack) 17 gm PO DAILY PRN PRN Reason: Constipation Polyethylene Glycol (Polyethylene Glycol 3350 17 Gm Powd.Pack) 17 gm PO BIDWM [facility] Last Admin: 05/20/24 09:13 Dose: Not Given Documented By: DARYL Non-Admin Reason: Patient Refused Sertraline HCl (Sertraline Hcl 100 Mg Tablet) 100 mg PO DAILY [facility] Last Admin: 05/20/24 09:15 Dose: 100 mg Documented By: DARYL Sodium Chloride (0.9 % Sodium Chloride Flush 3 Ml Syringe) 3 ml IVFLUSH QSHIFT [facility] Last Admin: 05/20/24 09:15 Dose: 3 ml Documented By: DARYL Sodium Hypochlorite (Sodium Hypochlorite 0.125% 473 Ml Solution) 1 appl TOPICAL DAILY [facility] Last Admin: 05/20/24 09:16 Dose: 1 appl Documented By: DARYL Zolpidem Tartrate (Zolpidem Tartrate 5 Mg Tablet) 10 mg PO BEDTIME PRN PRN Reason: Insomnia Last Admin: 05/19/24 21:42 Dose: 10 mg Documented By: RUDY Labs 05/20/24 05:15 05/20/24 05:15 Labs: Laboratory Results - last 24 hr 05/20/24 05:15 MCV 92.4 MCH 31.3 MCHC 33.9 RDW 12.9 Plt Count 177 MPV 12.0 Absolute Nucleated RBC 0.000 Nucleated RBC % (auto) 0.0 Hold Purple Top SEE NOTE Anion Gap 11 L Estim Creat Clear Calc 120.2 Estimated GFR > 60 Random Glucose 128 H Calcium 9.1 Procedures Date of Service Date of Service: 05/20/24 Progress Note: A&P Time Spent With Patient Time: Total time managing care of this patient today ____ minutes. Quality Stroke Does the patient have a stroke diagnosis?: No VTE Prior VTE?: No VTE Risk Level:: Medical - moderate - high VTE Device Contraindication: Treatment Not Indicated VTE Drug Contraindication: N/A - Med Ordered
--- NOTE | 2024-05-20 10:17 | HO.PM.IMPN ---
Subjective Subjective Date of Service: 05/20/24 Interval History: no new issues, s/p amputation and debridment 05/16 dressing changed by surgery, pain is controlled Physical Exam Vital Signs: Vital Signs: Last Vital Signs Temp 97.3 F 05/20/24 08:00 Pulse 72 05/20/24 08:00 Resp 14 05/20/24 08:00 BP 170/75 H 05/20/24 08:00 Pulse Ox 99 05/20/24 08:00 O2 Del Method Room Air 05/20/24 08:00 O2 Flow Rate 3 05/16/24 11:30 BMI result Body Mass Index 34.3 Const: Other: General: AO X 3, no acute distress Resp: CTA bilateral CVS: S1,S2,RRR GI: +BS, NT, no distention Skin: No rash--see below Neuro: motor grossly intact Psych: appropriate affect Extrem: Other: per Dr. Bender Right foot - amputation site, 4th and 5th toes generally healing well with note of some full-thickness dry skin necrosis on part of the flap, 1 cm in length I did sharp excisional debridement for this flap of skin Dressings applied - Dakin's dressings used for the small area at the distal incision Fluffy dressings applied and the foot was wrapped with Kerlix and Natanael Continue wound care Antibiotics Objective Data Active Medications Acetaminophen (Acetaminophen 325 Mg Tablet) 650 mg PO Q6H PRN PRN Reason: Pain, Mild (Pain Scale 1-3), fever or headache Last Admin: 05/13/24 22:48 Dose: 650 mg Documented By: KIM Amlodipine Besylate (Amlodipine Besylate 10 Mg Tablet) 10 mg PO DAILY [facility]; Protocol Last Admin: 05/20/24 09:16 Dose: 10 mg Documented By: DARYL Aspirin (Aspirin Enteric Coated 81 Mg Tablet.) 81 mg PO DAILY [facility] Last Admin: 05/20/24 09:16 Dose: 81 mg Documented By: DARYL Buspirone HCl (Buspirone Hcl 10 Mg Tablet) 10 mg PO TID [facility] Last Admin: 05/20/24 09:16 Dose: 10 mg Documented By: DARYL Calcium Carbonate (Calcium Carbonate 750 Mg Tab.Chew) 750 mg PO Q4H PRN PRN Reason: Heartburn Clonidine HCl (Clonidine Hcl 0.1 Mg Tablet) 0.1 mg PO BEDTIME PRN; Protocol PRN Reason: Anxiety Last Admin: 05/11/24 22:51 Dose: 0.1 mg Documented By: MODE Clopidogrel Bisulfate (Clopidogrel Bisulfate 75 Mg Tablet) 75 mg PO DAILY [facility] Last Admin: 05/20/24 09:15 Dose: 75 mg Documented By: DARYL Doxycycline Monohydrate (Doxycycline Monohydrate 100 Mg Capsule) 100 mg PO BID [facility] Last Admin: 05/20/24 09:16 Dose: 100 mg Documented By: DARYL Enoxaparin Sodium (Enoxaparin Sodium 40 Mg/0.4 Ml Syringe) 40 mg SUBCUT Q24H [facility] Last Admin: 05/19/24 21:28 Dose: 40 mg Documented By: RUDY Hydromorphone HCl (Hydromorphone Hcl 1 Mg/Ml Syringe) 1 mg IVPUSH Q4H PRN; Protocol PRN Reason: Pain, Severe (Pain Scale 7-10) Last Admin: 05/20/24 06:07 Dose: 1 mg Documented By: RUDY Lisinopril (Lisinopril 10 Mg Tablet) 10 mg PO DAILY [facility]; Protocol Last Admin: 05/20/24 09:16 Dose: 10 mg Documented By: DARYL Magnesium Hydroxide (Milk Of Magnesia 30 Ml Oral.Susp) 30 ml PO DAILY PRN PRN Reason: Constipation Melatonin (Melatonin 3 Mg Tablet) 6 mg PO BEDTIME PRN PRN Reason: Insomnia Nystatin (Nystatin Powder 15 Gm Bottle) 1 appl TOPICAL BID [facility]; Protocol Last Admin: 05/20/24 09:16 Dose: 1 appl Documented By: DARYL Ondansetron HCl (Ondansetron Hcl 4 Mg/2 Ml Vial) 4 mg IVPUSH Q8H PRN PRN Reason: Nausea and Vomiting Oxycodone HCl (Oxycodone Hcl Immed Release 5 Mg Tablet) 5 mg PO Q6H PRN PRN Reason: Pain, Moderate(Pain Scale 4-6) Last Admin: 05/19/24 15:00 Dose: 5 mg Documented By: DOREEN Polyethylene Glycol (Polyethylene Glycol 3350 17 Gm Powd.Pack) 17 gm PO DAILY PRN PRN Reason: Constipation Polyethylene Glycol (Polyethylene Glycol 3350 17 Gm Powd.Pack) 17 gm PO BIDWM [facility] Last Admin: 05/20/24 09:13 Dose: Not Given Documented By: DARYL Non-Admin Reason: Patient Refused Sertraline HCl (Sertraline Hcl 100 Mg Tablet) 100 mg PO DAILY [facility] Last Admin: 05/20/24 09:15 Dose: 100 mg Documented By: DARYL Sodium Chloride (0.9 % Sodium Chloride Flush 3 Ml Syringe) 3 ml IVFLUSH QSHIFT [facility] Last Admin: 05/20/24 09:15 Dose: 3 ml Documented By: DARYL Sodium Hypochlorite (Sodium Hypochlorite 0.125% 473 Ml Solution) 1 appl TOPICAL DAILY [facility] Last Admin: 05/20/24 09:16 Dose: 1 appl Documented By: DARYL Zolpidem Tartrate (Zolpidem Tartrate 5 Mg Tablet) 10 mg PO BEDTIME PRN PRN Reason: Insomnia Last Admin: 05/19/24 21:42 Dose: 10 mg Documented By: RUDY Labs 05/20/24 05:15 05/20/24 05:15 Labs: Laboratory Results - last 24 hr 05/20/24 05:15 MCV 92.4 MCH 31.3 MCHC 33.9 RDW 12.9 Plt Count 177 MPV 12.0 Absolute Nucleated RBC 0.000 Nucleated RBC % (auto) 0.0 Hold Purple Top SEE NOTE Anion Gap 11 L Estim Creat Clear Calc 120.2 Estimated GFR > 60 Random Glucose 128 H Calcium 9.1 Assessment and Plan (1) Acute osteomyelitis: Status: Acute Plan A 58-year-old male with a history of depression, obesity, and peripheral neuropathy here an infected recent amputation site with possible osteomylitis. 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, vanco stopped 05/09, PO Doxy for now Dressing change per surgery oxycodone and dilaudid HTN--uncontrolled - norvasc 10/d and lisinopril to 20/d Hypokalemia--repleted and resolved PAD -Plavix, ASA Depression -continue Buspar Class 2 obesity, weight advised trought excercise and caloric restriction DVT prophyalxis--lovenox reason for hospitaliation: s/p amputation, needs debridementand need acute rehab Quality Stroke Does the patient have a stroke diagnosis?: No VTE Prior VTE?: No VTE Risk Level:: Medical - moderate - high VTE Device Contraindication: Treatment Not Indicated VTE Drug Contraindication: N/A - Med Ordered
[2024-05-20] MEDS: oxyCODONE HCl Immed Release 5 MG TABLET PO ×2 (12:13→17:36)
--- NOTE | 2024-05-20 14:08 | P.DS_ITS ---
DS: Providers Provider Date of Service: 05/20/24 Date of admission: 05/11/24 18:51 Date of discharge: 05/20/24 Primary care physician: Darryl Domingo MD Consults: 05/11/24 18:52 Consult to General Surgery Routine Consulting Provider: [facility] General Surgeons Reason for consultation: infected surgical wound Has provider been notified: Yes 05/17/24 10:15 Consult to Infectious Diseases Routine Consulting Provider: [facility] Reason for consultation: infected amputated wound DS: Diagnosis Discharge Diagnosis (1) Acute osteomyelitis: Status: Acute DS: Summary Hospital Course Hospital Course: admission hpi Chief Complaint: Pain and drainage from recent amputation site A 58-year-old male with a history of depression, obesity, and peripheral neurop athy recent hopitalization from Apr 25 to for Left foot injury that resulted in an infected ulcer with exposed bone of the 5th digit. He was treated with IV Abx and ultimately had surgery with removal of the 5th digit and was ultimaley was discharged home with VNA. He comes back today due to pain and drainage, and redness of the wound and VNS was concerned and advised he comes to the ED. Xray of the are show Equivocal mild increased focal lucency at the head of the fifth metatarsal and base of the fifth proximal phalanx, findings might be related with osteomyelitis. WBC is normal. CRP is 13. ESR is pending Hospital course: Infected, amputation site wound, osteomyltis of the L 5th metatarsal, necrosis of 4th digit s/p amputation of the 4th toe, excisional debridement of eschar on previous 5th toe amputation site on 05/16. Patient was initially treated with IV vancomycin, culture have been negative. 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 Local care. Amputation if patient agrees?BKA Given that the patient cullutis also will treat with Doxycyline. To follow up with Surgery recommends Daily dressings with Dakins on the distal end. HTN--uncontrolled so Norvasc increased to 10 and Lisinopril increased to 20 Hypokalemia--repleted and resolved PAD -Plavix, ASA Depression -continue Buspar Class 2 obesity, weight advised trought excercise and caloric restriction Time Attestation Discharge Coordination Time (in mins): 45 Quality: Safe Use of Opioids Does Pt have an Active Cancer Diagnosis on the Problem List?: No Quality: Stroke Does the patient have a stroke diagnosis?: No Physical Exam Vital Signs: Vital Signs: Last Vital Signs Temp 97.3 F 05/20/24 08:00 Pulse 72 05/20/24 08:00 Resp 14 05/20/24 08:00 BP 170/75 H 05/20/24 08:00 Pulse Ox 99 05/20/24 08:00 O2 Del Method Room Air 05/20/24 08:00 O2 Flow Rate 3 05/16/24 11:30 BMI result Body Mass Index 34.3 DS: Data Data Completed and Pending Completed studies during hospitalization [Text1]: Pending at discharge 05/16/24 11:11 Surgical [PTH] Routine Procedures Detachment at Right 5th Toe, Complete, Open Approach (04/25/24) Dilation of Right Anterior Tibial Artery using Drug-Coated Balloon, Percutaneous Approach (04/25/24) Excision of Right Foot Tendon, Open Approach (04/25/24) Labs on day of discharge: Laboratory Results - last 24 hr 05/20/24 05:15 WBC 9.0 RBC 3.80 L Hgb 11.9 L Hct 35.1 L MCV 92.4 MCH 31.3 MCHC 33.9 RDW 12.9 Plt Count 177 MPV 12.0 Absolute Nucleated RBC 0.000 Nucleated RBC % (auto) 0.0 Hold Purple Top SEE NOTE Sodium 138 Potassium 3.5 Chloride 106 Carbon Dioxide 25 Anion Gap 11 L BUN 11 Creatinine 0.83 Estim Creat Clear Calc 120.2 Estimated GFR > 60 Random Glucose 128 H Calcium 9.1 Discharge Plan Discharge Anticipated Discharge Date/Time: 05/20/24 14:09 Patient Disposition: Xfer SNF Discharge Diagnosis: Cellulitis and Gangrene of the foot Referrals: Darryl Domingo MD [Primary Care Provider] - 1 Week Chavo Bender MD [Physician] - 1 Week Discharge Medications: New lisinopril 20 mg Tablet 20 mg PO DAILY Qty: 90 0RF Protocol: Hold for SBP< HOLD for SBP < : 90 amlodipine 10 mg Tablet 10 mg PO DAILY Qty: 90 0RF Protocol: Hold for SBP< HOLD for SBP < : 90 doxycycline monohydrate 100 mg Capsule 100 mg PO BID Qty: 20 0RF Continued clopidogrel 75 mg Tablet 75 mg PO DAILY 90 Days Qty: 90 0RF aspirin 81 mg Tablet,Delayed Release (Dr/Ec) 81 mg PO DAILY 90 Days Qty: 90 0RF polyethylene glycol 3350 17 gram Powder In Packet 17 g PO BIDWM Qty: 30 0RF sertraline 100 mg tablet 100 mg PO DAILY oxycodone 5 mg Tablet 5 mg PO Q6H PRN (Reason: Pain, Moderate(Pain Scale 4-6)) Qty: 20 0RF Rx Instructions: Partial Fill upon patient request. clonidine HCl 0.1 mg tablet 0.1 mg PO BEDTIME PRN (Reason: Anxiety) zolpidem 10 mg tablet 10 mg PO BEDTIME PRN (Reason: Sleep) buspirone 10 mg tablet 10 mg PO TID Discontinued amlodipine 5 mg Tablet 5 mg PO DAILY 90 Days Qty: 90 0RF Protocol: Hold for SBP< HOLD for SBP < : 90 lisinopril 10 mg Tablet 10 mg PO DAILY 90 Days Qty: 90 0RF Protocol: Hold for SBP< HOLD for SBP < : 90 Discharge Orders: Discharge Order (Routine); Ordered 05/20/24 Ordered By: Mahendra Summers Diet: Advance to usual diet Activity on Discharge: As tolerated Stand Alone Forms: Patient Portal Discharge page Print Language: Arabic Care Plan Goals: recovery from ampuation, surgery and foot ulcer Health Concerns: foot ulcer Plan of Treatment: takeantibiotics as recommended for ulcer Daily dressings with Dakins on the distal end. Assessment: see above Patient Instructions: Cellulitis (DC), Gangrene (DC) Discharge Date/Time: 05/20/24 17:43
[2024-05-20] MEDS: Milk of Magnesia 30 ML ORAL.SUSP PO (14:44)
[2024-05-20] MEDS: polyethylene glycoL 3350 17 GM POWD.PACK PO (14:44)
[2024-05-20 16:00] VITALS: BP 152/71; PULSE 79; RESP 14; TEMP 36.3; O2SAT 98
== END 2024-05-20 17:43 | disposition skilled nursing facility (03) | DRG 464 ==
LOC: HO.ED 17:44 → HO.EDOVER 19:08 → HO.S3 23:44
PROVIDERS: Physician Assistant Medical; Surgery; Admitting Provider Internal Medicine; Emergency Provider Emergency Medicine; PCP Internal Medicine; Visit Provider Internal Medicine
PROC: 0JBQ0ZZ Excision of Right Foot Subcutaneous Tissue and Fascia, Open Approach (ICD-10-PCS; principal; 2024-05-16 09:50)
DX: T87.43 Infection of amputation stump, right lower extremity (principal); E11.52 Type 2 diabetes mellitus with diabetic peripheral angiopathy with gangrene; M86.171 Other acute osteomyelitis, right ankle and foot; Y83.5 Amputation of limb(s) as the cause of abnormal reaction of the patient, or of later complication, without mention of misadventure at the time of the procedure; E87.6 Hypokalemia; I10 Essential (primary) hypertension; F32.A Depression, unspecified; E66.8 Other obesity; Z68.34 Body mass index [BMI] 34.0-34.9, adult; E11.42 Type 2 diabetes mellitus with diabetic polyneuropathy; I70.201 Unspecified atherosclerosis of native arteries of extremities, right leg; F17.210 Nicotine dependence, cigarettes, uncomplicated; Z71.6 Tobacco abuse counseling; Z79.02 Long term (current) use of antithrombotics/antiplatelets; Z79.82 Long term (current) use of aspirin; Z79.899 Other long term (current) drug therapy
CPT/HCPCS: 36415; 73630; 80048; 80053; 80202; 83605; 83735; 85025; 85027; 85652; 86140; 87040; 88305; 88311; 97162; 99285; J1100; J1170; J1650; J2250; J2405; J2704; J2795; J3010; J3370; J3371; J7120

== ENCOUNTER → 2024-05-11 18:51 | Outpatient (BNV) | payer MEDICARE, SELFPAY | PROVIDERS: Admitting Provider Internal Medicine; Emergency Provider Emergency Medicine; PCP Internal Medicine; Visit Provider Physician Assistant Surgical | DX: Z48.89 Encounter for other specified surgical aftercare (principal) | CPT/HCPCS: 11042; 28810; 99024; 99222; 99232; 99499 ==

== ENCOUNTER → 2024-05-11 18:51 | Outpatient (BNV) | payer MEDICARE, SELFPAY | PROVIDERS: Admitting Provider Internal Medicine; Emergency Provider Emergency Medicine; PCP Internal Medicine; Visit Provider Internal Medicine | DX: S98.131A Complete traumatic amputation of one right lesser toe, initial encounter (principal); L97.509 Non-pressure chronic ulcer of other part of unspecified foot with unspecified severity | CPT/HCPCS: 99222 ==

== ENCOUNTER → 2024-05-11 18:51 | Outpatient (BNV) | payer MEDICARE, SELFPAY | PROVIDERS: Admitting Provider Internal Medicine; Emergency Provider Emergency Medicine; PCP Internal Medicine; Visit Provider Internal Medicine | DX: M86.10 Other acute osteomyelitis, unspecified site (principal) | CPT/HCPCS: 99222; 99232; 99233; 99239 ==

== ENCOUNTER 2024-05-24 14:47 | Outpatient (AMB) | payer MEDICARE, SELFPAY ==
--- NOTE | 2024-05-24 14:50 | A.OFFVIS_ITS ---
Vital Signs 05/24/24 15:03 Height 5 ft 10 in Comment Pt in stretcher Intake Visit Reasons: amp site opening and possible gangrene Intake Note: This patient presents for wound check for opening amputation site and possible gangrene. Pt c/o; no complaints. Chief Of Hospital Medicine Required: No Accompanied by: Other Relationship Allergies codeine [Codeine] Allergy (Mild, Verified 05/24/24 15:10) RASH Codeine Allergy (Unknown, Uncoded 05/24/24 15:10) Rash Medication List - Last Reconciled 05/24/24 by Chavo Bender MD amlodipine 10 mg See Protocol PO DAILY aspirin 81 mg PO DAILY 90 days buspirone 10 mg PO TID clonidine HCl 0.1 mg PO BEDTIME PRN clopidogrel 75 mg PO DAILY 90 days doxycycline monohydrate 100 mg PO BID lisinopril 20 mg See Protocol PO DAILY oxycodone 5 mg PO Q6H PRN polyethylene glycol 3350 17 grams PO BIDWM sertraline 100 mg PO DAILY zolpidem 10 mg PO BEDTIME PRN HPI HPI amp site opening and possible gangrene: Details: He is here for follow-up for his amputation. He had undergone 5th toe amputation 3 weeks ago in the hospital for gangrene. However, he had to go amputation of 4th toe last week as well because of development of gangrene on this 4th toe He has been in [facility] since the weekend. He is extremely happy about care at [facility] as he says that they do not really do any wound care there. He denies any fever or chills. He denies any new pain. [facility] Medical History Depression PAD (peripheral artery disease) Toe gangrene Surgical History Hx of amputation Abdominal wall hernia Hx of appendectomy Social History Household Members: None Housing: House Do you presently have visiting nurse or other home services: Yes (s/p amp to R toe) Patient Tobacco Use Status: Current everyday Tobacco user Tobacco use type: Cigarette Cigarette Packs Per Day: 0.5 Cigarettes Per Day: 10 Years Smoked: 43 e-Cigarette/Vaping Use: Never Used Second Hand Smoke Exposure: Yes Substance Use Type: Marijuana service: No Review of Systems Const Denies chills and Denies fever(s) Card Denies chest pain Resp Denies cough GI Denies abdominal pain Physical Exam Const General: comfortable and no acute distress Resp Effort & Inspection: normal respiratory effort GI Palpation (GI): Soft to palpation Extrem Other: Right foot open wound with amputation of 4th and 5th toes. There is note of a large open wound from the amputation site extending to the proximal area of the lateral right foot. There is good healthy granulation on the more proximal area of the open wound from the previous amputation of the 5th toe. However, at the 4th toe amputation site is note of some nonviable tissue, covering an area about 2 x 2 cm. This includes full-thickness of skin Assessment & Plan Assessment & Plan (1) Amputation of fifth toe of right foot: Code(s): S98.131A - Complete traumatic amputation of one right lesser toe, initial encounter Category: Medical Plan: I proceeded to sharp excisional debridement of the nonviable tissue on the distal aspect of the open wound using fine scissors. I removed most of the sutures as well I applied wet-to-dry dressings. I wrapped the foot with gauze and Kerlix roll I told him that I need to see him again next week to do a wound check. He is to continue the same daily wound care. He says that he is planning to sign out of [facility] as he is extremely happy with care there. I told him that if he discharges himself from [facility], he should make sure that he continues to do good wound care. I will see him again next week in the office otherwise. I gave him samples of gauze and the Abelardo roll. We will assist him in establishing care with a visiting nurse as well. (2) Osteomyelitis: Code(s): M86.9 - Osteomyelitis, unspecified Category: Medical Plan: I have changed his dressings. The same wound care as I explained above should be done. Coding Level of Care Code Global (04947) Diagnoses Amputation of fifth toe of right foot S98.131A Osteomyelitis M86.9
== END 2024-05-24 15:52 | disposition home or self-care (01) ==
PROVIDERS: PCP Internal Medicine; Visit Provider Surgery
DX: S98.131A Complete traumatic amputation of one right lesser toe, initial encounter (principal); M86.9 Osteomyelitis, unspecified
CPT/HCPCS: 99024

== ENCOUNTER → 2024-05-24 14:47 | Outpatient (BNVA) | payer MEDICARE, SELFPAY | PROVIDERS: PCP Internal Medicine; Visit Provider Surgery | DX: S98.131D Complete traumatic amputation of one right lesser toe, subsequent encounter (principal); M86.9 Osteomyelitis, unspecified | CPT/HCPCS: 99212 ==

== ENCOUNTER 2024-06-01 10:41 | Outpatient (AMB) | payer MEDICARE, SELFPAY ==
[2024-06-01 10:54] VITALS: BMI 32.7
--- NOTE | 2024-06-01 10:54 | MHC.OFFVIS ---
Vital Signs 06/01/24 10:54 Height 5 ft 10 in Weight 228 lb BMI 32.7 Intake Visit Reasons: wound check Intake Note: This patient presents for wound check assessment. Pt c/o; reports VNA nurses do wound check/dressing changes every other day. 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 Required: No Accompanied by: Other Relationship Allergies codeine [Codeine] Allergy (Mild, Verified 06/01/24 11:01) RASH Codeine Allergy (Unknown, Uncoded 06/01/24 11:01) Rash Medication List - Last Reconciled 06/01/24 by Chavo Bender MD amlodipine 10 mg See Protocol PO DAILY aspirin 81 mg PO DAILY 90 days buspirone 10 mg PO TID clonidine HCl 0.1 mg PO BEDTIME PRN clopidogrel 75 mg PO DAILY 90 days doxycycline monohydrate 100 mg PO BID lisinopril 20 mg See Protocol PO DAILY oxycodone 5 mg PO Q6H PRN polyethylene glycol 3350 17 grams PO BIDWM sertraline 100 mg PO DAILY zolpidem 10 mg PO BEDTIME PRN HPI HPI wound check: Details: He is here for a wound check after amputation of the 4th toe. He denies any new complaints. Dressing changes are being done by the visiting nurse and his daughter. [facility] Medical History Osteomyelitis Acute osteomyelitis Depression PAD (peripheral artery disease) Toe gangrene Surgical History Hx of amputation Abdominal wall hernia Hx of appendectomy Social History Household Members: None Housing: House Do you presently have visiting nurse or other home services: Yes (s/p amp to R toe) Patient Tobacco Use Status: Current everyday Tobacco user Tobacco use type: Cigarette Cigarette Packs Per Day: 0.5 Cigarettes Per Day: 10 Years Smoked: 43 e-Cigarette/Vaping Use: Never Used Second Hand Smoke Exposure: Yes Substance Use Type: Marijuana service: No Review of Systems Const Denies chills and Denies fever(s) Card Denies chest pain at rest Resp Denies cough GI Denies abdominal pain Physical Exam Vital Signs: BMI result Body Mass Index 32.7 Const Other: On wheelchair General: comfortable and no acute distress Resp Effort & Inspection: normal respiratory effort Extrem Other: Open wound on the right foot with good granulation mostly. There is note of a thin eschar on the distal aspect about 2 x 1 cm, no pus Office Procedures Debridement Details: I sharply debrided an area of about 2 x 1 cm of the open wound because of the thin eschar. This was done using fine scissors. I then applied wet-to-dry dressings and wrapped the foot with Abelardo roll and Natanael bandage. 55787-[id number] of skin tissue Procedure code (CPT) selection complete Assessment & Plan Assessment & Plan (1) PAD (peripheral artery disease): Code(s): I73.9 - Peripheral vascular disease, unspecified Category: Medical Plan: Status post amputation of the 4th toe after amputation of the 5th toe. The open wound seems to be healing much better. There was note of good granulation tissue. There was note of a thin eschar on the distal aspect of the amputation site. I debrided this sharply with scissors. I applied wet-to-dry dressings. He should continue with daily dressing changes. I will see him again in the office in about 2-3 weeks. Orders: Referrals [facility] Referral I96 - Gangrene, not elsewhere classified, M86.9 - Osteomyelitis, unspecified, S98.131A - Complete traumatic amputation of one right lesser toe, initial encounter Coding Level of Care Code Procedure Only Diagnoses PAD (peripheral artery disease) I73.9 CPT Codes Skin Debridement - CPT: 59808-Thsdbeirkld of skin tissue ([id number])
== END 2024-06-01 11:30 | disposition home or self-care (01) ==
PROVIDERS: PCP Internal Medicine; Visit Provider Surgery
DX: I73.9 Peripheral vascular disease, unspecified (principal)
CPT/HCPCS: 99024

== ENCOUNTER → 2024-06-01 10:41 | Outpatient (BNVA) | payer MEDICARE, SELFPAY | PROVIDERS: PCP Internal Medicine; Visit Provider Surgery | DX: Z47.81 Encounter for orthopedic aftercare following surgical amputation (principal); I96 Gangrene, not elsewhere classified; M86.9 Osteomyelitis, unspecified; Z89.421 Acquired absence of other right toe(s) | CPT/HCPCS: 11042; 97597; 99212 ==

== ENCOUNTER 2024-06-15 10:55 | Outpatient (AMB) | payer MEDICARE, SELFPAY ==
--- NOTE | 2024-06-15 11:21 | MHC.OFFVIS ---
Vital Signs 06/15/24 11:24 Height 5 ft 10 in Weight 227 lb 15.998 oz BMI 32.7 Intake Visit Reasons: 2 week follow up wound check Intake Note: This patient presents for 2 week follow up wound check. Pt c/o; reports no complaints. Assembly Adjuster Required: No Accompanied by: Other Relationship Allergies codeine [Codeine] Allergy (Mild, Verified 06/15/24 11:22) RASH Codeine Allergy (Unknown, Uncoded 06/15/24 11:22) Rash HPI HPI 2 week follow up wound check: Details: He is here for a wound check after amputation of the 4th toe last May 16. He denies any new complaints. A visiting nurse comes in every other day changed his dressings with wet-to-dry. A family member changes it in between those days. [facility] Medical History Osteomyelitis Acute osteomyelitis Depression PAD (peripheral artery disease) Toe gangrene Surgical History Hx of amputation Abdominal wall hernia Hx of appendectomy Social History Household Members: None Housing: House Do you presently have visiting nurse or other home services: Yes (s/p amp to R toe) Patient Tobacco Use Status: Current everyday Tobacco user Tobacco use type: Cigarette Cigarette Packs Per Day: 0.5 Cigarettes Per Day: 10 Years Smoked: 43 e-Cigarette/Vaping Use: Never Used Second Hand Smoke Exposure: Yes Substance Use Type: Marijuana service: No Review of Systems Const Denies chills and Denies fever(s) Physical Exam Vital Signs: BMI result Body Mass Index 32.7 Const General: comfortable and no acute distress Extrem Other: Open wound on the lateral aspect of the right foot from the previous amputation of the 5th toe down to the metatarsal. The 4th amputation site is also open. There was note of good granulation although there were some patches of nonviable tissue distally Assessment & Plan Assessment & Plan (1) Amputation of fifth toe of right foot: Code(s): S98.131A - Complete traumatic amputation of one right lesser toe, initial encounter Category: Medical Plan: I had amputated the 4th toe as well because of gangrene. He has an open wound on the lateral aspect with good healthy granulation. I did some sharp excisional debridement with scissors for patches of nonviable coating of skin I will see him in the office in about 3 weeks He is to continue to do daily wet-to-dry dressing changes. I will prescribe him some oral narcotics. Coding Level of Care Code Global (37071) Diagnoses Amputation of fifth toe of right foot S98.131A
[2024-06-15 11:24] VITALS: BMI 32.7
== END 2024-06-15 11:31 | disposition home or self-care (01) ==
PROVIDERS: PCP Internal Medicine; Visit Provider Surgery
DX: S98.131A Complete traumatic amputation of one right lesser toe, initial encounter (principal)
CPT/HCPCS: 99024

== ENCOUNTER → 2024-06-15 10:55 | Outpatient (BNVA) | payer MEDICARE, SELFPAY | PROVIDERS: PCP Internal Medicine; Visit Provider Surgery | DX: S98.131D Complete traumatic amputation of one right lesser toe, subsequent encounter (principal); T87.89 Other complications of amputation stump; X58.XXXD Exposure to other specified factors, subsequent encounter; Z89.421 Acquired absence of other right toe(s) | CPT/HCPCS: 99212 ==

== ENCOUNTER 2024-06-22 13:10 | Outpatient (AMB) | payer MEDICARE, SELFPAY ==
--- NOTE | 2024-06-22 13:11 | MHC.OFFVIS ---
Intake Visit Reasons: wound check ? exposed bone Intake Note: This patient presents for wound check. Pt c/o; reports [facility]NA were concerned with the wound and made and this appointment for to check the area. Crisis Counselor Required: No Accompanied by: Other Relationship Allergies codeine [Codeine] Allergy (Mild, Verified 06/22/24 13:16) RASH Codeine Allergy (Unknown, Uncoded 06/22/24 13:16) Rash HPI HPI wound check ? exposed bone: Details: He is here for follow-up after amputation of the 4th and 5th toes. He is visiting nurse had called the office and wanted him checked because of eschar on the distal aspect of the incision towards the 3rd toe. The patient says that he feels well. He denies any significant complaints except for the pain. He feels that the amputation site is healing. [facility] Medical History (Updated 06/22/24 @ 14:07 by Chavo Bender MD) Wound of foot Osteomyelitis Acute osteomyelitis Depression PAD (peripheral artery disease) Toe gangrene Surgical History Hx of amputation Abdominal wall hernia Hx of appendectomy Social History Household Members: None Housing: House Do you presently have visiting nurse or other home services: Yes (s/p amp to R toe) Patient Tobacco Use Status: Current everyday Tobacco user Tobacco use type: Cigarette Cigarette Packs Per Day: 0.5 Cigarettes Per Day: 10 Years Smoked: 43 e-Cigarette/Vaping Use: Never Used Second Hand Smoke Exposure: Yes Substance Use Type: Marijuana service: No Review of Systems Const Denies chills and Denies fever(s) Card Denies chest pain Resp Denies cough GI Denies abdominal pain Physical Exam Const Other: On wheelchair General: comfortable and no acute distress Resp Effort & Inspection: normal respiratory effort Cardio Rate: regular rate Extrem Other: Amputation site with note of open wound, starting from the midfoot on the area granulating well except for the area towards the 3rd toe which has some thin dry eschar. Part of the bone may be exposed as well on the distal metatarsal of the 3rd foot the area appears clean Office Procedures Debridement Details: There was note of thin eschar covering about 2 x 1 cm of the distal wound towards the 3rd toe. I excised this using fine scissors. I applied wet-to-dry dressings and wrapped the foot with Kerlix and Natanael. [id number]-[id number] of skin tissue Procedure code (CPT) selection complete Assessment & Plan Assessment & Plan (1) Wound of foot: Code(s): S91.309A - Unspecified open wound, unspecified foot, initial encounter Category: Medical Plan: He has an open wound on the lateral aspect of the right foot after amputation of the 4th and 5th toes for gangrene. I did sharp excisional debridement of thin eschar measuring about 2 x 1 cm on the distal aspect. I applied wet-to-dry dressings and wrapped the foot with Kerlix and he has I instructed his daughter Airam to the same every day. I will see him again in the office for a follow-up for another wound check in about 2 weeks. He understands that if there is poor healing, he may need further amputation including amputation of the 3rd toe with a BKA. Coding Level of Care Code Est Pt Level 1 (13056) Diagnoses Wound of foot S91.309A CPT Codes Skin Debridement - CPT: 18152-Fwsazrtuqrx of skin tissue ([id number])
== END 2024-06-22 14:03 | disposition home or self-care (01) ==
PROVIDERS: PCP Internal Medicine; Visit Provider Surgery
DX: S91.309A Unspecified open wound, unspecified foot, initial encounter (principal)
CPT/HCPCS: 99024

== ENCOUNTER → 2024-06-22 13:10 | Outpatient (BNVA) | payer MEDICARE, SELFPAY | PROVIDERS: PCP Internal Medicine; Visit Provider Surgery | DX: S98.211D Complete traumatic amputation of two or more right lesser toes, subsequent encounter (principal) | CPT/HCPCS: 11042; 99212 ==

== ENCOUNTER 2024-07-06 10:51 | Outpatient (AMB) | payer MEDICARE, SELFPAY ==
--- NOTE | 2024-07-06 10:52 | A.OFFVIS_ITS ---
Intake Visit Reasons: 3 week follow up wound check Intake Note: This patient presents for three week follow up wound check. Pt c/o; reports VNA nurse has been putting a cream on the wound and now it is bleeding. Timber Trimmer Required: No Accompanied by: Daughter Allergies codeine [Codeine] Allergy (Mild, Verified 07/06/24 10:57) RASH Codeine Allergy (Unknown, Uncoded 07/06/24 10:57) Rash Medication List - Last Reconciled 07/06/24 by Chavo Bender MD amlodipine 10 mg See Protocol PO DAILY aspirin 81 mg PO DAILY 90 days buspirone 10 mg PO TID clonidine HCl 0.1 mg PO BEDTIME PRN clopidogrel 75 mg PO DAILY 90 days doxycycline monohydrate 100 mg PO BID lisinopril 20 mg See Protocol PO DAILY oxycodone 5 mg PO Q6H PRN polyethylene glycol 3350 17 grams PO BIDWM sertraline 100 mg PO DAILY zolpidem 10 mg PO BEDTIME PRN HPI HPI 3 week follow up wound check: Details: He is here for another follow-up after amputation of 4th and 5th toes. He has this open wound from the amputation site extending from the lateral aspect of the midfoot to the base of the 3rd toe. Dressing changes are being done using triad. He denies new complaints although he says that he notices that there seemed to be more oozing with blood since he started using the triad. He describes periodic throbbing pain as well of the foot. [facility] Medical History Wound of foot Osteomyelitis Acute osteomyelitis Depression PAD (peripheral artery disease) Toe gangrene Surgical History Hx of amputation Abdominal wall hernia Hx of appendectomy Social History Household Members: None Housing: House Do you presently have visiting nurse or other home services: Yes (s/p amp to R toe) Patient Tobacco Use Status: Current everyday Tobacco user Tobacco use type: Cigarette Cigarette Packs Per Day: 0.5 Cigarettes Per Day: 10 Years Smoked: 43 e-Cigarette/Vaping Use: Never Used Second Hand Smoke Exposure: Yes Substance Use Type: Marijuana service: No Review of Systems Const Denies chills and Denies fever(s) Physical Exam Const Other: On wheelchair General: comfortable and no acute distress Resp Effort & Inspection: normal respiratory effort Cardio Rate: regular rate Extrem Other: Open wound on the right foot at the lateral aspect of the midfoot extending to the base of the 3rd toe. The lengthwise dimension has decreased significantly. There was note of some slight oozing areas on the periphery of the open wound. There seems to be good granulation tissue underneath. There is some discolored skin at the base of the 3rd toe laterally; there is no cellulitis or pus Assessment & Plan Assessment & Plan (1) Amputation of fifth toe of right foot: Code(s): S98.131A - Complete traumatic amputation of one right lesser toe, initial encounter Category: Medical Plan: He has an open wound as described above. We can continue with the same wound care with dressing changes with triad. I have changed his dressings here in the office as well I did explain to him the option of a more proximal amputation with a BKA as he describes slow improvement with the amputation site. He does have peripheral artery disease so this will affect healing as well and he is aware of this He wants to continue to say of the foot for now. He will continue the same wound care and I will see him in about 2 weeks. Coding Level of Care Code Est Pt Level 3 (83510) Diagnoses Amputation of fifth toe of right foot S98.131A
== END 2024-07-06 11:31 | disposition home or self-care (01) ==
PROVIDERS: PCP Internal Medicine; Visit Provider Surgery
DX: S98.131A Complete traumatic amputation of one right lesser toe, initial encounter (principal)
CPT/HCPCS: 99024

== ENCOUNTER → 2024-07-06 10:51 | Outpatient (BNVA) | payer MEDICARE, SELFPAY | PROVIDERS: PCP Internal Medicine; Visit Provider Surgery | DX: S91.301D Unspecified open wound, right foot, subsequent encounter (principal); T87.89 Other complications of amputation stump; I73.9 Peripheral vascular disease, unspecified; X58.XXXD Exposure to other specified factors, subsequent encounter; Z89.421 Acquired absence of other right toe(s) | CPT/HCPCS: 99212 ==

== ENCOUNTER 2024-08-02 12:41 | Outpatient (AMB) | payer MEDICARE, SELFPAY ==
--- NOTE | 2024-08-02 13:03 | MHC.OFFVIS ---
Vital Signs 08/02/24 13:14 Height 5 ft 10 in Weight 227 lb 15.998 oz BMI 32.7 Intake Visit Reasons: 3 week follow up wound check Intake Note: This patient presents for a three week follow-up wound check, Amputation of fifth toe of right foot. Pt c/o; reports looks like the toe is falling off . Fiction Writer Required: No Accompanied by: Daughter Allergies codeine [Codeine] Allergy (Mild, Verified 08/02/24 13:04) RASH Codeine Allergy (Unknown, Uncoded 08/02/24 13:04) Rash Medication List - Last Reconciled 08/02/24 by Chavo Bender MD amlodipine 10 mg See Protocol PO DAILY aspirin 81 mg PO DAILY 90 days buspirone 10 mg PO TID clonidine HCl 0.1 mg PO BEDTIME PRN clopidogrel 75 mg PO DAILY 90 days doxycycline monohydrate 100 mg PO BID lisinopril 20 mg See Protocol PO DAILY oxycodone 5 mg PO Q6H PRN polyethylene glycol 3350 17 grams PO BIDWM sertraline 100 mg PO DAILY zolpidem 10 mg PO BEDTIME PRN HPI HPI 3 week follow up wound check: Details: 59-year-old male here for a postop visit. He had undergone amputation of the 5th and the 4th toes last April 2024 of the right foot. He has had an open wound and this is being cared for with dressing changes. However, he had noticed the 3rd toe on the right to be getting dark in color for the past week. He says this has been like this for several days now He denies fever or chills. He describes occasional pain in the area and still gets some narcotics for this He states otherwise that the old amputation site seemed to have been healing well. He does have known peripheral vascular disease and has undergone plasty of the anterior tibial and peroneal arteries with Dr. Wisdom last April,. [facility] Medical History Wound of foot Osteomyelitis Acute osteomyelitis Depression PAD (peripheral artery disease) Toe gangrene Surgical History Hx of amputation Abdominal wall hernia Hx of appendectomy Social History Household Members: None Housing: House Do you presently have visiting nurse or other home services: Yes (s/p amp to R toe) Patient Tobacco Use Status: Current everyday Tobacco user Tobacco use type: Cigarette Cigarette Packs Per Day: 0.5 Cigarettes Per Day: 10 Years Smoked: 43 e-Cigarette/Vaping Use: Never Used Second Hand Smoke Exposure: Yes Substance Use Type: Marijuana service: No Review of Systems Const Denies chills and Denies fever(s) Card Denies chest pain, Denies dyspnea and Denies dyspnea on exertion Resp Denies cough, Denies dyspnea and Denies dyspnea on exertion GI Denies hematochezia and Denies change in bowel habits Denies hematuria and Denies difficulty urinating Musc Denies back pain and Denies limited range of motion Neuro Denies focal weakness and Denies convulsions Psych Denies depression and Denies mood swings Physical Exam Vital Signs: BMI result Body Mass Index 32.7 Const General: comfortable and no acute distress Orientation/consciousness: patient oriented x3 Neck Neck: Yes no lymphadenopathy Resp Auscultation: clear to auscultation bilaterally Cardio Rhythm: regular rhythm GI Palpation (GI): Soft to palpation, nontender and no guarding Neuro General: patient oriented x3 Extrem Other: Gangrene of the 3rd toe on the right, generally dry, scanty discharge at the base Assessment & Plan Assessment & Plan (1) Toe gangrene: Code(s): I96 - Gangrene, not elsewhere classified Category: Medical Plan: He now has gangrene of the 3rd toe on the right. I explained to him that this needs to be amputated. I did explain to him the option of a BKA of the right instead as he has had amputation of the 4th and 5th toes already. He says that he really wants the saved and only wants the 3rd toe amputated. I explained to her the technique of this procedure. I reviewed the risks including but not limited to bleeding, infections, poor healing, the need for more proximal amputation down the line, as well as the benefits and alternatives He understands and agrees to proceed. We will put him on the add on schedule for tomorrow. He otherwise looks well. He is daughter was with him during the visit. He had undergone plasty of the peroneal and anterior tibial arteries on the right with Dr. Green last April 2024 as well. Coding Level of Care Code Est Pt Level 3 (91084) Diagnoses Toe gangrene I96
[2024-08-02 13:14] VITALS: BMI 32.7
== END 2024-08-02 13:56 | disposition home or self-care (01) ==
PROVIDERS: PCP Internal Medicine; Visit Provider Surgery
DX: I96 Gangrene, not elsewhere classified (principal)
CPT/HCPCS: 99024

== ENCOUNTER → 2024-08-02 12:41 | Outpatient (BNVA) | payer MEDICARE, SELFPAY | PROVIDERS: PCP Internal Medicine; Visit Provider Surgery | DX: I96 Gangrene, not elsewhere classified (principal); F17.210 Nicotine dependence, cigarettes, uncomplicated; Z89.421 Acquired absence of other right toe(s) | CPT/HCPCS: 99212 ==

== ENCOUNTER 2024-08-03 11:50 | Day surgery (SDC) | payer MEDICARE, SELFPAY ==
--- NOTE | 2024-08-03 12:42 | MHC.SHP ---
Pre-Procedural Eval Section A - 24 Hr Update-Section A only Date of Service: 08/03/24 The patient is an INPATIENT: No Changes since office visit: No Cold of Flu in the past 2 weeks, No New Medical Problems, No Changes in Medication and No Patient answered all questions The patient has been examined within 24 hours of the surgical procedure. The History & Physical has been completed within 30 days and I have reviewed it.: Yes Section B - Complete if H&P > 30 days Chief Complaint: Gangrene, not elsewhere classified Allergies: Allergies Allergy/AdvReac Type Severity Reaction Status Date / Time codeine [Codeine] Allergy Mild RASH Verified 08/02/24 13:04 Codeine Allergy Unknown Rash Uncoded 08/02/24 13:04 Plan I have reviewed the history and physical and performed a pertinent physical examination on my patient. No changes have occurred unless specified. Time Spent With Patient Time: Total time managing care of this patient today ____ minutes.
[2024-08-03 12:58] VITALS: BMI 30.8
[2024-08-03 13:03] VITALS: BP 138/66; PULSE 77; RESP 16; TEMP 36.6; O2SAT 98
[2024-08-03] MEDS: Lactated Ringers 1,000 ML 80 ML IVCONT (13:29)
--- NOTE | 2024-08-03 13:54 | HO.ANESPROP2 ---
HPI - Anesthesia Eval Consult details Narrative: 59 yo am presenting for right 3rd toe amputation. PMFSH Active Problems Active Problems: All Active Problems Wound of foot (Acute) Amputation of fifth toe of right foot (Acute) PAD (peripheral artery disease) (Acute) HTN (hypertension) (Acute) Foot ulcer (Acute) Encounter for subsequent annual wellness visit (AWV) in Medicare patient (Acute) Obesity (Acute) Depression (Acute) Encounter for initial annual wellness visit (AWV) in Medicare patient (Acute) Toe gangrene (Acute) Past Medical History Medical History Wound of foot Osteomyelitis Acute osteomyelitis Depression PAD (peripheral artery disease) Toe gangrene Family History Family history of problems with anesthesia: No Surgical History Surgical History Hx of amputation Abdominal wall hernia Hx of appendectomy History of Problems with Anesthesia: No Social History Social History Household Members: None Housing: House Do you presently have visiting nurse or other home services: Yes (s/p amp to R toe) Patient Tobacco Use Status: Current everyday Tobacco user Tobacco use type: Cigarette Cigarette Packs Per Day: 1 Cigarettes Per Day: 20.0 Years Smoked: 43 e-Cigarette/Vaping Use: Never Used Second Hand Smoke Exposure: No Use of substances other than those prescribed or required for medical reasons: No Substance Use Type: Marijuana Are you DNR?: No Advance Directives: No Advance Directives Information Provided: Yes Advance Directives on File: No service: No Meds Allergies Allergy/AdvReac Type Severity Reaction Status Date / Time codeine [Codeine] Allergy Mild RASH Verified 08/02/24 13:04 Codeine Allergy Unknown Rash Uncoded 08/02/24 13:04 Active Medications: Current Medications Lactated Ringer's (Lr) 1,000 mls @ 80 mls/hr IVCONT .[id number] WOOD Last Admin: 08/03/24 13:29 Dose: 80 mls/hr Home Medications ?Medication ?Instructions ?Recorded ?Confirmed ?Last Taken ?Type buspirone 10 mg tablet 10 mg PO TID 04/03/22 08/02/24 05/11/24 06:00 History clonidine HCl 0.1 mg tablet 0.1 mg PO BEDTIME PRN Anxiety 04/03/22 08/02/24 05/10/24 History zolpidem 10 mg tablet 10 mg PO BEDTIME PRN Sleep 04/03/22 08/02/24 05/10/24 History sertraline 100 mg tablet 100 mg PO DAILY 05/11/24 08/02/24 05/11/24 06:00 History Exam Exam Date and Time: 08/03/24 1330 Height,Weight and Vital Signs: Height 6 ft Weight 102.994 kg Last Vital Signs Temp 97.9 F 08/03/24 13:03 Pulse 77 08/03/24 13:03 Resp 16 08/03/24 13:03 BP 138/66 08/03/24 13:03 Pulse Ox 98 08/03/24 13:03 O2 Del Method Room Air 08/03/24 13:03 Airway Mallampati Class: III TM Dist: >3cm Neck ROM: Full Loose/Missing/Broken Teeth: Yes (poor dentition with multiple missing and broken teeth) Heart: S1S2 Lungs: CTAB Assessment and Plan Assessment Anesthesia Assessment: Anesthesia Plan Discussed and Chart Reviewed Final Anesthetic Review Family History of Problems with Anesthesia: No History of Problems with Anesthesia: No NPO: Yes ASA Class: III Final Preanesthetic Review: No Changes in Pt Med Stat, Meds/Allgs Chart Reviewed, Consent Obtained/Reviewed and Anes Risks/Benef Reviewed Patient Risk: Intermediate Procedure Risk: Low Anesthetic Plan Anesthetic Plan: MAC: and Agree w/ Assess. and Plan Disposition: Standard PACU
[2024-08-03 15:09] VITALS: BP 101/55; PULSE 73; RESP 16; TEMP 36.6; O2SAT 97
[2024-08-03 15:23] VITALS: BP 104/59; PULSE 68; RESP 16; O2SAT 96
[2024-08-03 15:38] VITALS: BP 118/59; PULSE 66; RESP 16; O2SAT 99
--- NOTE | 2024-08-03 15:57 | W.PM.OPN ---
Operative Note Operative Note Date of Service: 08/03/24 Narrative: Preop diagnosis: Gangrene, 3rd toe Postop diagnosis: The same Procedure: Ray amputation, 3rd toe Surgeon: Chavo Bender MD The patient is a 59-year-old male with known peripheral vascular disease, who had previously undergone amputation of the 4th and 5th toes for gangrene. He is now here because of gangrene of the 3rd toe as well. He has repeatedly stated that he wanted to save the remaining toes as well as the foot. He therefore wants to just proceed with amputation of 3rd toe. He understood the technique of the planned procedure as well as the risks, benefits, and alternatives He was brought to the operating room. He was placed supine under monitored anesthesia care. The right foot was prepped and draped in the usual sterile fashion. A surgical time-out was done. The patient received cefazolin 2 g IV preoperatively I infiltrated the areas surrounding the 3rd toe with lidocaine 1%. I made an incision around the 3rd toe circumferentially blade 15. And this carried down through the full-thickness of the skin subcutaneous fat. I proceeded to then dissect with curved Gomez scissors to divide ligaments surrounding the metatarsal head until was able to expose this. I used a bone cutter to divide the metatarsal head. The metatarsal head was able and came out in fragments. However, I was able to remove the entire metatarsal head and completed the dissection used curved Gomez scissors to divide attached soft tissue. This was sent as a specimen I then the divided metatarsal with a bone file. I copiously irrigated I had to shortened the 5th toe dorsal as this seemed to be protruding a little bit using a rongeur. I then copiously irrigated. I had to apply electrocautery for hemostasis. Once hemostasis was confirmed, I proceeded to reapposed the deep subcutaneous tissue with Polysorb 3-0 sutures. Skin closure was achieved with nylon 2-0 simple interrupted sutures. I infiltrated the area with Marcaine 0.5% for postop analgesia. The fissure appeared viable. Thick dressings were applied and the procedure was completed The patient tolerated procedure well. There were no immediate complications I explained to the patient and his family postop the if he continues to have issues with his remaining toes, we may need to either proceed with a full transmetatarsal versus a BKA.
[2024-08-03 16:03] VITALS: BP 141/64; PULSE 66; RESP 16; TEMP 36.6; O2SAT 99
== END 2024-08-03 16:18 | disposition home or self-care (01) ==
PROVIDERS: PCP Internal Medicine; Visit Provider Surgery
PROC: (CPT 28810; principal; 2024-08-03 13:30)
DX: I96 Gangrene, not elsewhere classified (principal); M86.171 Other acute osteomyelitis, right ankle and foot; M90.571 Osteonecrosis in diseases classified elsewhere, right ankle and foot; F32.A Depression, unspecified; I73.9 Peripheral vascular disease, unspecified; Z79.82 Long term (current) use of aspirin; Z79.899 Other long term (current) drug therapy; Z88.5 Allergy status to narcotic agent; Z98.890 Other specified postprocedural states; F17.210 Nicotine dependence, cigarettes, uncomplicated
CPT/HCPCS: 28810; 88305; 88311; J0690; J2003; J2250; J2371; J2704; J2795; J3010

== ENCOUNTER → 2024-08-03 11:50 | Outpatient (BNV) | payer MEDICARE, SELFPAY | PROVIDERS: PCP Internal Medicine; Visit Provider Surgery | DX: I96 Gangrene, not elsewhere classified (principal) | CPT/HCPCS: 28810 ==

== ENCOUNTER 2024-08-14 13:45 | Outpatient (AMB) | payer MEDICARE, SELFPAY ==
--- NOTE | 2024-08-14 13:46 | MHC.OFFVIS ---
Vital Signs 08/14/24 13:53 BMI Reason not done Patient refused/unable BP not taken reason Medical Reason Intake Visit Reasons: S/P amputation 3rd Rt. toe Intake Note: This patient presents for post-op assessment status post Ray amputation, 3rd toe. Pt c/o; reports it's the other toe now . Records Management Coordinator Required: No Accompanied by: Daughter Allergies codeine [Codeine] Allergy (Mild, Verified 08/16/24 12:40) RASH Codeine Allergy (Unknown, Uncoded 08/14/24 13:46) Rash HPI HPI S/P amputation 3rd Rt. toe: Details: 59-year-old male with known peripheral vascular disease, here for a follow up after amputation of the 3rd toe last week. He has noticed that his 2nd toe has been progressively becoming darker as well and he was unable to really move this anymore He denies any fever. Otherwise, the amputation site of the 3rd to seems to have been healing well. He continues to smoke heavily. He says that he has not had alcohol intake for about 2 months. He has refused amputation with the other toes before and does not want any BKA. [facility] Medical History Wound of foot Osteomyelitis Acute osteomyelitis Depression PAD (peripheral artery disease) Toe gangrene Surgical History Hx of surgical procedure (~08/03/24) Hx of amputation Abdominal wall hernia Hx of appendectomy Social History Household Members: None Housing: House Do you presently have visiting nurse or other home services: Yes (s/p amp to R toe) Patient Tobacco Use Status: Current everyday Tobacco user Tobacco use type: Cigarette Cigarette Packs Per Day: 1 Cigarettes Per Day: 10 Years Smoked: 43 e-Cigarette/Vaping Use: Never Used Second Hand Smoke Exposure: No Use of substances other than those prescribed or required for medical reasons: No Substance Use Type: Marijuana Are you DNR?: No Advance Directives: No Advance Directives Information Provided: Yes service: No Review of Systems Const Denies chills and Denies fever(s) Card Denies chest pain, Denies dyspnea and Reports dyspnea on exertion Resp Denies cough, Denies dyspnea and Reports dyspnea on exertion GI Denies hematochezia and Denies change in bowel habits Denies hematuria and Denies difficulty urinating Musc Denies back pain and Denies limited range of motion Neuro Denies focal weakness and Denies convulsions Psych Denies depression and Denies mood swings Physical Exam Const Other: On wheelchair General: comfortable and no acute distress Resp Effort & Inspection: normal respiratory effort Cardio Rate: regular rate GI Palpation (GI): Soft to palpation and not firm Extrem Other: Amputation site of the 3rd toe seems to be intact, healing but there is note of dry gangrene of the 4th toe Assessment & Plan Assessment & Plan (1) Toe gangrene: Code(s): I96 - Gangrene, not elsewhere classified Category: Medical Plan: He had amputation of the 3rd to last week. His 2nd toe has been progressively becoming dark as well and discolored. Now it appears that he has dry gangrene The amputation site for the 3rd toe otherwise seems to be healing I explained to him that it will be we will have to amputate the 2nd toe. He wants the big toe saved. He says that he feels that this is working well. He does not want any BKA. He understands the technique of amputation of the 2nd toe. He is aware of the risks of bleeding, infections, poor healing, as well as the need for further amputation in the future. We will schedule him for toe amputation tomorrow or Wednesday. He has been seen by Dr. Green of Vascular Surgery in the past and I will schedule him to be seen again after the 2nd toe amputation. Coding Level of Care Code Est Pt Level 3 (47654) Diagnoses Toe gangrene I96
== END 2024-08-14 14:07 | disposition home or self-care (01) ==
PROVIDERS: PCP Internal Medicine; Visit Provider Surgery
DX: I96 Gangrene, not elsewhere classified (principal)
CPT/HCPCS: 99213

== ENCOUNTER → 2024-08-14 13:45 | Outpatient (BNVA) | payer MEDICARE, SELFPAY | PROVIDERS: PCP Internal Medicine; Visit Provider Surgery | DX: I96 Gangrene, not elsewhere classified (principal) | CPT/HCPCS: 99212 ==

== ENCOUNTER 2024-08-16 12:31 | Day surgery (SDC) | payer MEDICARE, SELFPAY ==
--- NOTE | 2024-08-15 09:31 | P.CONAN_ITS ---
Documented by User: Cnidy Schulz NP 08/15/24 09:34 HPI - Anesthesia Eval Consult details Narrative: 59yo M for Right 2nd Toe Amputation s/p same 08/03/24 with MAC PMFSH Active Problems Active Problems: All Active Problems Wound of foot (Acute) Amputation of fifth toe of right foot (Acute) PAD (peripheral artery disease) (Acute) HTN (hypertension) (Acute) Foot ulcer (Acute) Encounter for subsequent annual wellness visit (AWV) in Medicare patient (Acute) Obesity (Acute) Depression (Acute) Encounter for initial annual wellness visit (AWV) in Medicare patient (Acute) Toe gangrene (Acute) Past Medical History Medical History Wound of foot Osteomyelitis Acute osteomyelitis Depression PAD (peripheral artery disease) Toe gangrene Family History Family history of problems with anesthesia: No Surgical History Surgical History Hx of surgical procedure (~08/03/24) Hx of amputation Abdominal wall hernia Hx of appendectomy History of Problems with Anesthesia: No Social History Social History Household Members: None Housing: House Do you presently have visiting nurse or other home services: Yes (s/p amp to R toe) Patient Tobacco Use Status: Current everyday Tobacco user Tobacco use type: Cigarette Cigarette Packs Per Day: 1 Cigarettes Per Day: 10 Years Smoked: 43 e-Cigarette/Vaping Use: Never Used Second Hand Smoke Exposure: No Use of substances other than those prescribed or required for medical reasons: No Substance Use Type: Marijuana Are you DNR?: No Advance Directives: No Advance Directives Information Provided: Yes service: No Meds Allergies Allergy/AdvReac Type Severity Reaction Status Date / Time codeine [Codeine] Allergy Mild RASH Verified 08/16/24 12:40 Codeine Allergy Unknown Rash Uncoded 08/14/24 13:46 Home Medications ?Medication ?Instructions ?Recorded ?Confirmed ?Last Taken ?Type buspirone 10 mg tablet 10 mg PO TID 04/03/22 08/16/24 05/11/24 06:00 History clonidine HCl 0.1 mg tablet 0.1 mg PO BEDTIME PRN Anxiety 04/03/22 08/16/24 05/10/24 History zolpidem 10 mg tablet 10 mg PO BEDTIME PRN Sleep 04/03/22 08/16/24 05/10/24 History sertraline 100 mg tablet 100 mg PO DAILY 05/11/24 08/16/24 05/11/24 06:00 History Exam Pertinent Lab Results Pertinent Lab Results: Laboratory Tests 05/23/24 05/25/24 04:00 04:30 WBC 10.3 Hgb 12.6 L Hct 37.9 L Plt Count 206 Sodium 138 Potassium 3.4 Chloride 104 Carbon Dioxide 22 BUN 17 H Creatinine 1.01 Assessment and Plan Assessment Anesthesia Assessment: Chart Reviewed Final Anesthetic Review Family History of Problems with Anesthesia: No History of Problems with Anesthesia: No Documented by User: Galilea Graham MD 08/16/24 13:37 [facility] Past Medical History Medical History Wound of foot Osteomyelitis Acute osteomyelitis Depression PAD (peripheral artery disease) Toe gangrene Surgical History Surgical History Hx of surgical procedure (~08/03/24) Hx of amputation Abdominal wall hernia Hx of appendectomy Social History Social History Household Members: None Housing: House Do you presently have visiting nurse or other home services: Yes (s/p amp to R toe) Patient Tobacco Use Status: Current everyday Tobacco user Tobacco use type: Cigarette Cigarette Packs Per Day: 1 Cigarettes Per Day: 10 Years Smoked: 43 e-Cigarette/Vaping Use: Never Used Second Hand Smoke Exposure: No Use of substances other than those prescribed or required for medical reasons: No Substance Use Type: Marijuana Are you DNR?: No Advance Directives: No Advance Directives Information Provided: Yes service: No Meds Allergies Allergy/AdvReac Type Severity Reaction Status Date / Time codeine [Codeine] Allergy Mild RASH Verified 08/16/24 12:40 Codeine Allergy Unknown Rash Uncoded 08/14/24 13:46 Home Medications ?Medication ?Instructions ?Recorded ?Confirmed ?Last Taken ?Type buspirone 10 mg tablet 10 mg PO TID 04/03/22 08/16/24 05/11/24 06:00 History clonidine HCl 0.1 mg tablet 0.1 mg PO BEDTIME PRN Anxiety 04/03/22 08/16/24 05/10/24 History zolpidem 10 mg tablet 10 mg PO BEDTIME PRN Sleep 04/03/22 08/16/24 05/10/24 History sertraline 100 mg tablet 100 mg PO DAILY 05/11/24 08/16/24 05/11/24 06:00 History Exam Airway Mallampati Class: III TM Dist: <=3cm Neck ROM: Full Heart: rrr Lungs: cta Assessment and Plan Assessment Anesthesia Assessment: Anesthesia Plan Discussed Final Anesthetic Review NPO: Yes ASA Class: III Final Preanesthetic Review: No Changes in Pt Med Stat, Meds/Allgs Chart Reviewed, Consent Obtained/Reviewed and Anes Risks/Benef Reviewed Patient Risk: Intermediate Procedure Risk: Low Anesthetic Plan Anesthetic Plan: MAC: Disposition: Standard PACU
[2024-08-16 12:41] VITALS: BMI 34.2
[2024-08-16 12:50] VITALS: BP 166/97; PULSE 102; RESP 16; TEMP 36.8; O2SAT 99
[2024-08-16] MEDS: Albuterol Sulfate (0.083%) 2.5 MG/3 ML VIAL.NEB INHALE (13:02)
[2024-08-16 13:03] VITALS: PULSE 89; RESP 15; O2SAT 98
[2024-08-16] MEDS: Lactated Ringers 1,000 ML 100 ML IVCONT (13:13)
--- NOTE | 2024-08-16 13:15 | MHC.SHP ---
Pre-Procedural Eval Section A - 24 Hr Update-Section A only Date of Service: 08/16/24 The patient is an INPATIENT: No Changes since office visit: No Cold of Flu in the past 2 weeks, No New Medical Problems, No Changes in Medication and No Patient answered all questions The patient has been examined within 24 hours of the surgical procedure. The History & Physical has been completed within 30 days and I have reviewed it.: Yes Section B - Complete if H&P > 30 days Chief Complaint: Gangrene, not elsewhere classified Allergies: Allergies Allergy/AdvReac Type Severity Reaction Status Date / Time codeine [Codeine] Allergy Mild RASH Verified 08/16/24 12:40 Codeine Allergy Unknown Rash Uncoded 08/14/24 13:46 Plan I have reviewed the history and physical and performed a pertinent physical examination on my patient. No changes have occurred unless specified. Time Spent With Patient Time: Total time managing care of this patient today ____ minutes.
--- NOTE | 2024-08-16 14:18 | P.OP_ITS ---
Operative Note Operative Note Date of Service: 08/16/24 Narrative: Preop diagnosis: Gangrene, 2nd toe right Postop diagnosis: The same Procedure: Ray amputation 2nd toe right Surgeon: Chavo Bender MD The patient is a 59-year-old male with known peripheral vascular disease, who has had mutation with the 5th, 4th and the 3rd toes, seen in the office 2 days ago because of gangrene of the 2nd toe on the right. He understood the need for amputation. He still was refusing amputation of the big toe as well. He understood that because of his peripheral vascular disease, there is a good chance that the big toe may become gangrenous down the line as well. He however stated that he only wants the 2nd toe amputated He was brought to the operating room. He was placed supine under monitored anesthesia care. The right foot was prepped and draped in the usual sterile fashion. A surgical time-out was done. The patient received cefazolin 2 g IV preoperatively I infiltrated the planned line of the incision with lidocaine 1%. I made an incision around the 2nd toe using blade 15. This was carried down through the full-thickness of the skin subcutaneous fat down to the distal metatarsal. I used the curved Gomez scissors to divide through tendon and soft tissue until was able to expose the distal metatarsal. I used the periosteal elevator to clean up this distal metatarsal at the head. I then used the bone cutter to divide the distal metatarsal proximal to the head. This entire toe was therefore amputated and sent as specimen. I debrided areas of the wound that appeared to have a little bit of non-viability. There actually was note of good oozing from in the flaps. I copiously irrigated. I then applied multiple full-thickness nylon 2-0 sutures to reapposed the flaps and closed the skin and subcutaneous tissue off of the amputation site I then applied thick fluffy dressings in the area and wrapped the foot with Kerlix and Natanael bandage. The procedure was then completed. The patient tolerated the procedure well. There were no immediate complic ations. Initial and final counts of sponges and instruments were correct. Estimated blood loss was about 25 cc. The patient was then awakened and transferred to the recovery room with stable vital signs. I updated the daughter of the above.
[2024-08-16 14:25] VITALS: BP 119/62; PULSE 82; RESP 16; TEMP 36.6; O2SAT 100
[2024-08-16 14:30] VITALS: BP 128/62; PULSE 82; RESP 18; O2SAT 100
[2024-08-16 14:40] VITALS: BP 142/65; PULSE 86; RESP 16; TEMP 36.4; O2SAT 98
== END 2024-08-16 15:19 | disposition home or self-care (01) ==
PROVIDERS: PCP Internal Medicine; Visit Provider Surgery
PROC: (CPT 28810; principal; 2024-08-16 14:00)
DX: I96 Gangrene, not elsewhere classified (principal); M86.9 Osteomyelitis, unspecified; I73.9 Peripheral vascular disease, unspecified; Z89.421 Acquired absence of other right toe(s); Z88.5 Allergy status to narcotic agent; F32.A Depression, unspecified; Z98.890 Other specified postprocedural states; F17.210 Nicotine dependence, cigarettes, uncomplicated
CPT/HCPCS: 28810; 88305; 88311; 94640; J0690; J2003; J2250; J2704; J2795

== ENCOUNTER → 2024-08-16 12:31 | Outpatient (BNV) | payer MEDICARE, SELFPAY | PROVIDERS: PCP Internal Medicine; Visit Provider Surgery | DX: I96 Gangrene, not elsewhere classified (principal) | CPT/HCPCS: 28810 ==

== ENCOUNTER 2024-08-30 14:57 | Outpatient (AMB) | payer MEDICARE, SELFPAY ==
--- NOTE | 2024-08-30 14:58 | A.OFFVIS_ITS ---
Vital Signs 08/30/24 15:02 BMI Reason not done Patient refused/unable BP not taken reason Medical Reason Intake Visit Reasons: S/P amputation 4th Rt toe Intake Note: This patient presents for post-op assessment status post Ray amputation 4th right toe. Pt c/o; reports no complaints. Flight Communications Operator Required: No Accompanied by: Daughter Allergies codeine [Codeine] Allergy (Mild, Verified 08/30/24 15:12) RASH Codeine Allergy (Unknown, Uncoded 08/30/24 15:12) Rash Medication List - Last Reconciled 08/30/24 by Chavo Bender MD amlodipine 10 mg See Protocol PO DAILY aspirin 81 mg PO DAILY 90 days buspirone 10 mg PO TID cephalexin 500 mg PO TID clonidine HCl 0.1 mg PO BEDTIME PRN clopidogrel 75 mg PO DAILY 90 days doxycycline monohydrate 100 mg PO BID lisinopril 20 mg See Protocol PO DAILY oxycodone 5 mg PO Q6H PRN oxycodone-acetaminophen 5-325 mg (Percocet) 1 tab PO Q4-6H PRN oxycodone-acetaminophen 5-325 mg (Percocet) 1 tab PO Q4-6H PRN polyethylene glycol 3350 17 grams PO BIDWM sertraline 100 mg PO DAILY zolpidem 10 mg PO BEDTIME PRN HPI HPI S/P amputation 4th Rt toe: Details: 59-year-old male with known peripheral vascular disease, here for a follow up after amputation of the 2nd toe last 08/16/2024. He actually has had amputation of the 5th, 4th, and 3rd toes, 1 toe at a time starting April,. He continues to smoke heavily. He says that he has not had alcohol intake for about 2 months. He has refused amputation with the other toes before and does not want any BKA. He has known peripheral vascular disease. He had undergone plasty of the distal vessels with Dr. Green last April, already. He continues to have chronic pain on the foot. He describes pain on the amputation site and the big toe. Dressing changes are being done by his daughter Airam as well as the visiting nurse and there has been note of dark discoloration of the big toe starting a few days ago. He said that this seemed to do well after the surgery for a few days. [facility] Medical History Wound of foot Osteomyelitis Acute osteomyelitis Depression PAD (peripheral artery disease) Toe gangrene Surgical History Hx of surgical procedure (~08/03/24) Hx of amputation Abdominal wall hernia Hx of appendectomy Social History Household Members: None Housing: House Do you presently have visiting nurse or other home services: Yes (s/p amp to R toe) Patient Tobacco Use Status: Current everyday Tobacco user Tobacco use type: Cigarette Cigarette Packs Per Day: 1 Cigarettes Per Day: 10 Years Smoked: 43 e-Cigarette/Vaping Use: Never Used Second Hand Smoke Exposure: No Substance Use Type: Marijuana service: No Review of Systems Const Denies chills and Denies fever(s) Card Denies chest pain and Denies dyspnea Resp Denies cough and Denies dyspnea GI Denies hematochezia and Denies change in bowel habits Denies hematuria and Denies difficulty urinating Musc Denies back pain and Denies limited range of motion Neuro Denies focal weakness and Denies convulsions Psych Denies depression and Denies mood swings Physical Exam Const Other: Looks well, on wheelchair General: comfortable and no acute distress Extrem Other: Right foot Amputation site from the 2nd toe seems to be healing well with some superficial skin necrosis around the edges, but the big toe is noted to be significantly darker in color; there was note of some foul odor from the big toe Assessment & Plan Assessment & Plan (1) Toe gangrene: Code(s): I96 - Gangrene, not elsewhere classified Category: Medical Plan: Status post amputation with the 2nd toe right last August 16, 2024. His big toe is now appearing darker as well consistent with impending gangrene. The amputation site actually seems to be healing okay. I explained to him that in view of the dark discoloration of the big toe, with some foul odor, this we will need to be amputated as well this time. He does not want to proceed with any proximal amputation including BKA for now. We had discussed this many times in the past. He wants to just have the big toe amputated. I explained the technique of this procedure. I reviewed the risks including but not limited to bleeding, infections, poor healing, the need for more proximal amputations, as well as the benefits and alternatives. He says he is willing to proceed as long as this is just an amputation of the big toe on the right side. I will try to see if we can do the procedure tomorrow in the operating room. He continues to smoke heavily according to his daughter. He understands the implications of this he is healing as well as his peripheral Parkinson's disease. I had reviewed with him the benefit of BKA multiple times in the past. This is especially in view of his claudication. He continues to refuse this. His daughter Airam was with him during the visit. Coding Level of Care Code Est Pt Level 4 (63186) Diagnoses Toe gangrene I96
== END 2024-08-30 15:15 | disposition home or self-care (01) ==
PROVIDERS: PCP Internal Medicine; Visit Provider Surgery
DX: I96 Gangrene, not elsewhere classified (principal)
CPT/HCPCS: 99024

== ENCOUNTER → 2024-08-30 14:57 | Outpatient (BNVA) | payer MEDICARE, SELFPAY | PROVIDERS: PCP Internal Medicine; Visit Provider Surgery | DX: I96 Gangrene, not elsewhere classified (principal); Z89.421 Acquired absence of other right toe(s) | CPT/HCPCS: 99212 ==

== ENCOUNTER 2024-09-04 14:22 | Inpatient (IN) | payer MEDICARE, SELFPAY ==
--- NOTE | ~2024-09-04 | CT_ITS ---
EXAMINATION: CT HEAD WITHOUT CONTRAST CLINICAL INFORMATION: Intermittent confusion TECHNIQUE: Contiguous axial imaging was performed from the skull base to vertex without intravenous administration of contrast. All CT exams at this location are performed using dose optimization techniques as appropriate to a performed exam including at least one of the following: * Automated exposure control * Adjustment of the mA and/or kV according to patient size (this includes techniques or standardized protocols for targeted exams where dose is matched to indication / reason for exam; i/e/ extremities or head) * Use of iterative reconstructive technique DLP: 797 mGy-cm COMPARISON: None. FINDINGS: There is no evidence of acute intracranial hemorrhage, acute large vessel infarct, midline shift or mass effect. The sloan-white differentiation is preserved. Periventricular and subcortical white matter changes seen consistent chronic microvascular ischemic disease. Generalized atrophy is seen. Ventricles are prominent in size due to underlying atrophy. There are no extraaxial collections. Osseous structures are intact. Air-fluid levels seen in the bilateral sphenoid sinuses and visualized maxillary sinuses. There is partial opacification of the bilateral ethmoid sinuses CT/CT head/brain wo IV con IMPRESSION: 1. No acute intracranial pathology. 2. Chronic microvascular ischemic changes and atrophy. 3. Paranasal sinus disease. Electronically signed by: Raman Dawn MD 09/11/2024 10:11 PM LEONARD
--- NOTE | ~2024-09-04 | XR_ITS ---
EXAMINATION: XR CHEST CLINICAL INFORMATION: Sob COMPARISON: None available. TECHNIQUE: AP view of the chest was obtained. FINDINGS: The lungs are hypoexpanded with associated bronchovascular crowding. No dense focal consolidation, pleural effusion, pulmonary edema or pneumothorax. The cardiomediastinal silhouette is within normal limits for technique. No acute osseous abnormality. Mild bilateral acromioclavicular joint arthrosis. XR/XR chest 1V IMPRESSION: Low lung volumes. No acute pulmonary disease. Electronically signed by: Sheyla Armenta DO 09/09/2024 05:16 PM [facility]
--- NOTE | ~2024-09-04 | XR_ITS ---
EXAMINATION: XR FOOT, RIGHT CLINICAL INFORMATION: gangrene R great toe, hx osteomyelitis COMPARISON: Right foot 05/11/2024 TECHNIQUE: AP, lateral, and oblique views of the right foot. FINDINGS: The fifth digit is missing. Since the prior study the patient has undergone transmetatarsal amputations of the second third and fourth digits. There is dislocation at the MTP joint of the first digit with medial displacement of the phalanges of the great toe which now point medially. No definite fractures or bony destructive lesions are seen. There is soft tissue swelling and marked vascular calcifications. If osteomyelitis is a consideration, recommend MRI. XR/XR foot RT min 3V IMPRESSION: 1. Dislocation at the MTP joint of the first digit. 2. Interval transmetatarsal amputations of the second third and fourth digits. 3. No definite evidence of osteomyelitis. If osteomyelitis is a consideration, recommend MRI. Electronically signed by: Lance Broussard MD 09/05/2024 12:31 AM [facility]
--- NOTE | ~2024-09-04 | US_ITS ---
EXAMINATION: US NONINVASIVE ASSESSMENT OF THE RIGHT LOWER EXTREMITY WITH ARTERIAL DUPLEX CLINICAL INFORMATION: Right toe pain, history of peripheral arterial disease COMPARISON: 04/25/2024 and angiogram from 04/27/2024 TECHNIQUE: Duplex Doppler techniques with waveform analysis and measurement of velocities in the common femoral, profunda femoris, superficial femoral, popliteal and tibial arteries were performed. FINDINGS: RIGHT LOWER EXTREMITY DUPLEX ULTRASOUND: Prominent lymph node in the right groin. Common femoral artery: 138 cm/s. Diastolic flow reversal: Triphasic Profunda femoris artery: 185 cm/s. Diastolic flow reversal: Triphasic Superficial femoral artery (proximal): 310 cm/s. Noncalcified plaque Diastolic flow reversal: Triphasic Superficial femoral artery (mid): 154 cm/s. Diastolic flow reversal: Triphasic Superficial femoral artery (distal): 91.7 cm/s. Diastolic flow reversal: Triphasic Popliteal artery: 66.4 cm/s Diastolic flow reversal: Triphasic Posterior tibial artery: Occluded in the proximal and mid segments with reconstituted flow in the distal segment, velocity measuring 34.2 cm/s Diastolic flow reversal: Monophasic Anterior tibial artery: 84.4 cm/s Phasicity: Triphasic Peroneal artery: 121 cm/s Phasicity: Triphasic US/US arterial duplex LE RT IMPRESSION: 1. Focal moderate stenosis in the proximal superficial femoral artery with elevated velocity and noncalcified plaque. 2. Occlusion of the proximal and mid posterior tibial artery with reconstituted flow in the distal segment. No change compared to the prior exam Electronically signed by: Raman Dawn MD 09/05/2024 11:27 AM [facility]
[2024-09-04 14:29] VITALS: BP 136/72; PULSE 72; O2SAT 99
[2024-09-04 14:45] VITALS: BP 133/65; PULSE 74; RESP 16; TEMP 36.6; O2SAT 100; BMI 34.9
--- NOTE | 2024-09-04 15:20 | ECG_ITS ---
Test Reason : R/O SEPSIS Blood Pressure : / mmHG Vent. Rate : 070 BPM Atrial Rate : 070 BPM P-R Int : 140 ms QRS Dur : 098 ms QT Int : 550 ms P-R-T Axes : 016 -12 029 degrees QTc Int : 594 ms Sinus rhythm with Premature atrial complexes Prolonged QT Abnormal ECG When compared with ECG of 07-JAN-2017 11:29, Premature atrial complexes are now Present QT has lengthened Referred By: Generic ED Physician Electronically Signed By:MAX BRUNNER
[2024-09-04 16:07] LABS: MANUAL DIFF FLAG NO
--- NOTE | 2024-09-04 16:15 | ED_ITS ---
HPI - Extremity Injury (Lower) General Chief Complaint: Extremity Injury, Lower Stated Complaint: Right foot pain Time Seen by Provider: 09/04/24 16:14 Source: patient Limitations: no limitations History of Present Illness ED Provider: Karen swartz PA-C HPI Narrative: 59-year-old male with a history of hypertension, peripheral arterial disease status post amputations of toes 2 through 5 of the right foot now pending amputation of the right great toe scheduled for September [address] Bender, presents with worsening toe pain. Patient states he ran out of his pain medication, and the pain has become severe. In addition, the right great toe has become more unstable, he is worried that it might ?fall off?. Denies fever. Related Data Home Medications ?Medication ?Instructions ?Recorded ?Confirmed buspirone 10 mg tablet 10 mg PO TID 04/03/22 08/30/24 clonidine HCl 0.1 mg tablet 0.1 mg PO BEDTIME PRN Anxiety 04/03/22 08/30/24 zolpidem 10 mg tablet 10 mg PO BEDTIME PRN Sleep 04/03/22 08/30/24 sertraline 100 mg tablet 100 mg PO DAILY 05/11/24 08/30/24 Previous Rx's ?Medication ?Instructions ?Recorded aspirin 81 mg tablet,delayed 81 mg PO DAILY 90 days #90 tabs 05/05/24 release clopidogrel 75 mg tablet 75 mg PO DAILY 90 days #90 tabs 05/05/24 polyethylene glycol 3350 17 gram 17 g PO BIDWM #30 ea 05/05/24 oral powder packet amlodipine 10 mg tablet 10 mg PO DAILY #90 tabs 05/20/24 doxycycline monohydrate 100 mg 100 mg PO BID #20 caps 05/20/24 capsule lisinopril 20 mg tablet 20 mg PO DAILY #90 tabs 05/20/24 oxycodone 5 mg tablet 5 mg PO Q6H PRN Pain, 07/17/24 Moderate(Pain Scale 4-6) #20 tabs oxycodone-acetaminophen 5 mg-325 1 tab PO Q4-6H PRN pain #25 tabs 08/10/24 mg tablet (Percocet) cephalexin 500 mg capsule 500 mg PO TID #15 caps 08/21/24 oxycodone-acetaminophen 5 mg-325 1 tab PO Q4-6H PRN pain #20 tabs 08/31/24 mg tablet (Percocet) Allergies Allergy/AdvReac Type Severity Reaction Status Date / Time codeine [Codeine] Allergy Mild RASH Verified 09/04/24 14:48 Codeine Allergy Unknown Rash Uncoded 08/30/24 15:12 Review of Systems 2 Review of Systems: Yes all other systems are reviewed and are negative Constitutional: Constitutional: Denies fatigue and Denies fever(s) Cardiovascular: Cardiovascular: Denies chest pain and Denies dyspnea Respiratory: Respiratory: Denies dyspnea Gastrointestinal: Gastrointestinal: Denies abdominal pain Musculoskeletal: Musculoskeletal: Reports arthralgias, Denies numbness and Denies tingling Integumentary/Breasts: Skin/Breast: Reports non-healing lesions Neurologic: Denies numbness and Denies tingling Endocrine: Endocrine: Denies fatigue PMFSH Past Medical History Attestation statement: The following information was validated with the patient. Medical History Wound of foot Osteomyelitis Acute osteomyelitis Depression PAD (peripheral artery disease) Toe gangrene Surgical History Hx of surgical procedure (~08/03/24) Hx of amputation Abdominal wall hernia Hx of appendectomy Social History Social History Household Members: None Housing: House Do you presently have visiting nurse or other home services: Yes (s/p amp to R toe) Patient Tobacco Use Status: Current everyday Tobacco user Tobacco use type: Cigarette Cigarette Packs Per Day: 1 Cigarettes Per Day: 10 Years Smoked: 43 Smoked in Last 30 Days: No e-Cigarette/Vaping Use: Never Used Second Hand Smoke Exposure: No Use of substances other than those prescribed or required for medical reasons: No Substance Use Type: Marijuana Advance Directives: No Advance Directives Information Provided: Yes Do you have a plan to hurt others: No Plan service: No Physical Exam 2 Vital Signs: Vital Signs: Last Vital Signs Temp 98.4 F 09/04/24 18:56 Pulse 72 09/04/24 18:56 Resp 16 09/04/24 18:56 BP 126/65 09/04/24 18:56 Pulse Ox 100 09/04/24 18:56 O2 Del Method Room Air 09/04/24 18:56 BMI result Body Mass Index 34.9 Const: Other: Alert, appears older than stated age Orientation/consciousness: patient oriented x3 Resp: Other: Nonlabored respirations Skin: Other: Warm dry no rash Neuro: General: patient oriented x3, no focal motor deficits and CN's II-XI intact bilaterally Extrem: Other: The right great toe is barely intact, it is blue, necrotic, gangrenous. Foul smelling with purulence noted. I was not able to fully remove the dressing, he has not been changing the dressing, it is adhered to the purulence and the rotting flesh. I am concerned that I would literally detached the toe. There is also an open wound posterior right heel, appears infected as well, patient does not know how long he has had that wound. Psych: Other: Hostile belligerent Course Consultations Consultation #1: paging Dr. Green for consult I sent images to Dr. Green, he feels the patient should be admitted, we will admit to the medical service. Time: 18:22 Medications Administered Discontinued Medications Generic Name Dose Route Start Last Admin Trade Name Freq PRN Reason Stop Dose Admin Hydromorphone HCl 1 mg 09/04/24 17:45 09/04/24 18:01 Hydromorphone Hcl 1 Mg/Ml Syringe IVPUSH 09/04/24 17:46 1 mg ONCE ONE Administration Protocol Piperacillin Sod/Tazobactam 50 mls @ 100 mls/hr 09/04/24 16:26 09/04/24 17:42 Sod 3.375 gm/ Sodium Chloride IV 09/04/24 16:55 Infused ONCE ONE Infusion Vancomycin HCl 2,000 mg in 500 mls @ 250 mls/hr 09/04/24 17:00 09/04/24 17:42 Vancomycin/Ns IV 09/04/24 18:59 250 mls/hr ONCE ONE Administration Morphine Sulfate 8 mg 09/04/24 16:26 09/04/24 16:42 Morphine Sulfate 10 Mg/Ml Cartridge IVPUSH 09/04/24 16:27 8 mg ONCE ONE Administration Protocol Potassium Chloride 40 meq 09/04/24 17:23 09/04/24 17:41 Potassium Chloride Packet 20 Meq Packet PO 09/04/24 17:24 40 meq ONCE ONE Administration Medical Decision Making Medical Decision Making MDM Narrative: 59-year-old male with a history of hypertension, peripheral arterial disease status post amputations of toes 2 through 5 of the right foot now pending amputation of the right great toe scheduled for September [address] Bender, presents with worsening toe pain. Patient states he ran out of his pain medication, and the pain has become severe. In addition, the right great toe has become more unstable, he is worried that it might ?fall off?. Denies fever. Problem: Peripheral arterial disease History: Per patient I have considered the following differential diagnoses: Sepsis, worsening infection, poorly controlled pain Plan: Sepsis considered, given the nature of the wound, however the patient is hemodynamically stable, afebrile, no leukocytosis, lactate 1.1. He was covered with vanco and Zosyn, blood cultures were obtained as well. We will be reaching out to the vascular service for consult, perhaps the patient could be admitted sooner rather than later. No indication for imaging. I have independently reviewed the following tests: Labs: No leukocytosis, not anemic, potassium subtly low at 3.1, we will give 40 mEq p.o., no other electrolyte abnormality, lactic acid 1.1 Lab Data 09/04/24 16:01 09/04/24 16:01 Labs: Lab Results 09/04/24 09/04/24 09/04/24 Range/Units 15:59 16:00 16:01 WBC 6.8 (4.8-10.8) X10*3/uL RBC 4.36 L (4.60-5.80) X10*6/uL Hgb 12.4 L (14.0-18.0) g/dl Hct 35.7 L (42.0-52.0) % MCV 81.9 (80.0-98.0) fL MCH 28.4 (27.0-33.0) pg MCHC 34.7 (31.0-36.0) g/dl RDW 13.6 (11.0-16.0) % Plt Count 121 L D (160-400) X10*3/uL MPV 10.7 (9.4-12.4) fL Immature Gran % (Auto) 0.4 (0.0-0.4) % Neut % (Auto) 88.3 H (45-73) % Lymph % (Auto) 8.5 L (20-40) % [place] % (Auto) 2.4 (2-11) % Eos % (Auto) 0.4 (0-4) % Baso % (Auto) 0.0 (0-2) % Lymph # (Auto) 0.6 L (1.2-4.9) X10*3/uL [place] # (Auto) 0.2 (0.1-1.2) X10*3/uL Eos # (Auto) 0.0 (0.0-0.4) X10*3/uL Baso # (Auto) 0.0 (0.0-0.2) X10*3/uL Abs Immat Gran (auto) 0.03 (0.00-0.03) X10*3/uL Absolute Neuts (auto) 6.0 (2.0-8.3) x10*3/uL Absolute Nucleated RBC 0.000 (0.0-0.012) X10*3/uL Nucleated RBC % (auto) 0.0 (0.0-0.2) /100WBC PT 15.6 H (10.9-12.4) SEC INR 1.3 H (0.9-1.1) Sodium 133 L (135-145) mmol/L Potassium 3.1 L (3.3-5.1) mmol/L Chloride 90 L (96-108) mmol/L Carbon Dioxide 26 (22-29) mmol/L Anion Gap 20 (12-20) BUN 15 (9-16) mg/dL Creatinine 0.80 (0.5-1.4) mg/dL Estim Creat Clear Calc 124.1 Estimated GFR > 60 Random Glucose 90 (60-115) mg/dL Lactic Acid 1.1 (0.5-2.0) mmol/L Calcium 9.2 (8.4-10.2) mg/dL Magnesium 2.3 (1.6-2.6) mg/dL Total Bilirubin 0.8 (0.0-1.0) mg/dL AST 71 H (5-37) U/L ALT 39 (0-40) U/L Alkaline Phosphatase 155 H (39-117) U/L Troponin I High Sens 9.1 (<3.5-35.0) ng/L Total Protein 7.8 (6.5-8.0) g/dL Albumin 3.2 L (3.5-5.0) g/dL Influenza Type A (PCR) NEGATIVE (Negative) Influenza Type B (PCR) NEGATIVE (Negative) RSV RNA Qual (PCR) NEGATIVE (Negative) SARS-CoV-2 RNA (RT-PCR) NEGATIVE (Negative) Discharge Plan Discharge Clinical Impression: Gangrene of toe of right foot Patient Disposition: Admitted As Inpatient Print Language: Yakut
[2024-09-04 16:16] LABS: Eosinophils Percent Auto 0.4 % (0-4); Hematocrit 35.7 % (42.0-52.0); Hemoglobin 12.4 g/dl (14.0-18.0); Imm Gran Abs Auto 0.03 X10*3/uL (0.00-0.03); Imm Gran Pct Auto 0.4 % (0.0-0.4); Lymphocytes Absolute Auto 0.6 X10*3/uL (1.2-4.9); Lymphocytes Percent Auto 8.5 % (20-40); Mean Corpuscular HGB Conc 34.7 g/dl (31.0-36.0); Mean Corpuscular Hemoglobin 28.4 pg (27.0-33.0); Mean Corpuscular Volume 81.9 fL (80.0-98.0); Mean Platelet Volume 10.7 fL (9.4-12.4); Monocytes Absolute Auto 0.2 X10*3/uL (0.1-1.2); Monocytes Percent Auto 2.4 % (2-11); Neutrophils Percent Auto 88.3 % (45-73); Platelet Count 121 X10*3/uL (160-400); Red Blood Count 4.36 X10*6/uL (4.60-5.80); Red Cell Distribution Width 13.6 % (11.0-16.0); White Blood Count 6.8 X10*3/uL (4.8-10.8)
[2024-09-04 16:17] LABS: INTERNATIONAL NORM RATIO 1.3 (0.9-1.1); Prothrombin Time 15.6 SEC (10.9-12.4)
[2024-09-04 16:25] VITALS: BP 128/62; PULSE 68; RESP 14; TEMP 36.4; O2SAT 99
[2024-09-04 16:40] LABS: Lactic Acid 1.1 mmol/L (0.5-2.0)
[2024-09-04] MEDS: Morphine Sulfate 10 MG/ML CARTRIDGE 8 MG IVPUSH (16:42)
[2024-09-04 16:46] LABS: Albumin Level 3.2 g/dL (3.5-5.0); Anion Gap 20 (12-20); Aspartate Amino Transferase 71 U/L (5-37); Bilirubin Total 0.8 mg/dL (0.0-1.0); Blood Urea Nitrogen 15 mg/dL (9-16); Calcium 9.2 mg/dL (8.4-10.2); Carbon Dioxide 26 mmol/L (22-29); Chloride 90 mmol/L (96-108); Creatinine Clr Calc Pharmacy 124.1; Estimated Glomerular Filt Rate > 60; Glucose Random 90 mg/dL (60-115); Magnesium 2.3 mg/dL (1.6-2.6); Potassium 3.1 mmol/L (3.3-5.1); Sodium 133 mmol/L (135-145); Total Protein 7.8 g/dL (6.5-8.0)
[2024-09-04] MEDS: Piperacillin Sodium/Tazobactam 3.375 GM in 0.9 % Sodium Chloride 50 ML IV ×2 (16:46→23:35)
[2024-09-04 16:50] LABS: Troponin-I High Sensitivity 9.1 ng/L (<3.5-35.0)
[2024-09-04 17:00] LABS: Alanine Aminotransferase 39 U/L (0-40); Alkaline Phosphatase 155 U/L (39-117)
[2024-09-04 17:10] LABS: Influenza A PCR NEGATIVE (Negative); Influenza B PCR NEGATIVE (Negative); Resp Syncy Virus RNA Qual PCR NEGATIVE (Negative); SARS COV2 PCR INHOUSE NEGATIVE (Negative)
[2024-09-04] MEDS: Potassium Chloride Packet 20 MEQ PACKET 40 MEQ PO ×2 (17:41→21:44)
[2024-09-04] MEDS: vancomycin/NS 2,000 MG/500 ML PLAST..BAG 250 MG IV (17:42)
[2024-09-04] MEDS: HYDROmorphone HCl 1 MG/ML SYRINGE IVPUSH ×2 (18:01→20:32)
[2024-09-04 18:56] VITALS: BP 126/65; PULSE 72; RESP 16; TEMP 36.9; O2SAT 100
[2024-09-04] MEDS: 0.9 % Sodium Chloride 500 ML IV (19:27)
--- NOTE | 2024-09-04 19:42 | PHA.MEDREC ---
Addendum entered by Lm Mendoza [facility] 09/04/24 22:29: Med rec was reviewed by [facility]. Sertraline is taken as 200 mg once daily. Addendum entered by Kamilla Orellana 09/04/24 22:16: Spoke with patient about his Sertraline 100mg tab and looking in claims it has been getting filled for 2 tabs daily but we have been confirming 1 tab daily on his med rec since April of this year looking back at the previous discharges and there is no indicator that he decreased to 1 tab daily. The patient confirmed he is taking it twice daily and has been taking it twice daily all along. Original Note: Pharmacy Consult ? Medication Reconciliation Pharmacy has completed the medication reconciliation. Spoke with patient and he did not want anything for medications except for pain medication. I asked more on that and he states he was taking an Oxycodone tablet but was not able to confirm the dosage or how he is taking it, he claims I ran out of it recently, but i really need it right now . He states he has not taken the Amlodipine, Baby Aspirin and Clopidogrel in about 1 month due to running out of them and never filling them again. He states he is not taking the Lisinopril anymore and when I asked more on it he claims I don't know that medication or why its on my list and I explained it was an old script and I was here to confirm what he was taking currently and he stated he only wanted pain medication. He confirmed he took his medications this morning.
[2024-09-04 20:00] VITALS: BP 167/78; PULSE 86; RESP 20; TEMP 36.8; O2SAT 96
--- NOTE | 2024-09-04 21:15 | PM.IMHP ---
History of Present Illness Date of Service: 09/04/24 <ARMIDA Tomlin Last Filed: 09/04/24 21:38> Attending physician on admission: Adis Vargas <ARMIDA Tomlin Last Filed: 09/04/24 21:38> Chief Complaint: R great toe pain <ARMIDA Tomlin Last Filed: 09/04/24 21:38> Patient is a 59-year-old male with a past medical history significant for peripheral artery disease status post amputation 2 through 5 digits right foot, scheduled for right great toe amputation with Dr. Bender on 09/06, HTN, depression, obesity, who presented to the ED today with severe right great toe pain. He reports that he is concerned that the toe good fall off. He rates the pain a 10/10, reports that he has been this significant for about 1 month but even worse today. It is also causing low back spasms. He denies any fever, chills, nausea, vomiting, abdominal pain or urinary symptoms. He does not have any chest pain, shortness of breath, or headache. <ARMIDA Tomlin Last Filed: 09/04/24 21:38> Review of Systems Constitutional: Constitutional: Denies body ache(s), Denies chills, Denies fatigue, Denies fever(s) and Denies headache(s) <ARMIDA Tomlin Last Filed: 09/04/24 21:38> Eyes: Eyes: Denies change in vision <ARMIDA Tomlin Last Filed: 09/04/24 21:38> ENT: Denies headache(s), Denies nasal discharge and Denies sore throat <ARMIDA Tomlin Last Filed: 09/04/24 21:38> Cardiovascular: Cardiovascular: Denies chest pain, Denies rapid heart rate, Denies leg edema, Denies lightheadedness and Denies dyspnea <ARMIDA Tomlin Last Filed: 09/04/24 21:38> Respiratory: Respiratory: Denies chest congestion, Denies cough, Denies dyspnea and Denies wheezing <ARMIDA Tomlin Last Filed: 09/04/24 21:38> Gastrointestinal: Gastrointestinal: Denies abdominal pain, Denies constipation, Denies diarrhea, Denies nausea and Denies vomiting <Shahrzad Varela PA-C Last Filed: 09/04/24 21:38> Genitourinary: Genitourinary: Denies dysuria and Denies urinary frequency <VANE TomlinSylwia Last Filed: 09/04/24 21:38> Musculoskeletal: Musculoskeletal: Reports as per HPI <VANE TomlinSylwia Last Filed: 09/04/24 21:38> Integumentary/Breasts: Skin/Breast: Denies rash <Shahrzad Varela PA-C Last Filed: 09/04/24 21:38> Neurologic: Denies confusion and Denies headache(s) <VANE Tomlin Last Filed: 09/04/24 21:38> Psychiatric: Psychiatric: Denies confusion <VANE TomlinSylwia Last Filed: 09/04/24 21:38> Endocrine: Endocrine: Denies fatigue <VANE Tomlin Last Filed: 09/04/24 21:38> Hematologic/Lymphatic: Hematologic/Lymphatic: Denies easy bleeding <VANE TomlinSylwia Last Filed: 09/04/24 21:38> Allergic/Immunologic: Allergic/Immunologic: Denies wheezing <VANE TomlinSylwia Last Filed: 09/04/24 21:38> FOR[facility]LY [facility], [facility] Medical History: Medical History Wound of foot Osteomyelitis Acute osteomyelitis Depression PAD (peripheral artery disease) Toe gangrene <Shahrzad Varela PA-C Last Filed: 09/04/24 21:38> Surgical History: Surgical History Hx of surgical procedure (~08/03/24) Hx of amputation Abdominal wall hernia Hx of appendectomy <Shahrzad Varela PA-C Last Filed: 09/04/24 21:38> Social History: Social History Household Members: None Housing: House Do you presently have visiting nurse or other home services: Yes (s/p amp to R toe) Patient Tobacco Use Status: Never used Tobacco Tobacco use type: Cigarette Cigarette Packs Per Day: 1 Cigarettes Per Day: 10 Years Smoked: 43 Smoked in Last 30 Days: No e-Cigarette/Vaping Use: Never Used Second Hand Smoke Exposure: No Use of substances other than those prescribed or required for medical reasons: No Substance Use Type: Marijuana Advance Directives: No Advance Directives Information Provided: Yes Do you have a plan to hurt others: No Plan Nutrition Risks: No Nutritional Risk service: No <Shahrzad Varela PA-C - Last Filed: 09/04/24 21:38> Narrative: Smokes 1/2 pack per day, no alcohol or drug use <Shahrzad Varela PA-C - Last Filed: 09/04/24 21:38> Meds Allergies/Adverse reactions: Allergies Allergy/AdvReac Type Severity Reaction Status Date / Time codeine [Codeine] Allergy Mild RASH Verified 09/04/24 14:48 Codeine Allergy Unknown Rash Uncoded 08/30/24 15:12 <Shahrzad Varela PA-C - Last Filed: 09/04/24 21:38> Home medications: Home Medications ?Medication ?Instructions ?Recorded ?Confirmed ?Last Taken ?Type buspirone 10 mg tablet 10 mg PO TID 04/03/22 09/04/24 09/03/24 History clonidine HCl 0.1 mg tablet 0.1 mg PO BEDTIME PRN Anxiety 04/03/22 09/04/24 09/03/24 History zolpidem 10 mg tablet 10 mg PO BEDTIME PRN Sleep 04/03/22 09/04/24 09/03/24 History sertraline 100 mg tablet 200 mg PO DAILY 05/11/24 09/04/24 09/03/24 History <Shahrzad Varela PA-C - Last Filed: 09/04/24 21:38> Physical Exam Vital Signs and Narrative: Vital Signs: Last Vital Signs Temp 98.2 F 09/04/24 20:00 Pulse 86 09/04/24 20:00 Resp 20 09/04/24 20:00 BP 167/78 H 09/04/24 20:00 Pulse Ox 96 09/04/24 20:00 O2 Del Method Room Air 09/04/24 20:00 BMI result Body Mass Index 34.9 <ARMIDA Tomlin Last Filed: 09/04/24 21:38> General: AOx3, no acute distress Resp: CTA bilaterally CVS: S1, S2, RRR GI: +BS, NT, no distention Skin: Warm, dry Extremities: Solitary right great toe, gangrenous, no foul odor or purulent discharge Psych: Appropriate affect <Shahrzad Varela PA-C - Last Filed: 09/04/24 21:38> Const: General: No confusion <ARMIDA Tomlin Last Filed: 09/04/24 21:38> Orientation/consciousness: No confusion <ARMIDA Tomlin Last Filed: 09/04/24 21:38> Neuro: General: No confusion <Shahrzad Varela PA-C - Last Filed: 09/04/24 21:38> Results Labs CBC and Chem 7: 09/04/24 16:01 09/04/24 16:01 <Shahrzad Varela PA-C - Last Filed: 09/04/24 21:38> Labs: Laboratory Results - last 24 hr 09/04/24 09/04/24 09/04/24 15:59 16:00 16:01 MCV 81.9 MCH 28.4 MCHC 34.7 RDW 13.6 Plt Count 121 L D MPV 10.7 Immature Gran % (Auto) 0.4 Neut % (Auto) 88.3 H Lymph % (Auto) 8.5 L [place] % (Auto) 2.4 Eos % (Auto) 0.4 Baso % (Auto) 0.0 Lymph # (Auto) 0.6 L [place] # (Auto) 0.2 Eos # (Auto) 0.0 Baso # (Auto) 0.0 Abs Immat Gran (auto) 0.03 Absolute Neuts (auto) 6.0 Absolute Nucleated RBC 0.000 Nucleated RBC % (auto) 0.0 PT 15.6 H INR 1.3 H Anion Gap 20 Estim Creat Clear Calc 124.1 Estimated GFR > 60 Random Glucose 90 Lactic Acid 1.1 Calcium 9.2 Magnesium 2.3 Total Bilirubin 0.8 AST 71 H ALT 39 Alkaline Phosphatase 155 H Troponin I High Sens 9.1 Total Protein 7.8 Albumin 3.2 L Influenza Type A (PCR) NEGATIVE Influenza Type B (PCR) NEGATIVE RSV RNA Qual (PCR) NEGATIVE SARS-CoV-2 RNA (RT-PCR) NEGATIVE <Shahrzadcharla Varela PA-C - Last Filed: 09/04/24 21:38> Assessment and Plan (1) Gangrene of toe of right foot: Status: Acute <Shahrzad Varela PA-C - Last Filed: 09/04/24 21:38> (2) PAD (peripheral artery disease): Status: Acute <Shahrzad Varela PA-C - Last Filed: 09/04/24 21:38> (3) Hypokalemia: Status: Acute <Sharhzad Varela PA-C - Last Filed: 09/04/24 21:38> (4) Prolonged QT interval: Status: Acute <Shahrzad Varela PA-C - Last Filed: 09/04/24 21:38> (5) Obesity: Status: Chronic <Shahrzad Varela PA-C - Last Filed: 09/04/24 21:38> Patient is a 59-year-old male with a past medical history significant for peripheral artery disease status post amputation 2 through 5 digits right foot, scheduled for right great toe amputation with Dr. Bender on 09/06, HTN, depression, obesity, who presented to the ED today with severe right great toe pain. Gangrene right great toe with intractable pain and possible overlying infection - no leukocytosis, no fever, lactic 1.1, blood cultures x2 pending, no sepsis. - x-ray right foot pending, may need Doppler or CT pending vascular surgery evaluation - consult vascular surgery - started on vancomycin and Zosyn empirically, continue - scheduled oxycodone 10 mg q6h, Dilaudid 1 mg q4h as needed for pain management - NPO after midnight - LR 100ml/hr - monitor CBC and BMP Prolonged QTc, Hypokalemia - potassium 3.1, given 40 mEq p.o. - mag normal - monitor BMP HTN - BP slightly elevated, continue home meds once med rec done Obesity - BMI 34.9 - weight loss encouraged Tobacco use - smoking cessation encouraged - patient declines nicotine patch while here Full code VTE prophylaxis: Pneumoboots left lower extremity, anticoagulation contraindicated due to possible impending surgery Patient with intractable pain secondary to gangrene of the right great toe with possible overlying infection, requiring admission for empiric antibiotics, possible surgery and pain management. <Shahrzad Varela PA-C - Last Filed: 09/04/24 21:38> Patient is a 59-year-old male with a past medical history significant for peripheral artery disease status post amputation 2 through 5 digits right foot, scheduled for right great toe amputation with Dr. Bender on 09/06, HTN, depression, obesity, who presented to the ED today with severe right great toe pain. Gangrene right great toe with intractable pain and possible overlying infection - no leukocytosis, no fever, lactic 1.1, blood cultures x2 pending, no sepsis. - x-ray right foot pending, may need Doppler and/or CT pending vascular surgery evaluation - consult vascular surgery - started on vancomycin and Zosyn empirically, continue - scheduled oxycodone 10 mg q6h, Dilaudid 1 mg q4h as needed for pain management - NPO after midnight - LR 100ml/hr - monitor CBC and BMP Prolonged QTc, Hypokalemia - potassium 3.1, given 80 mEq p.o. - mag normal - monitor BMP and mg HTN - BP slightly elevated, continue home meds once med rec done Obesity - BMI 34.9 - weight loss encouraged Tobacco use - smoking cessation encouraged - patient declines nicotine patch while here Full code VTE prophylaxis: Pneumoboots left lower extremity Patient with intractable pain secondary to gangrene of the right great toe with possible overlying infection, requiring admission for empiric antibiotics, possible surgery and pain management. <Adis Vargas MD - Last Filed: 09/04/24 22:31> Quality Stroke Does the patient have a stroke diagnosis?: No <Shahrzad Varela PA-C - Last Filed: 09/04/24 21:38> VTE Prior VTE?: No <Shahrzad Varela PA-C - Last Filed: 09/04/24 21:38> VTE Risk Level:: Medical - moderate - high <Shahrzad Varela PA-C - Last Filed: 09/04/24 21:38> VTE Device Contraindication: N/A - Device Ordered <Shahrzad Varela PA-C - Last Filed: 09/04/24 21:38> VTE Drug Contraindication: Treatment Not Indicated <Shahrzad Varela PA-C - Last Filed: 09/04/24 21:38>
[2024-09-04] MEDS: Lactated Ringers 1,000 ML 100 ML IVCONT (21:43)
[2024-09-04] MEDS: oxyCODONE HCl Immed Release 5 MG TABLET 10 MG PO (21:44)
--- NOTE | 2024-09-04 22:06 | PHA.PROG ---
Admission Date/Time: September 04, 2024 21:07 Indication: SKIN Weight in k.398 kg Adjusted body weight in Kg: [place] body weight in Kg: Obesity Dosing Indication % IBW: Serum Creatinine - Last 168 Hours 09/04/24 16:01 Creatinine 0.80 Estimated CrCl and GFR - Last 168 Hours 09/04/24 16:01 Estim Creat Clear Calc 124.1 Estimated GFR > 60 Vancomycin Loading Dose: 2000 MG Current Vancomycin Dosing Regimen: 1250 MG Q12H Vancomycin Monitoring using AUC goal of 400 - 600 range with trough as surrogate marker: YMW=523 TROUGH=14.5 Date and Time for next Vancomycin Level to be drawn: 09/06/24 @0600 Pharmacist Comments on Vancomycin Plan: Vancomycin dosing will take advantage of [employer] as a clinical decision support tool that uses Bayesian modeling to calculate individual patient's pharmacokinetic parameters and forecast the patient's drug concentration time course with the target goal AUC 24 range of 400 - 600 mg/L/hr.
--- NOTE | 2024-09-04 22:21 | PC.NURSE ---
Addendum entered by Josselin Blount RN 09/04/24 22:53: Straight cath'd for 500 ccs UA sent Addendum entered by Josselin Blount RN 09/04/24 22:33: Dr. Sam frey RE: bladder scan, order straight cath x 1 Original Note: Patient transferred over to a hospital bed, coccyx area noted to be reddened, no open areas. Patient continues to complain he has to urinate, unable to hold the urinal and urinate w/o assistance, bladder scanned for 502, Shahrzad Varela admitting provider made aware.
[2024-09-04 22:51] LABS: Appearance Urine Clear; Color Urine Yellow; Glucose Urine UA Negative (Negative); Leukocyte Esterase Urine Negative (Negative); Nitrite Urine Negative (Negative); Specific Gravity - Urine 1.025 (1.005-1.025); Urine Blood Negative (Negative); Urine Ketones 40 mg/dL (Negative); Urine Protein Trace mg/dL (Neg-Trace)
--- NOTE | 2024-09-04 23:41 | PC.NURSE ---
pt bandage noted to be bloody. clean dry gauze replaced on right foot, pt tolerated well.
[2024-09-05] VITALS (9 sets, daily range): BP systolic 124–189; BP diastolic 48–85; PULSE 80–96; RESP 16–20; TEMP 36.4–37.2; O2SAT 95–100
[2024-09-05] MEDS: HYDROmorphone HCl 1 MG/ML SYRINGE IVPUSH ×3 (01:23→12:50)
--- NOTE | 2024-09-05 01:26 | PC.NURSE ---
pt medicated per mar for 10/10 right foot pain. pt instructed on NPO diet at this time.
[2024-09-05] MEDS: Piperacillin Sodium/Tazobactam 3.375 GM in 0.9 % Sodium Chloride 50 ML IV ×4 (04:09→22:27)
[2024-09-05] MEDS: oxyCODONE HCl Immed Release 5 MG TABLET 10 MG PO ×4 (04:09→21:36)
--- NOTE | 2024-09-05 05:08 | PC.NURSE ---
2/2 blood cultures positive for gram neg rods
[2024-09-05 05:21] LABS: Basophils Percent Auto 0.1 % (0-2); Hematocrit 31.9 % (42.0-52.0); Hemoglobin 10.9 g/dl (14.0-18.0); Imm Gran Abs Auto 0.07 X10*3/uL (0.00-0.03); Imm Gran Pct Auto 0.8 % (0.0-0.4); Lymphocytes Absolute Auto 0.3 X10*3/uL (1.2-4.9); Lymphocytes Percent Auto 3.2 % (20-40); MANUAL DIFF FLAG SCAN; Mean Corpuscular HGB Conc 34.2 g/dl (31.0-36.0); Mean Platelet Volume 11.7 fL (9.4-12.4); Monocytes Absolute Auto 0.2 X10*3/uL (0.1-1.2); Monocytes Percent Auto 2.1 % (2-11); Neutrophils Absolute Auto 8.3 x10*3/uL (2.0-8.3); Neutrophils Percent Auto 93.8 % (45-73); Platelet Count 101 X10*3/uL (160-400); Red Blood Count 3.89 X10*6/uL (4.60-5.80); Red Cell Distribution Width 13.7 % (11.0-16.0); SCAN SMEAR FLAG 1; White Blood Count 8.9 X10*3/uL (4.8-10.8)
[2024-09-05 05:37] LABS: Anion Gap 19 (12-20); Blood Urea Nitrogen 16 mg/dL (9-16); Calcium 8.3 mg/dL (8.4-10.2); Carbon Dioxide 21 mmol/L (22-29); Chloride 94 mmol/L (96-108); Creatinine Clr Calc Pharmacy 125.7; Estimated Glomerular Filt Rate > 60; Glucose Random 94 mg/dL (60-115); Magnesium 1.9 mg/dL (1.6-2.6); Potassium 3.7 mmol/L (3.3-5.1); Sodium 130 mmol/L (135-145)
[2024-09-05 05:51] LABS: SLIDE REVIEW VERIFIED
--- NOTE | 2024-09-05 07:33 | HO.PM.IMPN ---
Subjective Subjective Date of Service: 09/05/24 Interval History: f/u on gangree of the toe has pain and food looks gangrenous Physical Exam Vital Signs: Vital Signs: Last Vital Signs Temp 98.1 F 09/05/24 04:13 Pulse 81 09/05/24 07:02 Resp 17 09/05/24 07:02 BP 124/85 09/05/24 07:02 Pulse Ox 100 09/05/24 07:02 O2 Del Method Room Air 09/05/24 07:02 BMI result Body Mass Index 34.9 Const: Other: General: AO X 3, no acute distress Resp: CTA bilateral CVS: S1,S2,RRR GI: +BS, NT, no distention Skin: Neuro: motor grossly intact Psych: appropriate affect Objective Data Active Medications Acetaminophen (Acetaminophen 325 Mg Tablet) 650 mg PO Q6H PRN PRN Reason: Pain, Mild (Pain Scale 1-3), fever or headache Buspirone HCl (Buspirone Hcl 10 Mg Tablet) 10 mg PO TID WOOD Calcium Carbonate (Calcium Carbonate 750 Mg Tab.Chew) 750 mg PO Q4H PRN PRN Reason: Heartburn Clonidine HCl (Clonidine Hcl 0.1 Mg Tablet) 0.1 mg PO BEDTIME PRN; Protocol PRN Reason: Anxiety Hydromorphone HCl (Hydromorphone Hcl 1 Mg/Ml Syringe) 1 mg IVPUSH Q4H PRN; Protocol PRN Reason: Pain, Severe (Pain Scale 7-10) Last Admin: 09/05/24 01:23 Dose: 1 mg Documented By: YUE Lactated Ringer's (Lr) 1,000 mls @ 100 mls/hr IVCONT .Q10H [facility] Last Infusion: 09/05/24 00:16 Dose: 100 mls/hr Documented By: YUE Piperacillin Sod/Tazobactam (Sod 3.375 gm/ Sodium Chloride) 50 mls @ 100 mls/hr IV Q6H [facility] Last Infusion: 09/05/24 04:41 Dose: Infused Documented By: PARVEEN Vancomycin HCl 1,250 mg/ (Sodium Chloride) 250 mls @ 166.667 mls/hr IV Q12H [facility] Magnesium Hydroxide (Milk Of Magnesia 30 Ml Oral.Susp) 30 ml PO DAILY PRN PRN Reason: Constipation Melatonin (Melatonin 3 Mg Tablet) 6 mg PO BEDTIME PRN PRN Reason: Insomnia Oxycodone HCl (Oxycodone Hcl Immed Release 5 Mg Tablet) 10 mg PO Q6H [facility] Last Admin: 09/05/24 04:09 Dose: 10 mg Documented By: PARVEEN Pharmacy Consult (Consult Rx Vancomycin Dosing) 1 each MISCELLANE DAILY PRN PRN Reason: Consult order Sertraline HCl (Sertraline Hcl 100 Mg Tablet) 200 mg PO DAILY [facility] Sodium Chloride (0.9 % Sodium Chloride Flush 3 Ml Syringe) 3 ml IVFLUSH QSHIFT [facility] Last Admin: 09/05/24 00:16 Dose: Not Given Documented By: YUE Non-Admin Reason: IV Running Zolpidem Tartrate (Zolpidem Tartrate 5 Mg Tablet) 10 mg PO BEDTIME PRN PRN Reason: Sleep Labs 09/05/24 04:46 09/05/24 04:46 Labs: Laboratory Results - last 24 hr 09/04/24 09/04/24 09/04/24 15:59 16:00 16:01 MCV 81.9 MCH 28.4 MCHC 34.7 RDW 13.6 Plt Count 121 L D MPV 10.7 Immature Gran % (Auto) 0.4 Neut % (Auto) 88.3 H Lymph % (Auto) 8.5 L [place] % (Auto) 2.4 Eos % (Auto) 0.4 Baso % (Auto) 0.0 Lymph # (Auto) 0.6 L [place] # (Auto) 0.2 Eos # (Auto) 0.0 Baso # (Auto) 0.0 Abs Immat Gran (auto) 0.03 Absolute Neuts (auto) 6.0 Absolute Nucleated RBC 0.000 Nucleated RBC % (auto) 0.0 Smear Tech's Comments PT 15.6 H INR 1.3 H Anion Gap 20 Estim Creat Clear Calc 124.1 Estimated GFR > 60 Random Glucose 90 Lactic Acid 1.1 Calcium 9.2 Magnesium 2.3 Total Bilirubin 0.8 AST 71 H ALT 39 Alkaline Phosphatase 155 H Troponin I High Sens 9.1 Total Protein 7.8 Albumin 3.2 L Urine Color Urine Appearance Urine pH Ur Specific [place] Urine Protein Urine Glucose (UA) Urine Ketones Urine Blood Urine Nitrite Ur Leukocyte Esterase Influenza Type A (PCR) NEGATIVE Influenza Type B (PCR) NEGATIVE RSV RNA Qual (PCR) NEGATIVE SARS-CoV-2 RNA (RT-PCR) NEGATIVE 09/04/24 09/05/24 22:40 04:46 MCV 82.0 MCH 28.0 MCHC 34.2 RDW 13.7 Plt Count 101 L MPV 11.7 Immature Gran % (Auto) 0.8 H Neut % (Auto) 93.8 H Lymph % (Auto) 3.2 L [place] % (Auto) 2.1 Eos % (Auto) 0.0 Baso % (Auto) 0.1 Lymph # (Auto) 0.3 L [place] # (Auto) 0.2 Eos # (Auto) 0.0 Baso # (Auto) 0.0 Abs Immat Gran (auto) 0.07 H Absolute Neuts (auto) 8.3 Absolute Nucleated RBC 0.000 Nucleated RBC % (auto) 0.0 Smear Tech's Comments VERIFIED PT INR Anion Gap 19 Estim Creat Clear Calc 125.7 Estimated GFR > 60 Random Glucose 94 Lactic Acid Calcium 8.3 L D Magnesium 1.9 Total Bilirubin AST ALT Alkaline Phosphatase Troponin I High Sens Total Protein Albumin Urine Color Yellow Urine Appearance Clear Urine pH 6.0 Ur Specific [place] 1.025 Urine Protein Trace Urine Glucose (UA) Negative Urine Ketones 40 Urine Blood Negative Urine Nitrite Negative Ur Leukocyte Esterase Negative Influenza Type A (PCR) Influenza Type B (PCR) RSV RNA Qual (PCR) SARS-CoV-2 RNA (RT-PCR) Microbiology Microbiology Results: Microbiology 09/04/24 16:01 Blood Culture - Preliminary Blood - Venous Prelim: GNR Gram Stain only 09/04/24 16:15 Blood Culture - Preliminary Blood - Venous Prelim: GNR Gram Stain only Assessment and Plan (1) Toe gangrene: Status: Acute Plan 59-year-old male with a past medical history significant for peripheral artery disease status post amputation 2 through 5 digits right foot, scheduled for right great toe amputation with Dr. Bender on 09/06, HTN, depression, obesity, who presented to the ED today with severe right great toe pain. Gangrene right great toe with intractable pain and possible overlying infection - no leukocytosis, no fever, lactic 1.1, blood cultures x2 pending, no sepsis. - x-ray right foot pending, may need Doppler and/or CT pending vascular surgery evaluation - consult vascular surgery and surgery consults - started on vancomycin and Zosyn empirically, continue - scheduled oxycodone 10 mg q6h, Dilaudid 1 mg q4h as needed for pain management - monitor CBC and BMP Gram negative cristian bacteremia- -continue Zosyn as above Hypokalemia--corrected Prolonged QTc, Hypokalemia - potassium 3.1, given 80 mEq p.o. - mag normal - monitor BMP and mg HTN-normal -resume home meds Obesity - BMI 34.9 - weight loss encouraged Tobacco use - smoking cessation encouraged - patient declines nicotine patch while here Full code VTE prophylaxis: Pneumoboots left lower extremity need for inpt: Patient with intractable pain secondary to gangrene of the right great toe with possible overlying infection, requiring admission for empiric antibiotics, possible surgery and pain management. Quality Stroke Does the patient have a stroke diagnosis?: No VTE Prior VTE?: No VTE Risk Level:: Medical - moderate - high VTE Device Contraindication: N/A - Device Ordered VTE Drug Contraindication: Treatment Not Indicated
[2024-09-05] MEDS: vancomycin HCL 1,250 MG in 0.9 % Sodium Chloride 250 ML 166.67 MG IV ×2 (08:29→19:50)
[2024-09-05] MEDS: Lactated Ringers 1,000 ML 100 ML IVCONT ×2 (08:38→21:36)
[2024-09-05] MEDS: Sertraline HCL 100 MG TABLET 200 MG PO (09:32)
[2024-09-05] MEDS: busPIRone HCl 10 MG TABLET PO ×3 (09:32→21:36)
--- NOTE | 2024-09-05 09:37 | P.CONGS_ITS ---
<Statement entered by Rebel Green MD - 09/05/24 14:21> I have seen and evaluated the patient and agree with history, findings, assessment and plan documented by Diane Bobby PA-c. Patient with nonpalpable pulses. Nonhealing great toe. I changed the dressing it is frankly ischemic and does not even appear attached. Would recommend toe removal and subsequent formal transmetatarsal amputation. Arterial testing was reviewed and does appear to have reasonable flow to heal the wound. Will manage that conservatively for now. Should the amputation not heal will require endovascular intervention. Case discussed with Dr. Bender. Thank you for allowing us to assist in this patient's care. History of Present Illness Consult details Consult date: 09/05/24 Narrative: We are consulted for Fan, a pleasant but older than appearing 59-year-old male patient, for ongoing peripheral arterial disease and gangrene of the R1 great toe. He presented to the ER yesterday with concerns of increased pain in the great toe. He does have a amputation scheduled with Dr. Bender tomorrow. It was advised that he get a BKA; however the patient is not conducive to this at this point. He does continue to endorse significant pain of the right foot and right toe. His foot is very warm to the touch with palpable DP pulses. We did review his chart and he is last arterial duplex was in April; we will be ordering a stat ultrasound today. He also had an angio performed with Dr. Green and there was a successful plasty of the right anterior tibial and peroneal arteries. He has not had any follow up with this office at this point. Review of Systems 2 Constitutional: Constitutional: Reports as per HPI and Denies weakness ENT: Reports Normal hearing present and Denies dizziness Cardiovascular: Cardiovascular: Reports as per HPI, Denies chest pain, Denies chest pain at rest, Denies chest pain with activity, Denies dyspnea and Denies dyspnea on exertion Respiratory: Respiratory: Reports as per HPI, Denies cough, Denies dyspnea and Denies dyspnea on exertion Gastrointestinal: Gastrointestinal: Reports as per HPI, Denies abdominal pain, Denies nausea and Denies vomiting Musculoskeletal: Musculoskeletal: Denies numbness Integumentary/Breasts: Skin/Breast: Reports as per HPI, Denies erythema and Denies wounds Neurologic: Reports Normal hearing present, Denies dizziness, Denies numbness, Denies Sensory deficit (Neuro) and Denies weakness Psychiatric: Psychiatric: Reports no additional psychiatric complaints Endocrine: Endocrine: Reports no additional endocrine complaints [facility] Past Medical History Medical History Wound of foot Osteomyelitis Acute osteomyelitis Depression PAD (peripheral artery disease) Toe gangrene Surgical History Surgical History Hx of surgical procedure (~08/03/24) Hx of amputation Abdominal wall hernia Hx of appendectomy Social History Social History Household Members: None Housing: House Do you presently have visiting nurse or other home services: Yes (s/p amp to R toe) Patient Tobacco Use Status: Never used Tobacco Tobacco use type: Cigarette Cigarette Packs Per Day: 1 Cigarettes Per Day: 10 Years Smoked: 43 e-Cigarette/Vaping Use: Never Used Second Hand Smoke Exposure: No Substance Use Type: Marijuana service: No Meds Allergies Allergy/AdvReac Type Severity Reaction Status Date / Time codeine [Codeine] Allergy Mild RASH Verified 09/04/24 14:48 Codeine Allergy Unknown Rash Uncoded 08/30/24 15:12 Active Medications: Current Medications Acetaminophen (Acetaminophen 325 Mg Tablet) 650 mg PO Q6H PRN PRN Reason: Pain, Mild (Pain Scale 1-3), fever or headache Buspirone HCl (Buspirone Hcl 10 Mg Tablet) 10 mg PO TID WOOD Calcium Carbonate (Calcium Carbonate 750 Mg Tab.Chew) 750 mg PO Q4H PRN PRN Reason: Heartburn Clonidine HCl (Clonidine Hcl 0.1 Mg Tablet) 0.1 mg PO BEDTIME PRN; Protocol PRN Reason: Anxiety Hydromorphone HCl (Hydromorphone Hcl 1 Mg/Ml Syringe) 1 mg IVPUSH Q4H PRN; Protocol PRN Reason: Pain, Severe (Pain Scale 7-10) Last Admin: 09/05/24 08:29 Dose: 1 mg Lactated Ringer's (Lr) 1,000 mls @ 100 mls/hr IVCONT .Q10H [facility] Last Infusion: 09/05/24 09:10 Dose: 0 mls/hr Piperacillin Sod/Tazobactam (Sod 3.375 gm/ Sodium Chloride) 50 mls @ 100 mls/hr IV Q6H [facility] Last Infusion: 09/05/24 04:41 Dose: Infused Vancomycin HCl 1,250 mg/ (Sodium Chloride) 250 mls @ 166.667 mls/hr IV Q12H [facility] Last Admin: 09/05/24 08:29 Dose: 166.67 mls/hr Magnesium Hydroxide (Milk Of Magnesia 30 Ml Oral.Susp) 30 ml PO DAILY PRN PRN Reason: Constipation Melatonin (Melatonin 3 Mg Tablet) 6 mg PO BEDTIME PRN PRN Reason: Insomnia Oxycodone HCl (Oxycodone Hcl Immed Release 5 Mg Tablet) 10 mg PO Q6H [facility] Last Admin: 09/05/24 04:09 Dose: 10 mg Pharmacy Consult (Consult Rx Vancomycin Dosing) 1 each MISCELLANE DAILY PRN PRN Reason: Consult order Sertraline HCl (Sertraline Hcl 100 Mg Tablet) 200 mg PO DAILY [facility] Sodium Chloride (0.9 % Sodium Chloride Flush 3 Ml Syringe) 3 ml IVFLUSH QSHIFT [facility] Last Admin: 09/05/24 08:45 Dose: Not Given Zolpidem Tartrate (Zolpidem Tartrate 5 Mg Tablet) 10 mg PO BEDTIME PRN PRN Reason: Sleep Home Medications ?Medication ?Instructions ?Recorded ?Confirmed ?Last Taken ?Type buspirone 10 mg tablet 10 mg PO TID 04/03/22 09/04/24 09/03/24 History clonidine HCl 0.1 mg tablet 0.1 mg PO BEDTIME PRN Anxiety 04/03/22 09/04/24 09/03/24 History zolpidem 10 mg tablet 10 mg PO BEDTIME PRN Sleep 04/03/22 09/04/24 09/03/24 History sertraline 100 mg tablet 200 mg PO DAILY 05/11/24 09/04/24 09/03/24 History Physical Exam 2 Vital Signs: Vital Signs: Last Vital Signs Temp 98.4 F 09/05/24 08:16 Pulse 85 09/05/24 08:16 Resp 18 09/05/24 08:16 BP 154/70 H 09/05/24 08:16 Pulse Ox 99 09/05/24 08:16 O2 Del Method Room Air 09/05/24 08:16 BMI result Body Mass Index 34.9 Const: General: comfortable and no acute distress O rientation/consciousness: patient oriented x3 HEENT: Ears: hearing grossly normal bilaterally Resp: Effort & Inspection: normal respiratory effort and able to speak in complete sentences Auscultation: clear to auscultation bilaterally Cardio: Rate: regular rate Rhythm: regular rhythm Heart sounds: S1 normal heart sound present and S2 normal heart sound present Bruits: no abdominal aortic bruits, no carotid bruits, no femoral bruits and no renal bruits GI: Palpation (GI): No Abdominal aortic bruit present Neuro: General: patient oriented x3 Cranial nerves: Yes Normal hearing present Sensory Exam: No Sensory deficit (Neuro) Extrem: Other: R1 toe: Purple/black dry gangrene noted from the base of the toes the tip of the toes. Right foot: R 2 through 5 amputation sites covered with bandage, not taken down this morning. Palpable DP pulses. Foot is warm to the touch. There is some significant dry skin noted throughout the foot. There is also wound at the heel area, covered with a dressing, not taken down. Results Labs 09/05/24 04:46 09/05/24 04:46 Labs: Abnormal lab results 09/04/24 09/05/24 Range/Units 16:01 04:46 RBC 4.36 L 3.89 L (4.60-5.80) X10*6/uL Hgb 12.4 L 10.9 L (14.0-18.0) g/dl Hct 35.7 L 31.9 L (42.0-52.0) % Plt Count 121 L D 101 L (160-400) X10*3/uL Immature Gran % (Auto) 0.8 H (0.0-0.4) % Neut % (Auto) 88.3 H 93.8 H (45-73) % Lymph % (Auto) 8.5 L 3.2 L (20-40) % Lymph # (Auto) 0.6 L 0.3 L (1.2-4.9) X10*3/uL Abs Immat Gran (auto) 0.07 H (0.00-0.03) X10*3/uL PT 15.6 H (10.9-12.4) SEC INR 1.3 H (0.9-1.1) Sodium 133 L 130 L (135-145) mmol/L Potassium 3.1 L (3.3-5.1) mmol/L Chloride 90 L 94 L (96-108) mmol/L Carbon Dioxide 21 L (22-29) mmol/L Calcium 8.3 L D (8.4-10.2) mg/dL AST 71 H (5-37) U/L Alkaline Phosphatase 155 H (39-117) U/L Albumin 3.2 L (3.5-5.0) g/dL Short CBC 09/04/24 09/05/24 Range/Units 16:01 04:46 WBC 6.8 8.9 (4.8-10.8) X10*3/uL Hgb 12.4 L 10.9 L (14.0-18.0) g/dl Hct 35.7 L 31.9 L (42.0-52.0) % Plt Count 121 L D 101 L (160-400) X10*3/uL BMP 09/04/24 09/05/24 16:01 04:46 Sodium 133 L 130 L Potassium 3.1 L 3.7 Chloride 90 L 94 L Carbon Dioxide 26 21 L BUN 15 16 Creatinine 0.80 0.79 Calcium 9.2 8.3 L D Liver Function 09/04/24 Range/Units 16:01 Total Bilirubin 0.8 (0.0-1.0) mg/dL AST 71 H (5-37) U/L ALT 39 (0-40) U/L Alkaline Phosphatase 155 H (39-117) U/L Albumin 3.2 L (3.5-5.0) g/dL Urine 09/04/24 Range/Units 22:40 Urine Color Yellow Urine Appearance Clear Urine pH 6.0 (5.0-9.0) Ur Specific [place] 1.025 (1.005-1.025) Urine Protein Trace (Neg-Trace) mg/dL Urine Glucose (UA) Negative (Negative) mg/dL All other labs normal. Assessment and Plan (1) Gangrene of toe of right foot: Status: Acute Plan Fan presented to the ER yesterday with intractable pain of the right foot, particularly the right great toe. We are consulted for ongoing right lower extremity pain. And his most recent angio an arterial duplex was in April; he did have a successful plasty of the right anterior tibial and peroneal arteries with Dr. Green. There was no follow up in the office. He is scheduled for a R1 great toe amputation tomorrow with Dr. Bender. There was talk about a further amputation, possible BKA; however, the patient does not want to have that performed. We ordered a stat arterial duplex ultrasound. We will continue to monitor. Thank you for the consult. Continue with the daily aspirin. There are any questions or concerns, please do not hesitate to reach out to us. Procedures Date of Service Date of Service: 09/05/24
--- NOTE | 2024-09-05 13:51 | MHC.CM.PN ---
pts daughter lives w/pt he is active w/[facility] he will need an amb home dc plan home w/[facility] and [facility]
--- NOTE | 2024-09-05 14:24 | MHC.EDTECH ---
patient was incontinent from urine and clean right after.
--- NOTE | 2024-09-05 14:26 | MHC.EDTECH ---
Patient refused breakfast and lunch because he was not hungry.
--- NOTE | 2024-09-05 14:57 | PM.CNGS ---
History of Present Illness Consult details Consult date: 09/05/24 Narrative: 59-year-old male with known peripheral vascular disease, here for pain on the right footcafter amputation of the 2nd toe last 08/16/2024. He actually has had amputation of the 5th, 4th, and 3rd toes, one toe at a time starting April,. He had always refused a more proximal amputation. I had seen him in the office on a follow-up last week and his right big toe appeared to be discolored as well consistent with ischemia. I had recommended BKA but he had wanted to preserve this foot. He had agreed to do amputation of the big toe last week. However, he canceled last and stated he was not ready for the amputation. He called the office to schedule this for tomorrow. He came last night because of pain on the right foot. He continues to smoke heavily. He says that he has not had alcohol intake for about 2 months. He has refused amputation with the other toes before and does not want any BKA. He has known peripheral vascular disease. He had undergone plasty of the distal vessels with Dr. Green last April, already. He continues to have chronic pain on the foot. He describes pain on the amputation site and the big toe. Dressing changes are being done by his daughter Airam as well as the visiting nurse and there has been note of dark discoloration of the big toe starting a few days ago. He said that this seemed to do well after the surgery for a few days. [facility] Past Medical History Medical History Wound of foot Osteomyelitis Acute osteomyelitis Depression PAD (peripheral artery disease) Toe gangrene Surgical History Surgical History Hx of surgical procedure (~08/03/24) Hx of amputation Abdominal wall hernia Hx of appendectomy Social History Social History Household Members: Family Housing: House Are you a primary critical care clinical nurse specialist to a significant other at home: No Do you presently have visiting nurse or other home services: No Comment: intermittent spasm Patient Tobacco Use Status: Current everyday Tobacco user Tobacco use type: Cigarette Cigarette Packs Per Day: 0.5 Cigarettes Per Day: 10 Years Smoked: 43 e-Cigarette/Vaping Use: Never Used Second Hand Smoke Exposure: No Substance Use Type: Marijuana service: No Meds Allergies Allergy/AdvReac Type Severity Reaction Status Date / Time codeine [Codeine] Allergy Mild RASH Verified 09/06/24 13:52 Codeine Allergy Unknown Rash Uncoded 08/30/24 15:12 Active Medications: Current Medications Acetaminophen (Acetaminophen 325 Mg Tablet) 650 mg PO Q6H PRN PRN Reason: Pain, Mild (Pain Scale 1-3), fever or headache Buspirone HCl (Buspirone Hcl 10 Mg Tablet) 10 mg PO TID [facility] Last Admin: 09/05/24 09:32 Dose: 10 mg Calcium Carbonate (Calcium Carbonate 750 Mg Tab.Chew) 750 mg PO Q4H PRN PRN Reason: Heartburn Clonidine HCl (Clonidine Hcl 0.1 Mg Tablet) 0.1 mg PO BEDTIME PRN; Protocol PRN Reason: Anxiety Hydromorphone HCl (Hydromorphone Hcl 1 Mg/Ml Syringe) 1.5 mg IVPUSH Q4H PRN; Protocol PRN Reason: Pain, Severe (Pain Scale 7-10) Lactated Ringer's (Lr) 1,000 mls @ 100 mls/hr IVCONT .Q10H [facility] Last Infusion: 09/05/24 11:27 Dose: 100 mls/hr Piperacillin Sod/Tazobactam (Sod 3.375 gm/ Sodium Chloride) 50 mls @ 100 mls/hr IV Q6H [facility] Last Infusion: 09/05/24 12:19 Dose: Infused Vancomycin HCl 1,250 mg/ (Sodium Chloride) 250 mls @ 166.667 mls/hr IV Q12H [facility] Last Infusion: 09/05/24 10:11 Dose: Infused Magnesium Hydroxide (Milk Of Magnesia 30 Ml Oral.Susp) 30 ml PO DAILY PRN PRN Reason: Constipation Melatonin (Melatonin 3 Mg Tablet) 6 mg PO BEDTIME PRN PRN Reason: Insomnia Oxycodone HCl (Oxycodone Hcl Immed Release 5 Mg Tablet) 10 mg PO Q6H [facility] Last Admin: 09/05/24 09:32 Dose: 10 mg Pharmacy Consult (Consult Rx Vancomycin Dosing) 1 each MISCELLANE DAILY PRN PRN Reason: Consult order Sertraline HCl (Sertraline Hcl 100 Mg Tablet) 200 mg PO DAILY [facility] Last Admin: 09/05/24 09:32 Dose: 200 mg Sodium Chloride (0.9 % Sodium Chloride Flush 3 Ml Syringe) 3 ml IVFLUSH QSHIFT [facility] Last Admin: 09/05/24 08:45 Dose: Not Given Zolpidem Tartrate (Zolpidem Tartrate 5 Mg Tablet) 10 mg PO BEDTIME PRN PRN Reason: Sleep Home Medications ?Medication ?Instructions ?Recorded ?Confirmed ?Last Taken ?Type buspirone 10 mg tablet 10 mg PO TID 04/03/22 09/04/24 09/03/24 History clonidine HCl 0.1 mg tablet 0.1 mg PO BEDTIME PRN Anxiety 04/03/22 09/04/24 09/03/24 History zolpidem 10 mg tablet 10 mg PO BEDTIME PRN Sleep 04/03/22 09/04/24 09/03/24 History sertraline 100 mg tablet 200 mg PO DAILY 05/11/24 09/04/24 09/03/24 History Physical Exam Vital Signs: Vital Signs: Last Vital Signs Temp 98.6 F 09/05/24 14:24 Pulse 80 09/05/24 14:24 Resp 18 09/05/24 14:24 BP 126/65 09/05/24 14:24 Pulse Ox 97 09/05/24 14:24 O2 Del Method Room Air 09/05/24 14:24 BMI result Body Mass Index 34.9 Const: General: comfortable and no acute distress Orientation/consciousness: patient oriented x3 Neck: Neck: Yes no lymphadenopathy Resp: Auscultation: clear to auscultation bilaterally Cardio: Rhythm: regular rhythm GI: Palpation (GI): Soft to palpation, nontender and no guarding Neuro: General: patient oriented x3 Extrem: Other: Right big toe with discoloration, some odor Results Labs 09/07/24 05:36 09/07/24 05:36 Labs: Abnormal lab results 09/04/24 09/05/24 Range/Units 16:01 04:46 RBC 4.36 L 3.89 L (4.60-5.80) X10*6/uL Hgb 12.4 L 10.9 L (14.0-18.0) g/dl Hct 35.7 L 31.9 L (42.0-52.0) % Plt Count 121 L D 101 L (160-400) X10*3/uL Immature Gran % (Auto) 0.8 H (0.0-0.4) % Neut % (Auto) 88.3 H 93.8 H (45-73) % Lymph % (Auto) 8.5 L 3.2 L (20-40) % Lymph # (Auto) 0.6 L 0.3 L (1.2-4.9) X10*3/uL Abs Immat Gran (auto) 0.07 H (0.00-0.03) X10*3/uL PT 15.6 H (10.9-12.4) SEC INR 1.3 H (0.9-1.1) Sodium 133 L 130 L (135-145) mmol/L Potassium 3.1 L (3.3-5.1) mmol/L Chloride 90 L 94 L (96-108) mmol/L Carbon Dioxide 21 L (22-29) mmol/L Calcium 8.3 L D (8.4-10.2) mg/dL AST 71 H (5-37) U/L Alkaline Phosphatase 155 H (39-117) U/L Albumin 3.2 L (3.5-5.0) g/dL Short CBC 09/04/24 09/05/24 Range/Units 16:01 04:46 WBC 6.8 8.9 (4.8-10.8) X10*3/uL Hgb 12.4 L 10.9 L (14.0-18.0) g/dl Hct 35.7 L 31.9 L (42.0-52.0) % Plt Count 121 L D 101 L (160-400) X10*3/uL BMP 09/04/24 09/05/24 16:01 04:46 Sodium 133 L 130 L Potassium 3.1 L 3.7 Chloride 90 L 94 L Carbon Dioxide 26 21 L BUN 15 16 Creatinine 0.80 0.79 Calcium 9.2 8.3 L D Liver Function 09/04/24 Range/Units 16:01 Total Bilirubin 0.8 (0.0-1.0) mg/dL AST 71 H (5-37) U/L ALT 39 (0-40) U/L Alkaline Phosphatase 155 H (39-117) U/L Albumin 3.2 L (3.5-5.0) g/dL Urine 09/04/24 Range/Units 22:40 Urine Color Yellow Urine Appearance Clear Urine pH 6.0 (5.0-9.0) Ur Specific [place] 1.025 (1.005-1.025) Urine Protein Trace (Neg-Trace) mg/dL Urine Glucose (UA) Negative (Negative) mg/dL All other labs normal. Assessment and Plan (1) Toe gangrene: Status: Acute He has a gangrene of the right big toe. He also has right foot pain consistent with claudication He is on the schedule tomorrow for right big toe amputation. Again, he does not want any more proximal amputation at this time I discussed this case with Dr. Green. He had repeated Doppler studies today and he feels that we may be able to go ahead with right big toe amputation with the risk of poor healing. We will therefore proceed with right big toe amputation tomorrow. I reviewed the technique of this procedure with the patient and explained the risks, benefits, and alternatives and he understands and wants to proceed. I have explained the above to the patient. I have treated his daughter Airam of the ongoing workup and plans. Procedures Date of Service Date of Service: 09/07/24
[2024-09-05] MEDS: HYDROmorphone HCl 1 MG/ML SYRINGE 1.5 MG IVPUSH ×2 (16:52→21:37)
[2024-09-05] MEDS: 0.9 % Sodium Chloride Flush 3 ML SYRINGE IVFLUSH (21:36)
[2024-09-06] VITALS (14 sets, daily range): BP systolic 114–204; BP diastolic 58–80; PULSE 69–96; RESP 12–18; TEMP 36.3–38.6; O2SAT 94–99
[2024-09-06] MEDS: oxyCODONE HCl Immed Release 5 MG TABLET 10 MG PO ×3 (03:27→22:04)
[2024-09-06] MEDS: Piperacillin Sodium/Tazobactam 3.375 GM in 0.9 % Sodium Chloride 50 ML IV ×4 (04:45→22:04)
[2024-09-06] MEDS: HYDROmorphone HCl 1 MG/ML SYRINGE 1.5 MG IVPUSH (05:27)
[2024-09-06] MEDS: Lactated Ringers 1,000 ML 100 ML IVCONT ×2 (05:28→22:38)
--- NOTE | 2024-09-06 05:35 | PC.NURSE ---
Pt arrived to 361 at 2051, alert and oriented, agitated and barely participating with the admission process, c/o right foot pain, noted right great toe as gangrenous with foul odor, dressing intact, prn dilaudid given with good effect, SR in tele, instructed NPO post midnight, for surgey in the morning.
[2024-09-06 06:34] LABS: Eosinophils Percent Auto 0.2 % (0-4); Hematocrit 28.2 % (42.0-52.0); Hemoglobin 9.7 g/dl (14.0-18.0); Imm Gran Abs Auto 0.04 X10*3/uL (0.00-0.03); Imm Gran Pct Auto 0.8 % (0.0-0.4); Lymphocytes Absolute Auto 0.4 X10*3/uL (1.2-4.9); Lymphocytes Percent Auto 8.8 % (20-40); Mean Corpuscular HGB Conc 34.4 g/dl (31.0-36.0); Mean Corpuscular Volume 81.3 fL (80.0-98.0); Mean Platelet Volume 10.8 fL (9.4-12.4); Monocytes Absolute Auto 0.1 X10*3/uL (0.1-1.2); Monocytes Percent Auto 2.5 % (2-11); Neutrophils Absolute Auto 4.3 x10*3/uL (2.0-8.3); Neutrophils Percent Auto 87.7 % (45-73); Red Blood Count 3.47 X10*6/uL (4.60-5.80); Red Cell Distribution Width 13.9 % (11.0-16.0); White Blood Count 4.9 X10*3/uL (4.8-10.8)
[2024-09-06 06:35] LABS: MANUAL DIFF FLAG SCAN; Platelet Count 69 X10*3/uL (160-400)
[2024-09-06 06:38] LABS: Vancomycin Random 12.3 mcg/mL (15-20)
[2024-09-06 06:39] LABS: Anion Gap 15 (12-20); Blood Urea Nitrogen 11 mg/dL (9-16); Carbon Dioxide 24 mmol/L (22-29); Chloride 94 mmol/L (96-108); Creatinine Clr Calc Pharmacy 150.5; Estimated Glomerular Filt Rate > 60; Glucose Random 100 mg/dL (60-115); Sodium 130 mmol/L (135-145)
--- NOTE | 2024-09-06 06:43 | HE.PHANOTE ---
Re: Gabriela Renal function is improving. Trough returned at 12.3. Pt is therapeutic, continue current dose of 1250 q12h, with predicted AUC 431, predicted trough 13.3. Next trough 09/07 @ 1800.
--- NOTE | 2024-09-06 07:24 | P.CDIM_ITS ---
PROVIDER RESPONSE TEXT: To clarify, the appropriate diagnosis supported by the clinical indicators: Hyponatremia: acute hyponatremia QUERY TEXT: PHYSICIAN'S DOCUMENTATION REQUEST Date of Query: 09/05/2024 11:22 AM EST Patient Name: Fan Garza Admit Date: 09/05/2024 Dear Mahendra Summers MD, A review of the medical record indicates additional documentation may be needed. Please review below and update the documentation accordingly. Clinical Indicators: LABS: sodium 130 L Fluids Based on the above, is there a diagnosis that correlates with the lab findings: Hyponatremia resolved, possible, probable etc. Labs indicate a diagnosis of (please specify) Other (explain) Clinically unable to determine (explain) Thank you, Rafia Guzman, CCS, CDIS Use of terms such as suspected, likely, concern for, or probable (associated with a specific diagnosi s that is being evaluated, monitored, or treated as if it exists) are acceptable and can be coded in the inpatient se tting, when documented at the time of discharge. Please use your independent medical judgment in providing your response. THIS QUERY IS PART OF THE PERMANENT MEDICAL RECORD
[2024-09-06] MEDS: vancomycin HCL 1,250 MG in 0.9 % Sodium Chloride 250 ML 166.67 MG IV ×2 (07:58→19:26)
--- NOTE | 2024-09-06 07:58 | P.PNIM_ITS ---
Subjective Subjective Date of Service: 09/06/24 Interval History: f/u on gangree of the toe and gram negative cristian bacteremia pain is not well controlled, planned for surgery today Physical Exam 2 Vital Signs: Vital Signs: Last Vital Signs Temp 98.5 F 09/06/24 07:16 Pulse 83 09/06/24 07:16 Resp 18 09/06/24 07:16 BP 125/59 L 09/06/24 07:16 Pulse Ox 95 09/06/24 07:16 O2 Del Method Room Air 09/06/24 07:16 BMI result Body Mass Index 34.9 Const: Other: General: AO X 3, no acute distress Resp: CTA bilateral CVS: S1,S2,RRR GI: +BS, NT, no distention Skin: Neuro: motor grossly intact Psych: appropriate affect Objective Data Active Medications Acetaminophen (Acetaminophen 325 Mg Tablet) 650 mg PO Q6H PRN PRN Reason: Pain, Mild (Pain Scale 1-3), fever or headache Buspirone HCl (Buspirone Hcl 10 Mg Tablet) 10 mg PO TID [facility] Last Admin: 09/05/24 21:36 Dose: 10 mg Documented By: BRANT Calcium Carbonate (Calcium Carbonate 750 Mg Tab.Chew) 750 mg PO Q4H PRN PRN Reason: Heartburn Clonidine HCl (Clonidine Hcl 0.1 Mg Tablet) 0.1 mg PO BEDTIME PRN; Protocol PRN Reason: Anxiety Hydromorphone HCl (Hydromorphone Hcl 1 Mg/Ml Syringe) 1.5 mg IVPUSH Q4H PRN; Protocol PRN Reason: Pain, Severe (Pain Scale 7-10) Last Admin: 09/06/24 05:27 Dose: 1.5 mg Documented By: BRANT Lactated Ringer's (Lr) 1,000 mls @ 100 mls/hr IVCONT .Q10H [facility] Last Admin: 09/06/24 05:28 Dose: 100 mls/hr Documented By: BRANT Piperacillin Sod/Tazobactam (Sod 3.375 gm/ Sodium Chloride) 50 mls @ 100 mls/hr IV Q6H [facility] Last Infusion: 09/06/24 05:19 Dose: Infused Documented By: BRANT Vancomycin HCl 1,250 mg/ (Sodium Chloride) 250 mls @ 166.667 mls/hr IV Q12H [facility] Last Infusion: 09/05/24 21:46 Dose: Infused Documented By: BRANT Magnesium Hydroxide (Milk Of Magnesia 30 Ml Oral.Susp) 30 ml PO DAILY PRN PRN Reason: Constipation Melatonin (Melatonin 3 Mg Tablet) 6 mg PO BEDTIME PRN PRN Reason: Insomnia Oxycodone HCl (Oxycodone Hcl Immed Release 5 Mg Tablet) 10 mg PO Q6H [facility] Last Admin: 09/06/24 03:27 Dose: 10 mg Documented By: BRANT Pharmacy Consult (Consult Rx Vancomycin Dosing) 1 each MISCELLANE DAILY PRN PRN Reason: Consult order Sertraline HCl (Sertraline Hcl 100 Mg Tablet) 200 mg PO DAILY [facility] Last Admin: 09/05/24 09:32 Dose: 200 mg Documented By: RAE Sodium Chloride (0.9 % Sodium Chloride Flush 3 Ml Syringe) 3 ml IVFLUSH QSHIFT [facility] Last Admin: 09/06/24 07:53 Dose: Not Given Documented By: BUFFY Non-Admin Reason: IV Running Zolpidem Tartrate (Zolpidem Tartrate 5 Mg Tablet) 10 mg PO BEDTIME PRN PRN Reason: Sleep Labs 09/05/24 04:46 09/06/24 06:10 Labs: Laboratory Results - last 24 hr 09/06/24 06:10 Anion Gap 15 Estim Creat Clear Calc 150.5 Estimated GFR > 60 Random Glucose 100 Calcium 8.0 L Random Vancomycin 12.3 L Microbiology Microbiology Results: Microbiology 09/04/24 16:01 Blood Culture - Preliminary Blood - Venous Prelim: GNR Gram Stain only 09/04/24 16:15 Blood Culture - Preliminary Blood - Venous Prelim: GNR Gram Stain only Assessment and Plan (1) Toe gangrene: Status: Acute Plan 59-year-old male with a past medical history significant for peripheral artery disease status post amputation 2 through 5 digits right foot, scheduled for right great toe amputation with Dr. Bender on 09/06, HTN, depression, obesity, who presented to the ED today with severe right great toe pain. Gangrene right great toe with intractable pain and suspected underlying infection -to have amputation -continue vanco and zosyn (started 09/04) -dilaudid and oxycodone for pain Gram negative cristian sepsis and bacteremia- sensitivity pending -continue Zosyn as above -ID consult Hypokalemia--replace with iv and po Hyponatremia--stable, monitor, limit free water Prolonged QTc, Hypokalemia - potassium, correct potassium, check mag HTN-BP normal, on no meds Obesity - BMI 34.9 - weight loss encouraged Tobacco use - smoking cessation encouraged - patient declines nicotine patch while here Full code VTE prophylaxis: Pneumoboots left lower extremity need for inpt: Quality Stroke Does the patient have a stroke diagnosis?: No VTE Prior VTE?: No VTE Risk Level:: Medical - moderate - high VTE Device Contraindication: N/A - Device Ordered VTE Drug Contraindication: Treatment Not Indicated
--- NOTE | 2024-09-06 08:09 | HO.WOUND ---
Wound Consult: Initial 59yr old?male admitted to [facility] [place] 09[facility]04[facility]24 - See progress notes and H&P for detailed history.? Wound consult placed for Right great toe however patient is currently followed by general surgery team with plan for OR today for Great toe amputation. Will defer topical recommendations to surgery. Please reconsult wound care nurse if topical recommendations are needed.
[2024-09-06 08:16] LABS: SLIDE REVIEW VERIFIED
[2024-09-06 08:19] LABS: Magnesium 1.8 mg/dL (1.6-2.6)
[2024-09-06] MEDS: Potassium Chloride Packet 20 MEQ PACKET 40 MEQ PO (08:28)
[2024-09-06] MEDS: busPIRone HCl 10 MG TABLET PO ×2 (08:29→22:04)
[2024-09-06] MEDS: Sertraline HCL 100 MG TABLET 200 MG PO (08:30)
[2024-09-06] MEDS: Potassium Chloride/H20 10 MEQ/100 ML PIGGYBACK 100 MEQ IV ×2 (08:37→09:52)
--- NOTE | 2024-09-06 09:53 | PM.PNGS ---
Subjective Subjective Date of Service: 09/06/24 Interval history: Same complaints of pain in the right foot No events reported overnight Physical Exam Vital Signs: Vital Signs: Last Vital Signs Temp 98.5 F 09/06/24 07:16 Pulse 83 09/06/24 07:16 Resp 18 09/06/24 07:16 BP 125/59 L 09/06/24 07:16 Pulse Ox 95 09/06/24 07:16 O2 Del Method Room Air 09/06/24 07:16 BMI result Body Mass Index 34.9 Const: General: comfortable and no acute distress Resp: Effort & Inspection: normal respiratory effort Cardio: Rate: regular rate Extrem: Other: Right big toe with discoloration, reason with dry gangrene, foul smell, some skin darkening of the dorsum of the right foot as well Objective Data Active Medications Acetaminophen (Acetaminophen 325 Mg Tablet) 650 mg PO Q6H PRN PRN Reason: Pain, Mild (Pain Scale 1-3), fever or headache Buspirone HCl (Buspirone Hcl 10 Mg Tablet) 10 mg PO TID [facility] Last Admin: 09/06/24 08:29 Dose: 10 mg Documented By: BUFFY Calcium Carbonate (Calcium Carbonate 750 Mg Tab.Chew) 750 mg PO Q4H PRN PRN Reason: Heartburn Clonidine HCl (Clonidine Hcl 0.1 Mg Tablet) 0.1 mg PO BEDTIME PRN; Protocol PRN Reason: Anxiety Hydromorphone HCl (Hydromorphone Hcl 1 Mg/Ml Syringe) 2 mg IVPUSH Q4H PRN; Protocol PRN Reason: Pain, Severe (Pain Scale 7-10) Lactated Ringer's (Lr) 1,000 mls @ 100 mls/hr IVCONT .Q10H [facility] Last Admin: 09/06/24 05:28 Dose: 100 mls/hr Documented By: BRANT Piperacillin Sod/Tazobactam (Sod 3.375 gm/ Sodium Chloride) 50 mls @ 100 mls/hr IV Q6H [facility] Last Infusion: 09/06/24 05:19 Dose: Infused Documented By: BRANT Vancomycin HCl 1,250 mg/ (Sodium Chloride) 250 mls @ 166.667 mls/hr IV Q12H [facility] Last Infusion: 09/06/24 09:45 Dose: Infused Documented By: BUFFY Potassium Chloride (Potassium Chloride/H20) 10 meq in 100 mls @ 100 mls/hr IV Q1H [facility] Stop: 09/06/24 10:14 Last Admin: 09/06/24 09:52 Dose: 100 mls/hr Documented By: BUFFY Magnesium Hydroxide (Milk Of Magnesia 30 Ml Oral.Susp) 30 ml PO DAILY PRN PRN Reason: Constipation Melatonin (Melatonin 3 Mg Tablet) 6 mg PO BEDTIME PRN PRN Reason: Insomnia Oxycodone HCl (Oxycodone Hcl Immed Release 5 Mg Tablet) 10 mg PO Q6H [facility] Last Admin: 09/06/24 08:30 Dose: 10 mg Documented By: BUFFY Pharmacy Consult (Consult Rx Vancomycin Dosing) 1 each MISCELLANE DAILY PRN PRN Reason: Consult order Sertraline HCl (Sertraline Hcl 100 Mg Tablet) 200 mg PO DAILY [facility] Last Admin: 09/06/24 08:30 Dose: 200 mg Documented By: BUFFY Sodium Chloride (0.9 % Sodium Chloride Flush 3 Ml Syringe) 3 ml IVFLUSH QSHIFT [facility] Last Admin: 09/06/24 07:53 Dose: Not Given Documented By: BUFFY Non-Admin Reason: IV Running Zolpidem Tartrate (Zolpidem Tartrate 5 Mg Tablet) 10 mg PO BEDTIME PRN PRN Reason: Sleep Labs 09/06/24 06:10 09/06/24 12:41 Labs: Laboratory Results - last 24 hr 09/06/24 06:10 MCV 81.3 MCH 28.0 MCHC 34.4 RDW 13.9 Plt Count 69 L D MPV 10.8 Immature Gran % (Auto) 0.8 H Neut % (Auto) 87.7 H Lymph % (Auto) 8.8 L [place] % (Auto) 2.5 Eos % (Auto) 0.2 Baso % (Auto) 0.0 Lymph # (Auto) 0.4 L [place] # (Auto) 0.1 Eos # (Auto) 0.0 Baso # (Auto) 0.0 Abs Immat Gran (auto) 0.04 H Absolute Neuts (auto) 4.3 Absolute Nucleated RBC 0.000 Nucleated RBC % (auto) 0.0 Smear Tech's Comments VERIFIED Anion Gap 15 Estim Creat Clear Calc 150.5 Estimated GFR > 60 Random Glucose 100 Calcium 8.0 L Magnesium 1.8 Random Vancomycin 12.3 L Microbiology Microbiology Results: Microbiology 09/04/24 16:01 Blood Culture - Preliminary Blood - Venous Prelim: GNR Gram Stain only 09/04/24 16:15 Blood Culture - Preliminary Blood - Venous Prelim: GNR Gram Stain only Procedures Date of Service Date of Service: 09/06/24 Progress Note: A&P Assessment and plan (1) Toe gangrene: Status: Acute Assessment and Plan: He has gangrene of the right big toe now. He had initially refused BKA for a long time.After a long discussion with him today, he says that he is willing to proceed with right BKA. Explained to him the technique of this procedure. I reviewed the risks including but not limited to bleeding, infections, poor wound healing, phantom pain, risk of anesthesia, as well as the benefits and alternatives . He understands that it may be best to proceed with surgery today as there is note of some foul smell from the foot and that he has constant pain now. I have discussed this with his daughter Airam as well. His platelet count is 69. Hold off on any heparin products. This should be monitored closely. His potassium is being repleted. Time Spent With Patient Time: Total time managing care of this patient today ____ minutes. Quality Stroke Does the patient have a stroke diagnosis?: No VTE Prior VTE?: No VTE Risk Level:: Medical - moderate - high VTE Device Contraindication: N/A - Device Ordered VTE Drug Contraindication: Treatment Not Indicated
[2024-09-06] MEDS: HYDROmorphone HCl 1 MG/ML SYRINGE 2 MG IVPUSH ×3 (10:16→23:50)
--- NOTE | 2024-09-06 10:25 | MHC.CM.PN ---
Met with patient to discuss discharge. The patient had a bad experience at a local [facility]. He insists on Rehab @ Home with resumption of [facility]. He is planned for a BKA @ 2pm today. A clinical update has been sent to the agency.
--- NOTE | 2024-09-06 10:36 | PM.EVENT ---
Event Note Date of Service: 09/06/24 Event Note: Case discussed with Dr. Bender. Agree with decision for BKA. Significant amount of infection and may be a non salvage situation here. We will follow up on an outpatient basis. Thank you for allowing us to participate in his care. If there are any questions or concerns please do not hesitate to reach out to us. Time Spent With Patient Time: Total time managing care of this patient today ____ minutes.
[2024-09-06 13:02] LABS: Anion Gap 13 (12-20); Blood Urea Nitrogen 10 mg/dL (9-16); Carbon Dioxide 26 mmol/L (22-29); Chloride 96 mmol/L (96-108); Creatinine Clr Calc Pharmacy 155.2; Estimated Glomerular Filt Rate > 60; Glucose Random 96 mg/dL (60-115); Potassium 3.1 mmol/L (3.3-5.1); Sodium 132 mmol/L (135-145)
--- NOTE | 2024-09-06 14:00 | P.CONAN_ITS ---
HPI - Anesthesia Eval Consult details Narrative: 59 yo M presenting for right BKA. Surgeon aware of thrombocytopenia with plt of 67K. PMFSH Active Problems Active Problems: All Active Problems Prolonged QT interval (Acute) Hypokalemia (Acute) Gangrene of toe of right foot (Acute) Wound of foot (Acute) Amputation of fifth toe of right foot (Acute) PAD (peripheral artery disease) (Acute) HTN (hypertension) (Acute) Foot ulcer (Acute) Encounter for subsequent annual wellness visit (AWV) in Medicare patient (Acute) Obesity (Chronic) Depression (Acute) Encounter for initial annual wellness visit (AWV) in Medicare patient (Acute) Toe gangrene (Acute) Past Medical History Medical History Wound of foot Osteomyelitis Acute osteomyelitis Depression PAD (peripheral artery disease) Toe gangrene Family History Family history of problems with anesthesia: No Surgical History Surgical History Hx of surgical procedure (~08/03/24) Hx of amputation Abdominal wall hernia Hx of appendectomy History of Problems with Anesthesia: No Social History Social History Household Members: Family Housing: House Are you a primary primary care nurse practitioner to a significant other at home: No Do you presently have visiting nurse or other home services: No Patient Tobacco Use Status: Current everyday Tobacco user Tobacco use type: Cigarette Cigarette Packs Per Day: 0.5 Cigarettes Per Day: 10 Years Smoked: 43 e-Cigarette/Vaping Use: Never Used Second Hand Smoke Exposure: No Substance Use Type: Marijuana service: No Meds Allergies Allergy/AdvReac Type Severity Reaction Status Date / Time codeine [Codeine] Allergy Mild RASH Verified 09/06/24 13:52 Codeine Allergy Unknown Rash Uncoded 08/30/24 15:12 Active Medications: Current Medications Acetaminophen (Acetaminophen 325 Mg Tablet) 650 mg PO Q6H PRN PRN Reason: Pain, Mild (Pain Scale 1-3), fever or headache Buspirone HCl (Buspirone Hcl 10 Mg Tablet) 10 mg PO TID WOOD Last Admin: 09/06/24 08:29 Dose: 10 mg Calcium Carbonate (Calcium Carbonate 750 Mg Tab.Chew) 750 mg PO Q4H PRN PRN Reason: Heartburn Clonidine HCl (Clonidine Hcl 0.1 Mg Tablet) 0.1 mg PO BEDTIME PRN; Protocol PRN Reason: Anxiety Hydromorphone HCl (Hydromorphone Hcl 1 Mg/Ml Syringe) 2 mg IVPUSH Q4H PRN; Protocol PRN Reason: Pain, Severe (Pain Scale 7-10) Last Admin: 09/06/24 10:16 Dose: 2 mg Lactated Ringer's (Lr) 1,000 mls @ 100 mls/hr IVCONT .Q10H [facility] Last Infusion: 09/06/24 13:33 Dose: 0 mls/hr Piperacillin Sod/Tazobactam (Sod 3.375 gm/ Sodium Chloride) 50 mls @ 100 mls/hr IV Q6H [facility] Last Infusion: 09/06/24 11:37 Dose: Infused Vancomycin HCl 1,250 mg/ (Sodium Chloride) 250 mls @ 166.667 mls/hr IV Q12H [facility] Last Infusion: 09/06/24 09:45 Dose: Infused Magnesium Hydroxide (Milk Of Magnesia 30 Ml Oral.Susp) 30 ml PO DAILY PRN PRN Reason: Constipation Melatonin (Melatonin 3 Mg Tablet) 6 mg PO BEDTIME PRN PRN Reason: Insomnia Oxycodone HCl (Oxycodone Hcl Immed Release 5 Mg Tablet) 10 mg PO Q6H [facility] Last Admin: 09/06/24 08:30 Dose: 10 mg Pharmacy Consult (Consult Rx Vancomycin Dosing) 1 each MISCELLANE DAILY PRN PRN Reason: Consult order Sertraline HCl (Sertraline Hcl 100 Mg Tablet) 200 mg PO DAILY [facility] Last Admin: 09/06/24 08:30 Dose: 200 mg Sodium Chloride (0.9 % Sodium Chloride Flush 3 Ml Syringe) [facility] Last Admin: 09/06/24 07:53 Dose: Not Given Zolpidem Tartrate (Zolpidem Tartrate 5 Mg Tablet) 10 mg PO BEDTIME PRN PRN Reason: Sleep Home Medications ?Medication ?Instructions ?Recorded ?Confirmed ?Last Taken ?Type buspirone 10 mg tablet 10 mg PO TID 04/03/22 09/04/24 09/03/24 History clonidine HCl 0.1 mg tablet 0.1 mg PO BEDTIME PRN Anxiety 04/03/22 09/04/24 09/03/24 History zolpidem 10 mg tablet 10 mg PO BEDTIME PRN Sleep 04/03/22 09/04/24 09/03/24 History sertraline 100 mg tablet 200 mg PO DAILY 05/11/24 09/04/24 09/03/24 History Exam Exam Date and Time: 09/06/24 1400 Height,Weight and Vital Signs: Height 5 ft 11 in Weight 113.398 kg Last Vital Signs Temp 98.2 F 09/06/24 13:44 Pulse 77 09/06/24 13:44 Resp 16 09/06/24 13:44 BP 139/60 09/06/24 13:44 Pulse Ox 94 09/06/24 13:44 O2 Del Method Room Air 09/06/24 13:44 Pertinent Lab Results Pertinent Lab Results: Laboratory Tests 09/04/24 09/04/24 09/04/24 15:59 16:00 16:01 WBC 6.8 RBC 4.36 L Hgb 12.4 L Hct 35.7 L MCV 81.9 MCH 28.4 MCHC 34.7 RDW 13.6 Plt Count 121 L D MPV 10.7 Immature Gran % (Auto) 0.4 Neut % (Auto) 88.3 H Lymph % (Auto) 8.5 L [place] % (Auto) 2.4 Eos % (Auto) 0.4 Baso % (Auto) 0.0 Lymph # (Auto) 0.6 L [place] # (Auto) 0.2 Eos # (Auto) 0.0 Baso # (Auto) 0.0 Abs Immat Gran (auto) 0.03 Absolute Neuts (auto) 6.0 Absolute Nucleated RBC 0.000 Nucleated RBC % (auto) 0.0 Smear Tech's Comments Hold Purple Top PT 15.6 H INR 1.3 H Sodium 133 L Potassium 3.1 L Chloride 90 L Carbon Dioxide 26 Anion Gap 20 BUN 15 Creatinine 0.80 Estim Creat Clear Calc 124.1 Estimated GFR > 60 Random Glucose 90 Lactic Acid 1.1 Calcium 9.2 Magnesium 2.3 Total Bilirubin 0.8 AST 71 H ALT 39 Alkaline Phosphatase 155 H Troponin I High Sens 9.1 Total Protein 7.8 Albumin 3.2 L Urine Color Urine Appearance Urine pH Ur Specific [place] Urine Protein Urine Glucose (UA) Urine Ketones Urine Blood Urine Nitrite Ur Leukocyte Esterase Random Vancomycin Influenza Type A (PCR) NEGATIVE Influenza Type B (PCR) NEGATIVE RSV RNA Qual (PCR) NEGATIVE SARS-CoV-2 RNA (RT-PCR) NEGATIVE 09/04/24 09/05/24 09/06/24 22:40 04:46 06:10 WBC 8.9 4.9 RBC 3.89 L 3.47 L Hgb 10.9 L 9.7 L Hct 31.9 L 28.2 L MCV 82.0 81.3 MCH 28.0 28.0 MCHC 34.2 34.4 RDW 13.7 13.9 Plt Count 101 L 69 L D MPV 11.7 10.8 Immature Gran % (Auto) 0.8 H 0.8 H Neut % (Auto) 93.8 H 87.7 H Lymph % (Auto) 3.2 L 8.8 L [place] % (Auto) 2.1 2.5 Eos % (Auto) 0.0 0.2 Baso % (Auto) 0.1 0.0 Lymph # (Auto) 0.3 L 0.4 L [place] # (Auto) 0.2 0.1 Eos # (Auto) 0.0 0.0 Baso # (Auto) 0.0 0.0 Abs Immat Gran (auto) 0.07 H 0.04 H Absolute Neuts (auto) 8.3 4.3 Absolute Nucleated RBC 0.000 0.000 Nucleated RBC % (auto) 0.0 0.0 Smear Tech's Comments VERIFIED VERIFIED Hold Purple Top PT INR Sodium 130 L 130 L Potassium 3.7 3.0 L Chloride 94 L 94 L Carbon Dioxide 21 L 24 Anion Gap 19 15 BUN 16 11 Creatinine 0.79 0.66 Estim Creat Clear Calc 125.7 150.5 Estimated GFR > 60 > 60 Random Glucose 94 100 Lactic Acid Calcium 8.3 L D 8.0 L Magnesium 1.9 1.8 Total Bilirubin AST ALT Alkaline Phosphatase Troponin I High Sens Total Protein Albumin Urine Color Yellow Urine Appearance Clear Urine pH 6.0 Ur Specific [place] 1.025 Urine Protein Trace Urine Glucose (UA) Negative Urine Ketones 40 Urine Blood Negative Urine Nitrite Negative Ur Leukocyte Esterase Negative Random Vancomycin 12.3 L Influenza Type A (PCR) Influenza Type B (PCR) RSV RNA Qual (PCR) SARS-CoV-2 RNA (RT-PCR) 09/06/24 12:41 WBC RBC Hgb Hct MCV MCH MCHC RDW Plt Count MPV Immature Gran % (Auto) Neut % (Auto) Lymph % (Auto) [place] % (Auto) Eos % (Auto) Baso % (Auto) Lymph # (Auto) [place] # (Auto) Eos # (Auto) Baso # (Auto) Abs Immat Gran (auto) Absolute Neuts (auto) Absolute Nucleated RBC Nucleated RBC % (auto) Smear Tech's Comments Hold Purple Top SEE NOTE PT INR Sodium 132 L Potassium 3.1 L Chloride 96 Carbon Dioxide 26 Anion Gap 13 BUN 10 Creatinine 0.64 Estim Creat Clear Calc 155.2 Estimated GFR > 60 Random Glucose 96 Lactic Acid Calcium 8.0 L Magnesium Total Bilirubin AST ALT Alkaline Phosphatase Troponin I High Sens Total Protein Albumin Urine Color Urine Appearance Urine pH Ur Specific [place] Urine Protein Urine Glucose (UA) Urine Ketones Urine Blood Urine Nitrite Ur Leukocyte Esterase Random Vancomycin Influenza Type A (PCR) Influenza Type B (PCR) RSV RNA Qual (PCR) SARS-CoV-2 RNA (RT-PCR) Airway Mallampati Class: II TM Dist: >3cm Neck ROM: Full Loose/Missing/Broken Teeth: Yes (poor dentition - multiple missing and broken teeth) Heart: S1S2 Lungs: CTAB Assessment and Plan Assessment Anesthesia Assessment: Anesthesia Plan Discussed and Chart Reviewed Final Anesthetic Review Family History of Problems with Anesthesia: No History of Problems with Anesthesia: No NPO: Yes ASA Class: III Final Preanesthetic Review: No Changes in Pt Med Stat, Meds/Allgs Chart Reviewed, Consent Obtained/Reviewed and Anes Risks/Benef Reviewed Patient Risk: Intermediate Procedure Risk: Intermediate Anesthetic Plan Anesthetic Plan: GA, Regional Block (right femoral and right sciatic block) and Agree w/ Assess. and Plan Disposition: Standard PACU
[2024-09-06] MEDS: Lactated Ringers 1,000 ML 80 ML IVCONT (14:01)
--- NOTE | 2024-09-06 16:00 | W.PM.OPN ---
Operative Note Operative Note Date of Service: 09/06/24 Narrative: Preop diagnosis: Gangrene of the right big toe, previous amputation of the 2nd, 3rd, 4th and 5th toes, peripheral vascular disease Postop diagnosis: The same Procedure: BKA, right leg Surgeon: Chavo Bender MD assistant gm of content & delivery: GRETA Guillen The patient is a 59-year-old male with known peripheral vascular disease, heavy smoker, with gangrene of the big toe. This has a foul odor as well. He has has had recent amputation of the other toes and he had previously refused proximal amputation. This morning, he had agreed to proceed with a BKA in view of the gangrene He understood the technique of the planned procedure as was the risks, benefits, and alternatives He was brought to the operating room. He was placed supine under general anesthesia via LMA. A femoral block and a peroneal block was done by the anesthesiologist. The right leg down to the foot was prepped and draped in the usual sterile fashion. A surgical time-out was done. The patient was receiving IV antibiotics I marked my planned line of incision. This was according to a standard Aragon flap BKA incision. I made my transverse incision with a blade 15. This was carried down on both sides laterally and medially in a longitudinal fashion about 1.5 times the length of the transverse incision. We connected thel incision posteriorly. I carried down the incision on the anterior leg electrocautery. I expose the tibia. I divided the surrounding fibers muscle adjacent to the tibia to allow good exposure. This was done with electrocautery. We then proceeded to continue to expose the tibia. I marked an area about 2 cm small to the skin incision. I cleaned this up with a periosteal elevator. At this point we had inflated the tourniquet to denies blood loss. I then divided the tibia using the bone saw. We beveled the transection anteriorly. This allowed us exposure of the more posterior muscle fibers I continued to serially divide the muscle fibers using electrocautery. I continued to divide some early the medial aspect until was able to identify the pedicles. I divided the muscle fibers around the each pedicle until was able to define these pedicles. I clamped the pedicles both distal and proximal. I divided these between clamps and doubly ligated the proximal stump of the pedicles. By gently serially dividing the muscle fibers, as able to clearly identify 3 vascular pedicles. This were clamped and divided in the same fashion as above. This allowed me to therefore continued to divide the rest of the muscle compartments I proceeded to define the gastrocnemius muscle and preserved this as a standard Aragon flap. I this from the rest of the muscle compartments anteriorly. I divided the rest of the muscle fibers to expose the fibula. Once the fibula was exposed, I cleaned this up with the periosteal elevator to 1.5 cm above the level of transection of the tibia. I divided the fibula with a bone saw . I completed division of the entire leg by dividing the rest of the attached muscle. This was sent as a specimen We released the tourniquet and observed for any bleeding. There were small bleeding vessels that I ligated but other than that, there was note of good hemostasis. I copiously irrigated the amputation site. I smoothened the edges of the transected bone with the bone file. Once we had irrigated and ensured hemostasis, I then proceeded to cover the transected tibia with a gastrocnemius flap. I applied sutures from the fascia of the gastrocnemius towards the anterior fascia with Polysorb 2-0 ties. I did this on the rest of the fascial of the incision. We had earlier trimmed the gastrocnemius flap to allow closure without any excised tissue We applied multiple interrupted sutures with Polysorb 3-0 on the rest of the fascia to apposed this. The skin was then closed with nylon 3-0 simple interrupted sutures Thick dressings were applied. The stump was covered with Abelardo roll and Natanael bandage. The procedure was completed The patient tolerated procedure well. There were no immediate complications. Initial and final counts of sponges and instruments were correct. Estimated blood loss was about 75 cc The patient was extubated without difficulty and transferred to the recovery room with stable vital signs.
[2024-09-06] MEDS: Acetaminophen 1,000 MG/100 ML PIGGYBACK 400 MG IV (16:18)
[2024-09-06] MEDS: HYDROmorphone HCl 0.5 MG/0.5 ML SYRINGE IVPUSH (16:40)
--- NOTE | 2024-09-06 16:55 | PM.EVENT ---
Event Note Date of Service: 09/06/24 Event Note: Seen postop Status post BKA this afternoon Appears to have good pain control Stable vital signs Dressings dry Continue pain management Follow up potassium and platelet count Daughter Airam updated by phone Time Spent With Patient Time: Total time managing care of this patient today ____ minutes.
[2024-09-07] VITALS (9 sets, daily range): BP systolic 122–139; BP diastolic 63–68; PULSE 70–85; RESP 14–20; TEMP 36.1–36.9; O2SAT 92–95; BMI 17.1
[2024-09-07] MEDS: oxyCODONE HCl Immed Release 5 MG TABLET 10 MG PO ×4 (02:50→21:39)
[2024-09-07] MEDS: Piperacillin Sodium/Tazobactam 3.375 GM in 0.9 % Sodium Chloride 50 ML IV ×2 (05:35→11:40)
[2024-09-07 06:24] LABS: MANUAL DIFF FLAG NO
[2024-09-07 06:46] LABS: Anion Gap 11 (12-20); Blood Urea Nitrogen 11 mg/dL (9-16); Calcium 7.8 mg/dL (8.4-10.2); Carbon Dioxide 29 mmol/L (22-29); Chloride 99 mmol/L (96-108); Creatinine Clr Calc Pharmacy 152.8; Estimated Glomerular Filt Rate > 60; Glucose Random 178 mg/dL (60-115); Potassium 3.3 mmol/L (3.3-5.1); Sodium 136 mmol/L (135-145)
[2024-09-07 07:14] LABS: Hematocrit 27.4 % (42.0-52.0); Hemoglobin 9.3 g/dl (14.0-18.0); Imm Gran Abs Auto 0.04 X10*3/uL (0.00-0.03); Imm Gran Pct Auto 1.1 % (0.0-0.4); Lymphocytes Absolute Auto 0.3 X10*3/uL (1.2-4.9); Lymphocytes Percent Auto 8.7 % (20-40); Mean Corpuscular HGB Conc 33.9 g/dl (31.0-36.0); Mean Corpuscular Hemoglobin 27.9 pg (27.0-33.0); Mean Corpuscular Volume 82.3 fL (80.0-98.0); Mean Platelet Volume 11.4 fL (9.4-12.4); Monocytes Absolute Auto 0.1 X10*3/uL (0.1-1.2); Monocytes Percent Auto 3.1 % (2-11); Neutrophils Absolute Auto 3.1 x10*3/uL (2.0-8.3); Neutrophils Percent Auto 87.1 % (45-73); Red Blood Count 3.33 X10*6/uL (4.60-5.80); White Blood Count 3.6 X10*3/uL (4.8-10.8)
[2024-09-07 07:15] LABS: Platelet Count 68 X10*3/uL (160-400)
[2024-09-07] MEDS: HYDROmorphone HCl 1 MG/ML SYRINGE 2 MG IVPUSH ×4 (07:19→20:37)
[2024-09-07] MEDS: vancomycin HCL 1,250 MG in 0.9 % Sodium Chloride 250 ML 166.7 MG IV (07:20)
--- NOTE | 2024-09-07 07:35 | HO.PM.IMPN ---
Subjective Subjective Date of Service: 09/07/24 Interval History: Follow-up on gangrene of the toe and Proteus mirabilis bacteremia. Complaining of pain at site of BKA,, no fevers, no chills, tolerating diet. Review of Systems All other system reviewed and are negative Physical Exam Vital Signs: Vital Signs: Last Vital Signs Temp 97.0 F 09/07/24 03:53 Pulse 73 09/07/24 03:53 Resp 18 09/07/24 03:53 BP 122/64 09/07/24 03:53 Pulse Ox 94 09/07/24 03:53 O2 Del Method Nasal Cannula 09/07/24 03:53 O2 Flow Rate 2 09/07/24 03:53 BMI result Body Mass Index 34.9 Const: Other: General awake alert x3 in mild distress due to pain Anicteric sclera Neck no JVD. CVS regular rate rhythm, Respiratory lungs clear to auscultation, no respiratory distress, no wheeze, no rhonchi. Gastrointestinal abdomen soft, non tender, bowel sounds audible Extremities right BKA dressing in place Neuro non focal Appropriate affect Objective Data Active Medications Acetaminophen (Acetaminophen 325 Mg Tablet) 650 mg PO Q6H PRN PRN Reason: Pain, Mild (Pain Scale 1-3), fever or headache Buspirone HCl (Buspirone Hcl 10 Mg Tablet) 10 mg PO TID [facility] Last Admin: 09/06/24 22:04 Dose: 10 mg Documented By: DIRK Calcium Carbonate (Calcium Carbonate 750 Mg Tab.Chew) 750 mg PO Q4H PRN PRN Reason: Heartburn Clonidine HCl (Clonidine Hcl 0.1 Mg Tablet) 0.1 mg PO BEDTIME PRN; Protocol PRN Reason: Anxiety Hydromorphone HCl (Hydromorphone Hcl 1 Mg/Ml Syringe) 2 mg IVPUSH Q4H PRN; Protocol PRN Reason: Pain, Severe (Pain Scale 7-10) Last Admin: 09/06/24 23:50 Dose: 2 mg Documented By: DIRK Lactated Ringer's (Lr) 1,000 mls @ 100 mls/hr IVCONT .Q10H [facility] Last Admin: 09/06/24 22:38 Dose: 100 mls/hr Documented By: DIRK Piperacillin Sod/Tazobactam (Sod 3.375 gm/ Sodium Chloride) 50 mls @ 100 mls/hr IV Q6H [facility] Last Infusion: 09/07/24 06:15 Dose: Infused Documented By: DIRK Vancomycin HCl 1,250 mg/ (Sodium Chloride) 250 mls @ 166.667 mls/hr IV Q12H [facility] Last Infusion: 09/06/24 21:09 Dose: Infused Documented By: DIRK Magnesium Hydroxide (Milk Of Magnesia 30 Ml Oral.Susp) 30 ml PO DAILY PRN PRN Reason: Constipation Melatonin (Melatonin 3 Mg Tablet) 6 mg PO BEDTIME PRN PRN Reason: Insomnia Naloxone HCl (Naloxone Hcl 0.4 Mg/Ml Vial) 0.04 mg IVPUSH Q5M PRN PRN Reason: Excessive sedation or RR < 8 Oxycodone HCl (Oxycodone Hcl Immed Release 5 Mg Tablet) 10 mg PO Q6H [facility] Last Admin: 09/07/24 02:50 Dose: 10 mg Documented By: DIRK Pharmacy Consult (Consult Rx Vancomycin Dosing) 1 each MISCELLANE DAILY PRN PRN Reason: Consult order Sertraline HCl (Sertraline Hcl 100 Mg Tablet) 200 mg PO DAILY [facility] Last Admin: 09/06/24 08:30 Dose: 200 mg Documented By: BUFFY Sodium Chloride (0.9 % Sodium Chloride Flush 3 Ml Syringe) 3 ml IVFLUSH QSHIFT [facility] Last Admin: 09/06/24 21:47 Dose: Not Given Documented By: DIRK Non-Admin Reason: IV Running Zolpidem Tartrate (Zolpidem Tartrate 5 Mg Tablet) 10 mg PO BEDTIME PRN PRN Reason: Sleep Labs 09/07/24 05:36 09/07/24 05:36 Labs: Laboratory Results - last 24 hr 09/06/24 09/06/24 09/06/24 06:10 12:41 13:34 MCV 81.3 MCH 28.0 MCHC 34.4 RDW 13.9 Plt Count 69 L D MPV 10.8 Immature Gran % (Auto) 0.8 H Neut % (Auto) 87.7 H Lymph % (Auto) 8.8 L [place] % (Auto) 2.5 Eos % (Auto) 0.2 Baso % (Auto) 0.0 Lymph # (Auto) 0.4 L [place] # (Auto) 0.1 Eos # (Auto) 0.0 Baso # (Auto) 0.0 Abs Immat Gran (auto) 0.04 H Absolute Neuts (auto) 4.3 Absolute Nucleated RBC 0.000 Nucleated RBC % (auto) 0.0 Smear Tech's Comments VERIFIED Hold Purple Top SEE NOTE Anion Gap 13 Estim Creat Clear Calc 155.2 Estimated GFR > 60 Random Glucose 96 Calcium 8.0 L Magnesium 1.8 Blood Type A Positive Antibody Screen NEGATIVE 09/07/24 05:36 MCV 82.3 MCH 27.9 MCHC 33.9 RDW 14.0 Plt Count 68 L MPV 11.4 Immature Gran % (Auto) 1.1 H Neut % (Auto) 87.1 H Lymph % (Auto) 8.7 L [place] % (Auto) 3.1 Eos % (Auto) 0.0 Baso % (Auto) 0.0 Lymph # (Auto) 0.3 L [place] # (Auto) 0.1 Eos # (Auto) 0.0 Baso # (Auto) 0.0 Abs Immat Gran (auto) 0.04 H Absolute Neuts (auto) 3.1 Absolute Nucleated RBC 0.000 Nucleated RBC % (auto) 0.0 Smear Tech's Comments Hold Purple Top Anion Gap 11 L Estim Creat Clear Calc 152.8 Estimated GFR > 60 Random Glucose 178 H Calcium 7.8 L Magnesium Blood Type Antibody Screen Microbiology Microbiology Results: Microbiology 09/04/24 16:15 Blood Culture - Preliminary Blood - Venous Gram negative cristian 09/04/24 16:01 Blood Culture - Preliminary Blood - Venous Gram negative cristian Assessment and Plan (1) Hypokalemia: Status: Acute (2) Gangrene of toe of right foot: Status: Acute (3) Wound of foot: Status: Acute Plan 59-year-old male with a past medical history significant for peripheral artery disease status post amputation 2 through 5 digits right foot, scheduled for right great toe amputation with Dr. Bender on 09/06, HTN, depression, obesity, who presented to the ED today with severe right great toe pain. Gangrene right great toe with intractable pain and suspected underlying infection -status post BKA postoperative day 1 -on iv vanco and zosyn (started 09/04) -continue dilaudid and oxycodone for pain -DC IV fluids -add stool softeners/IS Proteus mirabilis bacteremia 2/2 blood cultures positive sensitive to ceftriaxone/Cipro/cefepime and ampicillin Will DC IV vanco and Zosyn and place on IV ceftriaxone 2 g follow ID input. Hypokalemia-- potassium low normal 3.3, will give 20 mEq, follow BMP Hyponatremia--sodium improved to 136 Prolonged QTc, EKG ordered, likely due to electrolyte abnormalities HTN-BP normal, on no meds Class 1 Obesity- BMI 34.9, weight loss encouraged Mood disorder continue BuSpar and Zoloft Tobacco use - smoking cessation encouraged, declined nicotine patch Full code VTE prophylaxis: Add Lovenox Quality Stroke Does the patient have a stroke diagnosis?: No VTE Prior VTE?: No VTE Risk Level:: Medical - moderate - high VTE Device Contraindication: N/A - Device Ordered VTE Drug Contraindication: Treatment Not Indicated
--- NOTE | 2024-09-07 08:01 | P.PNGS_ITS ---
Subjective Subjective Date of Service: 09/07/24 Interval history: Describes postop pain No events overnight reported Physical Exam 2 Vital Signs: Vital Signs: Last Vital Signs Temp 97.5 F 09/07/24 07:59 Pulse 70 09/07/24 07:59 Resp 18 09/07/24 07:59 BP 132/63 09/07/24 07:59 Pulse Ox 93 09/07/24 07:59 O2 Del Method Room Air 09/07/24 07:59 O2 Flow Rate 2 09/07/24 03:53 BMI result Body Mass Index 34.9 Const: General: comfortable and no acute distress Resp: Effort & Inspection: normal respiratory effort Cardio: Rate: regular rate Extrem: Other: Right BKA dressings dry Objective Data Active Medications Acetaminophen (Acetaminophen 325 Mg Tablet) 650 mg PO Q6H PRN PRN Reason: Pain, Mild (Pain Scale 1-3), fever or headache Buspirone HCl (Buspirone Hcl 10 Mg Tablet) 10 mg PO TID [facility] Last Admin: 09/06/24 22:04 Dose: 10 mg Documented By: DIRK Calcium Carbonate (Calcium Carbonate 750 Mg Tab.Chew) 750 mg PO Q4H PRN PRN Reason: Heartburn Clonidine HCl (Clonidine Hcl 0.1 Mg Tablet) 0.1 mg PO BEDTIME PRN; Protocol PRN Reason: Anxiety Hydromorphone HCl (Hydromorphone Hcl 1 Mg/Ml Syringe) 2 mg IVPUSH Q4H PRN; Protocol PRN Reason: Pain, Severe (Pain Scale 7-10) Last Admin: 09/07/24 07:19 Dose: 2 mg Documented By: MARY BETH Piperacillin Sod/Tazobactam (Sod 3.375 gm/ Sodium Chloride) 50 mls @ 100 mls/hr IV Q6H [facility] Last Infusion: 09/07/24 06:15 Dose: Infused Documented By: DIRK Vancomycin HCl 1,250 mg/ (Sodium Chloride) 250 mls @ 166.667 mls/hr IV Q12H [facility] Last Admin: 09/07/24 07:20 Dose: 166.7 mls/hr Documented By: MARY BETH Magnesium Hydroxide (Milk Of Magnesia 30 Ml Oral.Susp) 30 ml PO DAILY PRN PRN Reason: Constipation Melatonin (Melatonin 3 Mg Tablet) 6 mg PO BEDTIME PRN PRN Reason: Insomnia Naloxone HCl (Naloxone Hcl 0.4 Mg/Ml Vial) 0.04 mg IVPUSH Q5M PRN PRN Reason: Excessive sedation or RR < 8 Oxycodone HCl (Oxycodone Hcl Immed Release 5 Mg Tablet) 10 mg PO Q6H [facility] Last Admin: 09/07/24 02:50 Dose: 10 mg Documented By: DIRK Pharmacy Consult (Consult Rx Vancomycin Dosing) 1 each MISCELLANE DAILY PRN PRN Reason: Consult order Sertraline HCl (Sertraline Hcl 100 Mg Tablet) 200 mg PO DAILY [facility] Last Admin: 09/06/24 08:30 Dose: 200 mg Documented By: BUFFY Sodium Chloride (0.9 % Sodium Chloride Flush 3 Ml Syringe) 3 ml IVFLUSH QSHIFT [facility] Last Admin: 09/06/24 21:47 Dose: Not Given Documented By: DIRK Non-Admin Reason: IV Running Zolpidem Tartrate (Zolpidem Tartrate 5 Mg Tablet) 10 mg PO BEDTIME PRN PRN Reason: Sleep Labs 09/07/24 05:36 09/07/24 05:36 Labs: Laboratory Results - last 24 hr 09/06/24 09/06/24 09/06/24 06:10 12:41 13:34 MCV 81.3 MCH 28.0 MCHC 34.4 RDW 13.9 Plt Count 69 L D MPV 10.8 Immature Gran % (Auto) 0.8 H Neut % (Auto) 87.7 H Lymph % (Auto) 8.8 L Alexander % (Auto) 2.5 Eos % (Auto) 0.2 Baso % (Auto) 0.0 Lymph # (Auto) 0.4 L Alexander # (Auto) 0.1 Eos # (Auto) 0.0 Baso # (Auto) 0.0 Abs Immat Gran (auto) 0.04 H Absolute Neuts (auto) 4.3 Absolute Nucleated RBC 0.000 Nucleated RBC % (auto) 0.0 Smear Tech's Comments VERIFIED Hold Purple Top SEE NOTE Anion Gap 13 Estim Creat Clear Calc 155.2 Estimated GFR > 60 Random Glucose 96 Calcium 8.0 L Magnesium 1.8 Blood Type A Positive Antibody Screen NEGATIVE 09/07/24 05:36 MCV 82.3 MCH 27.9 MCHC 33.9 RDW 14.0 Plt Count 68 L MPV 11.4 Immature Gran % (Auto) 1.1 H Neut % (Auto) 87.1 H Lymph % (Auto) 8.7 L Alexander % (Auto) 3.1 Eos % (Auto) 0.0 Baso % (Auto) 0.0 Lymph # (Auto) 0.3 L Alexander # (Auto) 0.1 Eos # (Auto) 0.0 Baso # (Auto) 0.0 Abs Immat Gran (auto) 0.04 H Absolute Neuts (auto) 3.1 Absolute Nucleated RBC 0.000 Nucleated RBC % (auto) 0.0 Smear Tech's Comments Hold Purple Top Anion Gap 11 L Estim Creat Clear Calc 152.8 Estimated GFR > 60 Random Glucose 178 H Calcium 7.8 L Magnesium Blood Type Antibody Screen Microbiology Microbiology Results: Microbiology 09/04/24 16:15 Blood Culture - Preliminary Blood - Venous Gram negative cristian 09/04/24 16:01 Blood Culture - Preliminary Blood - Venous Gram negative cristian Procedures Date of Service Date of Service: 09/07/24 Progress Note: A&P Assessment and plan (1) Toe gangrene: Status: Acute Assessment and Plan: Status post BKA Seems to be doing well postop Dressings dry Potassium 3.3 Platelet count 68 Plan to change dressings tomorrow Pain management Time Spent With Patient Time: Total time managing care of this patient today ____ minutes. Quality Stroke Does the patient have a stroke diagnosis?: No VTE Prior VTE?: No VTE Risk Level:: Medical - moderate - high VTE Device Contraindication: N/A - Device Ordered VTE Drug Contraindication: Treatment Not Indicated
[2024-09-07] MEDS: Potassium Chloride ER 20 MEQ TAB.ER.PRT PO (08:19)
[2024-09-07] MEDS: Sertraline HCL 100 MG TABLET 200 MG PO (08:19)
[2024-09-07] MEDS: busPIRone HCl 10 MG TABLET PO ×3 (08:19→20:35)
[2024-09-07] MEDS: polyethylene glycoL 3350 17 GM POWD.PACK PO (12:43)
--- NOTE | 2024-09-07 13:45 | HO.POSTANES ---
Post Anesthesia Evaluation Post Anesthesia Evaluation Date of Service: 09/07/24 Vital Signs: Vital Signs Temp Pulse Resp BP Pulse Ox O2 Del Method O2 Flow Rate 09/07/24 12:59 98.5 F 81 18 133/68 95 Room Air 09/07/24 07:59 97.5 F 70 18 132/63 93 Room Air 09/07/24 03:53 97.0 F 73 18 122/64 94 Nasal Cannula 2 Anesthesia: General Mental Status: Awake Pain Control: Satisfactory Nausea/Vomiting: None Hydration: Adequate Anesthesia-Related Issues: No Anes. Related Issues
[2024-09-07] MEDS: 0.9 % Sodium Chloride Flush 3 ML SYRINGE IVFLUSH ×2 (15:09→20:34)
[2024-09-07] MEDS: cefTRIAXone sodium 2 GM VIAL IVPUSH (16:29)
[2024-09-07 18:40] LABS: Vancomycin Trough 16.5 mcg/mL (10.0-20.0)
[2024-09-07] MEDS: Docusate Sodium 100 MG CAPSULE 200 MG PO (20:34)
[2024-09-07] MEDS: Melatonin 3 MG TABLET 6 MG PO (20:34)
[2024-09-08] VITALS (9 sets, daily range): BP systolic 116–160; BP diastolic 57–78; PULSE 84–94; RESP 14–20; TEMP 36.1–38.2; O2SAT 90–98
--- NOTE | 2024-09-08 | ECG_ITS ---
Test Reason : Prolonged QT Blood Pressure : / mmHG Vent. Rate : 092 BPM Atrial Rate : 092 BPM P-R Int : 130 ms QRS Dur : 092 ms QT Int : 418 ms P-R-T Axes : 026 -11 051 degrees QTc Int : 516 ms Artifact in tracing Sinus rhythm with occasional Premature ventricular complexes and Premature atrial complexes Prolonged QT Abnormal ECG When compared with ECG of 04-SEP-2024 15:39, Premature ventricular complexes are now Present QT has shortened [facility] Signed By:MAX BRUNNER
[2024-09-08] MEDS: HYDROmorphone HCl 1 MG/ML SYRINGE 2 MG IVPUSH ×3 (02:28→15:11)
[2024-09-08] MEDS: oxyCODONE HCl Immed Release 5 MG TABLET 10 MG PO ×4 (03:15→20:52)
--- NOTE | 2024-09-08 04:24 | PC.NURSE ---
Patient requiring 2L nc overnight to maintain spo2 90% and above per ordered oxygen administration protocol, improved to mid 90's with 2L nc. Per review of vitals trend, it appears the patient required supplemental o2/nc on nights previous. Pt denies sob. Breathing is even and unlabored without distress. IS encouraged and assisted with use, pt achieving [address] Vargas made aware. No new orders advised at this time.
--- NOTE | 2024-09-08 08:28 | PM.PNGS ---
Subjective Subjective Date of Service: 09/08/24 Interval history: He has pain on the BKA site Says he does not get his pain meds promptly Physical Exam Vital Signs: Vital Signs: Last Vital Signs Temp 97.0 F 09/08/24 07:57 Pulse 86 09/08/24 07:57 Resp 18 09/08/24 07:57 BP 127/59 L 09/08/24 07:57 Pulse Ox 92 09/08/24 07:57 O2 Del Method Nasal Cannula 09/08/24 07:57 O2 Flow Rate 2 09/08/24 07:57 BMI result Body Mass Index 17.1 Const: General: no acute distress Orientation/consciousness: patient oriented x3 Resp: Effort & Inspection: normal respiratory effort Cardio: Rate: regular rate Neuro: General: patient oriented x3 Extrem: Other: BKA site clean, dry, flaps viable, some ecchymosis Objective Data Active Medications Acetaminophen (Acetaminophen 325 Mg Tablet) 650 mg PO Q6H PRN PRN Reason: Pain, Mild (Pain Scale 1-3), fever or headache Buspirone HCl (Buspirone Hcl 10 Mg Tablet) 10 mg PO TID [facility] Last Admin: 09/07/24 20:35 Dose: 10 mg Documented By: LIZBETH Calcium Carbonate (Calcium Carbonate 750 Mg Tab.Chew) 750 mg PO Q4H PRN PRN Reason: Heartburn Ceftriaxone Sodium (Ceftriaxone Sodium 2 Gm Vial) 2 gm IVPUSH Q24H [facility] Last Admin: 09/07/24 16:29 Dose: 2 gm Documented By: MARY BETH Clonidine HCl (Clonidine Hcl 0.1 Mg Tablet) 0.1 mg PO BEDTIME PRN; Protocol PRN Reason: Anxiety Docusate Sodium (Docusate Sodium 100 Mg Capsule) 200 mg PO BEDTIME [facility] Last Admin: 09/07/24 20:34 Dose: 200 mg Documented By: LIZBETH Hydromorphone HCl (Hydromorphone Hcl 1 Mg/Ml Syringe) 2 mg IVPUSH Q4H PRN; Protocol PRN Reason: Pain, Severe (Pain Scale 7-10) Last Admin: 09/08/24 02:28 Dose: 2 mg Documented By: LIZBETH Magnesium Hydroxide (Milk Of Magnesia 30 Ml Oral.Susp) 30 ml PO DAILY PRN PRN Reason: Constipation Melatonin (Melatonin 3 Mg Tablet) 6 mg PO BEDTIME PRN PRN Reason: Insomnia Last Admin: 09/07/24 20:34 Dose: 6 mg Documented By: LIZBETH Naloxone HCl (Naloxone Hcl 0.4 Mg/Ml Vial) 0.04 mg IVPUSH Q5M PRN PRN Reason: Excessive sedation or RR < 8 Oxycodone HCl (Oxycodone Hcl Immed Release 5 Mg Tablet) 10 mg PO Q6H [facility] Last Admin: 09/08/24 03:15 Dose: 10 mg Documented By: LIZBETH Polyethylene Glycol (Polyethylene Glycol 3350 17 Gm Powd.Pack) 17 gm PO DAILY [facility] Last Admin: 09/07/24 12:43 Dose: 17 gm Documented By: MARY BETH Sertraline HCl (Sertraline Hcl 100 Mg Tablet) 200 mg PO DAILY [facility] Last Admin: 09/07/24 08:19 Dose: 200 mg Documented By: MARY BETH Sodium Chloride (0.9 % Sodium Chloride Flush 3 Ml Syringe) 3 ml IVFLUSH QSHIFT [facility] Last Admin: 09/07/24 20:34 Dose: 3 ml Documented By: LIZBETH Zolpidem Tartrate (Zolpidem Tartrate 5 Mg Tablet) 10 mg PO BEDTIME PRN PRN Reason: Sleep Labs 09/07/24 05:36 09/07/24 05:36 Labs: Laboratory Results - last 24 hr 09/07/24 18:02 Vancomycin Trough 16.5 Microbiology Microbiology Results: Microbiology 09/04/24 16:15 Blood Culture - Final Blood - Venous Proteus mirabilis 09/04/24 16:01 Blood Culture - Final Blood - Venous Proteus mirabilis Procedures Date of Service Date of Service: 09/08/24 Progress Note: A&P Assessment and plan (1) Toe gangrene: Status: Acute Assessment and Plan: Status post BKA we changed his dressings Stump wrapped in thick flaps and Kerlix and Natanael Pain management Wound care Time Spent With Patient Time: Total time managing care of this patient today ____ minutes. Quality Stroke Does the patient have a stroke diagnosis?: No VTE Prior VTE?: No VTE Risk Level:: Medical - moderate - high VTE Device Contraindication: N/A - Device Ordered VTE Drug Contraindication: Treatment Not Indicated
[2024-09-08] MEDS: Sertraline HCL 100 MG TABLET 200 MG PO (08:34)
[2024-09-08] MEDS: busPIRone HCl 10 MG TABLET PO ×3 (08:35→20:52)
[2024-09-08] MEDS: polyethylene glycoL 3350 17 GM POWD.PACK PO (08:35)
--- NOTE | 2024-09-08 10:51 | P.PNIM_ITS ---
Subjective Subjective Date of Service: 09/08/24 Interval History: Follow-up on gangrene of the toe and Proteus mirabilis bacteremia. Complaining of pain at site of BKA,, no fevers, no chills, tolerating diet. intermittent mild confusion Physical Exam 2 Vital Signs: Vital Signs: Last Vital Signs Temp 97.0 F 09/08/24 07:57 Pulse 86 09/08/24 07:57 Resp 18 09/08/24 07:57 BP 127/59 L 09/08/24 07:57 Pulse Ox 92 09/08/24 07:57 O2 Del Method Nasal Cannula 09/08/24 07:57 O2 Flow Rate 2 09/08/24 07:57 BMI result Body Mass Index 17.1 Const: Other: General awake alert x3 in mild distress due to pain Anicteric sclera Neck no JVD. CVS regular rate rhythm, Respiratory lungs clear to auscultation, no respiratory distress, no wheeze, no rhonchi. Gastrointestinal abdomen soft, non tender, bowel sounds audible Extremities right BKA dressing in place Neuro non focal Appropriate affect Objective Data Active Medications Acetaminophen (Acetaminophen 325 Mg Tablet) 650 mg PO Q6H PRN PRN Reason: Pain, Mild (Pain Scale 1-3), fever or headache Buspirone HCl (Buspirone Hcl 10 Mg Tablet) 10 mg PO TID [facility] Last Admin: 09/08/24 08:35 Dose: 10 mg Documented By: ERICA Calcium Carbonate (Calcium Carbonate 750 Mg Tab.Chew) 750 mg PO Q4H PRN PRN Reason: Heartburn Ceftriaxone Sodium (Ceftriaxone Sodium 2 Gm Vial) 2 gm IVPUSH Q24H [facility] Last Admin: 09/07/24 16:29 Dose: 2 gm Documented By: MARY BETH Clonidine HCl (Clonidine Hcl 0.1 Mg Tablet) 0.1 mg PO BEDTIME PRN; Protocol PRN Reason: Anxiety Docusate Sodium (Docusate Sodium 100 Mg Capsule) 200 mg PO BEDTIME [facility] Last Admin: 09/07/24 20:34 Dose: 200 mg Documented By: LIZBETH Hydromorphone HCl (Hydromorphone Hcl 1 Mg/Ml Syringe) 2 mg IVPUSH Q4H PRN; Protocol PRN Reason: Pain, Severe (Pain Scale 7-10) Last Admin: 09/08/24 02:28 Dose: 2 mg Documented By: LIZBETH Magnesium Hydroxide (Milk Of Magnesia 30 Ml Oral.Susp) 30 ml PO DAILY PRN PRN Reason: Constipation Melatonin (Melatonin 3 Mg Tablet) 6 mg PO BEDTIME PRN PRN Reason: Insomnia Last Admin: 09/07/24 20:34 Dose: 6 mg Documented By: LIZBETH Naloxone HCl (Naloxone Hcl 0.4 Mg/Ml Vial) 0.04 mg IVPUSH Q5M PRN PRN Reason: Excessive sedation or RR < 8 Oxycodone HCl (Oxycodone Hcl Immed Release 5 Mg Tablet) 10 mg PO Q6H [facility] Last Admin: 09/08/24 08:34 Dose: 10 mg Documented By: ERICA Polyethylene Glycol (Polyethylene Glycol 3350 17 Gm Powd.Pack) 17 gm PO DAILY [facility] Last Admin: 09/08/24 08:35 Dose: 17 gm Documented By: ERICA Sertraline HCl (Sertraline Hcl 100 Mg Tablet) 200 mg PO DAILY [facility] Last Admin: 09/08/24 08:34 Dose: 200 mg Documented By: ERICA Sodium Chloride (0.9 % Sodium Chloride Flush 3 Ml Syringe) 3 ml IVFLUSH QSHIFT [facility] Last Admin: 09/08/24 08:38 Dose: Not Given Documented By: ERICA Non-Admin Reason: Previously Administered Zolpidem Tartrate (Zolpidem Tartrate 5 Mg Tablet) 10 mg PO BEDTIME PRN PRN Reason: Sleep Labs 09/07/24 05:36 09/07/24 05:36 Labs: Laboratory Results - last 24 hr 09/07/24 18:02 Vancomycin Trough 16.5 Microbiology Microbiology Results: Microbiology 09/04/24 16:15 Blood Culture - Final Blood - Venous Proteus mirabilis 09/04/24 16:01 Blood Culture - Final Blood - Venous Proteus mirabilis Assessment and Plan (1) Toe gangrene: Status: Acute Assessment and Plan: Status post BKA we changed his dressings Stump wrapped in thick flaps and Kerlix and Natanael Pain management Wound care (2) Hypokalemia: Status: Acute (3) Gangrene of toe of right foot: Status: Acute (4) Wound of foot: Status: Acute Plan 59-year-old male with a past medical history significant for peripheral artery disease status post amputation 2 through 5 digits right foot, scheduled for right great toe amputation with Dr. Bender on 09/06, HTN, depression, obesity, who presented to the ED today with severe right great toe pain. Gangrene right great toe with intractable pain and suspected underlying infection -status post BKA postoperative day 2 -on iv vanco and zosyn ( 09/04 to 09/07), changed to Ceftriaxone 09/07 -continue dilaudid and oxycodone for pain Proteus mirabilis bacteremia / blood cultures positive sensitive to ceftriaxone/Cipro/cefepime and ampicillin -Ceftriaxone started 09/07 -ID consult pending Hypokalemia-- replaced, check level Hyponatremia--sodium improved to 136 Prolonged QTc, EKG ordered, likely due to electrolyte abnormalities -repeat ECG Confusion, no focal neuro deficit--suspect narcotics related HTN-BP normal, on no meds Class 1 Obesity- BMI 34.9, weight loss encouraged Mood disorder continue BuSpar and Zoloft Tobacco use - smoking cessation encouraged, declined nicotine patch Full code VTE prophylaxis: Add Lovenox Quality Stroke Does the patient have a stroke diagnosis?: No VTE Prior VTE?: No VTE Risk Level:: Medical - moderate - high VTE Device Contraindication: N/A - Device Ordered VTE Drug Contraindication: Treatment Not Indicated
[2024-09-08] MEDS: Enoxaparin Sodium 40 MG/0.4 ML SYRINGE SUBCUT (11:44)
[2024-09-08 12:13] LABS: Anion Gap 9 (12-20); Blood Urea Nitrogen 8 mg/dL (9-16); Calcium 7.5 mg/dL (8.4-10.2); Carbon Dioxide 33 mmol/L (22-29); Chloride 97 mmol/L (96-108); Creatinine Clr Calc Pharmacy 99.8; Estimated Glomerular Filt Rate > 60; Glucose Random 98 mg/dL (60-115); Potassium 3.1 mmol/L (3.3-5.1); Sodium 136 mmol/L (135-145)
[2024-09-08] MEDS: Potassium Chloride Packet 20 MEQ PACKET 40 MEQ PO (12:44)
[2024-09-08 12:47] LABS: Magnesium 1.8 mg/dL (1.6-2.6)
--- NOTE | 2024-09-08 13:30 | MHC.CM.PN ---
EMR REVIEWED AND PER MD ROUNDS, PT IS NOT MEDICALLY CLEARED FOR DC. CM MET WITH PT X 2 AND PT CONTINUES TO REFUSE STR. CM WILL CONTINUE TO FOLLOW FOR PLAN.
[2024-09-08] MEDS: cefTRIAXone sodium 2 GM VIAL IVPUSH (15:11)
[2024-09-08] MEDS: 0.9 % Sodium Chloride Flush 3 ML SYRINGE IVFLUSH (20:51)
[2024-09-08] MEDS: Docusate Sodium 100 MG CAPSULE 200 MG PO (20:52)
[2024-09-09] VITALS (13 sets, daily range): BP systolic 138–175; BP diastolic 63–79; PULSE 84–99; RESP 16–20; TEMP 36.2–39.2; O2SAT 93–95
[2024-09-09] MEDS: HYDROmorphone HCl 1 MG/ML SYRINGE 2 MG IVPUSH ×3 (00:12→20:09)
[2024-09-09] MEDS: Acetaminophen 325 MG TABLET 650 MG PO (00:13)
[2024-09-09] MEDS: Lactated Ringers 500 ML IV (00:30)
[2024-09-09 00:56] LABS: Lactic Acid 1.1 mmol/L (0.5-2.0)
[2024-09-09] MEDS: oxyCODONE HCl Immed Release 5 MG TABLET 10 MG PO ×3 (03:47→15:39)
--- NOTE | 2024-09-09 06:23 | PC.NURSE ---
Patient febrile overnight to tmax 102.6 rectally with skin hot to touch, HR 90's to low 100's sinus on tele. Pt denies chills, chest pain, and sob. Breathing remains even and unlabored without distress, spo2 maintaining low to mid 90's on RA. IS encouraged though pt is resistive to encouragement and education and has poor effort tonight, only achieving 1500 this shift, down from previous 2500 for typewriter aligner the night prior. Covering Dr. Vargas notified with orders for BCx x2, lactic acid, and 500ml LR bolus. Labs were drawn just prior to initiating bolus. Pt was also medicated with prn tylenol per NOV and ice was placed to bilateral axilla. Lactic back 1.1. Interventions effective, patient since afebrile, skin normothermic, and HR returned to previous upper 80's to low 90's on tele.
--- NOTE | 2024-09-09 08:21 | HO.PM.IMPN ---
Subjective Subjective Date of Service: 09/09/24 Interval History: Follow-up on gangrene of the toe and Proteus mirabilis bacteremia. Complaining of pain at site of BKA. Still has pain 04/29 this morning no confusion Physical Exam Vital Signs: Vital Signs: Last Vital Signs Temp 98.2 F 09/09/24 08:00 Pulse 92 09/09/24 08:00 Resp 17 09/09/24 08:00 BP 140/66 H 09/09/24 08:00 Pulse Ox 93 09/09/24 08:00 O2 Del Method Nasal Cannula 09/09/24 08:00 O2 Flow Rate 2 09/09/24 08:00 BMI result Body Mass Index 17.1 Const: Other: General awake alert x3 in mild distress due to pain Anicteric sclera Neck no JVD. CVS regular rate rhythm, Respiratory lungs clear to auscultation, no respiratory distress, no wheeze, no rhonchi. Gastrointestinal abdomen soft, non tender, bowel sounds audible Extremities right BKA dressing in place Neuro non focal Appropriate affect Objective Data Active Medications Acetaminophen (Acetaminophen 325 Mg Tablet) 650 mg PO Q6H PRN PRN Reason: Pain, Mild (Pain Scale 1-3), fever or headache Last Admin: 09/09/24 00:13 Dose: 650 mg Documented By: LIZBETH Buspirone HCl (Buspirone Hcl 10 Mg Tablet) 10 mg PO TID [facility] Last Admin: 09/08/24 20:52 Dose: 10 mg Documented By: LIZBETH Calcium Carbonate (Calcium Carbonate 750 Mg Tab.Chew) 750 mg PO Q4H PRN PRN Reason: Heartburn Ceftriaxone Sodium (Ceftriaxone Sodium 2 Gm Vial) 2 gm IVPUSH Q24H [facility] Last Admin: 09/08/24 15:11 Dose: 2 gm Documented By: IRWIN Clonidine HCl (Clonidine Hcl 0.1 Mg Tablet) 0.1 mg PO BEDTIME PRN; Protocol PRN Reason: Anxiety Docusate Sodium (Docusate Sodium 100 Mg Capsule) 200 mg PO BEDTIME [facility] Last Admin: 09/08/24 20:52 Dose: 200 mg Documented By: LIZBETH Enoxaparin Sodium (Enoxaparin Sodium 40 Mg/0.4 Ml Syringe) 40 mg SUBCUT Q24H [facility] Last Admin: 09/08/24 11:44 Dose: 40 mg Documented By: IRWIN Hydromorphone HCl (Hydromorphone Hcl 1 Mg/Ml Syringe) 2 mg IVPUSH Q4H PRN; Protocol PRN Reason: Pain, Severe (Pain Scale 7-10) Last Admin: 09/09/24 00:12 Dose: 2 mg Documented By: LIZBETH Magnesium Hydroxide (Milk Of Magnesia 30 Ml Oral.Susp) 30 ml PO DAILY PRN PRN Reason: Constipation Melatonin (Melatonin 3 Mg Tablet) 6 mg PO BEDTIME PRN PRN Reason: Insomnia Last Admin: 09/07/24 20:34 Dose: 6 mg Documented By: LIZBETH Naloxone HCl (Naloxone Hcl 0.4 Mg/Ml Vial) 0.04 mg IVPUSH Q5M PRN PRN Reason: Excessive sedation or RR < 8 Oxycodone HCl (Oxycodone Hcl Immed Release 5 Mg Tablet) 10 mg PO Q6H [facility] Last Admin: 09/09/24 03:47 Dose: 10 mg Documented By: LIZBETH Polyethylene Glycol (Polyethylene Glycol 3350 17 Gm Powd.Pack) 17 gm PO DAILY [facility] Last Admin: 09/08/24 08:35 Dose: 17 gm Documented By: ERICA Sertraline HCl (Sertraline Hcl 100 Mg Tablet) 200 mg PO DAILY [facility] Last Admin: 09/08/24 08:34 Dose: 200 mg Documented By: ERICA Sodium Chloride (0.9 % Sodium Chloride Flush 3 Ml Syringe) 3 ml IVFLUSH QSHIFT [facility] Last Admin: 09/08/24 20:51 Dose: 3 ml Documented By: LIZBETH Zolpidem Tartrate (Zolpidem Tartrate 5 Mg Tablet) 10 mg PO BEDTIME PRN PRN Reason: Sleep Labs 09/07/24 05:36 09/08/24 11:35 Labs: Laboratory Results - last 24 hr 09/08/24 09/09/24 11:35 00:32 Anion Gap 9 L Estim Creat Clear Calc 99.8 Estimated GFR > 60 Random Glucose 98 Lactic Acid 1.1 Calcium 7.5 L Magnesium 1.8 Assessment and Plan (1) Toe gangrene: Status: Acute Assessment and Plan: Status post BKA we changed his dressings Stump wrapped in thick flaps and Kerlix and Natanael Pain management Wound care (2) Hypokalemia: Status: Acute (3) Gangrene of toe of right foot: Status: Acute (4) Wound of foot: Status: Acute Plan 59-year-old male with a past medical history significant for peripheral artery disease status post amputation 2 through 5 digits right foot, scheduled for right great toe amputation with Dr. Bender on 09/06, HTN, depression, obesity, who presented to the ED today with severe right great toe pain. Gangrene right great toe with intractable pain and suspected underlying infection -status post BKA postoperative on 09/06 -on iv vanco and zosyn ( 09/04 to 09/07), changed to Ceftriaxone 09/07 -continue dilaudid and oxycodone for pain Proteus mirabilis bacteremia / blood cultures positive sensitive to ceftriaxone/Cipro/cefepime and ampicillin -Ceftriaxone started 09/07 -ID consult pending Hypokalemia-- replaced, check level Hyponatremia--sodium improved to 136 Prolonged QTc, EKG ordered, likely due to electrolyte abnormalities -repeat ECG Confusion, no focal neuro deficit--suspect narcotics related HTN-BP normal, on no meds Class 1 Obesity- BMI 34.9, weight loss encouraged Mood disorder continue BuSpar and Zoloft Tobacco use - smoking cessation encouraged, declined nicotine patch Full code VTE prophylaxis: Add Lovenox Quality Stroke Does the patient have a stroke diagnosis?: No VTE Prior VTE?: No VTE Risk Level:: Medical - moderate - high VTE Device Contraindication: N/A - Device Ordered VTE Drug Contraindication: Treatment Not Indicated
[2024-09-09] MEDS: busPIRone HCl 10 MG TABLET PO ×3 (08:46→20:09)
[2024-09-09] MEDS: Sertraline HCL 100 MG TABLET 200 MG PO (08:46)
[2024-09-09] MEDS: polyethylene glycoL 3350 17 GM POWD.PACK PO (08:46)
[2024-09-09] MEDS: 0.9 % Sodium Chloride Flush 3 ML SYRINGE IVFLUSH (08:49)
[2024-09-09 08:56] LABS: Anion Gap 12 (12-20); Blood Urea Nitrogen 8 mg/dL (9-16); Calcium 7.9 mg/dL (8.4-10.2); Carbon Dioxide 32 mmol/L (22-29); Chloride 98 mmol/L (96-108); Creatinine Clr Calc Pharmacy 103.2; Estimated Glomerular Filt Rate > 60; Glucose Random 102 mg/dL (60-115); Magnesium 1.9 mg/dL (1.6-2.6); Potassium 3.5 mmol/L (3.3-5.1); Sodium 138 mmol/L (135-145)
[2024-09-09 08:59] LABS: Hematocrit 30.2 % (42.0-52.0); Mean Corpuscular HGB Conc 33.1 g/dl (31.0-36.0); Mean Corpuscular Hemoglobin 27.9 pg (27.0-33.0); Mean Corpuscular Volume 84.4 fL (80.0-98.0); Platelet Count 68 X10*3/uL (160-400); Red Blood Count 3.58 X10*6/uL (4.60-5.80); Red Cell Distribution Width 14.5 % (11.0-16.0); White Blood Count 4.3 X10*3/uL (4.8-10.8)
[2024-09-09] MEDS: Enoxaparin Sodium 40 MG/0.4 ML SYRINGE SUBCUT (12:29)
[2024-09-09] MEDS: cefTRIAXone sodium 2 GM VIAL IVPUSH (15:39)
[2024-09-09] MEDS: Docusate Sodium 100 MG CAPSULE 200 MG PO (20:09)
[2024-09-10] VITALS (8 sets, daily range): BP systolic 138–169; BP diastolic 63–81; PULSE 84–93; RESP 16–20; TEMP 36.6–37.6; O2SAT 92–96
[2024-09-10] MEDS: 0.9 % Sodium Chloride Flush 3 ML SYRINGE IVFLUSH ×2 (00:01→15:32)
[2024-09-10] MEDS: HYDROmorphone HCl 1 MG/ML SYRINGE 2 MG IVPUSH ×3 (03:23→20:30)
[2024-09-10 08:22] LABS: Hemoglobin 9.6 g/dl (14.0-18.0); PLT CLUMP 1
[2024-09-10 08:24] LABS: Hematocrit 29.1 % (42.0-52.0); Mean Corpuscular Volume 84.8 fL (80.0-98.0); Mean Platelet Volume 10.5 fL (9.4-12.4); Red Blood Count 3.43 X10*6/uL (4.60-5.80); Red Cell Distribution Width 14.5 % (11.0-16.0)
[2024-09-10 08:31] LABS: Platelet Count 68 X10*3/uL (160-400); White Blood Count 5.4 X10*3/uL (4.8-10.8)
[2024-09-10 08:34] LABS: Anion Gap 12 (12-20); Blood Urea Nitrogen 10 mg/dL (9-16); Calcium 7.9 mg/dL (8.4-10.2); Carbon Dioxide 31 mmol/L (22-29); Chloride 97 mmol/L (96-108); Creatinine Clr Calc Pharmacy 98.2; Estimated Glomerular Filt Rate > 60; Glucose Random 99 mg/dL (60-115); Potassium 3.4 mmol/L (3.3-5.1); Sodium 137 mmol/L (135-145)
[2024-09-10] MEDS: Sertraline HCL 100 MG TABLET 200 MG PO (08:45)
[2024-09-10] MEDS: busPIRone HCl 10 MG TABLET PO ×3 (08:46→20:28)
[2024-09-10] MEDS: polyethylene glycoL 3350 17 GM POWD.PACK PO (08:46)
[2024-09-10] MEDS: oxyCODONE HCl Immed Release 5 MG TABLET 10 MG PO ×2 (08:46→15:29)
--- NOTE | 2024-09-10 10:16 | P.PNIM_ITS ---
Subjective Subjective Date of Service: 09/10/24 Interval History: Follow-up on gangrene of the toe and Proteus mirabilis bacteremia. Complaining of pain at site of BKA. still with pain Physical Exam 2 Vital Signs: Vital Signs: Last Vital Signs Temp 99.6 F 09/10/24 07:18 Pulse 86 09/10/24 07:18 Resp 19 09/10/24 07:18 BP 155/71 H 09/10/24 07:18 Pulse Ox 94 09/10/24 07:18 O2 Del Method Nasal Cannula 09/10/24 07:18 O2 Flow Rate 2 09/10/24 07:18 BMI result Body Mass Index 17.1 Const: Other: General awake alert x3 in mild distress due to pain Anicteric sclera Neck no JVD. CVS regular rate rhythm, Respiratory lungs clear to auscultation, no respiratory distress, no wheeze, no rhonchi. Gastrointestinal abdomen soft, non tender, bowel sounds audible Extremities right BKA dressing in place Neuro non focal Appropriate affect Objective Data Active Medications Acetaminophen (Acetaminophen 325 Mg Tablet) 650 mg PO Q6H PRN PRN Reason: Pain, Mild (Pain Scale 1-3), fever or headache Last Admin: 09/09/24 00:13 Dose: 650 mg Documented By: LIZBETH Buspirone HCl (Buspirone Hcl 10 Mg Tablet) 10 mg PO TID [facility] Last Admin: 09/10/24 08:46 Dose: 10 mg Documented By: ISRRAEL Calcium Carbonate (Calcium Carbonate 750 Mg Tab.Chew) 750 mg PO Q4H PRN PRN Reason: Heartburn Ceftriaxone Sodium (Ceftriaxone Sodium 2 Gm Vial) 2 gm IVPUSH Q24H [facility] Last Admin: 09/09/24 15:39 Dose: 2 gm Documented By: ISRRAEL Clonidine HCl (Clonidine Hcl 0.1 Mg Tablet) 0.1 mg PO BEDTIME PRN; Protocol PRN Reason: Anxiety Docusate Sodium (Docusate Sodium 100 Mg Capsule) 200 mg PO BEDTIME [facility] Last Admin: 09/09/24 20:09 Dose: 200 mg Documented By: GALINA Hydromorphone HCl (Hydromorphone Hcl 1 Mg/Ml Syringe) 2 mg IVPUSH Q4H PRN; Protocol PRN Reason: Pain, Severe (Pain Scale 7-10) Last Admin: 09/10/24 03:23 Dose: 2 mg Documented By: GALINA Magnesium Hydroxide (Milk Of Magnesia 30 Ml Oral.Susp) 30 ml PO DAILY PRN PRN Reason: Constipation Melatonin (Melatonin 3 Mg Tablet) 6 mg PO BEDTIME PRN PRN Reason: Insomnia Last Admin: 09/07/24 20:34 Dose: 6 mg Documented By: LIZBETH Naloxone HCl (Naloxone Hcl 0.4 Mg/Ml Vial) 0.04 mg IVPUSH Q5M PRN PRN Reason: Excessive sedation or RR < 8 Oxycodone HCl (Oxycodone Hcl Immed Release 5 Mg Tablet) 10 mg PO Q6H PRN PRN Reason: Pain, Moderate(Pain Scale 4-6) Last Admin: 09/10/24 08:46 Dose: 10 mg Documented By: ISRRAEL Polyethylene Glycol (Polyethylene Glycol 3350 17 Gm Powd.Pack) 17 gm PO DAILY [facility] Last Admin: 09/10/24 08:46 Dose: 17 gm Documented By: ISRRAEL Sertraline HCl (Sertraline Hcl 100 Mg Tablet) 200 mg PO DAILY [facility] Last Admin: 09/10/24 08:45 Dose: 200 mg Documented By: ISRRAEL Sodium Chloride (0.9 % Sodium Chloride Flush 3 Ml Syringe) 3 ml IVFLUSH QSHIFT [facility] Last Admin: 09/10/24 08:25 Dose: Not Given Documented By: ISRRAEL Non-Admin Reason: Previously Administered Labs 09/10/24 08:15 09/10/24 08:15 Labs: Laboratory Results - last 24 hr 09/10/24 08:15 MCV 84.8 MCH 28.0 MCHC 33.0 RDW 14.5 Plt Count 68 L MPV 10.5 Absolute Nucleated RBC 0.000 Nucleated RBC % (auto) 0.0 Anion Gap 12 Estim Creat Clear Calc 98.2 Estimated GFR > 60 Random Glucose 99 Calcium 7.9 L Microbiology Microbiology Results: Microbiology 09/09/24 00:31 Blood Culture - Preliminary Blood - Venous No growth after 24 hours. 09/09/24 00:32 Blood Culture - Preliminary Blood - Venous No growth after 24 hours. Assessment and Plan (1) Toe gangrene: Status: Acute (2) Hypokalemia: Status: Acute (3) Gangrene of toe of right foot: Status: Acute (4) Wound of foot: Status: Acute Plan 59-year-old male with a past medical history significant for peripheral artery disease status post amputation 2 through 5 digits right foot, scheduled for right great toe amputation with Dr. Bender on 09/06, HTN, depression, obesity, who presented to the ED today with severe right great toe pain. Gangrene right great toe with intractable pain and suspected underlying infection -status post BKA postoperative on 09/06 -on iv vanco and zosyn ( 09/04 to 09/07), changed to Ceftriaxone 09/07 -continue dilaudid and oxycodone for pain -dressing change by alhaji Proteus mirabilis bacteremia / blood cultures positive sensitive to ceftriaxone/Cipro/cefepime and ampicillin -Ceftriaxone started 09/07 -ID consult pending Hypokalemia-- replaced, check level, keep around 4 Hyponatremia--sodium improved to 136 Prolonged QTc, EKG ordered, likely due to electrolyte abnormalities -keep K normal to 4 and keep mag normal as well Confusion, no focal neuro deficit--suspect narcotics related, resolved. Thrombocytopenia--etiology unclear ? Abx related, stable. Hold heparin o Lovenox HTN-BP normal, on no meds Class 1 Obesity- BMI 34.9, weight loss encouraged Mood disorder continue BuSpar and Zoloft Tobacco use - smoking cessation encouraged, declined nicotine patch Full code VTE prophylaxis: compression device, holding heparin and lovenox d/t thrombocytoepnia Quality Stroke Does the patient have a stroke diagnosis?: No VTE Prior VTE?: No VTE Risk Level:: Medical - moderate - high VTE Device Contraindication: N/A - Device Ordered VTE Drug Contraindication: Treatment Not Indicated
--- NOTE | 2024-09-10 15:01 | PM.PNGS ---
Subjective Subjective Date of Service: 09/10/24 Interval history: complaining of pain and hasnt gotten up and moved around since surgery Physical Exam Vital Signs: Vital Signs: Last Vital Signs Temp 99.0 F 09/10/24 12:00 Pulse 84 09/10/24 12:00 Resp 18 09/10/24 12:00 BP 138/63 09/10/24 12:00 Pulse Ox 95 09/10/24 12:00 O2 Del Method Nasal Cannula 09/10/24 12:00 O2 Flow Rate 2 09/10/24 12:00 BMI result Body Mass Index 17.1 Extrem: Other: dressings taken down and stump looks great incision fine and flap viable and great Objective Data Active Medications Acetaminophen (Acetaminophen 325 Mg Tablet) 650 mg PO Q6H PRN PRN Reason: Pain, Mild (Pain Scale 1-3), fever or headache Last Admin: 09/09/24 00:13 Dose: 650 mg Documented By: LIZBETH Buspirone HCl (Buspirone Hcl 10 Mg Tablet) 10 mg PO TID [facility] Last Admin: 09/10/24 08:46 Dose: 10 mg Documented By: ISRRAEL Calcium Carbonate (Calcium Carbonate 750 Mg Tab.Chew) 750 mg PO Q4H PRN PRN Reason: Heartburn Ceftriaxone Sodium (Ceftriaxone Sodium 2 Gm Vial) 2 gm IVPUSH Q24H [facility] Last Admin: 09/09/24 15:39 Dose: 2 gm Documented By: ISRRAEL Clonidine HCl (Clonidine Hcl 0.1 Mg Tablet) 0.1 mg PO BEDTIME PRN; Protocol PRN Reason: Anxiety Docusate Sodium (Docusate Sodium 100 Mg Capsule) 200 mg PO BEDTIME [facility] Last Admin: 09/09/24 20:09 Dose: 200 mg Documented By: GALINA Hydromorphone HCl (Hydromorphone Hcl 1 Mg/Ml Syringe) 2 mg IVPUSH Q4H PRN; Protocol PRN Reason: Pain, Severe (Pain Scale 7-10) Last Admin: 09/10/24 10:54 Dose: 2 mg Documented By: ISRRAEL Magnesium Hydroxide (Milk Of Magnesia 30 Ml Oral.Susp) 30 ml PO DAILY PRN PRN Reason: Constipation Melatonin (Melatonin 3 Mg Tablet) 6 mg PO BEDTIME PRN PRN Reason: Insomnia Last Admin: 09/07/24 20:34 Dose: 6 mg Documented By: LIZBETH Naloxone HCl (Naloxone Hcl 0.4 Mg/Ml Vial) 0.04 mg IVPUSH Q5M PRN PRN Reason: Excessive sedation or RR < 8 Oxycodone HCl (Oxycodone Hcl Immed Release 5 Mg Tablet) 10 mg PO Q6H PRN PRN Reason: Pain, Moderate(Pain Scale 4-6) Last Admin: 09/10/24 08:46 Dose: 10 mg Documented By: ISRRAEL Polyethylene Glycol (Polyethylene Glycol 3350 17 Gm Powd.Pack) 17 gm PO DAILY [facility] Last Admin: 09/10/24 08:46 Dose: 17 gm Documented By: ISRRAEL Sertraline HCl (Sertraline Hcl 100 Mg Tablet) 200 mg PO DAILY [facility] Last Admin: 09/10/24 08:45 Dose: 200 mg Documented By: ISRRAEL Sodium Chloride (0.9 % Sodium Chloride Flush 3 Ml Syringe) 3 ml IVFLUSH QSHIFT [facility] Last Admin: 09/10/24 08:25 Dose: Not Given Documented By: ISRRAEL Non-Admin Reason: Previously Administered Labs 09/10/24 08:15 09/10/24 08:15 Labs: Laboratory Results - last 24 hr 09/10/24 08:15 MCV 84.8 MCH 28.0 MCHC 33.0 RDW 14.5 Plt Count 68 L MPV 10.5 Absolute Nucleated RBC 0.000 Nucleated RBC % (auto) 0.0 Anion Gap 12 Estim Creat Clear Calc 98.2 Estimated GFR > 60 Random Glucose 99 Calcium 7.9 L Microbiology Microbiology Results: Microbiology 09/09/24 00:31 Blood Culture - Preliminary Blood - Venous No growth after 24 hours. 09/09/24 00:32 Blood Culture - Preliminary Blood - Venous No growth after 24 hours. Procedures Date of Service Date of Service: 09/10/24 Progress Note: A&P Assessment and plan (1) Gangrene of toe of right foot: Status: Acute Assessment and Plan: s/p right bka and stump looks great - plan to work with PT to get pt to mobiize more. seems somewhat slow and depressed. Time Spent With Patient Time: Total time managing care of this patient today ____ minutes. Quality Stroke Does the patient have a stroke diagnosis?: No VTE Prior VTE?: No VTE Risk Level:: Medical - moderate - high VTE Device Contraindication: N/A - Device Ordered VTE Drug Contraindication: Treatment Not Indicated
[2024-09-10] MEDS: cefTRIAXone sodium 2 GM VIAL IVPUSH (15:28)
[2024-09-10] MEDS: Lactated Ringers 1,000 ML 80 ML IVCONT (15:29)
--- NOTE | 2024-09-10 15:37 | PC.NURSE ---
Pt offered to get OOB, continues to refuse to get OOB
[2024-09-10] MEDS: Docusate Sodium 100 MG CAPSULE 200 MG PO (20:28)
[2024-09-11] VITALS (7 sets, daily range): BP systolic 149–177; BP diastolic 70–82; PULSE 80–107; RESP 16–18; TEMP 36.6–37.4; O2SAT 92–97; BMI 34.9
--- NOTE | 2024-09-11 | ECG_ITS ---
Test Reason : prolonged qt Blood Pressure : / mmHG Vent. Rate : 081 BPM Atrial Rate : 081 BPM P-R Int : 136 ms QRS Dur : 092 ms QT Int : 454 ms P-R-T Axes : 049 -01 057 degrees QTc Int : 527 ms Sinus rhythm with Premature atrial complexes Prolonged QT Abnormal ECG When compared with ECG of 08-SEP-2024 11:10, Premature ventricular complexes are no longer Present Referred By: Mahendra Summers Electronically Signed By:Jordan Lal
[2024-09-11] MEDS: oxyCODONE HCl Immed Release 5 MG TABLET 10 MG PO ×3 (01:49→16:18)
[2024-09-11] MEDS: Lactated Ringers 1,000 ML 80 ML IVCONT ×2 (03:22→16:34)
[2024-09-11] MEDS: Acetaminophen 325 MG TABLET 650 MG PO (05:48)
--- NOTE | 2024-09-11 07:49 | HO.PM.IMPN ---
Subjective Subjective Date of Service: 09/11/24 Interval History: Follow-up on gangrene of the toe and Proteus mirabilis bacteremia. Complaining of pain at site of BKA. still with pain Physical Exam Vital Signs: Vital Signs: Last Vital Signs Temp 99.3 F 09/11/24 07:44 Pulse 81 09/11/24 07:44 Resp 17 09/11/24 07:44 BP 149/70 H 09/11/24 07:44 Pulse Ox 92 09/11/24 07:44 O2 Del Method Room Air 09/11/24 07:44 O2 Flow Rate 2 09/10/24 23:16 BMI result Body Mass Index 17.1 Const: Other: General awake alert x3 in mild distress due to pain Anicteric sclera Neck no JVD. CVS regular rate rhythm, Respiratory lungs clear to auscultation, no respiratory distress, no wheeze, no rhonchi. Gastrointestinal abdomen soft, non tender, bowel sounds audible Extremities right BKA dressing in place Neuro non focal Appropriate affect Extrem: Other: dressings taken down and stump looks great incision fine and flap viable and great Objective Data Active Medications Acetaminophen (Acetaminophen 325 Mg Tablet) 650 mg PO Q6H PRN PRN Reason: Pain, Mild (Pain Scale 1-3), fever or headache Last Admin: 09/11/24 05:48 Dose: 650 mg Documented By: GALINA Buspirone HCl (Buspirone Hcl 10 Mg Tablet) 10 mg PO TID [facility] Last Admin: 09/10/24 20:28 Dose: 10 mg Documented By: GALINA Calcium Carbonate (Calcium Carbonate 750 Mg Tab.Chew) 750 mg PO Q4H PRN PRN Reason: Heartburn Ceftriaxone Sodium (Ceftriaxone Sodium 2 Gm Vial) 2 gm IVPUSH Q24H [facility] Last Admin: 09/10/24 15:28 Dose: 2 gm Documented By: ISRRAEL Clonidine HCl (Clonidine Hcl 0.1 Mg Tablet) 0.1 mg PO BEDTIME PRN; Protocol PRN Reason: Anxiety Docusate Sodium (Docusate Sodium 100 Mg Capsule) 200 mg PO BEDTIME [facility] Last Admin: 09/10/24 20:28 Dose: 200 mg Documented By: GALINA Hydromorphone HCl (Hydromorphone Hcl 1 Mg/Ml Syringe) 2 mg IVPUSH Q4H PRN; Protocol PRN Reason: Pain, Severe (Pain Scale 7-10) Last Admin: 09/10/24 20:30 Dose: 2 mg Documented By: GALINA Lactated Ringer's (Lr) 1,000 mls @ 80 mls/hr IVCONT .[id number] [facility] Last Admin: 09/11/24 03:22 Dose: 80 mls/hr Documented By: GALINA Magnesium Hydroxide (Milk Of Magnesia 30 Ml Oral.Susp) 30 ml PO DAILY PRN PRN Reason: Constipation Melatonin (Melatonin 3 Mg Tablet) 6 mg PO BEDTIME PRN PRN Reason: Insomnia Last Admin: 09/07/24 20:34 Dose: 6 mg Documented By: LIZBETH Naloxone HCl (Naloxone Hcl 0.4 Mg/Ml Vial) 0.04 mg IVPUSH Q5M PRN PRN Reason: Excessive sedation or RR < 8 Oxycodone HCl (Oxycodone Hcl Immed Release 5 Mg Tablet) 10 mg PO Q6H PRN PRN Reason: Pain, Moderate(Pain Scale 4-6) Last Admin: 09/11/24 01:49 Dose: 10 mg Documented By: GALINA Polyethylene Glycol (Polyethylene Glycol 3350 17 Gm Powd.Pack) 17 gm PO DAILY [facility] Last Admin: 09/10/24 08:46 Dose: 17 gm Documented By: ISRRAEL Sertraline HCl (Sertraline Hcl 100 Mg Tablet) 200 mg PO DAILY [facility] Last Admin: 09/10/24 08:45 Dose: 200 mg Documented By: ISRRAEL Sodium Chloride (0.9 % Sodium Chloride Flush 3 Ml Syringe) 3 ml IVFLUSH QSHIFT [facility] Last Admin: 09/10/24 23:08 Dose: Not Given Documented By: GALINA Non-Admin Reason: IV Running Labs 09/10/24 08:15 09/11/24 08:52 Labs: Laboratory Results - last 24 hr 09/10/24 08:15 MCV 84.8 MCH 28.0 MCHC 33.0 RDW 14.5 Plt Count 68 L MPV 10.5 Absolute Nucleated RBC 0.000 Nucleated RBC % (auto) 0.0 Anion Gap 12 Estim Creat Clear Calc 98.2 Estimated GFR > 60 Random Glucose 99 Calcium 7.9 L Microbiology Microbiology Results: Microbiology 09/09/24 00:31 Blood Culture - Preliminary Blood - Venous No growth after 48 hours. 09/09/24 00:32 Blood Culture - Preliminary Blood - Venous No growth after 48 hours. Assessment and Plan (1) Toe gangrene: Status: Resolved (2) Hypokalemia: Status: Resolved (3) Gangrene of toe of right foot: Status: Resolved (4) Wound of foot: Status: Resolved Plan 59-year-old male with a past medical history significant for peripheral artery disease status post amputation 2 through 5 digits right foot, scheduled for right great toe amputation with Dr. Bender on 09/06, HTN, depression, obesity, who presented to the ED today with severe right great toe pain. Gangrene right great toe with intractable pain and suspected underlying infection -status post BKA postoperative on 09/06 -on iv vanco and zosyn ( 09/04 to 09/07), changed to Ceftriaxone 09/07 -continue dilaudid and oxycodone for pain -dressing change by surgery -ID to decide if he will need IV Abx Proteus mirabilis bacteremia 2/2 blood cultures positive sensitive to ceftriaxone/Cipro/cefepime and ampicillin -Ceftriaxone started 09/07 -ID consult pending regarding need for IV or PO Abx Hypokalemia-- replaced, check level, keep around 4 Hyponatremia--sodium improved to 136 Prolonged QTc, EKG ordered, likely due to electrolyte abnormalities -keep K normal to 4 and keep mag normal as well Confusion, no focal neuro deficit--suspect narcotics related, CT head requested Thrombocytopenia--etiology unclear ? Abx related, stable. Hold heparin o Lovenox HTN-BP normal, on no meds Class 1 Obesity- BMI 34.9, weight loss encouraged Mood disorder continue BuSpar and Zoloft Tobacco use - smoking cessation encouraged, declined nicotine patch Full code VTE prophylaxis: compression device, holding heparin and lovenox d/t thrombocytoepnia Quality Stroke Does the patient have a stroke diagnosis?: No VTE Prior VTE?: No VTE Risk Level:: Medical - moderate - high VTE Device Contraindication: N/A - Device Ordered VTE Drug Contraindication: Treatment Not Indicated
--- NOTE | 2024-09-11 08:12 | P.PNGS_ITS ---
Subjective Subjective Date of Service: 09/11/24 Interval history: No events reported Physical Exam 2 Vital Signs: Vital Signs: Last Vital Signs Temp 99.3 F 09/11/24 07:44 Pulse 81 09/11/24 07:44 Resp 17 09/11/24 07:44 BP 149/70 H 09/11/24 07:44 Pulse Ox 92 09/11/24 07:44 O2 Del Method Room Air 09/11/24 07:44 O2 Flow Rate 2 09/10/24 23:16 BMI result Body Mass Index 17.1 Const: General: comfortable and no acute distress Resp: Effort & Inspection: normal respiratory effort Cardio: Rate: regular rate Extrem: Other: BKA site clean, dry, flat viable, some ecchymosis, no infection Objective Data Active Medications Acetaminophen (Acetaminophen 325 Mg Tablet) 650 mg PO Q6H PRN PRN Reason: Pain, Mild (Pain Scale 1-3), fever or headache Last Admin: 09/11/24 05:48 Dose: 650 mg Documented By: GALINA Buspirone HCl (Buspirone Hcl 10 Mg Tablet) 10 mg PO TID [facility] Last Admin: 09/10/24 20:28 Dose: 10 mg Documented By: GALINA Calcium Carbonate (Calcium Carbonate 750 Mg Tab.Chew) 750 mg PO Q4H PRN PRN Reason: Heartburn Ceftriaxone Sodium (Ceftriaxone Sodium 2 Gm Vial) 2 gm IVPUSH Q24H [facility] Last Admin: 09/10/24 15:28 Dose: 2 gm Documented By: ISRRAEL Clonidine HCl (Clonidine Hcl 0.1 Mg Tablet) 0.1 mg PO BEDTIME PRN; Protocol PRN Reason: Anxiety Docusate Sodium (Docusate Sodium 100 Mg Capsule) 200 mg PO BEDTIME [facility] Last Admin: 09/10/24 20:28 Dose: 200 mg Documented By: GALINA Lactated Ringer's (Lr) 1,000 mls @ 80 mls/hr IVCONT .[id number] [facility] Last Admin: 09/11/24 03:22 Dose: 80 mls/hr Documented By: GALINA Magnesium Hydroxide (Milk Of Magnesia 30 Ml Oral.Susp) 30 ml PO DAILY PRN PRN Reason: Constipation Melatonin (Melatonin 3 Mg Tablet) 6 mg PO BEDTIME PRN PRN Reason: Insomnia Last Admin: 09/07/24 20:34 Dose: 6 mg Documented By: LIZBETH Naloxone HCl (Naloxone Hcl 0.4 Mg/Ml Vial) 0.04 mg IVPUSH Q5M PRN PRN Reason: Excessive sedation or RR < 8 Oxycodone HCl (Oxycodone Hcl Immed Release 5 Mg Tablet) 10 mg PO Q6H PRN PRN Reason: Pain, Moderate(Pain Scale 4-6) Last Admin: 09/11/24 01:49 Dose: 10 mg Documented By: GALINA Polyethylene Glycol (Polyethylene Glycol 3350 17 Gm Powd.Pack) 17 gm PO DAILY [facility] Last Admin: 09/10/24 08:46 Dose: 17 gm Documented By: ISRRAEL Sertraline HCl (Sertraline Hcl 100 Mg Tablet) 200 mg PO DAILY [facility] Last Admin: 09/10/24 08:45 Dose: 200 mg Documented By: ISRRAEL Sodium Chloride (0.9 % Sodium Chloride Flush 3 Ml Syringe) 3 ml IVFLUSH QSHIFT [facility] Last Admin: 09/10/24 23:08 Dose: Not Given Documented By: GALINA Non-Admin Reason: IV Running Labs 09/10/24 08:15 09/10/24 08:15 Labs: Laboratory Results - last 24 hr 09/10/24 08:15 MCV 84.8 MCH 28.0 MCHC 33.0 RDW 14.5 Plt Count 68 L MPV 10.5 Absolute Nucleated RBC 0.000 Nucleated RBC % (auto) 0.0 Anion Gap 12 Estim Creat Clear Calc 98.2 Estimated GFR > 60 Random Glucose 99 Calcium 7.9 L Microbiology Microbiology Results: Microbiology 09/09/24 00:31 Blood Culture - Preliminary Blood - Venous No growth after 48 hours. 09/09/24 00:32 Blood Culture - Preliminary Blood - Venous No growth after 48 hours. Procedures Date of Service Date of Service: 09/11/24 Progress Note: A&P Assessment and plan (1) Toe gangrene: Status: Acute Assessment and Plan: Status post BKA right I have changed his dressing Wrapped stump with Kerlix roll Pain management Physical therapy Time Spent With Patient Time: Total time managing care of this patient today ____ minutes. Quality Stroke Does the patient have a stroke diagnosis?: No VTE Prior VTE?: No VTE Risk Level:: Medical - moderate - high VTE Device Contraindication: N/A - Device Ordered VTE Drug Contraindication: Treatment Not Indicated
[2024-09-11] MEDS: Sertraline HCL 100 MG TABLET 200 MG PO (09:18)
[2024-09-11] MEDS: busPIRone HCl 10 MG TABLET PO ×3 (09:19→19:48)
[2024-09-11] MEDS: polyethylene glycoL 3350 17 GM POWD.PACK PO (09:19)
[2024-09-11 09:34] LABS: Anion Gap 12 (12-20); Blood Urea Nitrogen 10 mg/dL (9-16); Calcium 7.4 mg/dL (8.4-10.2); Carbon Dioxide 29 mmol/L (22-29); Chloride 97 mmol/L (96-108); Creatinine Clr Calc Pharmacy 99.8; Estimated Glomerular Filt Rate > 60; Glucose Random 91 mg/dL (60-115); Magnesium 1.9 mg/dL (1.6-2.6); Potassium 3.3 mmol/L (3.3-5.1); Sodium 135 mmol/L (135-145)
--- NOTE | 2024-09-11 11:28 | HO.WOUND ---
Wound Consult: New site Initial 59yr old?male admitted to [facility] on 09/04/24 - See progress notes and H&P for detailed history.? Wound consult placed for Left Heel wound. Patient is agreeable to skin assessment and photo documentation. Chart review reveals the patient is currently refusing many nursing interventions. After discussion with direct are nurse patient has refused PT, out of bed, repositions and food at times. I discussed his refusals and resistance to care with him directly. He quickly became frustrated and informed me he was in too much pain to be compliant with position changes and other care requests. Patient expressed he wanted his pain med and direct care nurse at bedside informed him he was recently medicated within the last 1 - 09/21 and was not yet due for pain medication. TT to / Melina to inform of patient refusals and pressure injury and poor pain control per pt statement. New nutrition consult placed for poor po intake. Left Heel Etiology: ??Deep Tissue Injury Present on Admission Measurements: 2cm x 2cm Wound Bed: Maroon Purple intact nonblanchable tissue Drainage / Odor: None Edges: ? Attached Kailyn wound: ?red pink slow to marguerite tissue No Induration, Fluctuance or Warmth noted Pain: patient reports pain and neuropathy Goals of Treatment: ? Off Load Pressure and foam dressing to aid in pressure redistribution Left Great Toe Etiology: ?Arterial Wound Measurements: 1cm x 1cm x 0.1cm Wound Bed: dry red wound bed Drainage / Odor: None Edges: ? attached Kailyn wound: ?pink slight swelling noted No Induration, Fluctuance or Warmth noted Pain: pain reported and neuropathy Goals of Treatment: ? Betadine to keep dry and clean Left leg foot - hemosiderin staining noted - thickened nails, cool to touch, and weak or absent pulses. No Palpable pulses noted to the left foot - via doppler very weak pulse to DP , PT not able to find - TT to provider with info. Unclear if vascular has followed for left foot - provider will follow up appropriately. Of note patient reports he is still smoking when not admitted to hospital. Right BKA site is currently followed by general surgery team - Will defer topical recommendations to surgery. Recommendations: 1. Turn and Reposition every 2 hours and as needed for patient comfort.? Use pillows or wedges to support off loading positions. 2. Off Load all bony prominences with use of pillows and heel boots if needed.? Apply Preventative foams where needed. ? 3. Monitor for incontinence and moisture control, use barrier creams when needed for prevention and treatment. 4. Provide adequate and supplemental nutrition.? 5. Continue low air loss mattress. 6. When applicable maintain blood glucose levels per Providers order. 7. Left Great toe and heel - Elevate heel off of bed surface with pillows or heel off loading boot. [facility] great toe wound with Betadine allow to dry. Apply skin prep to help heel cover with foam dressing. Change every 5 days and PRN. Re-consult wound care Nurse for wound deterioration or wound changes.
--- NOTE | 2024-09-11 15:02 | MHC.CLN ---
NUTRITION CONSULT FOR POOR PO AND DTI TO LEFT HEEL. DIET=REGULAR. ADDING ENSURE TID TO INCREASE NUTRITIONAL INTAKE. SUPPLEMENT PROVIDES 1050 KCALS, 60 G PROTEIN. PO INTAKE VARIABLE, WITH MOST MEALS 50% OR LESS. FOLLOW FOR PO INTAKE AND SKIN INTEGRITY. SEE CLINICAL NUTRITION ASSESSMENT 09/11/24.
[2024-09-11 15:08] LABS: Ammonia 49 umol/L (13-55)
[2024-09-11 15:14] LABS: Alanine Aminotransferase 22 U/L (0-40); Albumin Level 2.4 g/dL (3.5-5.0); Alkaline Phosphatase 145 U/L (39-117); Aspartate Amino Transferase 66 U/L (5-37); Bilirubin Direct 0.4 mg/dL (0.0-0.5); Bilirubin Total 0.7 mg/dL (0.0-1.0); Total Protein 6.5 g/dL (6.5-8.0)
[2024-09-11 15:51] LABS: Folate 3.9 ng/mL (> or = 4.0); Vitamin B12 385 pg/mL (200-900)
--- NOTE | 2024-09-11 15:51 | MHC.CM.PN ---
Per MD patient is not ready for discharge today. He has accepted a bed offer from [facility]. A HCP has been documented and sent to the facility. [facility] via BLS.
[2024-09-11] MEDS: cefTRIAXone sodium 2 GM VIAL IVPUSH (16:20)
[2024-09-11] MEDS: 0.9 % Sodium Chloride Flush 3 ML SYRINGE IVFLUSH (16:23)
[2024-09-11] MEDS: Morphine Sulfate 2 MG/ML CARTRIDGE IVPUSH (19:45)
[2024-09-11] MEDS: Docusate Sodium 100 MG CAPSULE 200 MG PO (19:48)
[2024-09-11] MEDS: Folic Acid 1 MG in 0.9 % Sodium Chloride 50 ML 100.4 MG IV (20:06)
[2024-09-11 23:54] LABS: Free T4 (Free Thyroxine) 0.67 ng/dL (0.71-1.85); Thyroid Stimulating Hormone 1.73 uIU/mL (0.32-4.0)
[2024-09-12] VITALS: BP 168/70; PULSE 90; RESP 18; TEMP 37.2; O2SAT 94
[2024-09-12 03:19] VITALS: BP 164/80; PULSE 85; RESP 18; TEMP 37.1; O2SAT 96
[2024-09-12] MEDS: Lactated Ringers 1,000 ML 80 ML IVCONT (03:34)
[2024-09-12 08:00] VITALS: BP 161/68; PULSE 83; RESP 18; TEMP 36.5; O2SAT 95
[2024-09-12] MEDS: busPIRone HCl 10 MG TABLET PO (08:10)
[2024-09-12] MEDS: polyethylene glycoL 3350 17 GM POWD.PACK PO (08:10)
[2024-09-12] MEDS: Morphine Sulfate 2 MG/ML CARTRIDGE IVPUSH (08:10)
[2024-09-12] MEDS: Sertraline HCL 100 MG TABLET 200 MG PO (08:10)
--- NOTE | 2024-09-12 08:17 | P.PNGS_ITS ---
Subjective Subjective Date of Service: 09/12/24 Interval history: c/o pain on surgical site no new complaints Physical Exam 2 Vital Signs: Vital Signs: Last Vital Signs Temp 97.7 F 09/12/24 08:00 Pulse 83 09/12/24 08:00 Resp 18 09/12/24 08:00 BP 161/68 H 09/12/24 08:00 Pulse Ox 95 09/12/24 08:00 O2 Del Method Room Air 09/12/24 08:00 O2 Flow Rate 2 09/10/24 23:16 BMI result Body Mass Index 34.9 Const: General: comfortable and no acute distress Resp: Effort & Inspection: normal respiratory effort Cardio: Rate: regular rate GI: Palpation (GI): Soft to palpation Extrem: Other: BKA site clean, dry, sutures intact, some ecchymoses anteriorly, flap viable looking Objective Data Active Medications Acetaminophen (Acetaminophen 325 Mg Tablet) 650 mg PO Q6H PRN PRN Reason: Pain, Mild (Pain Scale 1-3), fever or headache Last Admin: 09/11/24 05:48 Dose: 650 mg Documented By: GALINA Buspirone HCl (Buspirone Hcl 10 Mg Tablet) 10 mg PO TID [facility] Last Admin: 09/12/24 08:10 Dose: 10 mg Documented By: FELISA Calcium Carbonate (Calcium Carbonate 750 Mg Tab.Chew) 750 mg PO Q4H PRN PRN Reason: Heartburn Ceftriaxone Sodium (Ceftriaxone Sodium 2 Gm Vial) 2 gm IVPUSH Q24H [facility] Last Admin: 09/11/24 16:20 Dose: 2 gm Documented By: BARRY Clonidine HCl (Clonidine Hcl 0.1 Mg Tablet) 0.1 mg PO BEDTIME PRN; Protocol PRN Reason: Anxiety Docusate Sodium (Docusate Sodium 100 Mg Capsule) 200 mg PO BEDTIME [facility] Last Admin: 09/11/24 19:48 Dose: 200 mg Documented By: FRANCHESCA Lactated Ringer's (Lr) 1,000 mls @ 80 mls/hr IVCONT .[id number] [facility] Last Admin: 09/12/24 03:34 Dose: 80 mls/hr Documented By: FRANCHESCA Folic Acid 1 mg/ Sodium (Chloride) 50.2 mls @ 100.4 mls/hr IV DAILY [facility] Last Infusion: 09/11/24 20:41 Dose: Infused Documented By: FRANCHESCA Magnesium Hydroxide (Milk Of Magnesia 30 Ml Oral.Susp) 30 ml PO DAILY PRN PRN Reason: Constipation Melatonin (Melatonin 3 Mg Tablet) 6 mg PO BEDTIME PRN PRN Reason: Insomnia Last Admin: 09/07/24 20:34 Dose: 6 mg Documented By: LIZBETH Morphine Sulfate (Morphine Sulfate 2 Mg/Ml Cartridge) 2 mg IVPUSH Q4H PRN; Protocol PRN Reason: Pain, Severe (Pain Scale 7-10) Last Admin: 09/12/24 08:10 Dose: 2 mg Documented By: FELISA Naloxone HCl (Naloxone Hcl 0.4 Mg/Ml Vial) 0.04 mg IVPUSH Q5M PRN PRN Reason: Excessive sedation or RR < 8 Oxycodone HCl (Oxycodone Hcl Immed Release 5 Mg Tablet) 10 mg PO Q6H PRN PRN Reason: Pain, Moderate(Pain Scale 4-6) Last Admin: 09/11/24 16:18 Dose: 10 mg Documented By: BARRY Polyethylene Glycol (Polyethylene Glycol 3350 17 Gm Powd.Pack) 17 gm PO DAILY [facility] Last Admin: 09/12/24 08:10 Dose: 17 gm Documented By: FELISA Sertraline HCl (Sertraline Hcl 100 Mg Tablet) 200 mg PO DAILY [facility] Last Admin: 09/12/24 08:10 Dose: 200 mg Documented By: FELISA Sodium Chloride (0.9 % Sodium Chloride Flush 3 Ml Syringe) 3 ml IVFLUSH QSHIFT [facility] Last Admin: 09/11/24 19:50 Dose: Not Given Documented By: FRANCHESCA Non-Admin Reason: IV Running Labs 09/10/24 08:15 09/11/24 08:52 Labs: Laboratory Results - last 24 hr 09/11/24 09/11/24 08:52 14:53 Anion Gap 12 Estim Creat Clear Calc 99.8 Estimated GFR > 60 Random Glucose 91 Calcium 7.4 L D Magnesium 1.9 Total Bilirubin 0.7 Direct Bilirubin 0.4 AST 66 H ALT 22 Alkaline Phosphatase 145 H Ammonia 49 Total Protein 6.5 Albumin 2.4 L Vitamin B12 385 Folate 3.9 L TSH 1.73 Free T4 0.67 L Procedures Date of Service Date of Service: 09/12/24 Progress Note: A&P Assessment and plan (1) Toe gangrene: Status: Acute Assessment and Plan: S/P BKA, right dressings changed site looks well pain mgt wound care plan to dc sutures next week Time Spent With Patient Time: Total time managing care of this patient today ____ minutes. Quality Stroke Does the patient have a stroke diagnosis?: No VTE Prior VTE?: No VTE Risk Level:: Medical - moderate - high VTE Device Contraindication: N/A - Device Ordered VTE Drug Contraindication: Treatment Not Indicated
[2024-09-12] MEDS: Folic Acid 1 MG in 0.9 % Sodium Chloride 50 ML 100.4 MG IV (09:44)
[2024-09-12] MEDS: oxyCODONE HCl Immed Release 5 MG TABLET 10 MG PO (10:39)
[2024-09-12 12:00] VITALS: BP 153/72; PULSE 87; RESP 16; TEMP 36.6; O2SAT 92
--- NOTE | 2024-09-12 12:06 | P.CDIM_ITS ---
PROVIDER RESPONSE TEXT: To clarify, the appropriate diagnosis supported by the clinical indicators: Deep Tissue Injury left heel: possible QUERY TEXT: PHYSICIAN'S DOCUMENTATION REQUEST Date of Query: 09/12/2024 10:08 AM EST Patient Name: Fan Garza Admit Date: 09/05/2024 Dear Anne Rosas MD, A review of the medical record indicates additional documentation may be needed. Please review below and update the documentation accordingly. Clinical Indicators: Wound care assessment notes - Deep tissue injury left heel Boggy, maroon, non-blanchable area to left lateral heel. Foam dressing, heel offloaded on pillows. Based on the above, could you please provide further information regarding the ulcer/wound/injury: Deep Tissue Injury left heel possible, probable, suspected, etc Other (explain) Clinically unable to determine (explain) Thank you, Rafia Guzman, CCS, CDIS Use of terms such as suspected, likely, concern for, or probable (associated with a specific diagnosi s that is being evaluated, monitored, or treated as if it exists) are acceptable and can be coded in the inpatient se tting, when documented at the time of discharge. Please use your independent medical judgment in providing your response. THIS QUERY IS PART OF THE PERMANENT MEDICAL RECORD
--- NOTE | 2024-09-12 12:48 | MHC.CLN ---
F/U DIET=REGULAR.ENSURE TID TO INCREASE NUTRITIONAL INTAKE. SUPPLEMENT PROVIDES 1050 KCALS, 60 G PROTEIN. SKIN WITH DTI TO LEFT HEEL. CONTINUES WITH VARIABLE INTAKE, WITH MOST MEALS 50% OR LESS. FOLLOW FOR PO INTAKE AND SKIN INTEGRITY.
--- NOTE | 2024-09-12 13:19 | PM.DS ---
DS: Providers Provider Date of Service: 09/12/24 Date of admission: 09/04/24 21:07 Date of discharge: 09/12/24 Primary care physician: Darryl Domingo MD Consults: 09/04/24 21:21 Consult to Vascular Surgery Routine Consulting Provider: [facility] Reason for consultation: gangrenous right first toe 09/05/24 07:37 Consult to General Surgery Routine Consulting Provider: [facility] Reason for consultation: foot ulcer, gangrene needs ampuation Has provider been notified: Yes 09/05/24 21:26 Consult to Wound Care Routine Reason for consultation: chronic wound 09/06/24 08:06 Consult to Infectious Diseases Routine Consulting Provider: [facility] Reason for consultation: gram negative bacteremia 09/07/24 21:24 Consult to Wound Care Routine Reason for consultation: ? DTI, boggy left heel DS: Diagnosis Discharge Diagnosis (1) Toe gangrene: Status: Acute (2) Prolonged QT interval: Status: Acute (3) Hypokalemia: Status: Acute (4) Gangrene of toe of right foot: Status: Acute (5) Wound of foot: Status: Acute (6) PAD (peripheral artery disease): Status: Acute DS: Summary Hospital Course Hospital Course: Admission note HPI Patient is a 59-year-old male with a past medical history significant for peripheral artery disease status post amputation 2 through 5 digits right foot, scheduled for right great toe amputation with Dr. Bender on 09/06, HTN, depression, obesity, who presented to the ED today with severe right great toe pain. He reports that he is concerned that the toe good fall off. He rates the pain a 10/10, reports that he has been this significant for about 1 month but even worse today. It is also causing low back spasms. He denies any fever, chills, nausea, vomiting, abdominal pain or urinary symptoms. He does not have any chest pain, shortness of breath, or headache. Hospital course The patient was admitted for: # Gangrene right great toe with intractable pain and underlying infection status post BKA postoperative on 09/06 as he was evaluated by surgery team. Treated with iv vancomycin and zosyn ( 09/04 to 09/07), changed to Ceftriaxone 09/07 as blood cultures grew Proteus. Pain controlled with dilaudid and Oxycodone which can be used along Tylenol and Ibuprofen as needed. Needs daily dressing changes. To follow with dr Bender next week for sutures removal. # Proteus mirabilis bacteremia 2/2 blood cultures positive pansensitive. Treated with IV Ceftriaxone started 09/07 as repeated blood cultures came back negative. ID consulted and recommended to finish total of 2 weeks of Antibiotics. Will be discharged on 1 more week of Ceftin. # Acute Hypokalemia-- replaced and kept around 4 # Acute Hyponatremia--sodium improved to normal with hydration. # Prolonged QTc at 594 on admission likely due to electrolyte abnormalities. Improved to 520s upon discharge as electrolytes improved. no reported chest pain on palpitations during hospital stay. # Confusion, no focal neuro deficit while inpatient. believed to be due to surgery, hospital stay and narcotics, resolved. Discharge plan Continue Ceftin for 1 more week Follow up with dr Bender as outpatient for suture removal next week Keep leg elevated, wound care The patient will likely need less than 30 days of SNF stay. Time Attestation Discharge Coordination Time (in mins): 38 Quality: Safe Use of Opioids Does Pt have an Active Cancer Diagnosis on the Problem List?: No Quality: Stroke Does the patient have a stroke diagnosis?: No Physical Exam Vital Signs: Vital Signs: Last Vital Signs Temp 97.7 F 09/12/24 08:00 Pulse 83 09/12/24 08:00 Resp 18 09/12/24 08:00 BP 161/68 H 09/12/24 08:00 Pulse Ox 95 09/12/24 08:00 O2 Del Method Room Air 09/12/24 08:00 O2 Flow Rate 2 09/10/24 23:16 BMI result Body Mass Index 34.9 Const: Other: Constitutional : Awake, interactive, not in distress Neck : Normal inspection, Supple Cardiovascular : RRR, no JVP, no lower extremity edema Respiratory : good bilateral air entry, no crackles, wheezes or rhonchi Gastrointestinal: soft, lax, Normal bowel sounds, Non tender Skin : Warm, Dry Extremities: Right below knee amputation, BKA site clean, sutures intact, viable looking flap. Neurological : Alert & oriented x3, No focal deficit DS: Data Data Completed and Pending Completed studies during hospitalization [Text1]: Pending at discharge 09/06/24 15:21 Surgical [PTH] Routine Procedures Detachment at Right 5th Toe, Complete, Open Approach (04/25/24) Dilation of Right Anterior Tibial Artery using Drug-Coated Balloon, Percutaneous Approach (04/25/24) Excision of Right Foot Subcutaneous Tissue and Fascia, Open Approach (05/11/24) Excision of Right Foot Tendon, Open Approach (04/25/24) Labs on day of discharge: Laboratory Results - last 24 hr 09/11/24 09/11/24 08:52 14:53 Total Bilirubin 0.7 Direct Bilirubin 0.4 AST 66 H ALT 22 Alkaline Phosphatase 145 H Ammonia 49 Total Protein 6.5 Albumin 2.4 L Vitamin B12 385 Folate 3.9 L TSH 1.73 Free T4 0.67 L Preliminary micro results at discharge 09/09/24 00:31 Blood Culture - Preliminary Blood - Venous No growth after 48 hours. 09/09/24 00:32 Blood Culture - Preliminary Blood - Venous No growth after 48 hours. Imaging Chest x-ray: Radiologist's impression: ITS Impressions Foot X-Ray 09/04/24 21:20 IMPRESSION: 1. Dislocation at the MTP joint of the first digit. 2. Interval transmetatarsal amputations of the second third and fourth digits. 3. No definite evidence of osteomyelitis. If osteomyelitis is a consideration, recommend MRI. Electronically signed by: Lance Broussard MD 09/05/2024 12:31 AM EST RP Duplex Scan Lower Extremity Artery 09/05/24 10:04 IMPRESSION: 1. Focal moderate stenosis in the proximal superficial femoral artery with elevated velocity and noncalcified plaque. 2. Occlusion of the proximal and mid posterior tibial artery with reconstituted flow in the distal segment. No change compared to the prior exam Electronically signed by: Raman Dawn MD 09/05/2024 11:27 AM EST RP Chest X-Ray 09/09/24 16:15 IMPRESSION: Low lung volumes. No acute pulmonary disease. Electronically signed by: Sheyla Armenta DO 09/09/2024 05:16 PM EST RP Head CT 09/11/24 21:10 IMPRESSION: 1. No acute intracranial pathology. 2. Chronic microvascular ischemic changes and atrophy. 3. Paranasal sinus disease. Electronically signed by: Raman Dawn MD 09/11/2024 10:11 PM EST RP Discharge Plan Discharge Anticipated Discharge Date/Time: 09/12/24 12:04 Patient Disposition: Xfer SNF Discharge Diagnosis: Toe Gangrene, post amputations Referrals: [facility] [Outside] - 1 Week (transfer for short term rehab) Darryl Domingo MD [Primary Care Provider] - 1 Week Discharge Medications: New polyethylene glycol 3350 17 gram Powder In Packet 17 g PO DAILY Qty: 10 0RF docusate sodium 100 mg Capsule 200 mg PO BEDTIME Qty: 30 0RF oxycodone 5 mg Tablet 10 mg PO Q6H PRN (Reason: Pain, Moderate(Pain Scale 4-6)) Qty: 30 0RF Rx Instructions: Partial Fill upon patient request. folic acid 1 mg tablet 1 mg PO DAILY Qty: 30 0RF cefuroxime axetil 500 mg tablet 500 mg PO BID Qty: 42 0RF Continued sertraline 100 mg tablet 200 mg PO DAILY clonidine HCl 0.1 mg tablet 0.1 mg PO BEDTIME PRN (Reason: Anxiety) zolpidem 10 mg tablet 10 mg PO BEDTIME PRN (Reason: Sleep) buspirone 10 mg tablet 10 mg PO TID Discharge Orders: Discharge Order (Routine); Ordered 09/12/24 Ordered By: Anne Rosas Diet: Advance to usual diet Activity on Discharge: As tolerated Stand Alone Forms: Patient Portal Discharge page Print Language: Serbian Other Ambulatory Orders: Complete Blood Count Auto Diff (Routine) Timeframe: 1 Week Facility: [facility] - Location: Laboratory Ordered By: Anne Rosas Care Plan Goals: Continue Ceftin for 1 more week Follow up with dr Bender as outpatient for suture removal next week Keep leg elevated, wound care Health Concerns: Amputation below knee of right leg Proteus Bacteremia Plan of Treatment: Antibiotics Wound care Assessment: as above Discharge Date/Time: 09/12/24 15:33
--- NOTE | 2024-09-12 13:35 | MHC.CM.PN ---
Addendum entered by Brenna Kessler 09/12/24 14:28: HCP/DAUGHTER MIRIAM NOTIFIED ,PER PT'S REQUEST, OF [facility] Original Note: DP: PT HAS BEEN MEDICALLY CLEARED FOR DC TO STR AT [facility]. BLS TRANSPORT BOOKED FOR 3 PM [facility]IA [facility]. [facility] CENTER UPDATED ON TRANSFER TIME. FINAL IMM DELIVERED.
--- NOTE | 2024-09-12 13:40 | P.CNID_ITS ---
History of Present Illness Data of Consult Service Date: 09/12/24 Requesting physician: Anne Rosas Primary Care Provider: Darryl Domingo MD HPI Reason for consult: proteus mirabilis bacteremia 09/04,gangrene right leg He presents with right foot darkened color especially right great toe. He has PVD. He has proteus mirabilis bacteremia on 09/04 and now resolved x 2. He has pain in leg area. Review of Systems 2 Review of Systems: Yes all other systems are reviewed and are negative Musculoskeletal: Musculoskeletal: Reports radiating pain into limb PMFSH Past Medical History Medical History (Updated 09/12/24 @ 13:43 by Sujatha Roberts MD) Bacteremia Wound of foot Osteomyelitis Acute osteomyelitis Depression PAD (peripheral artery disease) Toe gangrene Family History Family history: reviewed and not pertinent Surgical History Surgical History Hx of surgical procedure (~08/03/24) Hx of amputation Abdominal wall hernia Hx of appendectomy Social History Social History Household Members: Family Housing: House Are you a primary healthcare administration intern to a significant other at home: No Do you presently have visiting nurse or other home services: No Comment: camera placed for impulsive behavior, confusion Patient Tobacco Use Status: Current everyday Tobacco user Tobacco use type: Cigarette Cigarette Packs Per Day: 0.5 Cigarettes Per Day: 10 Years Smoked: 43 e-Cigarette/Vaping Use: Never Used Second Hand Smoke Exposure: No Substance Use Type: Marijuana service: No Meds Allergies Allergy/AdvReac Type Severity Reaction Status Date / Time codeine [Codeine] Allergy Mild Rash Verified 09/07/24 09:33 Active Medications: Current Medications Acetaminophen (Acetaminophen 325 Mg Tablet) 650 mg PO Q6H PRN PRN Reason: Pain, Mild (Pain Scale 1-3), fever or headache Last Admin: 09/11/24 05:48 Dose: 650 mg Buspirone HCl (Buspirone Hcl 10 Mg Tablet) 10 mg PO TID [facility] Last Admin: 09/12/24 08:10 Dose: 10 mg Calcium Carbonate (Calcium Carbonate 750 Mg Tab.Chew) 750 mg PO Q4H PRN PRN Reason: Heartburn Ceftriaxone Sodium (Ceftriaxone Sodium 2 Gm Vial) 2 gm IVPUSH Q24H [facility] Last Admin: 09/11/24 16:20 Dose: 2 gm Clonidine HCl (Clonidine Hcl 0.1 Mg Tablet) 0.1 mg PO BEDTIME PRN; Protocol PRN Reason: Anxiety Docusate Sodium (Docusate Sodium 100 Mg Capsule) 200 mg PO BEDTIME [facility] Last Admin: 09/11/24 19:48 Dose: 200 mg Lactated Ringer's (Lr) 1,000 mls @ 80 mls/hr IVCONT .[id number] [facility] Last Admin: 09/12/24 03:34 Dose: 80 mls/hr Folic Acid 1 mg/ Sodium (Chloride) 50.2 mls @ 100.4 mls/hr IV DAILY [facility] Last Infusion: 09/12/24 10:31 Dose: Infused Magnesium Hydroxide (Milk Of Magnesia 30 Ml Oral.Susp) 30 ml PO DAILY PRN PRN Reason: Constipation Melatonin (Melatonin 3 Mg Tablet) 6 mg PO BEDTIME PRN PRN Reason: Insomnia Last Admin: 09/07/24 20:34 Dose: 6 mg Morphine Sulfate (Morphine Sulfate 2 Mg/Ml Cartridge) 2 mg IVPUSH Q4H PRN; Protocol PRN Reason: Pain, Severe (Pain Scale 7-10) Last Admin: 09/12/24 08:10 Dose: 2 mg Naloxone HCl (Naloxone Hcl 0.4 Mg/Ml Vial) 0.04 mg IVPUSH Q5M PRN PRN Reason: Excessive sedation or RR < 8 Oxycodone HCl (Oxycodone Hcl Immed Release 5 Mg Tablet) 10 mg PO Q6H PRN PRN Reason: Pain, Moderate(Pain Scale 4-6) Last Admin: 09/12/24 10:39 Dose: 10 mg Polyethylene Glycol (Polyethylene Glycol 3350 17 Gm Powd.Pack) 17 gm PO DAILY [facility] Last Admin: 09/12/24 08:10 Dose: 17 gm Sertraline HCl (Sertraline Hcl 100 Mg Tablet) 200 mg PO DAILY [facility] Last Admin: 09/12/24 08:10 Dose: 200 mg Sodium Chloride (0.9 % Sodium Chloride Flush 3 Ml Syringe) 3 ml IVFLUSH QSHIFT [facility] Last Admin: 09/12/24 10:58 Dose: Not Given Home Medications ?Medication ?Instructions ?Recorded ?Confirmed ?Last Taken ?Type buspirone 10 mg tablet 10 mg PO TID 04/03/22 09/04/24 09/03/24 History clonidine HCl 0.1 mg tablet 0.1 mg PO BEDTIME PRN Anxiety 04/03/22 09/04/24 09/03/24 History zolpidem 10 mg tablet 10 mg PO BEDTIME PRN Sleep 04/03/22 09/04/24 09/03/24 History sertraline 100 mg tablet 200 mg PO DAILY 05/11/24 09/04/24 09/03/24 History Physical Exam 2 Vital Signs: Vital Signs: Last Vital Signs Temp 97.9 F 09/12/24 12:00 Pulse 87 09/12/24 12:00 Resp 16 09/12/24 12:00 BP 153/72 H 09/12/24 12:00 Pulse Ox 92 09/12/24 12:00 O2 Del Method Room Air 09/12/24 12:00 O2 Flow Rate 2 09/10/24 23:16 BMI result Body Mass Index 34.9 Const: General: cooperative HEENT: Head: Yes normal to inspection Face and sinus: Yes normal facial exam Mouth: Normal oral and palatal mucosa present Teeth and gingiva: d entition normal Eyes: General: appearance normal, both eyes and all related structures P upils: Equal, round and reactive pupils present Resp: Effort & Inspection: normal respiratory effort Cardio: Rate: regular rate Rhythm: regular rhythm GI: Palpation (GI): Soft to palpation and nontender : General: Yes no CVA tenderness Back/Spine/Pelvis: Back: no CVA tenderness Skin: General skin exam: no rashes or lesions noted Neuro: General: moves all extremities Cranial nerves: Yes Equal, round and reactive pupils present Extrem: Other: right BKA Psych: Appearance: grossly normal Results Labs 09/10/24 08:15 09/11/24 08:52 Labs: Liver Function 09/11/24 Range/Units 08:52 Total Bilirubin 0.7 (0.0-1.0) mg/dL Direct Bilirubin 0.4 (0.0-0.5) mg/dL AST 66 H (5-37) U/L ALT 22 (0-40) U/L Alkaline Phosphatase 145 H (39-117) U/L Albumin 2.4 L (3.5-5.0) g/dL Microbiology Microbiology Results: Microbiology 09/09/24 00:31 Blood - Venous Blood Culture - Preliminary No growth after 48 hours. 09/09/24 00:32 Blood - Venous Blood Culture - Preliminary No growth after 48 hours. 09/04/24 16:15 Blood - Venous Blood Culture - Final Proteus mirabilis 09/04/24 16:01 Blood - Venous Blood Culture - Final Proteus mirabilis Assessment and Plan (1) Gangrene of toe of right foot: Status: Acute (2) Wound of foot: Status: Acute (3) PAD (peripheral artery disease): Status: Acute (4) Bacteremia: Status: Acute Plan Po Ceftin for total four weeks.
[2024-09-12] MEDS: Calcium Carbonate 750 MG TAB.CHEW PO (13:47)
[2024-09-12 15:15] VITALS: BP 161/76; PULSE 81; RESP 15; TEMP 36.8; O2SAT 96
[2024-09-13 11:04] LABS: Triiodothyronine T3 Free 1.7 pg/mL (2.3-4.2)
== END 2024-09-12 15:33 | disposition skilled nursing facility (03) | DRG 240 ==
LOC: HO.ED 19:02 → HO.EDOVER 21:18 → HO.S3 09-05 20:03
PROVIDERS: Anesthesiology; Internal Medicine; Student in an Organized Health Care Education/Training Program; Surgery; Admitting Provider Physician Assistant; Emergency Provider Emergency Medicine; PCP Internal Medicine; Visit Provider Student in an Organized Health Care Education/Training Program
PROC: 0Y6H0Z2 Detachment at Right Lower Leg, Mid, Open Approach (ICD-10-PCS; CPT 27880; principal; 2024-09-06 14:00)
DX: I70.261 Atherosclerosis of native arteries of extremities with gangrene, right leg (principal); E87.1 Hypo-osmolality and hyponatremia; R78.81 Bacteremia; B96.4 Proteus (mirabilis) (morganii) as the cause of diseases classified elsewhere; F39 Unspecified mood [affective] disorder; E66.811 Obesity, class 1; Z71.3 Dietary counseling and surveillance; D69.6 Thrombocytopenia, unspecified; E87.6 Hypokalemia; L89.626 Pressure-induced deep tissue damage of left heel; Z68.34 Body mass index [BMI] 34.0-34.9, adult; G89.18 Other acute postprocedural pain; R94.31 Abnormal electrocardiogram [ECG] [EKG]; F17.210 Nicotine dependence, cigarettes, uncomplicated; Z20.822 Contact with and (suspected) exposure to COVID-19; Z71.6 Tobacco abuse counseling; Z79.899 Other long term (current) drug therapy
CPT/HCPCS: 0241U; 36415; 70450; 71045; 73630; 80048; 80053; 80076; 80202; 81003; 82140; 82607; 82746; 83605; 83735; 84439; 84443; 84481; 84484; 85025; 85027; 85610; 86850; 86900; 86901; 87040; 87077; 87186; 87205; 88307; 88311; 93005; 93926; 97162; 97530; 99285; J0131; J0696; J1100; J1171; J1650; J2003; J2250; J2270; J2405; J2543; J2704; J2795; J3010; J3370; J3371; J3480; J7120

== ENCOUNTER → 2024-09-04 15:20 | Outpatient (BNV) | payer MEDICARE, SELFPAY | PROVIDERS: Emergency Provider Emergency Medicine; PCP Internal Medicine; Visit Provider Internal Medicine | DX: I49.1 Atrial premature depolarization (principal); R94.31 Abnormal electrocardiogram [ECG] [EKG] | CPT/HCPCS: 93010 ==

== ENCOUNTER 2024-09-04 21:07 | Outpatient (BNV) | payer MEDICARE, SELFPAY | END 2024-09-11 08:24 | PROVIDERS: Admitting Provider Physician Assistant; Emergency Provider Emergency Medicine; PCP Internal Medicine; Visit Provider Internal Medicine Cardiovascular Disease | DX: R94.31 Abnormal electrocardiogram [ECG] [EKG] (principal); I49.1 Atrial premature depolarization | CPT/HCPCS: 93010 ==

== ENCOUNTER 2024-09-04 21:07 | Outpatient (BNV) | payer MEDICARE, SELFPAY | END 2024-09-08 11:10 | PROVIDERS: Admitting Provider Physician Assistant; Emergency Provider Emergency Medicine; PCP Internal Medicine; Visit Provider Internal Medicine | DX: R94.31 Abnormal electrocardiogram [ECG] [EKG] (principal); I49.3 Ventricular premature depolarization | CPT/HCPCS: 93010 ==

== ENCOUNTER → 2024-09-04 21:07 | Outpatient (BNV) | payer MEDICARE, SELFPAY | PROVIDERS: Admitting Provider Physician Assistant; Emergency Provider Emergency Medicine; PCP Internal Medicine; Visit Provider Physician Assistant | DX: I96 Gangrene, not elsewhere classified (principal); E87.6 Hypokalemia; Z89.511 Acquired absence of right leg below knee | CPT/HCPCS: 99223; 99232; 99233; 99239 ==

== ENCOUNTER → 2024-09-04 21:07 | Outpatient (BNV) | payer MEDICARE, SELFPAY | PROVIDERS: Admitting Provider Physician Assistant; Emergency Provider Emergency Medicine; PCP Internal Medicine; Visit Provider Physician Assistant Surgical | DX: I96 Gangrene, not elsewhere classified (principal) | CPT/HCPCS: 99222; 99499 ==

== ENCOUNTER → 2024-09-04 21:07 | Outpatient (BNV) | payer MEDICARE, SELFPAY | PROVIDERS: Admitting Provider Physician Assistant; Emergency Provider Emergency Medicine; PCP Internal Medicine; Visit Provider Surgery | DX: I96 Gangrene, not elsewhere classified (principal) | CPT/HCPCS: 27880; 99024; 99499 ==

== ENCOUNTER → 2024-09-04 21:07 | Outpatient (BNV) | payer MEDICARE, SELFPAY | PROVIDERS: Admitting Provider Physician Assistant; Emergency Provider Emergency Medicine; PCP Internal Medicine; Visit Provider Internal Medicine | DX: I73.9 Peripheral vascular disease, unspecified (principal); I96 Gangrene, not elsewhere classified; S91.309A Unspecified open wound, unspecified foot, initial encounter; R78.81 Bacteremia | CPT/HCPCS: 99222 ==